=== PATIENT | male | born 1940 | race Caucasian/White ===

== ENCOUNTER → 2016-08-15 | Outpatient (CLI) | payer OTHER, MEDICARE ==
[~2016-08-15] MED LIST: CHOL1000 PO; DOXY100C76 PO; LISI20TA3 PO; LORA-749 PO; MILK140C PO; PRED1SUS3 OPL; SNG10 PO; SYMIN160 INH
[2016-08-15 12:55] VITALS: BP 151/80; PULSE 68; TEMP 37; O2SAT 98
--- NOTE | 2016-08-15 17:35 | Radiation Oncology Follow-Up ---
Radiation Oncology Follow-Up Date of Visit August 15, 2016. Reason For Visit Annual follow-up Radiation Completion Date 12/17/11 Diagnosis (1) Prostate cancer Status: Resolved Onset Date: 09/27/2011 Location: prostate with extraprostatic extension Histology Subtype: adenocarcinoma Stage: lll Permanent Comment: Rising PSA, pretreatment PSA 7.44 clinical stage TIc Biopsy stage T2b Charles grade 3+2 and 3+3 Active surveillance Recheck PSA 10.2, repeat biopsy [place] 3+3, biopsy stage T2b Continued rise in PSA Status post robotic prostatectomy 07/10/2011, stage [id number] Status post completion of radiation therapy the prostate bed 12/17/2011 received 7000 cGy Last Edited By: Jennifer Brown on August 11, 2014 14:29 Interim History He has been doing well over this past year for a urinary standpoint. He gave an AUA score of 3. He completed and expanded prostate cancer index composite for clinical practice and gave a score of 3 of 12 and urinary incontinence symptoms. He gave a score of 0 of 12 urinary irritation symptoms. He gave a score of 0 of 12 and bowel symptoms. He gave a score of 10 of 12 in sexual symptoms. He gave a score 0 of 12 and hormonal vitality symptoms. His total was 13 of 60. Medications have been prescribed by Dr. Galan for the erectile dysfunction. He stated that these did not help. He has previously declined referral for [place] physical therapy to help with the urinary incontinence. Allergies Coded Allergies: No Known Allergies (Unverified , NONE, 07/25/15) Home Medications Scheduled Cholecalciferol (Vitamin D3), 1 TAB PO DAILY Lisinopril (Prinivil), 20 MG PO QAM Milk Thistle (Silybum Marianum (Milk Thistle), 1 CAP PO QAM Montelukast (Singulair *), 10 MG PO NOON Scheduled PRN Budesonide/Formoterol Fumarate (Symbicort 160/4.5 Inhaler ), 2 PUFFS INH BID PRN for Shortness of Breath Doxycycline Monohydrate (Monodox), 100 MG PO DAILY PRN for UNDECIDED Loratadine & Pseudoephedrine (Claritin-D 24 Hour), 1 TAB PO DAILY PRN for CONGESTION Review of Systems Gastrointestinal: Symptoms: WNL GI Comments: No fiber supplements; Oral: Symptoms: No Problems Respiratory: Symptoms: WNL Urinary: Symptoms: Incontinence Comments: Some improvement of his incontinence;only occurs if he drinks wine ; Skin: Symptoms: No Problems Physical Exam Vital Signs Date Time Temp Pulse Resp B/P Pulse Ox O2 Delivery O2 Flow Rate FiO2 08/15/16 12:55 37.0 68 24 151/80 98 Fatigue: None General Appearance: no apparent distress Eyes: normal inspection, EOMI ENT: normal ENT inspection, hearing grossly normal Neck: no adenopathy, thyroid normal Respiratory/Chest: lungs clear, no respiratory distress, no accessory muscle use Cardiovascular: regular rate, rhythm Abdomen: non tender Anal / Rectum: Normal sphincter tone. Prostate bed is flat. No rectal masses no rectal bleeding. Extremities: no pedal edema Neurologic/Psychiatric: no motor/sensory deficits, alert, normal mood/affect Laboratory Studies Test 08/15/16 13:30 Prostate Specific Antigen < 0.010 ng/ml (0.000-4.000) Assessment & Plan Plan: PSA was drawn today. He'll be notified as to results. We reviewed his PSAs over the past few years. These have all been excellent. A follow-up appointment with our office was not given. He'll continue on an annual basis with urology. He may call our office if he has any questions or concerns may be happy to see him. Total Time In Follow-Up I spent 20 minutes speaking to the patient and performing examination. I spent 15 minutes reviewing information and completing this note. Copy To Wil Sorto M.D.; Lenin Galan MD, Urology
== END | disposition home or self-care (01) ==
LOC: C.ONC 12:41
PROVIDERS: ATTEND Physician Assistant Medical
DX: Z08 Encounter for follow-up examination after completed treatment for malignant neoplasm (principal); Z92.3 Personal history of irradiation; Z85.46 Personal history of malignant neoplasm of prostate

== ENCOUNTER → 2016-10-08 | Outpatient (CLI) | payer OTHER, MEDICARE ==
[~2016-10-08] MED LIST changes: -LORA-749 PO; +LORA10TA57 PO; -PRED1SUS3 OPL
[2016-10-08 11:04] LABS: BASO % 0.2 %; BASO ABS # 0.01 K/uL (0-0.2); COMPLETE YES; EOS % 1.7 %; HEMATOCRIT 44.6 % (42-52); IG% 0.2 %; LYMPH % 28.8 %; LYMPH ABS # 1.36 K/uL (1.2-3.4); MEAN CELL VOLUME 89.2 fL (80-100); MEAN CORPUSCULAR HEMOGLOBIN 29.4 pg (25-34); MEAN PLATELET VOLUME 9.7 fL (7.4-10.4); MONO % 18.4 %; NEUT % 50.7 %; PLATELET COUNT 278 K/uL (130-400); WHITE BLOOD COUNT 4.73 K/uL (4.8-10.8)
[2016-10-08 11:22] LABS: ALB/GLOB RATIO 1.2 (0.9-2); ALKALINE PHOSPHATASE 61 U/L (45-117); ALT/SGPT 36 U/L (12-78); AST/SGOT 29 U/L (15-37); BLOOD UREA NITROGEN 23 mg/dl (7-18); BUN/CREATININE RATIO 25.7 (10-20); CALCIUM 9.5 mg/dl (8.5-10.1); CARBON DIOXIDE 28 mmol/L (21-32); CHLORIDE 107 mmol/L (98-107); CHOLESTEROL 237 mg/dl (0-200); CHOLESTEROL/HDL RATIO 2.8; CREATININE 0.88 mg/dl (0.60-1.40); GLUCOSE 100 mg/dl (70-99); HDL CHOLESTEROL 86 mg/dl; SODIUM 142 mmol/L (136-145)
[2016-10-08 11:36] LABS: LDL CHOLESTEROL CALCULATED 135 mg/dl; TRIGLYCERIDES 79 mg/dl (0-150); VERY LOW DENSITY LIPOPROT CALC 16 mg/dl
== END | disposition home or self-care (01) ==
LOC: C.LABBC 07:16
PROVIDERS: ATTEND Internal Medicine
DX: E55.9 Vitamin D deficiency, unspecified (principal)

== ENCOUNTER → 2017-04-29 | Outpatient (CLI) | payer OTHER, MEDICARE ==
[~2017-04-29] MED LIST changes: +LORA-749 PO; -LORA10TA57 PO
== END | disposition home or self-care (01) ==
LOC: C.LAB 13:08
PROVIDERS: ATTEND Urology
DX: C61 Malignant neoplasm of prostate (principal); N52.9 Male erectile dysfunction, unspecified; N39.3 Stress incontinence (female) (male)

== ENCOUNTER 2020-05-01 20:49 | Inpatient (IN) ==
--- NOTE | 2020-05-01 21:23 | Emergency Department Note ---
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 He also reports recently having diarrhea last week that has been improving and a dry cough over the past couple of weeks. He denies any known COVID-19 exposures and has not had any visitors that he reports. He denies any chest pain, shortness of breath, nausea, vomiting, urinary symptoms. On arrival the patient fatigued appearing but no acute distress, febrile to 38.0, heart in the 100s and blood pressure 200/100s with O2 saturation 95% on room air. The patient appears clinically dry. He does exhibit 4/5 strength in all extremities with impaired coordination of the upper extremities which she reports is not abnormal for him. EKG without overt acute ischemia. Chest x-ray negative for acute cardiopulmonary process per my preliminary review. WBC 11.3K. H/H and platelets within normal limits. Chemistry without metabolic acidosis. VBG unremarkable. Potassium 3.1 repletion provided. Lactate 1.4, within normal limits. Total bili 1.5 with direct bilirubin 0.6, nonspecific given no upper abdominal pain. LFTs unremarkable. CPK within normal limits. Troponin negative/undetectable. Procalcitonin 0.08, nonspecific. COVID-19 PCR negative. Influenza and RSV PCR also negative. Patient was ordered for 2 g of ceftriaxone empirically with suspicion for urinary infection. CT of the head and CT of the pelvis performed. CT head negative for acute process per preliminary stat rad report. CT and pelvis with evidence of cystitis with thickened bladder as well as thickening and enhancement of left urothelium. Right inguinal hernia without obstruction and is similar to prior CT. Urine sample pending as patient missed the urinal. Patient agrees with admission given his weakness in the setting of infection. Dr. ANA CRISTINA Mcginnis hospitalist will evaluate the patient for admission. Triage Nursing notes reviewed and agree them. Prior medical records reviewed Vital Signs: reviewed and remarkable for fever, tachycardia. Differential diagnosis: Infection, dehydration, metabolic abnormality, hypo/hyperglycemia, electrolyte disturbance, anemia, hypoxia, cardiac sources, intracerebral event, toxicologic, neurologic, as well as other pathologies. ER treatment provided: See below. Diagnostics interpreted by me: ECG: Sinus rhythm with PACs with aberrant conduction, 97 bpm, right bundle branch block, no overt ST elevation or depression, QTC 492, QRS 142. Cardiac Monitoring: An order for continuous cardiac monitoring was placed and demonstrated sinus rhythm with PACs with aberrant conduction, 97 bpm. Laboratory studies: See below Imaging studies: CXR: No acute cardiopulmonary process per my preliminary review. STATRAD: Preliminary Findings Only See Final Report For Complete Findings CT HEAD: Motion. No ICH, mass effect or edema. No evidence of acute cortical stroke. Involutional changes with small vessel ischemic change. Cataract surgery Visualized sinuses and mastoid air cells are clear. Radiologist: Justus Boucher M.D. Study ready at 00:54 and initial results transmitted at 01:01 -- Preliminary Findings Only See Final Report For Complete Findings CT ABDOMEN & PELVIS With Contrast: Thickening and enhancement especially of the left urothelium suggesting inflammatory process or infection. Under distended and thickened bladder, may be from cystitis or infiltrative process. No radiodense gallstones or pancreatitis. Left renal cyst. Unremarkable appendix. No evidence of colitis or diverticulitis. Right inguinal hernia containing bowel and fat. No bowel obstruction. Degenerative changes in the spine with associated spinal stenosis. Radiologist: Justus Boucher M.D. Study ready at 01:00 and initial results transmitted at 01:05 Consultation(s): ANA CRISTINA Carson hospitalist. 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 He also reports recently having diarrhea last week that has been improving and a dry cough over the past couple of weeks. He denies any known COVID-19 exposures and has not had any visitors that he reports. He denies any chest pain, shortness of breath, nausea, vomiting, urinary symptoms. ROS: See above HPI for pertinent positives & negatives. A total of 10 systems reviewed and were otherwise negative. PAST MEDICAL HISTORY:See Below PAST SURGICAL HISTORY:See Below FAMILY HISTORY:See Below SOCIAL HISTORY:See Below HOME MEDICATIONS:See Below ALLERGIES:See Below VITALS:See Below PHYSICAL EXAMINATION: GENERAL: Awake, alert, fatigued-appearing, in no distress HENT: Normocephalic, atraumatic. Oropharynx with dry mucous membranes and otherwise unremarkable. EYES: Normal conjunctiva. Sclera non-icteric. NECK: Supple. No nuchal rigidity. FROM. No JVD. RESPIRATORY: Clear to auscultation. CARDIAC: Regular rate, normal rhythm. Extremities warm and well perfused. Pulses equal. ABDOMEN: Soft, non-distended. No tenderness to palpation. No rebound or guarding. No masses. RECTAL: Deferred. MUSCULOSKELETAL: Chest examination reveals no tenderness. The back is symmetrical on inspection without obvious abnormality. There is no CVA tenderness to palpation. No joint edema. LOWER EXTREMITIES: Calves are equal size bilaterally and non-tender. No edema. No discoloration. NEURO: Normal sensorium. No sensory or motor deficits noted. SKIN: No rash or jaundice noted. Edy Pelaez MD Past Med/Surg History Medical History (Updated 05/02/20 @ 01:14 by Edy Pelaez MD) Benign neoplasm of large intestine Hyperlipidemia Hypertension Leukopenia Male stress incontinence Organic impotence Prostate cancer (09/27/11) "Rising PSA, pretreatment PSA 7.44 clinical stage TIc Biopsy stage T2b Charles grade 3+2 and 3+3 Active surveillance Recheck PSA 10.2, repeat biopsy [place] 3+3, biopsy stage T2b Continued rise in PSA Status post robotic prostatectomy 07/10/2011, stage [id number] Status post completion of radiation therapy the prostate bed 12/17/2011 received 7000 cGy" Quadriparesis Rosacea Vitamin D deficiency Surgical History H/O prostatectomy H/O Spinal surgery Hx of tonsillectomy Family History Mother Lung cancer Breast cancer Other Alcoholism in family Social History Smoking Status: Never smoker Second Hand Exposure: No; Hx Alcohol Use: No Hx Substance Use: No Preferred Language: Turkmen Communication Ability: Effective Visual Impairment: Partially Limited Hearing Ability: Hard of Hearing Solvent Mixer Required: No Beliefs That Will Affect Care: None marital status: Single Current Living Situation: Alone current occupational status: retired Feels Safe at Home: Yes Childhood Exposure to Second-Hand Smoke: Yes caffeine: Yes Dental Care, Regularly: Yes Physical Activity Frequency: 3-4 Times per Week Seatbelt Use: always Sunscreen Use: No Assistive Devices: Glasses Allergies Allergies Allergy/AdvReac Type Severity Reaction Status Date / Time No Known Allergies Allergy Mild NONE Verified 05/01/20 21:51 Home Meds Home Medications Medication Instructions Recorded Confirmed cholecalciferol (vitamin D3) 25 2,000 units PO DAILY cap 11/11/18 05/01/20 mcg (1,000 unit) capsule loratadine 5 mg-pseudoephedrine ER 1 tab PO Q12H PRN tab 11/11/18 05/01/20 120 mg tablet,extended release,12hr Previous Rx's Medication Instructions Recorded montelukast 10 mg tablet 10 mg PO DAILY #90 tab 07/08/19 lisinopril 20 mg tablet 20 mg PO QAM #90 tab 07/23/19 Results & Data (ED) Vital Signs Vital Signs - 24 hr 05/01/20 20:50 05/01/20 21:02 05/01/20 22:25 Temperature 38.0 C H Temperature Source Oral Pulse Rate 106 H Pulse Rate [Right Finger] 100 H Pulse Rate from SpO2 Sensor Respiratory Rate 18 22 Respiratory Effort / Characteristics Non-Labored Spontaneous Non-Labored Spontaneous Respiratory Depth Normal Normal Respiratory Pattern Regular Regular Blood Pressure 204/113 H Blood Pressure [Right Arm] 193/123 H Blood Pressure Mean 143 Blood Pressure Mean [Right Arm] 146 Blood Pressure Position Lying Blood Pressure Position [Right Arm] Lying Pulse Oximetry 95 95 96 Oxygen Delivery Method Room Air Room Air Room Air Sepsis Recent Fever Within 48 Hours Yes Sepsis New/Unexplained Change in Mental Status No Sepsis Action Taken by Nursing No Action Required 05/01/20 23:36 05/02/20 00:42 05/02/20 01:00 Temperature 37.3 C Temperature Source Oral Pulse Rate 94 H 78 Pulse Rate [Right Finger] 88 Pulse Rate from SpO2 Sensor 92 H 78 Respiratory Rate 18 20 20 Respiratory Effort / Characteristics Non-Labored Spontaneous Respiratory Depth Normal Respiratory Pattern Regular Blood Pressure 178/118 H 138/88 Blood Pressure [Right Arm] 166/113 H Blood Pressure Mean 138 104 Blood Pressure Mean [Right Arm] 130 Blood Pressure Position Blood Pressure Position [Right Arm] Lying Pulse Oximetry 95 96 95 Oxygen Delivery Method Room Air Room Air Room Air Sepsis Recent Fever Within 48 Hours Sepsis New/Unexplained Change in Mental Status Sepsis Action Taken by Nursing 05/02/20 01:30 05/02/20 02:00 Temperature Temperature Source Pulse Rate 78 77 Pulse Rate [Right Finger] Pulse Rate from SpO2 Sensor 78 73 Respiratory Rate 22 20 Respiratory Effort / Characteristics Respiratory Depth Respiratory Pattern Blood Pressure 159/94 H 158/119 H Blood Pressure [Right Arm] Blood Pressure Mean 115 132 Blood Pressure Mean [Right Arm] Blood Pressure Position Blood Pressure Position [Right Arm] Pulse Oximetry 97 96 Oxygen Delivery Method Room Air Room Air Sepsis Recent Fever Within 48 Hours Sepsis New/Unexplained Change in Mental Status Sepsis Action Taken by Nursing Laboratory Data Attestation: I reviewed the patient's lab results. Result diagrams: 05/01/20 22:32 05/01/20 22:32 Lab Results 05/01/20 05/01/20 05/01/20 Range/Units 21:51 21:51 22:32 WBC 11.36 H (4.8-10.8) K/uL RBC 5.17 (4.7-6.1) M/uL Hgb 15.2 (14.0-18.0) g/dL Hct 43.7 (42-52) % MCV 84.5 (80-100) fL MCH 29.4 (25-34) pg MCHC 34.8 (32-36) g/dL RDW Std Deviation 43.8 (36.4-46.3) fL RDW Coeff of Rocky 14.0 (11.5-14.5) % Plt Count 353 (130-400) K/uL MPV 8.5 (7.4-10.4) fL Immature Gran % (Auto) 0.4 % Neut % (Auto) 82.8 % Lymph % (Auto) 7.9 % Collier % (Auto) 8.5 % Eos % (Auto) 0.3 % Baso % (Auto) 0.1 % Neut # (Auto) 9.42 H (1.4-6.5) K/uL Lymph # (Auto) 0.90 L (1.2-3.4) K/uL [place] # (Auto) 0.96 H (0.11-0.59) K/uL Eos # (Auto) 0.03 (0-0.5) K/uL Baso # (Auto) 0.01 (0-0.2) K/uL Immature Gran # (Auto) 0.04 H (0.00-0.02) K/uL PT (9.0-12.0) Seconds INR (0.9-1.1) APTT (21.0-31.0) Seconds PTT Ratio VBG pH (7.36-7.41) VBG pCO2 (38-50) mmHg VBG pO2 mmHg VBG HCO3 mmol/L VBG O2 Saturation % VBG Base Excess mEq/L Barometric Pressure mm/Hg Sodium (136-145) mmol/L Potassium (3.5-5.1) mmol/L Chloride (98-107) mmol/L Carbon Dioxide (21-32) mmol/L Anion Gap (3-11) BUN (7-18) mg/dl Creatinine (0.6-1.4) mg/dl Est Cr Clr Drug Dosing ml/min Est GFR ( Amer) Est GFR (Non-Af Amer) BUN/Creatinine Ratio (10-20) Glucose (70-99) mg/dl Lactate (0.4-2.0) mmol/L Calcium (8.5-10.1) mg/dl Phosphorus (2.5-4.9) mg/dl Magnesium (1.8-2.4) mg/dl Total Bilirubin (0.2-1) mg/dl Direct Bilirubin (0-0.2) mg/dl AST (15-37) U/L ALT (12-78) U/L Alkaline Phosphatase (45-117) U/L Total Creatine Kinase (39-308) U/L Troponin I (0-0.045) ng/ml Total Protein (6.4-8.2) gm/dl Albumin (3.4-5.0) gm/dl Globulin (2.5-4.0) gm/dl Albumin/Globulin Ratio (0.9-2) Lipase (73-393) U/L Procalcitonin (0-0.5) ng/ml TSH (0.300-4.500) uIu/ml Urine Color Urine Appearance (Clear) Urine pH (4.5-7.5) Ur Specific Taylor (1.000-1.030) Urine Protein (Negative) Urine Glucose (UA) (Negative) Urine Ketones (Negative) Urine Blood (Negative) Urine Nitrite (Negative) Urine Bilirubin (Negative) Urine Urobilinogen (Negative) Ur Leukocyte Esterase (Negative) Urine WBC (Auto) (0-5) /hpf Urine RBC (Auto) (0-4) /hpf U Hyaline Cast (Auto) (0-5) /lpf U Epithel Cells (Auto) (0-5) /lpf Urine Bacteria (Auto) (Negative) Urine Yeast COVID-19 Eval Order CovFluRsv at [facility] SARS-CoV-2 (PCR) NEGATIVE (Negative) Influenza Type A (PCR) Negative (Neg) Influenza Type B (PCR) Negative (Neg) RSV (RT-PCR) Negative (Neg) 05/01/20 05/01/20 05/01/20 Range/Units 22:32 22:32 22:32 WBC (4.8-10.8) K/uL RBC (4.7-6.1) M/uL Hgb (14.0-18.0) g/dL Hct (42-52) % MCV (80-100) fL MCH (25-34) pg MCHC (32-36) g/dL RDW Std Deviation (36.4-46.3) fL RDW Coeff of Rocky (11.5-14.5) % Plt Count (130-400) K/uL MPV (7.4-10.4) fL Immature Gran % (Auto) % Neut % (Auto) % Lymph % (Auto) % [place] % (Auto) % Eos % (Auto) % Baso % (Auto) % Neut # (Auto) (1.4-6.5) K/uL Lymph # (Auto) (1.2-3.4) K/uL [place] # (Auto) (0.11-0.59) K/uL Eos # (Auto) (0-0.5) K/uL Baso # (Auto) (0-0.2) K/uL Immature Gran # (Auto) (0.00-0.02) K/uL PT 11.5 (9.0-12.0) Seconds INR 1.1 (0.9-1.1) APTT 27.6 (21.0-31.0) Seconds PTT Ratio 1.0 VBG pH (7.36-7.41) VBG pCO2 (38-50) mmHg VBG pO2 mmHg VBG HCO3 mmol/L VBG O2 Saturation % VBG Base Excess mEq/L Barometric Pressure mm/Hg Sodium 133 L (136-145) mmol/L Potassium 3.1 L (3.5-5.1) mmol/L Chloride 97 L (98-107) mmol/L Carbon Dioxide 27 (21-32) mmol/L Anion Gap 9.0 (3-11) BUN 10 (7-18) mg/dl Creatinine 0.93 (0.6-1.4) mg/dl Est Cr Clr Drug Dosing 68.6 ml/min Est GFR ( Amer) 90.2 Est GFR (Non-Af Amer) 77.8 BUN/Creatinine Ratio 10.3 (10-20) Glucose 93 (70-99) mg/dl Lactate 1.4 (0.4-2.0) mmol/L Calcium 9.2 (8.5-10.1) mg/dl Phosphorus 2.7 (2.5-4.9) mg/dl Magnesium 2.1 (1.8-2.4) mg/dl Total Bilirubin 1.5 H (0.2-1) mg/dl Direct Bilirubin 0.6 H (0-0.2) mg/dl AST 16 (15-37) U/L ALT 22 (12-78) U/L Alkaline Phosphatase 137 H (45-117) U/L Total Creatine Kinase 81 (39-308) U/L Troponin I < 0.015 (0-0.045) ng/ml Total Protein 7.3 (6.4-8.2) gm/dl Albumin 3.2 L (3.4-5.0) gm/dl Globulin 4.1 H (2.5-4.0) gm/dl Albumin/Globulin Ratio 0.8 L (0.9-2) Lipase 88 (73-393) U/L Procalcitonin (0-0.5) ng/ml TSH 1.080 (0.300-4.500) uIu/ml Urine Color Urine Appearance (Clear) Urine pH (4.5-7.5) Ur Specific Taylor (1.000-1.030) Urine Protein (Negative) Urine Glucose (UA) (Negative) Urine Ketones (Negative) Urine Blood (Negative) Urine Nitrite (Negative) Urine Bilirubin (Negative) Urine Urobilinogen (Negative) Ur Leukocyte Esterase (Negative) Urine WBC (Auto) (0-5) /hpf Urine RBC (Auto) (0-4) /hpf U Hyaline Cast (Auto) (0-5) /lpf U Epithel Cells (Auto) (0-5) /lpf Urine Bacteria (Auto) (Negative) Urine Yeast COVID-19 Eval Order SARS-CoV-2 (PCR) (Negative) Influenza Type A (PCR) (Neg) Influenza Type B (PCR) (Neg) RSV (RT-PCR) (Neg) 05/01/20 05/01/20 05/02/20 Range/Units 22:32 22:32 01:27 WBC (4.8-10.8) K/uL RBC (4.7-6.1) M/uL Hgb (14.0-18.0) g/dL Hct (42-52) % MCV (80-100) fL MCH (25-34) pg MCHC (32-36) g/dL RDW Std Deviation (36.4-46.3) fL RDW Coeff of Rocky (11.5-14.5) % Plt Count (130-400) K/uL MPV (7.4-10.4) fL Immature Gran % (Auto) % Neut % (Auto) % Lymph % (Auto) % Collier % (Auto) % Eos % (Auto) % Baso % (Auto) % Neut # (Auto) (1.4-6.5) K/uL Lymph # (Auto) (1.2-3.4) K/uL [place] # (Auto) (0.11-0.59) K/uL Eos # (Auto) (0-0.5) K/uL Baso # (Auto) (0-0.2) K/uL Immature Gran # (Auto) (0.00-0.02) K/uL PT (9.0-12.0) Seconds INR (0.9-1.1) APTT (21.0-31.0) Seconds PTT Ratio VBG pH 7.43 H (7.36-7.41) VBG pCO2 42 (38-50) mmHg VBG pO2 24 mmHg VBG HCO3 27 mmol/L VBG O2 Saturation < 60.0 % VBG Base Excess 2.5 mEq/L Barometric Pressure 738.6 mm/Hg Sodium (136-145) mmol/L Potassium (3.5-5.1) mmol/L Chloride (98-107) mmol/L Carbon Dioxide (21-32) mmol/L Anion Gap (3-11) BUN (7-18) mg/dl Creatinine (0.6-1.4) mg/dl Est Cr Clr Drug Dosing ml/min Est GFR ( Amer) Est GFR (Non-Af Amer) BUN/Creatinine Ratio (10-20) Glucose (70-99) mg/dl Lactate (0.4-2.0) mmol/L Calcium (8.5-10.1) mg/dl Phosphorus (2.5-4.9) mg/dl Magnesium (1.8-2.4) mg/dl Total Bilirubin (0.2-1) mg/dl Direct Bilirubin (0-0.2) mg/dl AST (15-37) U/L ALT (12-78) U/L Alkaline Phosphatase (45-117) U/L Total Creatine Kinase (39-308) U/L Troponin I (0-0.045) ng/ml Total Protein (6.4-8.2) gm/dl Albumin (3.4-5.0) gm/dl Globulin (2.5-4.0) gm/dl Albumin/Globulin Ratio (0.9-2) Lipase (73-393) U/L Procalcitonin 0.08 (0-0.5) ng/ml TSH (0.300-4.500) uIu/ml Urine Color Dark Yellow Urine Appearance Turbid A (Clear) Urine pH 6.0 (4.5-7.5) Ur Specific Taylor 1.040 H (1.000-1.030) Urine Protein 2+ H (Negative) Urine Glucose (UA) Negative (Negative) Urine Ketones 3+ H (Negative) Urine Blood 3+ H (Negative) Urine Nitrite Negative (Negative) Urine Bilirubin 1+ H (Negative) Urine Urobilinogen Negative (Negative) Ur Leukocyte Esterase 2+ H (Negative) Urine WBC (Auto) >30 H (0-5) /hpf Urine RBC (Auto) 5-10 H (0-4) /hpf U Hyaline Cast (Auto) 0 (0-5) /lpf U Epithel Cells (Auto) >30 H (0-5) /lpf Urine Bacteria (Auto) 4+ H (Negative) Urine Yeast Not Reportable COVID-19 Eval Order SARS-CoV-2 (PCR) (Negative) Influenza Type A (PCR) (Neg) Influenza Type B (PCR) (Neg) RSV (RT-PCR) (Neg) Administered Medications Potassium Chloride/Sodium Chloride (Normal Saline W/20 Meq Kcl) 20 meq in 1,000 mls @ 80 mls/hr IV .[id number] IRVING Stop: 05/03/20 04:44 Last Admin: 05/02/20 03:54 Dose: 80 mls/hr Documented by: [id number] Discontinued Medications Acetaminophen (Ofirmev) 1,000 mg in 100 mls @ 400 mls/hr IV NOW STA Stop: 05/01/20 21:50 Last Infusion: 05/01/20 22:58 Dose: 0 mls/hr Documented by: [id number] Admin: 05/01/20 22:24 Dose: 400 mls/hr Documented by: [id number] Sodium Chloride (Nss) 500 mls @ 999 mls/hr IV .Q31M ONE Stop: 05/01/20 22:06 Last Infusion: 05/01/20 22:59 Dose: 0 mls/hr Documented by: [id number] Admin: 05/01/20 22:24 Dose: 999 mls/hr Documented by: [id number] Sodium Chloride (Nss) 500 mls @ 999 mls/hr IV .Q31M ONE Stop: 05/02/20 00:16 Last Infusion: 05/02/20 01:59 Dose: 0 mls/hr Documented by: [id number] Admin: 05/02/20 01:22 Dose: 999 mls/hr Documented by: [id number] Potassium Chloride (K Toribio / Wtr) 10 meq in 100 mls @ 100 mls/hr IV Q1H IRVING Stop: 05/02/20 01:44 Last Admin: 05/02/20 03:55 Dose: 100 mls/hr Documented by: [id number] Infusion: 05/02/20 02:15 Dose: 0 mls/hr Documented by: [id number] Admin: 05/02/20 01:22 Dose: 100 mls/hr Documented by: [id number] Ceftriaxone Sodium (Rocephin) 2,000 mg in 70 mls @ 140 mls/hr IV NOW STA Stop: 05/02/20 00:16 Last Infusion: 05/02/20 03:56 Dose: 0 mls/hr Documented by: [id number] Admin: 05/02/20 02:45 Dose: 140 mls/hr Documented by: [id number] Ioversol (Ioversol 100ml) 100 ml IV ONCE ONE Stop: 05/02/20 01:00 Last Admin: 05/02/20 01:00 Dose: 93 ml Documented by: [id number] Discharge Plan Visit Data Chief Complaint: Illness Stated Complaint: WEAKNESS ED Provider: Edy Pelaez Discharge Problem: Acute UTI, Hypokalemia, Weakness, Near syncope Patient Disposition: Admitted As Inpatient Discharge Instructions Interventions: ED Discharge Assessment Last Done: 05/02/20 02:49
[2020-05-01] MEDS ORDERED: ACETAMINOPHEN 1,000 MG/100 ML VIAL IV STA (21:36)
[2020-05-01] MEDS ORDERED: SODIUM CHLORIDE 0.9% 500 ML IV ONE ×2 (21:36→23:46)
[2020-05-01 22:44] LABS: Basophils # (auto) 0.01 K/uL (0-0.2); Basophils % (auto) 0.1 %; Eosinophils # (auto) 0.03 K/uL (0-0.5); Eosinophils % (auto) 0.3 %; Hematocrit (blood only) 43.7 % (42-52); Hemoglobin 15.2 g/dL (14.0-18.0); Immature Granulocytes # (auto) 0.04 K/uL (0.00-0.02); Immature Granulocytes % (auto) 0.4 %; Lymphocytes % (auto) 7.9 %; Mean Corpuscular Hemoglobin 29.4 pg (25-34); Mean Corpuscular Hgb Conc 34.8 g/dL (32-36); Mean Corpuscular Volume 84.5 fL (80-100); Mean Platelet Volume 8.5 fL (7.4-10.4); Monocytes # (auto) 0.96 K/uL (0.11-0.59); Monocytes % (auto) 8.5 %; Neutrophils # (auto) 9.42 K/uL (1.4-6.5); Neutrophils % (auto) 82.8 %; Platelet Count 353 K/uL (130-400); RDW Standard Deviation 43.8 fL (36.4-46.3); Red Blood Count 5.17 M/uL (4.7-6.1); White Blood Count 11.36 K/uL (4.8-10.8)
[2020-05-01 22:47] LABS: Base Excess VBG 2.5 mEq/L; HCO3 VBG 27 mmol/L; PCO2 VBG 42 mmHg (38-50); PO2 VBG 24 mmHg; pH VBG 7.43 (7.36-7.41)
[2020-05-01 22:48] LABS: Oxygen Saturation VBG < 60.0 %
[2020-05-01 22:54] LABS: INR 1.1 (0.9-1.1); Partial Thromboplastin Time 27.6 Seconds (21.0-31.0); Prothrombin Time 11.5 Seconds (9.0-12.0)
[2020-05-01 23:01] LABS: Alanine Aminotransferase 22 U/L (12-78); Albumin Level 3.2 gm/dl (3.4-5.0); Aspartate Aminotransferase 16 U/L (15-37); BUN Creatinine Ratio 10.3 (10-20); Blood Urea Nitrogen 10 mg/dl (7-18); Calcium 9.2 mg/dl (8.5-10.1); Carbon Dioxide 27 mmol/L (21-32); Chloride 97 mmol/L (98-107); Creatinine Clr Calc Pharmacy 68.6 ml/min; Est GFR (African American) 90.2; Est GFR (Non-African American) 77.8; Glucose 93 mg/dl (70-99); Lipase 88 U/L (73-393); Magnesium 2.1 mg/dl (1.8-2.4); Potassium 3.1 mmol/L (3.5-5.1); Sodium 133 mmol/L (136-145)
[2020-05-01 23:09] LABS: Albumin Globulin Ratio 0.8 (0.9-2); Alkaline Phosphatase 137 U/L (45-117); Bilirubin Direct 0.6 mg/dl (0-0.2); Bilirubin,Total 1.5 mg/dl (0.2-1); Creatine Kinase 81 U/L (39-308); Globulin 4.1 gm/dl (2.5-4.0); Phosphorus 2.7 mg/dl (2.5-4.9); Total Protein 7.3 gm/dl (6.4-8.2); Troponin I < 0.015 ng/ml (0-0.045)
[2020-05-01 23:38] LABS: Influenza A virus by PCR Negative (Neg); Influenza B virus by PCR Negative (Neg); RSV by PCR Negative (Neg); SARS CoV2 RNA(COVID-19) InHosp NEGATIVE (Negative)
[2020-05-01] MEDS ORDERED: cefTRIAXone SODIUM 2,000 MG/70 ML BAG IV STA (23:47)
[2020-05-02] MEDS ORDERED: IOVERSOL 100ml IV ONE (00:59)
[2020-05-02] MEDS: POTASSIUM CHLORIDE / WTR 10 MEQ/100 ML PLCT IV SCH ×2 (01:22→03:55)
[2020-05-02 01:36] LABS: Appearance Urine Turbid (Clear); Bacteria Urine Automated 4+ (Negative); Blood Urine 3+ (Negative); Color Urine Dark Yellow; Epithelial Cell Urine Auto >30 /lpf (0-5); Glucose Urine UA Negative (Negative); Ketones Urine 3+ (Negative); Leukocyte Esterase Urine 2+ (Negative); Nitrite Urine Negative (Negative); Protein Urine 2+ (Negative); Urobilinogen Urine Negative (Negative); WBC Urine Automated >30 /hpf (0-5)
[2020-05-02 01:37] LABS: Bilirubin Urine 1+ (Negative)
[2020-05-02 01:47] LABS: Cast Urine Automated 0 /lpf (0-5)
--- NOTE | 2020-05-02 02:32 | History & Physical Report ---
Date of Service May 02, 2020 Assessment & Plan (1) Acute UTI: Patient febrile on arrival. HD stable. Urine culture with pansensitive Klebsiella in the past. Thickened ureter not mentioned on previous CT imaging from July 2019, ?infection -Follow urine culture -Ceftriaxone 1gm IV daily Present on Admission?: Yes (2) Hypokalemia: K=3.1. Given 10mEq in ER -KCL x 40 mEq in IVF -Repeat labs in AM Present on Admission?: Yes (3) Weakness: Possibly secondary to UTI, hypokalemia, dehydration. Patient already has home services 3x weekly to assist with strength and balance. -Treatement as above, IVF and K repletion, antibiotics -PT/OT assessment appreciated Present on Admission?: Yes (4) Hypertension: Blood pressure elevated on arrival, now improved -Continue Lisinopril 20mg po daily -Continue to monitor Present on Admission?: Yes (5) Vitamin D deficiency: Chronic. Stable -Continue Vitamin D supplementation Abnormal LFTS - patietn with Tbili=1.5, Dbili=1.1 and SW=954. No history of liver disease. Normal liver and gallbladder on CT. -Repeat LFTs in AM -Consider US pending results F/E/N - NSS at 80mL/hr + 20mEQ KCL x 2 liters, montior K as above, Heart healthy diet as tolerated Ppx - Lovenox Code - Full Dispo - Admit to medical History of Present Illness Chief Complaint: weakness, ambulatory dysfunction Primary Care Provider: Wil Sorto MD Donovan Thornton is a 80yo male presenting with weakness and inability to ambulate. 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 He lives alone and currently has in-home PT three times per week x 1 hour sessions. He ambulates at home independently, occasionally uses assist devices - walker. He reports gait instability that developed yesterday afternoon. He states he was unable to walk downstairs to feed his animals (He has a pet bird and a dog). Denies focal weakness, CHRISTINE, visual changes, numbness/tingling Denies urinary complaints, dysuria, flank pain. He does have urinary incontinence. On arrival to the ER he was febrile, tachycardic and hypertensive. VS improved in the ER - presently with Tc=37.5, HR=78, QW=452/88 Ambulatory trial in ER - patient required two people to assist. Unsteady gait. ER Course: NSS x 1L, KCl x 10 mEq, Ceftriaxone x 2gm, Tylenol x 1 gm Allergies Allergy/AdvReac Type Severity Reaction Status Date / Time No Known Allergies Allergy Mild NONE Verified 05/01/20 21:51 Home Medications Medication Instructions Recorded Confirmed Type cholecalciferol (vitamin D3) 25 2,000 units PO DAILY cap 11/11/18 05/01/20 History mcg (1,000 unit) capsule loratadine 5 mg-pseudoephedrine ER 1 tab PO Q12H PRN tab 11/11/18 05/01/20 History 120 mg tablet,extended release,12hr montelukast 10 mg tablet 10 mg PO DAILY #90 tab 07/08/19 05/01/20 Rx lisinopril 20 mg tablet 20 mg PO QAM #90 tab 07/23/19 05/01/20 Rx Past Med/Surg History Medical History (Updated 05/02/20 @ 01:14 by Edy Pelaez MD) Benign neoplasm of large intestine Hyperlipidemia Hypertension Leukopenia Male stress incontinence Organic impotence Prostate cancer (09/27/11) "Rising PSA, pretreatment PSA 7.44 clinical stage TIc Biopsy stage T2b Manderson grade 3+2 and 3+3 Active surveillance Recheck PSA 10.2, repeat biopsy Charles 3+3, biopsy stage T2b Continued rise in PSA Status post robotic prostatectomy 07/10/2011, stage [id number] Status post completion of radiation therapy the prostate bed 12/17/2011 received 7000 cGy" Quadriparesis Rosacea Vitamin D deficiency Surgical History H/O prostatectomy H/O Spinal surgery Hx of tonsillectomy Family History Mother Lung cancer Breast cancer Other Alcoholism in family Social History Smoking Status: Never smoker Hx Alcohol Use: Yes Alcohol type: wine and hard liquor Hx Substance Use: No Preferred Language: Swiss Communication Ability: Effective Visual Impairment: Partially Limited Hearing Ability: Hard of Hearing marital status: Single Current Living Situation: Alone current occupational status: retired Feels Safe at Home: Yes Childhood Exposure to Second-Hand Smoke: Yes caffeine: Yes Dental Care, Regularly: Yes Physical Activity Frequency: 3-4 Times per Week Seatbelt Use: always Sunscreen Use: No Review of Systems Review of Systems: All systems reviewed & are unremarkable except as noted in HPI & below No additional complaints. Patient denies fevers, chills, CP, palpitations, SOB, abdominal pain, nausea, vomiting, diarrhea or constipation Physical Exam Physical Exam: General: patient resting comfortably, NAD, non-toxic in appearance, AA&O x 4 Skin: warm, dry, intact, no rashes or lesions HEENT: NC/AT, PERRL, EOMI, anicteric sclera, conjunctiva without injection, external ear normal to inspection and nontender, nares patent, moist mucus membranes, dentition intact, no oropharyngeal lesions, neck supple, trachea midline, no LAD, no thyromegaly, no JVD Heart: +S1/S2, regular, no m/r/g Lungs: equal air entry bilaterally, no rales/rhonchi/wheezes Abd: +BS, soft, NT/ND, no masses/organomegaly/ascites Ext: warm, 2+ pulses in UE/LE bilaterally, no clubbing/cyanosis or edema Neuro: patient with unsteady gait requiring two people to assist him from bed Results & Data Results & Data ([facility]) Vital Signs (Past 12 Hours) Vital Signs Temp Pulse Pulse Resp BP BP Pulse Ox 05/02/20 01:00 78 20 138/88 95 05/02/20 00:42 94 H 20 178/118 H 96 05/01/20 23:36 37.3 C 88 18 166/113 H 95 05/01/20 22:25 100 H 22 193/123 H 96 05/01/20 21:02 38.0 C H 106 H 18 204/113 H 95 05/01/20 20:50 95 Laboratory Results Lab Results 05/01/20 05/01/20 05/01/20 Range/Units 21:51 21:51 22:32 WBC 11.36 H (4.8-10.8) K/uL RBC 5.17 (4.7-6.1) M/uL Hgb 15.2 (14.0-18.0) g/dL Hct 43.7 (42-52) % MCV 84.5 (80-100) fL MCH 29.4 (25-34) pg MCHC 34.8 (32-36) g/dL RDW Std Deviation 43.8 (36.4-46.3) fL RDW Coeff of Rocky 14.0 (11.5-14.5) % Plt Count 353 (130-400) K/uL MPV 8.5 (7.4-10.4) fL Immature Gran % (Auto) 0.4 % Neut % (Auto) 82.8 % Lymph % (Auto) 7.9 % Bledsoe % (Auto) 8.5 % Eos % (Auto) 0.3 % Baso % (Auto) 0.1 % Neut # (Auto) 9.42 H (1.4-6.5) K/uL Lymph # (Auto) 0.90 L (1.2-3.4) K/uL Bledsoe # (Auto) 0.96 H (0.11-0.59) K/uL Eos # (Auto) 0.03 (0-0.5) K/uL Baso # (Auto) 0.01 (0-0.2) K/uL Immature Gran # (Auto) 0.04 H (0.00-0.02) K/uL PT (9.0-12.0) Seconds INR (0.9-1.1) APTT (21.0-31.0) Seconds PTT Ratio VBG pH (7.36-7.41) VBG pCO2 (38-50) mmHg VBG pO2 mmHg VBG HCO3 mmol/L VBG O2 Saturation % VBG Base Excess mEq/L Barometric Pressure mm/Hg Sodium (136-145) mmol/L Potassium (3.5-5.1) mmol/L Chloride (98-107) mmol/L Carbon Dioxide (21-32) mmol/L Anion Gap (3-11) BUN (7-18) mg/dl Creatinine (0.6-1.4) mg/dl Est Cr Clr Drug Dosing ml/min Est GFR ( Amer) Est GFR (Non-Af Amer) BUN/Creatinine Ratio (10-20) Glucose (70-99) mg/dl Lactate (0.4-2.0) mmol/L Calcium (8.5-10.1) mg/dl Phosphorus (2.5-4.9) mg/dl Magnesium (1.8-2.4) mg/dl Total Bilirubin (0.2-1) mg/dl Direct Bilirubin (0-0.2) mg/dl AST (15-37) U/L ALT (12-78) U/L Alkaline Phosphatase (45-117) U/L Total Creatine Kinase (39-308) U/L Troponin I (0-0.045) ng/ml Total Protein (6.4-8.2) gm/dl Albumin (3.4-5.0) gm/dl Globulin (2.5-4.0) gm/dl Albumin/Globulin Ratio (0.9-2) Lipase (73-393) U/L Procalcitonin (0-0.5) ng/ml TSH (0.300-4.500) uIu/ml Urine Color Urine Appearance (Clear) Urine pH (4.5-7.5) Ur Specific [place] (1.000-1.030) Urine Protein (Negative) Urine Glucose (UA) (Negative) Urine Ketones (Negative) Urine Blood (Negative) Urine Nitrite (Negative) Urine Bilirubin (Negative) Urine Urobilinogen (Negative) Ur Leukocyte Esterase (Negative) Urine WBC (Auto) (0-5) /hpf Urine RBC (Auto) (0-4) /hpf U Hyaline Cast (Auto) (0-5) /lpf U Epithel Cells (Auto) (0-5) /lpf Urine Bacteria (Auto) (Negative) Urine Yeast COVID-19 Eval Order CovFluRsv at [facility] SARS-CoV-2 (PCR) NEGATIVE (Negative) Influenza Type A (PCR) Negative (Neg) Influenza Type B (PCR) Negative (Neg) RSV (RT-PCR) Negative (Neg) 05/01/20 05/01/20 05/01/20 Range/Units 22:32 22:32 22:32 WBC (4.8-10.8) K/uL RBC (4.7-6.1) M/uL Hgb (14.0-18.0) g/dL Hct (42-52) % MCV (80-100) fL MCH (25-34) pg MCHC (32-36) g/dL RDW Std Deviation (36.4-46.3) fL RDW Coeff of Rocky (11.5-14.5) % Plt Count (130-400) K/uL MPV (7.4-10.4) fL Immature Gran % (Auto) % Neut % (Auto) % Lymph % (Auto) % Bledsoe % (Auto) % Eos % (Auto) % Baso % (Auto) % Neut # (Auto) (1.4-6.5) K/uL Lymph # (Auto) (1.2-3.4) K/uL Bledsoe # (Auto) (0.11-0.59) K/uL Eos # (Auto) (0-0.5) K/uL Baso # (Auto) (0-0.2) K/uL Immature Gran # (Auto) (0.00-0.02) K/uL PT 11.5 (9.0-12.0) Seconds INR 1.1 (0.9-1.1) APTT 27.6 (21.0-31.0) Seconds PTT Ratio 1.0 VBG pH (7.36-7.41) VBG pCO2 (38-50) mmHg VBG pO2 mmHg VBG HCO3 mmol/L VBG O2 Saturation % VBG Base Excess mEq/L Barometric Pressure mm/Hg Sodium 133 L (136-145) mmol/L Potassium 3.1 L (3.5-5.1) mmol/L Chloride 97 L (98-107) mmol/L Carbon Dioxide 27 (21-32) mmol/L Anion Gap 9.0 (3-11) BUN 10 (7-18) mg/dl Creatinine 0.93 (0.6-1.4) mg/dl Est Cr Clr Drug Dosing 68.6 ml/min Est GFR ( Amer) 90.2 Est GFR (Non-Af Amer) 77.8 BUN/Creatinine Ratio 10.3 (10-20) Glucose 93 (70-99) mg/dl Lactate 1.4 (0.4-2.0) mmol/L Calcium 9.2 (8.5-10.1) mg/dl Phosphorus 2.7 (2.5-4.9) mg/dl Magnesium 2.1 (1.8-2.4) mg/dl Total Bilirubin 1.5 H (0.2-1) mg/dl Direct Bilirubin 0.6 H (0-0.2) mg/dl AST 16 (15-37) U/L ALT 22 (12-78) U/L Alkaline Phosphatase 137 H (45-117) U/L Total Creatine Kinase 81 (39-308) U/L Troponin I < 0.015 (0-0.045) ng/ml Total Protein 7.3 (6.4-8.2) gm/dl Albumin 3.2 L (3.4-5.0) gm/dl Globulin 4.1 H (2.5-4.0) gm/dl Albumin/Globulin Ratio 0.8 L (0.9-2) Lipase 88 (73-393) U/L Procalcitonin (0-0.5) ng/ml TSH 1.080 (0.300-4.500) uIu/ml Urine Color Urine Appearance (Clear) Urine pH (4.5-7.5) Ur Specific [place] (1.000-1.030) Urine Protein (Negative) Urine Glucose (UA) (Negative) Urine Ketones (Negative) Urine Blood (Negative) Urine Nitrite (Negative) Urine Bilirubin (Negative) Urine Urobilinogen (Negative) Ur Leukocyte Esterase (Negative) Urine WBC (Auto) (0-5) /hpf Urine RBC (Auto) (0-4) /hpf U Hyaline Cast (Auto) (0-5) /lpf U Epithel Cells (Auto) (0-5) /lpf Urine Bacteria (Auto) (Negative) Urine Yeast COVID-19 Eval Order SARS-CoV-2 (PCR) (Negative) Influenza Type A (PCR) (Neg) Influenza Type B (PCR) (Neg) RSV (RT-PCR) (Neg) 05/01/20 05/01/20 05/02/20 Range/Units 22:32 22:32 01:27 WBC (4.8-10.8) K/uL RBC (4.7-6.1) M/uL Hgb (14.0-18.0) g/dL Hct (42-52) % MCV (80-100) fL MCH (25-34) pg MCHC (32-36) g/dL RDW Std Deviation (36.4-46.3) fL RDW Coeff of Rocky (11.5-14.5) % Plt Count (130-400) K/uL MPV (7.4-10.4) fL Immature Gran % (Auto) % Neut % (Auto) % Lymph % (Auto) % Bledsoe % (Auto) % Eos % (Auto) % Baso % (Auto) % Neut # (Auto) (1.4-6.5) K/uL Lymph # (Auto) (1.2-3.4) K/uL Bledsoe # (Auto) (0.11-0.59) K/uL Eos # (Auto) (0-0.5) K/uL Baso # (Auto) (0-0.2) K/uL Immature Gran # (Auto) (0.00-0.02) K/uL PT (9.0-12.0) Seconds INR (0.9-1.1) APTT (21.0-31.0) Seconds PTT Ratio VBG pH 7.43 H (7.36-7.41) VBG pCO2 42 (38-50) mmHg VBG pO2 24 mmHg VBG HCO3 27 mmol/L VBG O2 Saturation < 60.0 % VBG Base Excess 2.5 mEq/L Barometric Pressure 738.6 mm/Hg Sodium (136-145) mmol/L Potassium (3.5-5.1) mmol/L Chloride (98-107) mmol/L Carbon Dioxide (21-32) mmol/L Anion Gap (3-11) BUN (7-18) mg/dl Creatinine (0.6-1.4) mg/dl Est Cr Clr Drug Dosing ml/min Est GFR ( Amer) Est GFR (Non-Af Amer) BUN/Creatinine Ratio (10-20) Glucose (70-99) mg/dl Lactate (0.4-2.0) mmol/L Calcium (8.5-10.1) mg/dl Phosphorus (2.5-4.9) mg/dl Magnesium (1.8-2.4) mg/dl Total Bilirubin (0.2-1) mg/dl Direct Bilirubin (0-0.2) mg/dl AST (15-37) U/L ALT (12-78) U/L Alkaline Phosphatase (45-117) U/L Total Creatine Kinase (39-308) U/L Troponin I (0-0.045) ng/ml Total Protein (6.4-8.2) gm/dl Albumin (3.4-5.0) gm/dl Globulin (2.5-4.0) gm/dl Albumin/Globulin Ratio (0.9-2) Lipase (73-393) U/L Procalcitonin 0.08 (0-0.5) ng/ml TSH (0.300-4.500) uIu/ml Urine Color Dark Yellow Urine Appearance Turbid A (Clear) Urine pH 6.0 (4.5-7.5) Ur Specific [place] 1.040 H (1.000-1.030) Urine Protein 2+ H (Negative) Urine Glucose (UA) Negative (Negative) Urine Ketones 3+ H (Negative) Urine Blood 3+ H (Negative) Urine Nitrite Negative (Negative) Urine Bilirubin 1+ H (Negative) Urine Urobilinogen Negative (Negative) Ur Leukocyte Esterase 2+ H (Negative) Urine WBC (Auto) >30 H (0-5) /hpf Urine RBC (Auto) 5-10 H (0-4) /hpf U Hyaline Cast (Auto) 0 (0-5) /lpf U Epithel Cells (Auto) >30 H (0-5) /lpf Urine Bacteria (Auto) 4+ H (Negative) Urine Yeast Not Reportable COVID-19 Eval Order SARS-CoV-2 (PCR) (Negative) Influenza Type A (PCR) (Neg) Influenza Type B (PCR) (Neg) RSV (RT-PCR) (Neg) Diagnostic Findings CT Head - no ICH, mass effect or edema. No evidence of acute cortical stroke. CT Abdomen and Pelvis - thickening and enhancement especially of the left urothelium suggesting inflammatory process or infection. Under distended and thickened bladder may be from cystitis or infiltrative process. No radiodense gallstones or pancreatitis. Left renal cyst. PG Care Time/CCT Total # of Minutes Spent Total Time Spent with Patient: Total time spent is greater than 50% in coordi nation of care (as documented) at patient's floor/unit and/or counseling patient: Coding Level of Care Code 27787 Initial Inpt Care Lvl 2 Diagnoses Acute UTI N39.0 Hypokalemia E87.6 Weakness R53.1 Hypertension I10 Hypertension type: essential hypertension Vitamin D deficiency E55.9 (1) Hypertension Hypertension type: essential hypertension Qualified Code(s): I10 - Essential (primary) hypertension
[2020-05-02] MEDS ORDERED: ACETAMINOPHEN 325 MG TAB PO PRN (03:15)
[2020-05-02] MEDS ORDERED: ONDANSETRON INJ 2 MG/ML 2 ML VIAL IV PRN (03:15)
[2020-05-02] MEDS: NSS + 20MEQ KCL 20 MEQ/1,000 ML BAG IV SCH ×2 (03:54→16:27)
--- NOTE | 2020-05-02 07:08 | CT Scan Report ---
CT SCAN OF THE BRAIN WITHOUT IV CONTRAST CLINICAL HISTORY: Dizziness. Generalized weakness. COMPARISON STUDY: CT of the brain dated 08/30/2008. TECHNIQUE: Unenhanced axial CT scan of the brain is performed from the vertex to the skull base. A do se lowering technique was utilized adhering to the principles of ALARA. The skull base was scanned tw ice due to motion artifact. CT DOSE: 921.40 mGy.cm FINDINGS: Brain parenchyma: There are age-related involutional changes noting moderate subcortical and periven tricular microangiopathic change. There is no hemorrhage, mass effect, or evidence of acute territori al ischemia by CT criteria. English-white matter differentiation is preserved. No extra-axial fluid quynh ection is seen. Ventricles, sulci, cisterns: Prominent secondary to involutional change. Intracranial vasculature: There is atherosclerotic calcification of the cavernous carotid and vertebr al arteries. Calvarium: Unremarkable. Sinuses and mastoids: The visualized paranasal sinuses are clear. The mastoid air cells are well pneu matized. Orbits: The bony orbits are grossly intact. There are bilateral ocular lens implants. IMPRESSION: There is no hemorrhage, mass effect, or evidence of acute territorial ischemia by CT yaritza brooks. ACT 112: Negative or not required by law. Electronically signed by: Matthew Servin M.D. 05/02/2020 7:07 AM
--- NOTE | 2020-05-02 07:41 | CT Scan Report ---
ABDOMEN AND PELVIS CT WITH IV CONTRAST CT DOSE: 284.93 mGy.cm HISTORY: ?sepsis, uti TECHNIQUE: Multiaxial CT images of the abdomen and pelvis were performed following the use of intrave nous contrast. A dose lowering technique was utilized adhering to the principles of ALARA. COMPARISON STUDY: Abdomen and pelvis CT 08/21/2019. FINDINGS: The lung bases are clear. No pneumoperitoneum. No pneumatosis. Small hiatus hernia with mil d thickening of the hernia. This remains unchanged. The liver, gallbladder, pancreas, spleen, and adr enal glands unremarkable. There is moderate bladder wall thickening with mild adjacent fat stranding. There is urothelial thickening within the bilateral renal collecting systems and ureters, left great er than right. Slightly heterogeneous opacification of the bilateral kidneys, left greater than right . There is also faint left perinephric fat stranding. Findings likely represent a bilateral pyeloneph ritis/pyelitis, left greater than right. Stable 3.8 cm left renal cyst. No retroperitoneal lymphadeno tasha. Normal caliber abdominal aorta. Tiny fat-containing left inguinal hernia. There is a small rig ht inguinal hernia containing a loop of small bowel. This is slightly decreased in size. A few coloni c diverticula. No evidence for acute diverticulitis. No bowel wall thickening or obstruction. Normal appendix. IMPRESSION: 1. Above findings consistent with a bilateral pyelonephritis/pyelitis, left greater than right. 2. There is also moderate thickening of the bladder likely representing a cystitis. Recommend correla tion with urinalysis. 3. Small right inguinal hernia containing a loop of small bowel. 4. No bowel wall thickening or obstruction. 5. Normal appendix. 6. Small hiatus hernia with mild thickening of the hernia. This remains unchanged. Endoscopy can be u sed for further evaluation. ACT 112: Negative or not required by law. Electronically signed by: Eugenio Mathis M.D. 05/02/2020 7:39 AM
--- NOTE | 2020-05-02 07:44 | Hospitalist Progress Note ---
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 #Pyelonephritis and associated acute UTI Patient with a clinical history consistent with a urinary tract infection, febrile on arrival. In the past patient has urine cultures demonstrated pansensitive Klebsiella. Abdomen pelvis CT demonstrating bilateral pyelonephritis left greater than right, thickening of the bladder consistent with cystitis. Urinalysis was consistent with urinary tract infection, blood in urine cultures are pending. Patient was started on empiric ceftriaxone therapy pending sensitivities. -Afebrile vital signs stable overnight, patient continues to improve -Follow-up urine and blood cultures -Continue empiric ceftriaxone 1gm IV daily, transition to p.o. when able -Follow-up CBC -WBC: 11.36->9.78 -Tylenol for fever as needed #Hypokalemia Previous lab values indicate patient has been hypokalemic in the past. This admission his hypokalemia is likely related to his current illness & dehydration. Patient was given 10 mEq of potassium chloride in the ER, and has been given a total of 40 mEq via IVF overnight follow-up labs pending. -Follow-up a.m. BMP -K+: 3.1->3.2 -Replete electrolytes as indicated #Weakness Likely secondary to UTI, hypokalemia, dehydration, per report patient ambulates independently at home and has PT 3 times a week. -Treat underlying illness -PT OT consulted #Hypertension History of, elevated throughout admission, likely secondary to fluid administration and stress of illness. -Continue home lisinopril 20 mg p.o. every morning #Vitamin D deficiency Chronic stable -Continue vitamin D supplementation #Abnormal LFTs On presentation T bili was 1.5, direct bili 1.1, alk phos 1.37 this could certainly be related to stress from his current illness given the patient has no history of liver disease, normal liver and gallbladder on CT. repeat LFTs demonstrate improvement as documented below, suspect initial abnormalities likely secondary to profound dehydration in the setting of infection. -Follow-up LFTs -T bili: 1.5 -> 1.0 -ALK phos: 137->120 FENa: Heart healthy Code Status: Full DVT PPX: Lovenox PT/OT: Ordered Dispo: Padmini Mcginnis MD PGY 2, FCM This chart was completed utilizing [employer] voice recognition software. Grammatical errors, random word insertions, pronoun errors, and in complete sentences are an occasional consequence of the system. Any questions or concerns about the content, text, or information contained within the body of this dictation should be addressed directly to the physician for clarification. (2) Hypokalemia: (3) Weakness: (4) Hypertension: (5) Vitamin D deficiency: Admission and Anticipated Discharge Date Admission Date: May 02, 2020 Supervising Physician Co-Signing Physician Notes Resident Physician Supervision Note: I independently interviewed and examined the patient and verified the salas history and physical, reviewed labs and image studies, discussed the case with the resident Dr. Mcginnis and agree with the findings and care plan. Subjective Patient lying in bed this morning eating breakfast in no acute distress. Patient reported no acute events overnight saying he did not sleep that well. Patient is concerned that his current weakness and symptoms are representing an permanent decrease in functional status versus symptoms secondary to an acute infection. I provided reassurance and explained to him that his presentation is fairly typical for people his age experiencing a urinary tract infection. Patient is tolerating his diet, voiding, stooling, acute concerns are related to ability to regain functional status and discharge from the hospital, all questions have been answered. Review of Systems Review of Systems: All systems reviewed & are unremarkable except as noted in HPI & below Physical Exam Physical Exam: General: Lying in bed in no acute distress HEENT: Normocephalic atraumatic, wearing glasses Neck: Normal to visual inspection, trachea midline Cardiac: Regular rate and rhythm I did not appreciate any significant murmurs rubs or gallops, normal S1, normal S2, negative pedal edema, negative calf tenderness Respiratory: Clear to auscultation bilaterally I did not appreciate any significant wheezes, rales, rhonchi, symmetrical chest expansion, no increased work of breathing GI: Soft, nontender, nondistended, bowel sounds present in all 4 quadrants Neuro: Alert and oriented x4, weakness present, difficult to assess given I have not met the patient prior to his current admission Psych: Calm and cooperative with the interview, seems a bit depressed Results & Data Results & Data ([facility]) Vital Signs (Past 12 Hours) Vital Signs Temp Pulse Pulse Resp BP BP Pulse Ox 05/02/20 04:06 36.5 C 80 20 170/109 H 97 05/02/20 02:30 80 19 175/107 H 98 05/02/20 02:00 77 20 158/119 H 96 05/02/20 01:30 78 22 159/94 H 97 05/02/20 01:00 78 20 138/88 95 05/02/20 00:42 94 H 20 178/118 H 96 05/01/20 23:36 37.3 C 88 18 166/113 H 95 05/01/20 22:25 100 H 22 193/123 H 96 05/01/20 21:02 38.0 C H 106 H 18 204/113 H 95 05/01/20 20:50 95 Laboratory Results 05/02/20 05/02/20 05/02/20 Range/Units 07:48 07:48 01:27 WBC 9.78 (4.8-10.8) K/uL RBC 5.16 (4.7-6.1) M/uL Hgb 15.0 (14.0-18.0) g/dL Hct 44.1 (42-52) % MCV 85.5 (80-100) fL MCH 29.1 (25-34) pg MCHC 34.0 (32-36) g/dL RDW Std Deviation 44.0 (36.4-46.3) fL RDW Coeff of Rocky 14.0 (11.5-14.5) % Plt Count 311 (130-400) K/uL MPV 8.5 (7.4-10.4) fL Immature Gran % (Auto) 0.3 % Neut % (Auto) 78.5 % Lymph % (Auto) 9.7 % Baxter % (Auto) 10.3 % Eos % (Auto) 1.1 % Baso % (Auto) 0.1 % Neut # (Auto) 7.67 H (1.4-6.5) K/uL Lymph # (Auto) 0.95 L (1.2-3.4) K/uL Baxter # (Auto) 1.01 H (0.11-0.59) K/uL Eos # (Auto) 0.11 (0-0.5) K/uL Baso # (Auto) 0.01 (0-0.2) K/uL Immature Gran # (Auto) 0.03 H (0.00-0.02) K/uL PT (9.0-12.0) Seconds INR (0.9-1.1) APTT (21.0-31.0) Seconds PTT Ratio VBG pH (7.36-7.41) VBG pCO2 (38-50) mmHg VBG pO2 mmHg VBG HCO3 mmol/L VBG O2 Saturation % VBG Base Excess mEq/L Barometric Pressure mm/Hg Sodium 131 L (136-145) mmol/L Potassium (3.5-5.1) mmol/L Chloride 104 (98-107) mmol/L Carbon Dioxide 17 L (21-32) mmol/L Anion Gap 11.0 (3-11) BUN 8 (7-18) mg/dl Creatinine 0.70 (0.6-1.4) mg/dl Est Cr Clr Drug Dosing 90.0 ml/min Est GFR ( Amer) 104.0 Est GFR (Non-Af Amer) 89.8 BUN/Creatinine Ratio 12.0 (10-20) Glucose 76 (70-99) mg/dl Lactate (0.4-2.0) mmol/L Calcium 8.9 (8.5-10.1) mg/dl Phosphorus (2.5-4.9) mg/dl Magnesium (1.8-2.4) mg/dl Total Bilirubin 1.0 D (0.2-1) mg/dl Direct Bilirubin (0-0.2) mg/dl AST (15-37) U/L ALT 20 (12-78) U/L Alkaline Phosphatase 120 H (45-117) U/L Total Creatine Kinase (39-308) U/L Troponin I (0-0.045) ng/ml Total Protein 6.6 (6.4-8.2) gm/dl Albumin 2.5 L (3.4-5.0) gm/dl Globulin (2.5-4.0) gm/dl Albumin/Globulin Ratio (0.9-2) Lipase (73-393) U/L Procalcitonin (0-0.5) ng/ml TSH (0.300-4.500) uIu/ml Urine Color Dark Yellow Urine Appearance Turbid A (Clear) Urine pH 6.0 (4.5-7.5) Ur Specific [place] 1.040 H (1.000-1.030) Urine Protein 2+ H (Negative) Urine Glucose (UA) Negative (Negative) Urine Ketones 3+ H (Negative) Urine Blood 3+ H (Negative) Urine Nitrite Negative (Negative) Urine Bilirubin 1+ H (Negative) Urine Urobilinogen Negative (Negative) Ur Leukocyte Esterase 2+ H (Negative) Urine WBC (Auto) >30 H (0-5) /hpf Urine RBC (Auto) 5-10 H (0-4) /hpf U Hyaline Cast (Auto) 0 (0-5) /lpf U Epithel Cells (Auto) >30 H (0-5) /lpf Urine Bacteria (Auto) 4+ H (Negative) Urine Yeast Not Reportable COVID-19 Eval Order SARS-CoV-2 (PCR) (Negative) Influenza Type A (PCR) (Neg) Influenza Type B (PCR) (Neg) RSV (RT-PCR) (Neg) 05/01/20 05/01/20 05/01/20 Range/Units 22:32 22:32 22:32 WBC (4.8-10.8) K/uL RBC (4.7-6.1) M/uL Hgb (14.0-18.0) g/dL Hct (42-52) % MCV (80-100) fL MCH (25-34) pg MCHC (32-36) g/dL RDW Std Deviation (36.4-46.3) fL RDW Coeff of Rocky (11.5-14.5) % Plt Count (130-400) K/uL MPV (7.4-10.4) fL Immature Gran % (Auto) % Neut % (Auto) % Lymph % (Auto) % Baxter % (Auto) % Eos % (Auto) % Baso % (Auto) % Neut # (Auto) (1.4-6.5) K/uL Lymph # (Auto) (1.2-3.4) K/uL Baxter # (Auto) (0.11-0.59) K/uL Eos # (Auto) (0-0.5) K/uL Baso # (Auto) (0-0.2) K/uL Immature Gran # (Auto) (0.00-0.02) K/uL PT (9.0-12.0) Seconds INR (0.9-1.1) APTT (21.0-31.0) Seconds PTT Ratio VBG pH 7.43 H (7.36-7.41) VBG pCO2 42 (38-50) mmHg VBG pO2 24 mmHg VBG HCO3 27 mmol/L VBG O2 Saturation < 60.0 % VBG Base Excess 2.5 mEq/L Barometric Pressure 738.6 mm/Hg Sodium (136-145) mmol/L Potassium (3.5-5.1) mmol/L Chloride (98-107) mmol/L Carbon Dioxide (21-32) mmol/L Anion Gap (3-11) BUN (7-18) mg/dl Creatinine (0.6-1.4) mg/dl Est Cr Clr Drug Dosing ml/min Est GFR ( Amer) Est GFR (Non-Af Amer) BUN/Creatinine Ratio (10-20) Glucose (70-99) mg/dl Lactate 1.4 (0.4-2.0) mmol/L Calcium (8.5-10.1) mg/dl Phosphorus (2.5-4.9) mg/dl Magnesium (1.8-2.4) mg/dl Total Bilirubin (0.2-1) mg/dl Direct Bilirubin (0-0.2) mg/dl AST (15-37) U/L ALT (12-78) U/L Alkaline Phosphatase (45-117) U/L Total Creatine Kinase (39-308) U/L Troponin I (0-0.045) ng/ml Total Protein (6.4-8.2) gm/dl Albumin (3.4-5.0) gm/dl Globulin (2.5-4.0) gm/dl Albumin/Globulin Ratio (0.9-2) Lipase (73-393) U/L Procalcitonin 0.08 (0-0.5) ng/ml TSH (0.300-4.500) uIu/ml Urine Color Urine Appearance (Clear) Urine pH (4.5-7.5) Ur Specific [place] (1.000-1.030) Urine Protein (Negative) Urine Glucose (UA) (Negative) Urine Ketones (Negative) Urine Blood (Negative) Urine Nitrite (Negative) Urine Bilirubin (Negative) Urine Urobilinogen (Negative) Ur Leukocyte Esterase (Negative) Urine WBC (Auto) (0-5) /hpf Urine RBC (Auto) (0-4) /hpf U Hyaline Cast (Auto) (0-5) /lpf U Epithel Cells (Auto) (0-5) /lpf Urine Bacteria (Auto) (Negative) Urine Yeast COVID-19 Eval Order SARS-CoV-2 (PCR) (Negative) Influenza Type A (PCR) (Neg) Influenza Type B (PCR) (Neg) RSV (RT-PCR) (Neg) 05/01/20 05/01/20 05/01/20 Range/Units 22:32 22:32 22:32 WBC 11.36 H (4.8-10.8) K/uL RBC 5.17 (4.7-6.1) M/uL Hgb 15.2 (14.0-18.0) g/dL Hct 43.7 (42-52) % MCV 84.5 (80-100) fL MCH 29.4 (25-34) pg MCHC 34.8 (32-36) g/dL RDW Std Deviation 43.8 (36.4-46.3) fL RDW Coeff of Rocky 14.0 (11.5-14.5) % Plt Count 353 (130-400) K/uL MPV 8.5 (7.4-10.4) fL Immature Gran % (Auto) 0.4 % Neut % (Auto) 82.8 % Lymph % (Auto) 7.9 % Baxter % (Auto) 8.5 % Eos % (Auto) 0.3 % Baso % (Auto) 0.1 % Neut # (Auto) 9.42 H (1.4-6.5) K/uL Lymph # (Auto) 0.90 L (1.2-3.4) K/uL Baxter # (Auto) 0.96 H (0.11-0.59) K/uL Eos # (Auto) 0.03 (0-0.5) K/uL Baso # (Auto) 0.01 (0-0.2) K/uL Immature Gran # (Auto) 0.04 H (0.00-0.02) K/uL PT 11.5 (9.0-12.0) Seconds INR 1.1 (0.9-1.1) APTT 27.6 (21.0-31.0) Seconds PTT Ratio 1.0 VBG pH (7.36-7.41) VBG pCO2 (38-50) mmHg VBG pO2 mmHg VBG HCO3 mmol/L VBG O2 Saturation % VBG Base Excess mEq/L Barometric Pressure mm/Hg Sodium 133 L (136-145) mmol/L Potassium 3.1 L (3.5-5.1) mmol/L Chloride 97 L (98-107) mmol/L Carbon Dioxide 27 (21-32) mmol/L Anion Gap 9.0 (3-11) BUN 10 (7-18) mg/dl Creatinine 0.93 (0.6-1.4) mg/dl Est Cr Clr Drug Dosing 68.6 ml/min Est GFR ( Amer) 90.2 Est GFR (Non-Af Amer) 77.8 BUN/Creatinine Ratio 10.3 (10-20) Glucose 93 (70-99) mg/dl Lactate (0.4-2.0) mmol/L Calcium 9.2 (8.5-10.1) mg/dl Phosphorus 2.7 (2.5-4.9) mg/dl Magnesium 2.1 (1.8-2.4) mg/dl Total Bilirubin 1.5 H (0.2-1) mg/dl Direct Bilirubin 0.6 H (0-0.2) mg/dl AST 16 (15-37) U/L ALT 22 (12-78) U/L Alkaline Phosphatase 137 H (45-117) U/L Total Creatine Kinase 81 (39-308) U/L Troponin I < 0.015 (0-0.045) ng/ml Total Protein 7.3 (6.4-8.2) gm/dl Albumin 3.2 L (3.4-5.0) gm/dl Globulin 4.1 H (2.5-4.0) gm/dl Albumin/Globulin Ratio 0.8 L (0.9-2) Lipase 88 (73-393) U/L Procalcitonin (0-0.5) ng/ml TSH 1.080 (0.300-4.500) uIu/ml Urine Color Urine Appearance (Clear) Urine pH (4.5-7.5) Ur Specific [place] (1.000-1.030) Urine Protein (Negative) Urine Glucose (UA) (Negative) Urine Ketones (Negative) Urine Blood (Negative) Urine Nitrite (Negative) Urine Bilirubin (Negative) Urine Urobilinogen (Negative) Ur Leukocyte Esterase (Negative) Urine WBC (Auto) (0-5) /hpf Urine RBC (Auto) (0-4) /hpf U Hyaline Cast (Auto) (0-5) /lpf U Epithel Cells (Auto) (0-5) /lpf Urine Bacteria (Auto) (Negative) Urine Yeast COVID-19 Eval Order SARS-CoV-2 (PCR) (Negative) Influenza Type A (PCR) (Neg) Influenza Type B (PCR) (Neg) RSV (RT-PCR) (Neg) 05/01/20 05/01/20 Range/Units 21:51 21:51 WBC (4.8-10.8) K/uL RBC (4.7-6.1) M/uL Hgb (14.0-18.0) g/dL Hct (42-52) % MCV (80-100) fL MCH (25-34) pg MCHC (32-36) g/dL RDW Std Deviation (36.4-46.3) fL RDW Coeff of Rocky (11.5-14.5) % Plt Count (130-400) K/uL MPV (7.4-10.4) fL Immature Gran % (Auto) % Neut % (Auto) % Lymph % (Auto) % Baxter % (Auto) % Eos % (Auto) % Baso % (Auto) % Neut # (Auto) (1.4-6.5) K/uL Lymph # (Auto) (1.2-3.4) K/uL Baxter # (Auto) (0.11-0.59) K/uL Eos # (Auto) (0-0.5) K/uL Baso # (Auto) (0-0.2) K/uL Immature Gran # (Auto) (0.00-0.02) K/uL PT (9.0-12.0) Seconds INR (0.9-1.1) APTT (21.0-31.0) Seconds PTT Ratio VBG pH (7.36-7.41) VBG pCO2 (38-50) mmHg VBG pO2 mmHg VBG HCO3 mmol/L VBG O2 Saturation % VBG Base Excess mEq/L Barometric Pressure mm/Hg Sodium (136-145) mmol/L Potassium (3.5-5.1) mmol/L Chloride (98-107) mmol/L Carbon Dioxide (21-32) mmol/L Anion Gap (3-11) BUN (7-18) mg/dl Creatinine (0.6-1.4) mg/dl Est Cr Clr Drug Dosing ml/min Est GFR ( Amer) Est GFR (Non-Af Amer) BUN/Creatinine Ratio (10-20) Glucose (70-99) mg/dl Lactate (0.4-2.0) mmol/L Calcium (8.5-10.1) mg/dl Phosphorus (2.5-4.9) mg/dl Magnesium (1.8-2.4) mg/dl Total Bilirubin (0.2-1) mg/dl Direct Bilirubin (0-0.2) mg/dl AST (15-37) U/L ALT (12-78) U/L Alkaline Phosphatase (45-117) U/L Total Creatine Kinase (39-308) U/L Troponin I (0-0.045) ng/ml Total Protein (6.4-8.2) gm/dl Albumin (3.4-5.0) gm/dl Globulin (2.5-4.0) gm/dl Albumin/Globulin Ratio (0.9-2) Lipase (73-393) U/L Procalcitonin (0-0.5) ng/ml TSH (0.300-4.500) uIu/ml Urine Color Urine Appearance (Clear) Urine pH (4.5-7.5) Ur Specific [place] (1.000-1.030) Urine Protein (Negative) Urine Glucose (UA) (Negative) Urine Ketones (Negative) Urine Blood (Negative) Urine Nitrite (Negative) Urine Bilirubin (Negative) Urine Urobilinogen (Negative) Ur Leukocyte Esterase (Negative) Urine WBC (Auto) (0-5) /hpf Urine RBC (Auto) (0-4) /hpf U Hyaline Cast (Auto) (0-5) /lpf U Epithel Cells (Auto) (0-5) /lpf Urine Bacteria (Auto) (Negative) Urine Yeast COVID-[address] CovFluRsv at [facility] SARS-CoV-2 (PCR) NEGATIVE (Negative) Influenza Type A (PCR) Negative (Neg) Influenza Type B (PCR) Negative (Neg) RSV (RT-PCR) Negative (Neg) Medications Administered Current Inpatient Medications Acetaminophen (Acetaminophen 325 Mg Tab) 650 mg PO Q4H PRN PRN Reason: pain/fever Stop: 06/01/20 03:14 Last Admin: 05/02/20 08:50 Dose: 650 mg Documented by: Enoxaparin Sodium (Enoxaparin Inj 30 Mg/0.3 Ml Syr) 30 mg SQ QAM [facility] Stop: 06/01/20 08:59 Last Admin: 05/02/20 08:32 Dose: 30 mg Documented by: Ceftriaxone Sodium 1,000 mg/ (Dextrose) 50 mls @ 100 mls/hr IV Q24H [facility]; Protocol Stop: 05/12/20 22:59 Potassium Chloride/Sodium Chloride (Normal Saline W/20 Meq Kcl) 20 meq in 1,000 mls @ 80 mls/hr IV .[id number] [facility] Stop: 05/03/20 04:44 Last Admin: 05/02/20 03:54 Dose: 80 mls/hr Documented by: Lisinopril (Lisinopril 20 Mg Tab) 20 mg PO QAM [facility] Stop: 06/01/20 08:59 Last Admin: 05/02/20 08:31 Dose: 20 mg Documented by: Ondansetron HCl (Ondansetron Inj 2 Mg/Ml 2 Ml Vial) 4 mg IV Q6H PRN PRN Reason: Nausea Stop: 06/01/20 03:14 Vitamin D (Cholecalciferol 1,000 Units 25 Mcg Tab) 2,000 units PO DAILY [facility] Stop: 06/01/20 08:59 Last Admin: 05/02/20 08:31 Dose: 2,000 units Documented by: Resident Activity Tracking Resident Involvement: Resident Care Provided Care Provided: Adult Hospital Medicine (1) Hypertension Hypertension type: essential hypertension Qualified Code(s): I10 - Essential (primary) hypertension
[2020-05-02] MEDS ORDERED: POTASSIUM CHLORIDE CRTAB 20 MEQ TABCR PO SCH ×2 (07:45)
--- NOTE | 2020-05-02 07:54 | XRay Report ---
SINGLE VIEW CHEST CLINICAL HISTORY: Sepsis. FINDINGS: 2 AP, portable, upright chest radiographs are compared to study dated 10/04/2014. The examin ation is degraded by portable technique and patient rotation. The heart is mildly enlarged. The pulmo nary vasculature is noncongested. Chronic interstitial thickening is similar to previous. There is mi ld bibasilar scarring/atelectasis. No airspace consolidation or large pleural effusion is identified. No pneumothorax is seen. The skeletal structures are osteopenic. There are healed left-sided rib fra ctures. IMPRESSION: Mild cardiomegaly with no acute cardiopulmonary abnormality. ACT 112: Negative or not required by law. Electronically signed by: Matthew Servin M.D. 05/02/2020 7:53 AM
[2020-05-02 08:18] LABS: Basophils # (auto) 0.01 K/uL (0-0.2); Basophils % (auto) 0.1 %; Eosinophils # (auto) 0.11 K/uL (0-0.5); Eosinophils % (auto) 1.1 %; Hematocrit (blood only) 44.1 % (42-52); Immature Granulocytes # (auto) 0.03 K/uL (0.00-0.02); Immature Granulocytes % (auto) 0.3 %; Lymphocytes # (auto) 0.95 K/uL (1.2-3.4); Lymphocytes % (auto) 9.7 %; Mean Corpuscular Hemoglobin 29.1 pg (25-34); Mean Corpuscular Volume 85.5 fL (80-100); Mean Platelet Volume 8.5 fL (7.4-10.4); Monocytes # (auto) 1.01 K/uL (0.11-0.59); Monocytes % (auto) 10.3 %; Neutrophils # (auto) 7.67 K/uL (1.4-6.5); Neutrophils % (auto) 78.5 %; Platelet Count 311 K/uL (130-400); Red Blood Count 5.16 M/uL (4.7-6.1); White Blood Count 9.78 K/uL (4.8-10.8)
[2020-05-02] MEDS: CHOLECALCIFEROL 1,000 UNITS 25 MCG TAB PO SCH (08:31)
[2020-05-02] MEDS: lisinopril 20 MG TAB PO SCH (08:31)
[2020-05-02] MEDS: ENOXAPARIN INJ 30 MG/0.3 ML SYR SQ SCH (08:32)
[2020-05-02 09:13] LABS: Albumin Level 2.5 gm/dl (3.4-5.0); Calcium 8.9 mg/dl (8.5-10.1); Est GFR (Non-African American) 89.8; Total Protein 6.6 gm/dl (6.4-8.2)
[2020-05-02 09:55] LABS: Potassium 3.2 mmol/L (3.5-5.1)
[2020-05-02 10:00] LABS: Bilirubin Direct 0.5 mg/dl (0-0.2)
--- NOTE | 2020-05-02 10:39 | Electrocardiogram Report ---
Test Reason : Blood Pressure : / mmHG Vent. Rate : 097 BPM Atrial Rate : 097 BPM P-R Int : 144 ms QRS Dur : 142 ms QT Int : 388 ms P-R-T Axes : 061 -82 038 degrees QTc Int : 492 ms Sinus rhythm with Premature atrial complexes with Aberrant conduction Left axis deviation Right bundle branch block Abnormal ECG When compared with ECG of 18-JUN-2011 09:44, Premature atrial complexes now present Right bundle branch block is now Present Confirmed by Brian Oden ([id number]) on 05/02/2020 10:39:16 AM Referred By: REFERRED SELF Confirmed By:Brian Oden
[2020-05-02] MEDS: cefTRIAXone SODIUM 1,000 MG in DEXTROSE 5% 50 ML IV SCH (22:14)
[2020-05-03 06:21] LABS: Basophils # (auto) 0.01 K/uL (0-0.2); Basophils % (auto) 0.1 %; Eosinophils % (auto) 1.4 %; Hematocrit (blood only) 38.8 % (42-52); Hemoglobin 13.3 g/dL (14.0-18.0); Immature Granulocytes # (auto) 0.03 K/uL (0.00-0.02); Immature Granulocytes % (auto) 0.4 %; Lymphocytes # (auto) 1.12 K/uL (1.2-3.4); Lymphocytes % (auto) 15.9 %; Mean Corpuscular Hemoglobin 29.3 pg (25-34); Mean Corpuscular Hgb Conc 34.3 g/dL (32-36); Mean Corpuscular Volume 85.5 fL (80-100); Mean Platelet Volume 9.3 fL (7.4-10.4); Monocytes # (auto) 0.62 K/uL (0.11-0.59); Monocytes % (auto) 8.8 %; Neutrophils # (auto) 5.18 K/uL (1.4-6.5); Neutrophils % (auto) 73.4 %; Platelet Count 399 K/uL (130-400); RDW Coefficient of Variation 14.3 % (11.5-14.5); RDW Standard Deviation 44.7 fL (36.4-46.3); Red Blood Count 4.54 M/uL (4.7-6.1); White Blood Count 7.06 K/uL (4.8-10.8)
[2020-05-03 06:59] LABS: BUN Creatinine Ratio 12.2 (10-20); Calcium 8.6 mg/dl (8.5-10.1); Creatinine Clr Calc Pharmacy 103.3 ml/min; Est GFR (African American) 110.1; Potassium 3.3 mmol/L (3.5-5.1)
[2020-05-03] MEDS: POTASSIUM CHLORIDE CRTAB 20 MEQ TABCR PO SCH ×3 (08:56→13:12)
[2020-05-03] MEDS: lisinopril 20 MG TAB PO SCH (09:01)
[2020-05-03] MEDS: ENOXAPARIN INJ 30 MG/0.3 ML SYR SQ SCH (09:01)
[2020-05-03] MEDS: CHOLECALCIFEROL 1,000 UNITS 25 MCG TAB PO SCH (09:01)
--- NOTE | 2020-05-03 10:33 | Hospitalist Progress Note ---
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 #Pyelonephritis and associated acute UTI Patient with a clinical history consistent with a urinary tract infection, febrile on arrival. In the past patient has urine cultures demonstrated pansensitive Klebsiella. Abdomen pelvis CT demonstrating bilateral pyelonephritis left greater than right, thickening of the bladder consistent with cystitis. Urinalysis was consistent with urinary tract infection, blood in urine cultures are pending. Patient was started on empiric ceftriaxone therapy pending sensitivities. -continues to be Afebrile vital signs stable , patient continues to improve -Follow-up urine and blood cultures -Continue empiric ceftriaxone 1gm IV daily -Urine cultures showing gram-negative bacilli, speciation and sensitivities pending. -Plan to transition to p.o. when able -Follow-up CBC -WBC: 11.36->9.78 -Tylenol for fever as needed #Hypokalemia Previous lab values indicate patient has been hypokalemic in the past. This admission his hypokalemia is likely related to his current illness & dehydration. Patient was given 10 mEq of potassium chloride in the ER, and has been given a total of 40 mEq via IVF overnight follow-up labs pending. -Follow-up a.m. BMP -K+: 3.1->3.2->3.3 -gave 20 meq x3 doses -Replete electrolytes as indicated #Weakness Likely secondary to UTI, hypokalemia, dehydration, per report patient ambulates independently at home and has PT 3 times a week. -Treat underlying illness -PT OT consulted -recommend rehab pt agreeable, insurance has approved #Hypertension History of, elevated throughout admission, likely secondary to fluid administration and stress of illness. -Continue home lisinopril 20 mg p.o. every morning #Vitamin D deficiency Chronic stable -Continue vitamin D supplementation #Abnormal LFTs (resolved) On presentation T bili was 1.5, direct bili 1.1, alk phos 1.37 this could certainly be related to stress from his current illness given the patient has no history of liver disease, normal liver and gallbladder on CT. repeat LFTs demonstrate improvement as documented below, suspect initial abnormalities likely secondary to profound dehydration in the setting of infection. -Follow-up LFTs -T bili: 1.5 -> 1.0 -ALK phos: 137->120 FENa: Heart healthy Code Status: Full DVT PPX: Lovenox [facility]OT: [facility] PGY 2, FCM This chart was completed utilizing [employer] voice recognition software. Grammatical errors, random word insertions, pronoun errors, and in complete se ntences are an occasional consequence of the system. Any questions or concerns about the content, text, or information contained within the body of this dictation should be addressed directly to the physician for clarification. (2) Hypokalemia: (3) Weakness: (4) Hypertension: (5) Vitamin D deficiency: Admission and Anticipated Discharge Date Admission Date: May 02, 2020 Supervising Physician Co-Signing Physician Notes Resident Physician Supervision Note: I independently interviewed and examined the patient and verified the salas history and physical, reviewed labs and image studies, discussed the case with the resident Dr. Mcginnis and agree with the findings and care plan. Subjective Patient lying in bed this morning in no acute distress. Patient is eager for discharge. I provided patient education on his UTI and recommended that he seek follow-up with outpatient neurologist after learning his third episode of severe. Otherwise patient continues to do well, tolerating his diet, voiding, stooling, sleeping well. Patient did notice that this weakness was a little bit greater than the weakness he is experienced in the past and after being assessed by both physical therapy and Occupational Therapy he is agreeable to rehab on discharge. He has been arranged by case management and he has been improved for [facility]. Plan is to obtain speciation and sensitivities and discharge tomorrow. All questions were answered no acute concerns Review of Systems Review of Systems: All systems reviewed & are unremarkable except as noted in HPI & below Physical Exam Physical Exam: General: Lying in bed in no acute distress HEENT: Normocephalic atraumatic, wearing glasses Neck: Normal to visual inspection, trachea midline Cardiac: Regular rate and rhythm I did not appreciate any significant murmurs rubs or gallops, normal S1, normal S2, negative pedal edema, negative calf tenderness Respiratory: Clear to auscultation bilaterally I did not appreciate any significant wheezes, rales, rhonchi, symmetrical chest expansion, no increased work of breathing GI: Soft, nontender, nondistended, bowel sounds present in all 4 quadrants Neuro: Alert and oriented x4, weakness present, difficult to assess given I have not met the patient prior to his current admission Psych: Calm and cooperative with the interview, seems a bit depressed Results & Data Results & Data ([facility]) Vital Signs (Past 12 Hours) Vital Signs Temp Pulse Resp BP BP Pulse Ox 05/03/20 07:40 37.1 C 77 18 175/93 H 164/96 H 97 Laboratory Results 05/03/20 05/03/20 Range/Units 05:42 05:42 WBC 7.06 (4.8-10.8) K/uL RBC 4.54 L (4.7-6.1) M/uL Hgb 13.3 L (14.0-18.0) g/dL Hct 38.8 L (42-52) % MCV 85.5 (80-100) fL MCH 29.3 (25-34) pg MCHC 34.3 (32-36) g/dL RDW Std Deviation 44.7 (36.4-46.3) fL RDW Coeff of [place] 14.3 (11.5-14.5) % Plt Count 399 (130-400) K/uL MPV 9.3 (7.4-10.4) fL Immature Gran % (Auto) 0.4 % Neut % (Auto) 73.4 % Lymph % (Auto) 15.9 % [place] % (Auto) 8.8 % Eos % (Auto) 1.4 % Baso % (Auto) 0.1 % Neut # (Auto) 5.18 (1.4-6.5) K/uL Lymph # (Auto) 1.12 L (1.2-3.4) K/uL [place] # (Auto) 0.62 H (0.11-0.59) K/uL Eos # (Auto) 0.10 (0-0.5) K/uL Baso # (Auto) 0.01 (0-0.2) K/uL Immature Gran # (Auto) 0.03 H (0.00-0.02) K/uL Sodium 139 D (136-145) mmol/L Potassium 3.3 L (3.5-5.1) mmol/L Chloride 107 (98-107) mmol/L Carbon Dioxide 24 (21-32) mmol/L Anion Gap 8.0 (3-11) BUN 7 (7-18) mg/dl Creatinine 0.61 (0.6-1.4) mg/dl Est Cr Clr Drug Dosing 103.3 ml/min Est GFR ( Amer) 110.1 Est GFR (Non-Af Amer) 95.0 BUN/Creatinine Ratio 12.2 (10-20) Glucose 80 (70-99) mg/dl Calcium 8.6 (8.5-10.1) mg/dl Medications Administered Current Inpatient Medications Acetaminophen (Acetaminophen 325 Mg Tab) 650 mg PO Q4H PRN PRN Reason: pain/fever Stop: 06/01/20 03:14 Last Admin: 05/02/20 08:50 Dose: 650 mg Documented by: Enoxaparin Sodium (Enoxaparin Inj 30 Mg/0.3 Ml Syr) 30 mg SQ QAM [facility] Stop: 06/01/20 08:59 Last Admin: 05/03/20 09:01 Dose: 30 mg Documented by: Ceftriaxone Sodium 1,000 mg/ (Dextrose) 50 mls @ 100 mls/hr IV Q24H [facility]; Protocol Stop: 05/12/20 22:59 Last Infusion: 05/02/20 22:44 Dose: Infused Documented by: Lisinopril (Lisinopril 20 Mg Tab) 20 mg PO QAM [facility] Stop: 06/01/20 08:59 Last Admin: 05/03/20 09:01 Dose: 20 mg Documented by: Ondansetron HCl (Ondansetron Inj 2 Mg/Ml 2 Ml Vial) 4 mg IV Q6H PRN PRN Reason: Nausea Stop: 06/01/20 03:14 Vitamin D (Cholecalciferol 1,000 Units 25 Mcg Tab) 2,000 units PO DAILY [facility] Stop: 06/01/20 08:59 Last Admin: 05/03/20 09:01 Dose: 2,000 units Documented by: Resident Activity Tracking Resident Involvement: Resident Care Provided Care Provided: Adult Hospital Medicine (1) Hypertension Hypertension type: essential hypertension Qualified Code(s): I10 - Essential (primary) hypertension
[2020-05-03] MEDS: cefTRIAXone SODIUM 1,000 MG in DEXTROSE 5% 50 ML IV SCH (23:43)
[2020-05-04] MEDS ORDERED: METOPROLOL TARTRATE 1 MG/ML VIAL IV STA (00:24)
[2020-05-04 08:08] LABS: Basophils # (auto) 0.01 K/uL (0-0.2); Basophils % (auto) 0.2 %; Eosinophils # (auto) 0.07 K/uL (0-0.5); Eosinophils % (auto) 1.4 %; Hematocrit (blood only) 40.3 % (42-52); Hemoglobin 13.8 g/dL (14.0-18.0); Immature Granulocytes # (auto) 0.03 K/uL (0.00-0.02); Immature Granulocytes % (auto) 0.6 %; Lymphocytes # (auto) 0.93 K/uL (1.2-3.4); Lymphocytes % (auto) 18.5 %; Mean Corpuscular Hemoglobin 29.4 pg (25-34); Mean Corpuscular Hgb Conc 34.2 g/dL (32-36); Mean Corpuscular Volume 85.7 fL (80-100); Mean Platelet Volume 8.6 fL (7.4-10.4); Monocytes # (auto) 0.58 K/uL (0.11-0.59); Monocytes % (auto) 11.5 %; Neutrophils # (auto) 3.42 K/uL (1.4-6.5); Neutrophils % (auto) 67.8 %; Platelet Count 381 K/uL (130-400); RDW Coefficient of Variation 14.3 % (11.5-14.5); RDW Standard Deviation 45.1 fL (36.4-46.3); White Blood Count 5.04 K/uL (4.8-10.8)
[2020-05-04 08:40] LABS: BUN Creatinine Ratio 10.7 (10-20); Est GFR (African American) 101.1; Est GFR (Non-African American) 87.2; Potassium 3.7 mmol/L (3.5-5.1)
[2020-05-04] MEDS: ENOXAPARIN INJ 30 MG/0.3 ML SYR SQ SCH (09:33)
[2020-05-04] MEDS: lisinopril 20 MG TAB PO SCH (09:34)
[2020-05-04] MEDS: CHOLECALCIFEROL 1,000 UNITS 25 MCG TAB PO SCH (09:34)
[2020-05-04 09:43] LABS: Albumin Level 2.7 gm/dl (3.4-5.0); Bilirubin Direct 0.1 mg/dl (0-0.2); Bilirubin,Total 0.4 mg/dl (0.2-1); Total Protein 6.4 gm/dl (6.4-8.2)
--- NOTE | 2020-05-04 10:16 | Discharge Summary ---
Date of Service May 04, 2020 Admission HPI Per Admitting Provider Donovan Thornton is a 80yo male presenting with weakness and inability to ambulate. 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 He lives alone and currently has in-home PT three times per week x 1 hour sessions. He ambulates at home independently, occasionally uses assist devices - walker. He reports gait instability that developed yesterday afternoon. He states he was unable to walk downstairs to feed his animals (He has a pet bird and a dog). Denies focal weakness, CHRISTINE, visual changes, numbness/tingling Denies urinary complaints, dysuria, flank pain. He does have urinary incontinence. On arrival to the ER he was febrile, tachycardic and hypertensive. VS improved in the ER - presently with Tc=37.5, HR=78, AF=972/88 Ambulatory trial in ER - patient required two people to assist. Unsteady gait. ER Course: NSS x 1L, KCl x 10 mEq, Ceftriaxone x 2gm, Tylenol x 1 gm Admission Exam Per Admitting Provider General: patient resting comfortably, NAD, non-toxic in appearance, AA&O x 4 Skin: warm, dry, intact, no rashes or lesions HEENT: NC/AT, PERRL, EOMI, anicteric sclera, conjunctiva without injection, external ear normal to inspection and nontender, nares patent, moist mucus membranes, dentition intact, no oropharyngeal lesions, neck supple, trachea midline, no LAD, no thyromegaly, no JVD Heart: +S1/S2, regular, no m/r/g Lungs: equal air entry bilaterally, no rales/rhonchi/wheezes Abd: +BS, soft, NT/ND, no masses/organomegaly/ascites Ext: warm, 2+ pulses in UE/LE bilaterally, no clubbing/cyanosis or edema Neuro: patient with unsteady gait requiring two people to assist him from bed Principal Diagnosis Weakness secondary to acute UTI Discharge Exam General: Lying in bed in no acute distress HEENT: Normocephalic atraumatic, wearing glasses Neck: Normal to visual inspection, trachea midline Cardiac: Regular rate and rhythm I did not appreciate any significant murmurs rubs or gallops, normal S1, normal S2, negative pedal edema, negative calf tenderness Respiratory: Clear to auscultation bilaterally I did not appreciate any significant wheezes, rales, rhonchi, symmetrical chest expansion, no increased work of breathing GI: Some right upper quadrant discomfort, negative rebound, negative guarding, otherwise soft, nontender, nondistended, thousand present Neuro: Alert and oriented x4, weakness present, difficult to assess given I have not met the patient prior to his current admission Psych: Calm and cooperative with the interview, seems a bit depressed Discharge Data Allergies Allergy/AdvReac Type Severity Reaction Status Date / Time No Known Allergies Allergy Mild NONE Verified 05/01/20 21:51 Consultations 05/02/20 01:11 ED Decision to Admit Stat Ordered Studies 05/01/20 23:57 CT abd pelvis IV con only Urgent CT head/brain wo con Urgent 05/04/20 14:00 US gallbladder Urgent Hospital Course (1) Acute UTI: 80-year-old male with a past medical history of 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 #Pyelonephritis and associated acute UTI Patient with a clinical history consistent with a urinary tract infection, febrile on arrival. In the past patient has urine cultures demonstrated pansensitive Klebsiella. Abdomen pelvis CT demonstrating bilateral pyelonephritis left greater than right, thickening of the bladder consistent with cystitis. Urinalysis was consistent with urinary tract infection, blood in urine cultures are pending. Patient was started on empiric ceftriaxone therapy pending sensitivities. Patient's white blood cell count and other signs of infe ction continued to improve. Microbiology resulted on 03/03/2021 demonstrating Klebsiella pneumo pansensitive. Previously was treated with ciprofloxacin for similar infection and did well. Given the recurrence of this infection will transition antibiotics to Augmentin. Recommend the patient complete a total of 10 days biotic therapy. While hospitalized he is received 3 days so on discharge to complete 7 more days #Hypokalemia repleted #Weakness Likely secondary to UTI, hypokalemia, dehydration, per report patient ambulates independently at home and has PT 3 times a week. -PT OT consulted -recommend rehab pt agreeable, insurance has approved #Hypertension History of, elevated throughout admission, likely secondary to fluid administration and stress of illness. Despite continue home lisinopril 20 mg p.o. every morning throughout his hospitalization the patient has been intermittently hypertensive. His hypertension has been asymptomatic, denying headache, ringing in his ears, elevation in creatinine, or other common associated signs or symptoms. The day of discharge he did endorse some left upper quadrant pain, to further evaluate this we obtained an ultrasound which demonstrated. Given that his blood pressure was previously well controlled, we will not aggressively treat it while hospitalized, and defer further intervention to outpatient primary care provider. -Continued home lisinopril 20 mg p.o. every morning #Left upper quadrant pain Patient endorse left upper quadrant pain on the day of discharge, unclear if it is related to his Lovenox injection site versus gallbladder. Given the elevation in blood pressure obtained hepatic function studies a ultrasound of the gallbladder demonstrating resolution of his previous elevation in T bili and T bili, AST and ALT within normal limits, alk phos is a bit more elevated from 120 ->146. Gallbladder ultrasound demonstrated calcified shadowing gallstones, wall thickening, sonographic Mccann sign is reportedly absent, CBD measures 0.6 in diameter -Consider follow-up as an outpatient #Vitamin D deficiency Chronic stable -Continue vitamin D supplementation #Abnormal LFTs (resolved) On presentation T bili was 1.5, direct bili 1.1, alk phos 1.37 this could certainly be related to stress from his current illness given the patient has no history of liver disease, normal liver and gallbladder on CT. repeat LFTs demonstrate improvement as documented below, suspect initial abnormalities likely secondary to profound dehydration in the setting of infection. -Follow-up LFTs -T bili: 1.5 -> 1.0 -ALK phos: 137->120 FENa: Heart healthy Code Status: Full DVT PPX: Lovenox while hospitlized PT/OT: Ordered Dispo: [facility] Eddie Mcginnis MD PGY 2, FCM This chart was completed utilizing [employer] voice recognition software. Grammatical errors, random word insertions, pronoun errors, and in complete sentences are an occasional consequence of the system. Any questions or concerns about the content, text, or information contained within the body of this dictation should be addressed directly to the physician for clarification. Total Time Total Time Spent Total Time Spent (In Minutes): 46 Discharge Plan Discharge Items Patient Disposition: Transfer Detention Fac Reason For Visit: WEAKNESS, AMBULATORY DYSFUNCTION Discharge Diagnosis: Weakness secondary to acute UTI Activity: As commented below Non-emergency contact: Primary Care Provider Call non-emergency contact if: you have any medication questions, your symptoms worsen, your pain is worsening and your temperature is above 101.5 Follow-up/Referrals: Wil Sorto MD [Primary Care Provider] - Diet: Regular Ambulatory Orders: Basic Metabolic Panel (Routine) Timeframe: 1 Week Location: Determined by Patient Ordered By: Shaan Olivarez Attending Provider Instructions: 80-year-old male with a past medical history of 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 #Pyelonephritis and associated acute UTI Patient with a clinical history consistent with a urinary tract infection, febrile on arrival. In the past patient has urine cultures demonstrated pansensitive Klebsiella. Abdomen pelvis CT demonstrating bilateral pyelonephritis left greater than right, thickening of the bladder consistent with cystitis. Urinalysis was consistent with urinary tract infection, blood in urine cultures are pending. Patient was started on empiric ceftriaxone therapy pending sensitivities. Patient's white blood cell count and other signs of infection continued to improve. Microbiology resulted on 03/03/2021 demonstrati ng Klebsiella pneumo pansensitive. Previously was treated with ciprofloxacin for similar infection and did well. Given the recurrence of this infection will transition antibiotics to Augmentin. Recommend the patient complete a total of 10 days biotic therapy. While hospitalized he is received 3 days so on discharge to complete 7 more days -continues to be Afebrile vital signs stable , patient continues to improve -Received 3 days of ceftriaxone 1 g IV daily transition to Augmentin 875 twice daily for 7 days on discharge -Urine cultures showing pansensitive Klebsiella pneumonia -Follow-up CBC -WBC: 11.36->9.78->5.04 -Tylenol for fever as needed #Hypokalemia Previous lab values indicate patient has been hypokalemic in the past. This admission his hypokalemia is likely related to his current illness & dehydration. Patient was given 10 mEq of potassium chloride in the ER, and has been given a total of 40 mEq via IVF overnight follow-up labs pending. -Follow-up a.m. BMP -K+: 3.1->3.2->3.3->3.7 -gave 20 meq x3 doses on dc -follow up bmp in 1 week -Replete electrolytes as indicated #Weakness Likely secondary to UTI, hypokalemia, dehydration, per report patient ambulates independently at home and has PT 3 times a week. -Treat underlying illness -PT OT consulted -recommend rehab pt agreeable, insurance has approved #Hypertension History of, elevated throughout admission, likely secondary to fluid administration and stress of illness. Despite continue home lisinopril 20 mg p.o. every morning throughout his hospitalization the patient has been intermittently hypertensive. His hypertension has been asymptomatic, denying headache, ringing in his ears, elevation in creatinine, or other common associated signs or symptoms. The day of discharge he did endorse some left upper quadrant pain, to further evaluate this we obtained an ultrasound which demonstrated. Given that his blood pressure was previously well controlled, we will not aggressively treat it while hospitalized, and defer further intervention to outpatient primary care provider. -Continued home lisinopril 20 mg p.o. every morning #Left upper quadrant pain Patient endorse left upper quadrant pain on the day of discharge, unclear if it is related to his Lovenox injection site versus gallbladder. Given the elevation in blood pressure obtained hepatic function studies a ultrasound of the gallbladder demonstrating resolution of his previous elevation in T bili and T bili, AST and ALT within normal limits, alk phos is a bit more elevated from 120 ->146. Gallbladder ultrasound demonstrated Choledlithiasis without sonographic evidence of acute cholecystitis. #Vitamin D deficiency Chronic stable -Continue vitamin D supplementation #Abnormal LFTs (resolved) On presentation T bili was 1.5, direct bili 1.1, alk phos 1.37 this could certainly be related to stress from his current illness given the patient has no history of liver disease, normal liver and gallbladder on CT. repeat LFTs demon strate improvement as documented below, suspect initial abnormalities likely secondary to profound dehydration in the setting of infection. -Follow-up LFTs -T bili: 1.5 -> 1.0 -ALK phos: 137->120 Pending Studies at Discharge: No Stand-Alone Forms: My [employer] Skilled Items Patient informed of condition?: Yes DNR: No Discharge Level of Care: Skilled Communicable Disease: No Discharge Prognosis: Improving Lines: None Urinary Catheter: No Medications and DC Order Prescriptions: New amoxicillin-pot clavulanate [Augmentin] 875-125 mg tablet 1 tab PO BID 7 Days Qty: 14 RF: 0 Continued montelukast 10 mg tablet 10 mg PO DAILY Qty: 90 RF: 3 lisinopril 20 mg tablet 20 mg PO QAM Qty: 90 RF: 3 cholecalciferol (vitamin D3) 1,000 unit capsule 2,000 units PO DAILY RF: 0 loratadine-pseudoephedrine 5-120 mg tablet extended release 12 hr 1 tab PO Q12H PRN (Reason: Allergy Symptoms) RF: 0 Discharge Orders: Discharge Order (Routine); Ordered 05/04/20 Ordered By: Shaan Phillips Admission Data Admit Date/Time: 05/02/20 02:14 Attending Provider: Melissa Whittington Admit Provider: Adriana Mcginnis Primary Care Provider: Wil Sorto Other Providers: Adriana Mcginnis ; Jorge Ko ; [facility] Other Interventions: Discharge Summary Assessment (RN) Last Done: 05/04/20 15:10 Supervising Physician Co-Signing Physician Notes Resident Physician Supervision Note: I independently interviewed and examined the patient and verified the salas history and physical, reviewed labs and image studies, discussed the case with the resident Dr. Mcginnis and agree with the findings and care plan. Resident Activity Tracking Resident Involvement: Resident Care Provided Care Provided: Adult Hospital Medicine
[2020-05-04] MEDS ORDERED: POTASSIUM CHLORIDE CRTAB 20 MEQ TABCR PO SCH (10:30)
--- NOTE | 2020-05-04 14:27 | Ultrasound Report ---
ULTRASOUND RIGHT UPPER QUADRANT ABDOMEN CLINICAL HISTORY: Right upper quadrant abdominal pain. COMPARISON STUDY: Abdominal CT dated 05/02/2020. TECHNIQUE: Real-time, grayscale, and color flow sonography of the right upper quadrant of the abdomen was performed. Images are reviewed in the transverse and longitudinal planes. FINDINGS: Liver: The liver is normal in size and echotexture. There is no intrahepatic biliary ductal dilatatio n. The main portal vein is patent. Gallbladder: There are calcified shadowing gallstones. There is no gallbladder wall thickening or per icholecystic fluid. A sonographic Mccann's sign is reportedly absent. The common bile duct measures u p to 0.6 cm in diameter. Pancreas: Visualized portions of the pancreatic head and body are normal in appearance. The splenic v ein is patent. Right kidney: Survey images of the right kidney demonstrate normal size and echotexture. There is no hydronephrosis. Ascites: None. IMPRESSION: Cholelithiasis without sonographic evidence of acute cholecystitis. ACT 112: Negative or not required by law. Electronically signed by: Matthew Servin M.D. 05/04/2020 2:25 PM
== END 2020-05-04 17:29 | DRG 690 ==
LOC: ED 20:49 → SUATTDRO 05-02 02:14 → 3N 05-02 02:14

== ENCOUNTER 2021-11-25 07:43 | Inpatient (IN) ==
[2021-11-25] MEDS ORDERED: SODIUM CHLORIDE 0.9% 1000ML 1,000 ML IV ONE ×3 (07:54→10:21)
[2021-11-25] MEDS ORDERED: CEFEPIME 2,000 MG/20 ML VIAL IV STA (07:54)
--- NOTE | 2021-11-25 07:58 | Emergency Department Note ---
Impression & Plan Sepsis, Hypotension, Acute UTI ED Provider Note NAME: CORNELIUS VILLAFUERTE AGE: 81 SEX: M : 1940 ARRIVES VIA: Ambulance INFORMANT: Patient ED PROVIDER(S): Kelvin Donovan DO CHIEF COMPLAINT: AMS HPI: Patient is an 81-year-old male with a past medical history of cerebral atrophy, malnutrition, cognitive decline, hyperlipidemia, leukopenia that presents the ER 0403, confusion and weakness. He denies any headache or change in vision. No chest pain or shortness of breath. No nausea, vomiting or diarrhea. No dysuria, urgency or frequency. He denies all complaints at this time. He was brought in from [facility] by EMS. No other exacerbating or remitting factors. They do report he has an extensive history of previous UTIs but has not had one recently. ROS: See above HPI for pertinent positives & negatives. A total of 10 systems reviewed and were otherwise negative. PAST MEDICAL HISTORY:See Below PAST SURGICAL HISTORY:See Below FAMILY HISTORY:See Below SOCIAL HISTORY:See Below HOME MEDICATIONS:See Below ALLERGIES:See Below VITALS:See Below PHYSICAL EXAMINATION: GENERAL: Sitting up in bed, alert, well appearing, well nourished, no distress, non-toxic EYE EXAM: normal conjunctiva. PERRL and EOM's grossly intact. OROPHARYNX: no exudate, no erythema, lips, buccal mucosa, and tongue normal and mucous membranes are moist NECK: supple, no nuchal rigidity, no adenopathy, non-tender LUNGS: Clear to auscultation. Normal chest wall mechanics HEART: no murmurs, S1 normal and S2 normal ABDOMEN: abdomen soft, non-tender, normo-active bowel sounds, no masses, no rebound or guarding. UPPER EXTREMITIES: upper extremities are grossly normal. LOWER EXTREMITIES: No pitting edema. NEURO EXAM: Oriented to person but not place and believes it is 2022, cranial nerves II-XII grossly intact, normal speech, no gross weakness of arms, no gross weakness of legs. MEDICAL DECISION MAKING: Patient is an 81-year-old male who presents ER for the above-stated complaint. IV was established blood work was obtained. He was found to be febrile and tachycardic. Labs show leukocytosis of 42,000 which is new from previous. Mild anemia 10. INR 1.2. BMP with a creatinine of 3 up from baseline of 1. Lactate was elevated at 2.5. Patient was given IV fluids. COVID was negative. CT head was negative. Chest x-ray was unremarkable. CT abdomen pelvis showed inflammation of the bladder ureter and likely a pyelonephritis. This likely cau se of the sepsis. Patient was given IV fluids x3 L as well as IV antibiotics. Patient was given 2 g of cefepime. He was updated at bedside. Discussed with the hospitalist admitted for further work-up of his sepsis. Systolic pressures trended down to the 70s but rebounded following fluids. Triage Nursing notes reviewed. Limited review of prior medical records performed Vital Signs: reviewed and remarkable for no significant abnormalities Differential diagnosis: Differential diagnoses includes but is not limited to toxic, metabolic, infec tious, traumatic, cardiac, neurologic, hematologic, psychiatric and inflammatory etiologies. ER treatment provided: See below Diagnostics interpreted by me: ECG: Sinus rhythm rate of 106 Left axis Right bundle branch block QTC 464 Cardiac Monitoring: An order was placed for continuous cardiac monitoring. The monitor shows a rate of 95 with sinus rhythm. Laboratory studies: As stated above and show below. Imaging studies: As described above in MDM Consultation(s): Patient was admitted to [facility] Hospitalist service Procedures: None Critical Care: I have personally spent 38 minutes of critical care time in the direct management of this patient. This includes bedside care, interpretation of diagnostic studies, and testing, discussion with consultants, patient, and family members, and other required patient management activities. This 38 minutes is in excess of all separately billable procedures. Past Med/Surg History Medical History Acute UTI Benign neoplasm of large intestine Hematochezia Hyperlipidemia Hypertension Hypokalemia Leukopenia Male stress incontinence Near syncope Organic impotence Prostate cancer (09/27/11) "Rising PSA, pretreatment PSA 7.44 clinical stage TIc Biopsy stage T2b [facility] grade 3+2 and 3+3 Active surveillance Recheck PSA 10.2, repeat biopsy [facility] 3+3, biopsy stage T2b Continued rise in PSA Status post robotic prostatectomy 07/10/2011, stage [id number] Status post completion of radiation therapy the prostate bed 12/17/2011 received 7000 cGy" Quadriparesis Rosacea Vitamin D deficiency Weakness Surgical History H/O prostatectomy H/O Spinal surgery Hx of tonsillectomy Family History Mother Lung cancer Breast cancer Other Alcoholism in family Denies family history of Ovarian cancer Prostate cancer Myocardial infarction Colorectal cancer Social History Smoking Status: Never smoker Second Hand Exposure: No; Hx Alcohol Use: No Hx Substance Use: No Preferred Language: Yi Communication Ability: Impaired Visual Impairment: Partially Limited Hearing Ability: Hard of Hearing Radar [employer] Required: No Beliefs That Will Affect Care: None marital status: Single Current Living Situation: Prison Current Living Situation Comment: When asked, patient states he lives at [address] [facility] current occupational status: retired How many Children do You have: 2 Other Information That Helps Us Care for You: No Feels Safe at Home: Yes Safety Concerns: Feels Safe At This Time Childhood Exposure to Second-Hand Smoke: Yes caffeine: Yes Dental Care, Regularly: Yes Physical Activity Frequency: 5-6 Times per Week Seatbelt Use: always Sunscreen Use: No Assistive Devices: Glasses Allergies Allergies Allergy/AdvReac Type Severity Reaction Status Date / Time No Known Allergies Allergy Mild NONE Verified 10/11/21 14:50 Home Meds Home Medications Medication Instructions Recorded Confirmed cholecalciferol (vitamin D3) 25 2,000 units PO DAILY 11/11/18 11/25/21 mcg (1,000 unit) capsule loratadine 5 mg-pseudoephedrine ER 1 tab PO Q12H PRN Allergy Symptoms 11/11/18 11/25/21 120 mg tablet,extended release,12hr acetaminophen 325 mg capsule See Rx Instructions PO QID PRN Pain 05/18/20 11/25/21 multivitamin (Multiple Vitamins 1 tab PO DAILY 05/18/20 11/25/21 tablet) Previous Rx's Medication Instructions Recorded lisinopril 20 mg tablet 20 mg PO DAILY #90 tabs 07/23/21 psyllium husk 0.4 gram capsule 0.4 g PO DAILY #30 caps 08/10/21 (Metamucil) loperamide 1 mg/7.5 mL oral liquid 2 mg (15 mL) PO Q4H PRN loose 09/05/21 (Imodium A-D) stool #120 mL donepezil 5 mg tablet 5 mg PO DAILY #30 tabs 10/05/21 mirtazapine 15 mg tablet (Remeron) 15 mg PO DAILY #30 tabs 10/05/21 cholestyramine-aspartame 4 gram 4 g PO DAILY #60 ea 10/11/21 oral powder for susp in a packet (Cholestyramine Light) montelukast 10 mg tablet See Rx Instructions .Route 10/24/21 .COMPLEX #90 tabs Results & Data (ED) Vital Signs Vital Signs - 24 hr 11/25/21 07:45 11/25/21 08:00 11/25/21 08:30 Temperature 36.6 C Temperature Source Oral Pulse Rate 106 H Pulse Rate [Apical] Pulse Rate from SpO2 Sensor Respiratory Rate 21 20 20 Respiratory Effort / Characteristics Non-Labored Spontaneous Non-Labored Spontaneous Non-Labored Spontaneous Respiratory Depth Normal Respiratory Pattern Regular Blood Pressure 103/65 Blood Pressure [Left Arm] Blood Pressure Mean 77 Blood Pressure Mean [Left Arm] Blood Pressure Position Semi-fowlers Blood Pressure Position [Left Arm] Pulse Oximetry 94 92 88 L Oxygen Delivery Method Room Air Room Air Room Air Oxygen Flow Rate Sepsis Recent Fever Within 48 Hours Yes Sepsis New/Unexplained Change in Mental Status Yes Sepsis Action Taken by Nursing Physician Notified 11/25/21 08:30 11/25/21 08:13 11/25/21 08:30 Temperature 37.8 C H Temperature Source Oral Pulse Rate 105 H 107 H Pulse Rate [Apical] 101 H Pulse Rate from SpO2 Sensor 114 H Respiratory Rate 20 23 35 H Respiratory Effort / Characteristics Non-Labored Spontaneous Respiratory Depth Normal Respiratory Pattern Regular Blood Pressure 99/53 L 115/57 L Blood Pressure [Left Arm] 115/57 L Blood Pressure Mean 68 76 Blood Pressure Mean [Left Arm] 76 Blood Pressure Position Blood Pressure Position [Left Arm] Lying Pulse Oximetry 96 91 Oxygen Delivery Method Nasal Cannula Room Air Oxygen Flow Rate 2 Sepsis Recent Fever Within 48 Hours Sepsis New/Unexplained Change in Mental Status Sepsis Action Taken by Nursing 11/25/21 09:00 11/25/21 09:00 11/25/21 09:20 Temperature Temperature Source Pulse Rate 99 H 96 H 98 H Pulse Rate [Apical] Pulse Rate from SpO2 Sensor 96 H Respiratory Rate 29 H 29 H 24 Respiratory Effort / Characteristics Respiratory Depth Respiratory Pattern Blood Pressure 69/44 L 87/45 L 107/59 L Blood Pressure [Left Arm] Blood Pressure Mean 52 59 75 Blood Pressure Mean [Left Arm] Blood Pressure Position Blood Pressure Position [Left Arm] Pulse Oximetry 99 97 96 Oxygen Delivery Method Nasal Cannula Nasal Cannula Nasal Cannula Oxygen Flow Rate 2 2 2 Sepsis Recent Fever Within 48 Hours Sepsis New/Unexplained Change in Mental Status Sepsis Action Taken by Nursing 11/25/21 09:50 11/25/21 09:00 11/25/21 10:00 Temperature Temperature Source Pulse Rate 91 H Pulse Rate [Apical] Pulse Rate from SpO2 Sensor 91 H Respiratory Rate 22 Respiratory Effort / Characteristics Non-Labored Spontaneous Non-Labored Spontaneous Respiratory Depth Respiratory Pattern Blood Pressure 114/63 Blood Pressure [Left Arm] Blood Pressure Mean 80 Blood Pressure Mean [Left Arm] Blood Pressure Position Blood Pressure Position [Left Arm] Pulse Oximetry 100 99 98 Oxygen Delivery Method Nasal Cannula Nasal Cannula Nasal Cannula Oxygen Flow Rate 2 2 2 Sepsis Recent Fever Within 48 Hours Sepsis New/Unexplained Change in Mental Status Sepsis Action Taken by Nursing 11/25/21 10:00 11/25/21 10:30 11/25/21 11:00 Temperature Temperature Source Pulse Rate 90 93 H Pulse Rate [Apical] Pulse Rate from SpO2 Sensor 90 93 H Respiratory Rate 26 H 28 H Respiratory Effort / Characteristics Respiratory Depth Respiratory Pattern Blood Pressure 87/50 L 105/60 109/58 L Blood Pressure [Left Arm] Blood Pressure Mean 62 75 75 Blood Pressure Mean [Left Arm] Blood Pressure Position Blood Pressure Position [Left Arm] Pulse Oximetry 100 98 Oxygen Delivery Method Oxygen Flow Rate Sepsis Recent Fever Within 48 Hours Sepsis New/Unexplained Change in Mental Status Sepsis Action Taken by Nursing 11/25/21 11:00 Temperature Temperature Source Pulse Rate 89 Pulse Rate [Apical] Pulse Rate from SpO2 Sensor 90 Respiratory Rate Respiratory Effort / Characteristics Respiratory Depth Respiratory Pattern Blood Pressure Blood Pressure [Left Arm] Blood Pressure Mean Blood Pressure Mean [Left Arm] Blood Pressure Position Blood Pressure Position [Left Arm] Pulse Oximetry 98 Oxygen Delivery Method Oxygen Flow Rate Sepsis Recent Fever Within 48 Hours Sepsis New/Unexplained Change in Mental Status Sepsis Action Taken by Nursing Laboratory Data Result diagrams: 11/25/21 07:55 11/25/21 07:55 Lab Results 11/25/21 11/25/21 11/25/21 Range/Units 07:55 07:55 07:55 WBC 42.37 H* (4.8-10.8) K/ul RBC 3.81 L (4.63-6.08) M/uL Hgb 10.8 L (14.0-18.0) g/dl Hct 32.5 L (40.1-51.0) % MCV 85.3 (80.0-100.0) fL MCH 28.3 (25.0-34.0) pg MCHC 33.2 (32.0-36.0) g/dL RDW Std Deviation 52.5 H (36.4-46.3) fL RDW Coeff of Rocky 17.0 H (11.5-14.5) % Plt Count 456 H (130-400) K/uL MPV 8.6 L (9.4-12.4) fL Neutrophils % (Manual) 92 % Lymphocytes % (Manual) 4 % Monocytes % (Manual) 4 % Neutrophils # (Manual) 38.98 H (1.4-6.5) K/uL Total Absolute Neuts 38.98 H (1.4-6.5) K/uL Lymphocytes # (Manual) 1.69 (1.2-3.4) K/uL Total Abs Lymphocytes 1.69 (1.2-3.4) K/uL Monocytes # (Manual) 1.69 H (0.24-0.82) K/uL Hypersegmented Neuts 1+ PT 12.7 H (9.0-12.0) Seconds INR 1.2 H (0.9-1.1) APTT 32.0 H (21.0-31.0) Seconds PTT Ratio 1.2 Sodium 137 (136-145) mmol/L Potassium 5.4 H (3.5-5.1) mmol/L Chloride 106 (98-107) mmol/L Carbon Dioxide 20 L (21-32) mmol/L Anion Gap 11 (3-11) BUN 49 H (6-23) mg/dl Creatinine 3.08 H (0.6-1.4) mg/dl Est Cr Clr Drug Dosing 17.7 ml/min Est GFR ( Amer) 21.1 ml/min Est GFR (Non-Af Amer) 18.2 ml/min BUN/Creatinine Ratio 15.9 (10-20) Glucose 128 H (70-99(Fasting)) mg/dl Lactate (0.4-2.0) mmol/L Calcium 9.5 (8.5-10.1) mg/dl Magnesium 1.9 (1.7-2.4) mg/dl Total Bilirubin 0.7 (0.2-1.0) mg/dl AST 20 (13-39) U/L ALT 17 (7-52) U/L Alkaline Phosphatase 127 H (34-104) U/L Total Protein 7.7 (6.0-8.3) gm/dl Albumin 3.7 (3.4-5.0) gm/dl Globulin 4.0 (2.5-4.0) gm/dl Albumin/Globulin Ratio 0.9 (0.9-2) SARS-CoV-2, RNA, NAAT (NEGATIVE) 11/25/21 11/25/21 11/25/21 Range/Units 07:55 07:58 10:10 WBC (4.8-10.8) K/ul RBC (4.63-6.08) M/uL Hgb (14.0-18.0) g/dl Hct (40.1-51.0) % MCV (80.0-100.0) fL MCH (25.0-34.0) pg MCHC (32.0-36.0) g/dL RDW Std Deviation (36.4-46.3) fL RDW Coeff of Rocky (11.5-14.5) % Plt Count (130-400) K/uL MPV (9.4-12.4) fL Neutrophils % (Manual) % Lymphocytes % (Manual) % Monocytes % (Manual) % Neutrophils # (Manual) (1.4-6.5) K/uL Total Absolute Neuts (1.4-6.5) K/uL Lymphocytes # (Manual) (1.2-3.4) K/uL Total Abs Lymphocytes (1.2-3.4) K/uL Monocytes # (Manual) (0.24-0.82) K/uL Hypersegmented Neuts PT (9.0-12.0) Seconds INR (0.9-1.1) APTT (21.0-31.0) Seconds PTT Ratio Sodium (136-145) mmol/L Potassium (3.5-5.1) mmol/L Chloride (98-107) mmol/L Carbon Dioxide (21-32) mmol/L Anion Gap (3-11) BUN (6-23) mg/dl Creatinine (0.6-1.4) mg/dl Est Cr Clr Drug Dosing ml/min Est GFR ( Amer) ml/min Est GFR (Non-Af Amer) ml/min BUN/Creatinine Ratio (10-20) Glucose (70-99(Fasting)) mg/dl Lactate 2.5 H* 2.8 H* (0.4-2.0) mmol/L Calcium (8.5-10.1) mg/dl Magnesium (1.7-2.4) mg/dl Total Bilirubin (0.2-1.0) mg/dl AST (13-39) U/L ALT (7-52) U/L Alkaline Phosphatase (34-104) U/L Total Protein (6.0-8.3) gm/dl Albumin (3.4-5.0) gm/dl Globulin (2.5-4.0) gm/dl Albumin/Globulin Ratio (0.9-2) SARS-CoV-2, RNA, NAAT NEGATIVE (NEGATIVE) Administered Medications Sodium Chloride (Nss 1000ml) 1,000 mls @ 125 mls/hr IV .Q8H IRVING Stop: 12/25/21 11:59 Last Admin: 11/25/21 12:22 Dose: 125 mls/hr Documented By: MAYANK Discontinued Medications Cefepime HCl (Maxipime) 2,000 mg in 20 mls @ 5 mls/min IV NOW STA; Protocol Stop: 11/25/21 07:57 Last Admin: 11/25/21 08:03 Dose: 5 mls/min Documented By: LEILA Sodium Chloride (Nss 1000ml) 1,000 mls @ 999 mls/hr IV .Q1H1M ONE Stop: 11/25/21 08:54 Last Infusion: 11/25/21 09:05 Dose: 0 mls/hr Documented By: Admin: 11/25/21 08:04 Dose: 999 mls/hr Documented By: LEILA Sodium Chloride (Nss 1000ml) 1,000 mls @ 999 mls/hr IV .Q1H1M ONE Stop: 11/25/21 10:08 Last Infusion: 11/25/21 11:11 Dose: 0 mls/hr Documented By: Admin: 11/25/21 09:10 Dose: 999 mls/hr Documented By: LEILA Sodium Chloride (Nss 1000ml) 1,000 mls @ 999 mls/hr IV .Q1H1M ONE Stop: 11/25/21 11:21 Last Infusion: 11/25/21 11:41 Dose: 0 mls/hr Documented By: Admin: 11/25/21 10:31 Dose: 999 mls/hr Documented By: LEIAL Daptomycin 250 mg/ Syringe 5 mls @ 2.5 mls/min IV ONE ONE; Protocol Stop: 11/25/21 13:01 Last Admin: 11/25/21 13:11 Dose: 2.5 mls/min Documented By: MAYANK Ibuprofen (Ibuprofen 200 Mg Tab) 400 mg PO NOW STA Stop: 11/25/21 09:14 Last Admin: 11/25/21 10:03 Dose: Not Given Documented By: LEILA Imaging Data Radiologist's Impression: Chest X-Ray 11/25/21 07:54 XR chest 1V portable CLINICAL HISTORY: SEPSIS TECHNIQUE: Single frontal radiograph of the chest was obtained. Comparison: Comparison is made to chest radiograph 05/01/2020 FINDINGS: No lines and tubes are seen. The cardiomediastinal silhouette is normal. The l ungs are clear. No evidence of pleural effusion or pneumothorax. IMPRESSION: No acute abnormalities and in particular no evidence of pneumonia. ACT 112: Negative or not required by law. Electronically signed by: Connor Chinchilla M.D. 11/25/2021 9:[address] 11/25/21 07:54 CT head/brain wo con CLINICAL HISTORY: ams Technique: Contiguous axial CT images of the head were acquired from the base of the skull to the vertex without intravenous contrast administration. Images were viewed in brain, subdural and bone windows. Automated dose lowering techniques and/or adjustment according to patient size were utilized for this exam. Comparison: Comparison is made to CT head 06/21/2021 Findings: Areas of decreased attenuation are present in the periventricular and subcortical white matter bilaterally consistent with small vessel ischemic disease. Generalized cerebral atrophy with commensurate enlargement of the ventricles, sulci, and cisterns is also present. There is no acute intracranial hemorrhage or evidence of acute territorial infarction. No shift of the midline structures, mass effect, or extra-axial abnormalities are shown. Atherosclerotic calcifications are present in the intracranial segments of the internal carotid arteries. Imaged portions of the paranasal sinuses and mastoid air cells are clear. The orbits appear normal. There are no acute fractures of the calvaria or scalp swelling. Impression: No acute intracranial hemorrhage, no evidence of acute territorial infarction or other acute intracranial disease process. ACT 112: Negative or not required by law. Electronically signed by: Connor Chinchilla M.D. 11/25/2021 10:01 AM Abdomen/Pelvis CT 11/25/21 09:08 CT abd pelvis wo con CLINICAL HISTORY: sepsis hypotension wbc 42k TECHNIQUE: Helical axial images of the abdomen and pelvis were obtained. Automated dose lowering techniques and/or adjustment according to patient size were utilized for this exam. This exam was performed without intravenous contrast. CT DOSE: 1970.38 mGy.cm COMPARISON: None available at the time of this dictation. FINDINGS: Lower chest: No acute abnormality Liver: Unremarkable. No focal lesions are seen. Gallbladder and biliary tree: Cholelithiasis is seen without evidence of cholecystitis. No intra- or extrahepatic biliary ductal dilation. Pancreas: Unremarkable, no focal lesions. Spleen: Splenule is incidentally noted. Adrenals: Unremarkable. Kidneys and ureters: Perinephric stranding is noted bilaterally. There is prominence of the bilateral ureters with thickening of the ureteric arias without evidence of obstructive stone. Renal cyst on the left is better appreciated on the prior exam. Bladder: Diffuse homogeneous wall thickening is seen. Reproductive organs: Unremarkable. Bowel: Some liquid contents are noted in the rectum although well formed stool is seen elsewhere. A small hiatal hernia is seen. Lymph nodes Retroperitoneal: Unremarkable. Pelvic: Unremarkable. Mesenteric: Unremarkable. Peritoneum: Normal. Vessels: Atherosclerotic calcifications are seen. Abdominal wall: A right inguinal hernia contains a loop of nondistended bowel. Bones: Degenerative changes in the visualized spine. IMPRESSION: 1. Prominence of bilateral ureteric arias noted along with bladder wall thickening. This may represent cystitis and pyelitis, correlation with urinalysis is recommended. Pyelonephritis cannot be excluded on a noncontrast exam. 2. Cholelithiasis without cholecystitis. 3. Redemonstration of a small right inguinal hernia containing a loop of small bowel. ACT 112: Negative or not required by law. Electronically signed by: Connor Chinchilla M.D. 11/25/2021 10:12 AM Discharge Plan Visit Data Chief Complaint: Fever Stated Complaint: WEAKNESS, FEVER ED Provider: Kelvin Donovan Discharge Problem: Sepsis, Hypotension, Acute UTI Patient Disposition: Admitted As Inpatient Discharge Instructions Interventions: ED Discharge Assessment Last Done: 11/25/21 11:44
[2021-11-25 08:26] LABS: INR 1.2 (0.9-1.1); Partial Thromboplastin Ratio 1.2; Prothrombin Time 12.7 Seconds (9.0-12.0)
[2021-11-25 08:34] LABS: ALC (manual) 1.69 K/uL (1.2-3.4); ANC (manual) 38.98 K/uL (1.4-6.5); Hematocrit (blood only) 32.5 % (40.1-51.0); Hemoglobin 10.8 g/dl (14.0-18.0); Lymphocytes # (manual) 1.69 K/uL (1.2-3.4); Lymphocytes % (manual) 4 %; Mean Corpuscular Hemoglobin 28.3 pg (25.0-34.0); Mean Corpuscular Hgb Conc 33.2 g/dL (32.0-36.0); Mean Corpuscular Volume 85.3 fL (80.0-100.0); Mean Platelet Volume 8.6 fL (9.4-12.4); Monocytes # (manual) 1.69 K/uL (0.24-0.82); Monocytes % (manual) 4 %; Neutrophils # (manual) 38.98 K/uL (1.4-6.5); Neutrophils % (manual) 92 %; Platelet Count 456 K/uL (130-400); RDW Standard Deviation 52.5 fL (36.4-46.3); Red Blood Count 3.81 M/uL (4.63-6.08); White Blood Count 42.37 K/ul (4.8-10.8)
[2021-11-25 08:36] LABS: Albumin Globulin Ratio 0.9 (0.9-2); Albumin Level 3.7 gm/dl (3.4-5.0); BUN Creatinine Ratio 15.9 (10-20); Bilirubin,Total 0.7 mg/dl (0.2-1.0); Calcium 9.5 mg/dl (8.5-10.1); Creatinine Clr Calc Pharmacy 17.7 ml/min; Est GFR (African American) 21.1 ml/min; Est GFR (Non-African American) 18.2 ml/min; Magnesium 1.9 mg/dl (1.7-2.4); Potassium 5.4 mmol/L (3.5-5.1); Total Protein 7.7 gm/dl (6.0-8.3)
--- NOTE | 2021-11-25 09:03 | XRay Report ---
XR chest 1V portable CLINICAL HISTORY: SEPSIS TECHNIQUE: Single frontal radiograph of the chest was obtained. Comparison: Comparison is made to chest radiograph 05/01/2020 FINDINGS: No lines and tubes are seen. The cardiomediastinal silhouette is normal. The lungs are clear. No evid ence of pleural effusion or pneumothorax. IMPRESSION: No acute abnormalities and in particular no evidence of pneumonia. ACT 112: Negative or not required by law. Electronically signed by: Connor Chinchilla M.D. 11/25/2021 9:01 AM
[2021-11-25] MEDS ORDERED: IBUPROFEN 200 MG TAB PO STA (09:13)
--- NOTE | 2021-11-25 10:02 | CT Scan Report ---
CT head/brain wo con CLINICAL HISTORY: ams Technique: Contiguous axial CT images of the head were acquired from the base of the skull to the veronica odalys without intravenous contrast administration. Images were viewed in brain, subdural and [facility]. Automated dose lowering techniques and/or adjustment according to patient size were utilized for this exam. Comparison: Comparison is made to CT head 06/21/2021 Findings: Areas of decreased attenuation are present in the periventricular and subcortical white matter bilate rally consistent with small vessel ischemic disease. Generalized cerebral atrophy with commensurate e nlargement of the ventricles, sulci, and cisterns is also present. There is no acute intracranial hem orrhage or evidence of acute territorial infarction. No shift of the midline structures, mass effect, or extra-axial abnormalities are shown. Atherosclerotic calcifications are present in the intracran ial segments of the internal carotid arteries. Imaged portions of the paranasal sinuses and mastoid air cells are clear. The orbits appear normal. There are no acute fractures of the calvaria or scalp swelling. Impression: No acute intracranial hemorrhage, no evidence of acute territorial infarction or other acute intracra nial disease process. ACT 112: Negative or not required by law. Electronically signed by: Connor Chinchilla M.D. 11/25/2021 10:01 AM
--- NOTE | 2021-11-25 10:14 | CT Scan Report ---
CT abd pelvis wo con CLINICAL HISTORY: sepsis hypotension wbc 42k TECHNIQUE: Helical axial images of the abdomen and pelvis were obtained. Automated dose lowering tech niques and/or adjustment according to patient size were utilized for this exam. This exam was perfor med without intravenous contrast. CT DOSE: 1970.38 mGy.cm COMPARISON: None available at the time of this dictation. FINDINGS: Lower chest: No acute abnormality Liver: Unremarkable. No focal lesions are seen. Gallbladder and biliary tree: Cholelithiasis is seen without evidence of cholecystitis. No intra- or extrahepatic biliary ductal dilation. Pancreas: Unremarkable, no focal lesions. Spleen: Splenule is incidentally noted. Adrenals: Unremarkable. Kidneys and ureters: Perinephric stranding is noted bilaterally. There is prominence of the bilateral ureters with thickening of the ureteric arias without evidence of obstructive stone. Renal cyst on t he left is better appreciated on the prior exam. Bladder: Diffuse homogeneous wall thickening is seen. Reproductive organs: Unremarkable. Bowel: Some liquid contents are noted in the rectum although well formed stool is seen elsewhere. A s mall hiatal hernia is seen. Lymph nodes Retroperitoneal: Unremarkable. Pelvic: Unremarkable. Mesenteric: Unremarkable. Peritoneum: Normal. Vessels: Atherosclerotic calcifications are seen. Abdominal wall: A right inguinal hernia contains a loop of nondistended bowel. Bones: Degenerative changes in the visualized spine. IMPRESSION: 1. Prominence of bilateral ureteric arias noted along with bladder wall thickening. This may represe nt cystitis and pyelitis, correlation with urinalysis is recommended. Pyelonephritis cannot be exclud ed on a noncontrast exam. 2. Cholelithiasis without cholecystitis. 3. Redemonstration of a small right inguinal hernia containing a loop of small bowel. ACT 112: Negative or not required by law. Electronically signed by: Connor Chinchilla M.D. 11/25/2021 10:12 AM
--- NOTE | 2021-11-25 10:27 | History & Physical Report ---
Date of Service November 25, 2021 Assessment & Plan (1) Sepsis: Plan: - WBC 42, lactate 2.5, repeat trending upward to 2.8, CRP and PCT 28. - Was febrile, mildly hypoxic, mildly tachycardic and mildly hypotensive upon presentation, has received 3 L NSS boluses in ED, HR and BP running appropriately. SpO2 > 95% on RA. - Will continue with IVF and repeat this every 2 hours until downtrending and <2.0. - Source suspected to be UTI/pyelo, as he has history of UTIs Klebsiella pansensitive. CT A/P done without contrast given STEVE, with prominence of bilateral ureteric arias noted along with bladder wall thickening. - No complaints of diarrhea, CT A/P w/ some liquid contents are noted in the rectum although well formed stool is seen elsewhere. - Will order stool biofire. - UA has not yet been obtained, as patient has not been able to void, bladder scan with 23 mL. We will attempt later after patient is hydrated. - For now cover with cefepime for broad coverage, with additional Dapto to cover for Enterococcus, likely transition to Rocephin as patient improves pending cultures. (2) Severe sepsis: (3) Pyelonephritis: Plan: - Management as above. (4) STEVE (acute kidney injury): Plan: - Cr 3.08, unsure baseline, was 1.8 in August, 1.32 in July. - Suspected to be d/t dehydration, patient did receive ibuprofen in ED for fever prior to labs drawn. - With K 5.4. - 3L NSS in ED. - Continue NS 125 cc/hr. - Received Ibuprofen in ED -- avoid further NSAIDs, treat all fevers and pain with Tylenol. - BMP rechecked this evening, creatinine downtrending now 2.3, potassium 4.8. (5) Hypertension: Plan: - Holding lisinopril for now given STEVE, hyperkalemia. - Patient initially slightly hypotensive in ED, BP has been responsive to IVF. (6) Depression: Plan: - Continue mirtazapine. (7) Cognitive decline: Plan: - Continue donepezil. - Patient sees more confused than baseline likely in setting of sepsis/UTI. - Head CT without acute findings. (8) Prostate cancer: Plan: - s/p radical prostatectomy in 2011. 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 - Generally weak at baseline. Exacerbated by malnutrition, works with physical therapy. - PT and OT to eval patient while he is admitted. (10) Acute metabolic encephalopathy: (11) Hyperkalemia: Plan - Admit to med/tele. - SCDs and Lovenox. - Full Code. History of Present Illness Chief Complaint: weakness, confusion Primary Care Provider: [facility] [place] Donovan Thornton is an 81 y/o male with a past medical history of prostate cancer s/p radical prostatectomy in 2011, HTN, memory impairment, hypertension, quadriparesis, depression, and malnutrition who is presenting from [facility] today due to confusion and weakness. Patient is mildly confused with underlying cognitive decline, therefore not the best historian but does tell me he has been feeling just generally overall weak and tired for a couple days. No other complaints, without any fever or chills that he is aware of, chest pain, shortness of breath, abdominal pain, nausea, vomiting, diarrhea, constipation, painful BMs, dysuria, hematuria, or urinary retention. Has a history of prostate cancer w/ radical prostatectomy in 2011, as well as frequent urinary tract infections, sees urology regularly, last visit 10/23-- no issues at this visit, plan to rechek PSA in 1 year and no UTI symptoms. Patient denies ever developing symptoms with previous UTIs. Previous cultures have grown Klebsiella, pansensitive. On presentation to ED, he was tachycardic with HR 100s, presenting BP 99/53, tachypneic and 88% on RA, febrile with a temp of 100F. Hypotension/tachycardia/hypoxia/tachypnea improving with IVF. Lab significant for WBC 42.37, stable hemoglobin 10.8, potassium 5.4, BUN 49, creatinine 3.08, lactate 2.5, alk phos 127, otherwise without transaminitis. COVID-negative. CXR and head CT unrevealing for acute process, CT A/P bilateral perinephric stranding, prominent bilateral ureters with thickening of the ureteral arias without evidence of an obstructing stone. There is cholelithiasis without evidence of cholecystitis or ductal dilation. There is redemonstration of a small right inguinal hernia containing a loop of small bowel. Allergies Allergy/AdvReac Type Severity Reaction Status Date / Time No Known Allergies Allergy Mild NONE Verified 10/11/21 14:50 Home Medications Medication Instructions Recorded Confirmed Type cholecalciferol (vitamin D3) 25 2,000 units PO DAILY 11/11/18 11/25/21 History mcg (1,000 unit) capsule loratadine 5 mg-pseudoephedrine ER 1 tab PO Q12H PRN Allergy Symptoms 11/11/18 11/25/21 History 120 mg tablet,extended release,12hr acetaminophen 325 mg capsule See Rx Instructions PO QID PRN Pain 05/18/20 11/25/21 History multivitamin (Multiple Vitamins 1 tab PO DAILY 05/18/20 11/25/21 History tablet) lisinopril 20 mg tablet 20 mg PO DAILY #90 tabs 07/23/21 11/25/21 Rx psyllium husk 0.4 gram capsule 0.4 g PO DAILY #30 caps 08/10/21 11/25/21 Rx (Metamucil) loperamide 1 mg/7.5 mL oral liquid 2 mg (15 mL) PO Q4H PRN loose 09/05/21 11/25/21 Rx (Imodium A-D) stool #120 mL donepezil 5 mg tablet 5 mg PO DAILY #30 tabs 10/05/21 11/25/21 Rx mirtazapine 15 mg tablet (Remeron) 15 mg PO DAILY #30 tabs 10/05/21 11/25/21 Rx cholestyramine-aspartame 4 gram 4 g PO DAILY #60 ea 10/11/21 11/25/21 Rx oral powder for susp in a packet (Cholestyramine Light) montelukast 10 mg tablet See Rx Instructions .Route 10/24/21 11/25/21 Rx .COMPLEX #90 tabs Past Med/Surg History Medical History Acute UTI Benign neoplasm of large intestine Hematochezia Hyperlipidemia Hypertension Hypokalemia Leukopenia Male stress incontinence Near syncope Organic impotence Prostate cancer (09/27/11) "Rising PSA, pretreatment PSA 7.44 clinical stage TIc Biopsy stage T2b Charles grade 3+2 and 3+3 Active surveillance Recheck PSA 10.2, repeat biopsy Charles 3+3, biopsy stage T2b Continued rise in PSA Status post robotic prostatectomy 07/10/2011, stage [id number] Status post completion of radiation therapy the prostate bed 12/17/2011 received 7000 cGy" Quadriparesis Rosacea Vitamin D deficiency Weakness Surgical History H/O prostatectomy H/O Spinal surgery Hx of tonsillectomy Family History Mother Lung cancer Breast cancer Other Alcoholism in family Denies family history of Ovarian cancer Prostate cancer Myocardial infarction Colorectal cancer Social History Smoking Status: Never smoker Second Hand Exposure: No; Hx Alcohol Use: No Hx Substance Use: No Preferred Language: Samoan Communication Ability: Impaired Visual Impairment: Partially Limited Hearing Ability: Hard of Hearing 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 Beliefs That Will Affect Care: None marital status: Single Current Living Situation: Long Term Current Living Situation Comment: When asked, patient states he lives at [address] [place] [address] current occupational status: retired How many Children do You have: 2 Other Information That Helps Us Care for You: No Feels Safe at Home: Yes Safety Concerns: Feels Safe At This Time Childhood Exposure to Second-Hand Smoke: Yes caffeine: Yes Dental Care, Regularly: Yes Physical Activity Frequency: 5-6 Times per Week Seatbelt Use: always Sunscreen Use: No Assistive Devices: Glasses Review of Systems Review of Systems: Constitutional: general weakness for several days; No fever/chills, fatigue, myalgias, anorexia, night sweats Eyes: No diplopia, no worsening or blurred vision ENT: normal hearing, no trouble swallowing Respiratory: No cough, sputum, dyspnea at rest or on exertion Cardiovascular: No chest pain, tightness or palpitations Abdomen: No pain, nausea, vomiting, diarrhea or constipation : Denies dysuria, hematuria, increased urgency/frequency, urinary retention Musculoskeletal: No joint pain, calf pain, swelling Neurologic: No weakness, numbness/tingling, or balance problems Psychiatric: No anxiety or depression Skin: No rash or itch Physical Exam Physical Exam: General: awake, alert, no apparent distress Head: Normocephalic, atraumatic ENT: PERRL, EOMI, no pharyngeal exudate, mucous membranes moist Chest: Clear to auscultation, on room air, no adventitious breath sounds Cardiac: tachycardic rate, regular rhythm, no murmur, no JVD, normal peripheral pulses, good capillary refill Abdominal: NABS x 4 quadrants, soft, nontender to palpation, no rebound, guarding or tenderness Extremities: Normal inspection, no peripheral edema or erythema, calfs nontender to palpation Psych: Normal mood and affect Neuro: AAO x 2, to self and place, thought the year was 2022; strength intact bilaterally and rated 5/5, no motor deficits, speech is clear, no peripheral sensory deficits Skin: no rash or erythema Results & Data Results & Data ([facility]) Vital Signs (Past 12 Hours) Vital Signs Temp Pulse Pulse Resp BP BP Pulse Ox 11/25/21 09:50 91 H 22 114/63 100 11/25/21 09:20 98 H 24 107/59 L 96 11/25/21 09:00 96 H 29 H 87/45 L 97 11/25/21 09:00 99 H 29 H 69/44 L 99 11/25/21 08:30 107 H 35 H 115/57 L 91 11/25/21 08:13 105 H 23 99/53 L 11/25/21 08:30 37.8 C H 101 H 20 115/57 L 96 11/25/21 08:30 20 88 L 11/25/21 08:00 20 92 11/25/21 07:45 36.6 C 106 H 21 103/65 94 O2 Del Method O2 Flow Rate 11/25/21 09:50 Nasal Cannula 2 11/25/21 09:20 Nasal Cannula 2 11/25/21 09:00 Nasal Cannula 2 11/25/21 09:00 Nasal Cannula 2 11/25/21 08:30 11/25/21 08:13 Room Air 11/25/21 08:30 Nasal Cannula 2 11/25/21 08:30 Room Air 11/25/21 08:00 Room Air 11/25/21 07:45 Room Air Laboratory Results Abnormal lab results 11/25/21 11/25/21 11/25/21 Range/Units 07:55 07:55 07:55 WBC 42.37 H* (4.8-10.8) K/ul RBC 3.81 L (4.63-6.08) M/uL Hgb 10.8 L (14.0-18.0) g/dl Hct 32.5 L (40.1-51.0) % RDW Std Deviation 52.5 H (36.4-46.3) fL RDW Coeff of Rocky 17.0 H (11.5-14.5) % Plt Count 456 H (130-400) K/uL MPV 8.6 L (9.4-12.4) fL Neutrophils # (Manual) 38.98 H (1.4-6.5) K/uL Total Absolute Neuts 38.98 H (1.4-6.5) K/uL Monocytes # (Manual) 1.69 H (0.24-0.82) K/uL PT 12.7 H (9.0-12.0) Seconds INR 1.2 H (0.9-1.1) APTT 32.0 H (21.0-31.0) Seconds Potassium 5.4 H (3.5-5.1) mmol/L Carbon Dioxide 20 L (21-32) mmol/L BUN 49 H (6-23) mg/dl Creatinine 3.08 H (0.6-1.4) mg/dl Glucose 128 H (70-99(Fasting)) mg/dl Lactate (0.4-2.0) mmol/L Alkaline Phosphatase 127 H (34-104) U/L 11/25/21 Range/Units 07:55 WBC (4.8-10.8) K/ul RBC (4.63-6.08) M/uL Hgb (14.0-18.0) g/dl Hct (40.1-51.0) % RDW Std Deviation (36.4-46.3) fL RDW Coeff of Rocky (11.5-14.5) % Plt Count (130-400) K/uL MPV (9.4-12.4) fL Neutrophils # (Manual) (1.4-6.5) K/uL Total Absolute Neuts (1.4-6.5) K/uL Monocytes # (Manual) (0.24-0.82) K/uL PT (9.0-12.0) Seconds INR (0.9-1.1) APTT (21.0-31.0) Seconds Potassium (3.5-5.1) mmol/L Carbon Dioxide (21-32) mmol/L BUN (6-23) mg/dl Creatinine (0.6-1.4) mg/dl Glucose (70-99(Fasting)) mg/dl Lactate 2.5 H* (0.4-2.0) mmol/L Alkaline Phosphatase (34-104) U/L Diagnostic Findings Chest X-Ray 11/25/21 07:54 XR chest 1V portable CLINICAL HISTORY: SEPSIS TECHNIQUE: Single frontal radiograph of the chest was obtained. Comparison: Comparison is made to chest radiograph 05/01/2020 FINDINGS: No lines and tubes are seen. The cardiomediastinal silhouette is normal. The lungs are clear. No evidence of pleural effusion or pneumothorax. IMPRESSION: No acute abnormalities and in particular no evidence of pneumonia. ACT 112: Negative or not required by law. Electronically signed by: Connor Chinchilla M.D. 11/25/2021 9:[address] 11/25/21 07:54 CT head/brain wo con CLINICAL HISTORY: ams Technique: Contiguous axial CT images of the head were acquired from the base of the skull to the vertex without intravenous contrast administration. Images were viewed in brain, subdural and bone windows. Automated dose lowering techniques and/or adjustment according to patient size were utilized for this exam. Comparison: Comparison is made to CT head 06/21/2021 Findings: Areas of decreased attenuation are present in the periventricular and subcortical white matter bilaterally consistent with small vessel ischemic disease. Generalized cerebral atrophy with commensurate enlargement of the ventricles, sulci, and cisterns is also present. There is no acute intracranial hemorrhage or evidence of acute territorial infarction. No shift of the midline structures, mass effect, or extra-axial abnormalities are shown. Atherosclerotic calcifications are present in the intracranial segments of the internal carotid arteries. Imaged portions of the paranasal sinuses and mastoid air cells are clear. The orbits appear normal. There are no acute fractures of the calvaria or scalp swelling. Impression: No acute intracranial hemorrhage, no evidence of acute territorial infarction or other acute intracranial disease process. ACT 112: Negative or not required by law. Electronically signed by: Connor Chinchilla M.D. 11/25/2021 10:01 AM Abdomen/Pelvis CT 11/25/21 09:08 CT abd pelvis wo con CLINICAL HISTORY: sepsis hypotension wbc 42k TECHNIQUE: Helical axial images of the abdomen and pelvis were obtained. Automated dose lowering techniques and/or adjustment according to patient size were utilized for this exam. This exam was performed without intravenous contrast. CT DOSE: 1970.38 mGy.cm COMPARISON: None available at the time of this dictation. FINDINGS: Lower chest: No acute abnormality Liver: Unremarkable. No focal lesions are seen. Gallbladder and biliary tree: Cholelithiasis is seen without evidence of cholecystitis. No intra- or extrahepatic biliary ductal dilation. Pancreas: Unremarkable, no focal lesions. Spleen: Splenule is incidentally noted. Adrenals: Unremarkable. Kidneys and ureters: Perinephric stranding is noted bilaterally. There is prominence of the bilateral ureters with thickening of the ureteric arias without evidence of obstructive stone. Renal cyst on the left is better appreciated on the prior exam. Bladder: Diffuse homogeneous wall thickening is seen. Reproductive organs: Unremarkable. Bowel: Some liquid contents are noted in the rectum although well formed stool is seen elsewhere. A small hiatal hernia is seen. Lymph nodes Retroperitoneal: Unremarkable. Pelvic: Unremarkable. Mesenteric: Unremarkable. Peritoneum: Normal. Vessels: Atherosclerotic calcifications are seen. Abdominal wall: A right inguinal hernia contains a loop of nondistended bowel. Bones: Degenerative changes in the visualized spine. IMPRESSION: 1. Prominence of bilateral ureteric arias noted along with bladder wall thickening. This may represent cystitis and pyelitis, correlation with urinalysis is recommended. Pyelonephritis cannot be excluded on a noncontrast exam. 2. Cholelithiasis without cholecystitis. 3. Redemonstration of a small right inguinal hernia containing a loop of small bowel. ACT 112: Negative or not required by law. Electronically signed by: Connor Chinchilla M.D. 11/25/2021 10:12 AM ECG Additional Comments: Sinus tachycardia Left axis deviation Right bundle branch block Abnormal ECG When compared with ECG of 01-MAY-2020 20:58, Aberrant conduction is no longer Present. Code Status & VTE Plan Code Status Full Code. Supervising Physician Co-Signing Physician Notes Attending Attestation and Admission Note: Pt seen/examined, chart reviewed, care plan d/w MONIE Fitzgerald. I agree w/ the salas components of her documentation. 81yo male with baseline dementia/cognitive impairment, h/o prostate ca, and quadriparasis (per records) presented from [facility] with poor appetite, f atigue, lethargy. Pt with evidence of severe sepsis - likely urinary source - given his CT a/p pelvis (showing probable pyelitis/pyelonephritis). In the ER he received broad-spectrum IV abx as well as >30cc/kg of fluid resuscitation. Initial lactates elevated. Initial creatinine 3 (baseline 1.8 in August 2021). During my assessment he was very lethargic. Johnson is in place but he has been severely oliguric. PMH/PSH/allergies/meds/sochx/famhx - reviewed of note - this exam was performed about 1500 this afternoon vitals - BPs low or low-normal, not tachycardic, febrile gen - looks sickly, lethargic, altered mouth - MM dry neck - no JVD heart - RRR, s1 s2, no murmur lungs - CTA b/l, no increased work of breathing abd - mild tenderness centrally, BS+, ND, no HSM ext - pulses 2+ b/l, cap refill about 2 seconds b/l feet, no edema skin - no mottling labs reviewed imaging reviewed EKG reviewed A/P: 1. severe sepsis - source - UTI/pyelonephritis b/l 2. acute renal failure - sepsis-associated ATN 3. hyperkalemia 2nd to #2 4. lactic acidosis 2nd to #1 5. acute metabolic encephalopathy add daptomycin IV x 1 in addition to cefepime for broad-spectrum IV abx follow blood/urine cx's serial BMPs due to #2, #3 avoid sedatives due to #5 patiromer x 1 for high K change NSS to LR for IV fluids check random cortisol - consider stress dose steroids if low I called and spoke with his daughter - aSgrario Thornton (has POA). Extensive update given. Questions answered. Severity of illness discussed. She lives in [place], but is [place]. Rosendo Lee MD PG Care Time/CCT Total # of Minutes Spent Total Time Spent with Patient: Total time spent is greater than 50% in coordination of care (as documented) at patient's floor/unit and/or counseling patient: Coding Level of Care Code 42904 Initial Inpt Care Lvl 3 Diagnoses Sepsis A41.9 Severe sepsis A41.9; R65.20 Pyelonephritis N12 STEVE (acute kidney injury) N17.9 Hypertension I10 Hypertension type: essential hypertension Depression F32.A Cognitive decline R41.89 Prostate cancer C61 Quadriparesis G82.50 Acute metabolic encephalopathy G93.41 Hyperkalemia E87.5 (1) Hypertension Hypertension type: essential hypertension Qualified Code(s): I10 - Essential (primary) hypertension
--- NOTE | 2021-11-25 11:23 | Electrocardiogram Report ---
Test Reason : Blood Pressure : / mmHG Vent. Rate : 106 BPM Atrial Rate : 106 BPM P-R Int : 118 ms QRS Dur : 132 ms QT Int : 336 ms P-R-T Axes : 007 -89 044 degrees QTc Int : 446 ms Sinus tachycardia Left axis deviation Right bundle branch block Abnormal ECG When compared with ECG of 01-MAY-2020 20:58, Aberrant conduction is no longer Present Confirmed by Luis Watson ([id number]) on 11/25/2021 11:23:21 AM Referred By: REFERRED SELF Confirmed By:James Watson
[2021-11-25] MEDS ORDERED: SODIUM CHLORIDE 0.9% 1000ML 1,000 ML IV SCH (12:00)
[2021-11-25] MEDS ORDERED: LORATADINE PO PRN (12:12)
[2021-11-25] MEDS ORDERED: NON-FORMULARY MEDICATION (Acetaminophen 325 mg capsule) PO PRN (12:12)
[2021-11-25] MEDS ORDERED: [UNRECOGNIZED DRUG - OTHER] PO PRN (12:12)
[2021-11-25] MEDS ORDERED: LOPERAMIDE LIQUID 120 ML BOTTLE PO PRN (12:12)
[2021-11-25] MEDS ORDERED: ONDANSETRON INJ 2 MG/ML 2 ML VIAL IV PRN (12:12)
[2021-11-25] MEDS ORDERED: PSEUDOEPHEDRINE PO PRN (12:12)
[2021-11-25] MEDS ORDERED: PATIROMER CALCIUM SORBITEX 8.4 GM PACK PO ONE (12:41)
[2021-11-25] MEDS ORDERED: DAPTOmycin 250 MG in SYRINGE 0 ML IV ONE (13:00)
[2021-11-25] MEDS ORDERED: LORATADINE 10 MG TAB PO PRN (13:22)
[2021-11-25] MEDS: ACETAMINOPHEN 325 MG TAB PO PRN (14:58)
[2021-11-25 15:03] LABS: Calcium 7.8 mg/dl (8.5-10.1); Creatinine Clr Calc Pharmacy 24.9 ml/min; Est GFR (African American) 29.8 ml/min; Est GFR (Non-African American) 25.7 ml/min; Potassium 4.8 mmol/L (3.5-5.1)
[2021-11-25 16:07] LABS: Adenovirus F 40/41 PCR Not Detected (NotDetected); Astrovirus PCR Not Detected (NotDetected); Campylobacter PCR Not Detected (NotDetected); Clostridium diff Toxin A/B PCR Not Detected (NotDetected); Cryptosporidium PCR Not Detected (NotDetected); Cyclospora cayetanensis PCR Not Detected (NotDetected); Entamoeba histolytica PCR Not Detected (NotDetected); Enteroaggregative E.coli(EAEC) Not Detected (NotDetected); Enteropathogenic E.coli (EPEC) Not Detected (NotDetected); Enterotoxigenic E.coli (ETEC) Not Detected (NotDetected); Giardia lamblia PCR Not Detected (NotDetected); Norovirus GI/GII PCR Not Detected (NotDetected); Plesiomonas shigelloides PCR Not Detected (NotDetected); Rotavirus A PCR Not Detected (NotDetected); Salmonella PCR Not Detected (NotDetected); Sapovirus PCR Not Detected (NotDetected); Shiga-like Toxin E.coli (STEC) Not Detected (NotDetected); Shigella/Enteroinvasive E.coli Not Detected (NotDetected); Vibrio cholerae PCR Not Detected (NotDetected); Vibrio species PCR Not Detected (NotDetected); Yersinia enterocolitica PCR Not Detected (NotDetected)
[2021-11-25] MEDS: LACTATED RINGER'S 1,000 ML IV SCH (17:59)
[2021-11-25] MEDS: HEPARIN SOD 5,000 UNIT/0.5 ML VIAL SQ SCH (20:31)
[2021-11-25] MEDS: CHOLESTYRAMINE LIGHT 4 GM PKT PO SCH (20:54)
[2021-11-26 00:12] LABS: A calco-baum cmplx NotReported Not Detected (NotDetected); Bact fragilis Not Reported Not Detected (NotDetected); C auris Not Reported Not Detected (NotDetected); CTX-M Resistant Gene Not Detected (NotDetected); Calbicans Not Reported Not Detected (NotDetected); Candida glabrata Not Reported Not Detected (NotDetected); Candida krusei Not Reported Not Detected (NotDetected); Cneoformans/gatti Not Reported Not Detected (NotDetected); Cparapsilosis Not Reported Not Detected (NotDetected); Ctropicalis Not Reported Not Detected (NotDetected); E cloacae compx Not Reported Not Detected (NotDetected); Efaecalis Not Reported Not Detected (NotDetected); Efaecium Not Reported Not Detected (NotDetected); Enterobacterales DETECTED (NotDetected); Enterobacterales Not Reported DETECTED (NotDetected); Escherichia coli Not Reported DETECTED (NotDetected); H influenzae Not Reported Not Detected (NotDetected); IMP Resistant Gene Not Detected (NotDetected); K aerogenes Not Reported Not Detected (NotDetected); KPC Resistant Gene Not Detected (NotDetected); Koxytoca Not Reported Not Detected (NotDetected); Kpneumoniae grp Not Reported Not Detected (NotDetected); Lmonocyt Not Reported Not Detected (NotDetected); N meningitidis Not Reported Not Detected (NotDetected); NDM Resistant Gene Not Detected (NotDetected); OXA 48 Like Resistant Gene Not Detected (NotDetected); P aeruginosa Not Reported Not Detected (NotDetected); Proteus spp Not Reported Not Detected (NotDetected); Salmonella spp Not Reported Not Detected (NotDetected); Smarcescens Not Reported Not Detected (NotDetected); Staph lugdunensis Not Reported Not Detected (NotDetected); Staph spp. Not Reported Not Detected (NotDetected); Staphaureus Not Reported Not Detected (NotDetected); Staphepi Not Reported Not Detected (NotDetected); Stenmaltophilia Not Reported Not Detected (NotDetected); Strep agal(GrpB) Not Reported Not Detected (NotDetected); Strep pneum Not Reported Not Detected (NotDetected); Strep pyog (GrpA) Not Reported Not Detected (NotDetected); Strep spp Not Reported Not Detected (NotDetected); VIM Resistant Gene Not Detected (NotDetected); mcr-1 Colistin Resistant Gene Not Detected (NotDetected)
[2021-11-26] MEDS ORDERED: ALBUT/IPRATROP 3MG/0.5MG NEB 3 ML VIAL NEB STA (02:02)
[2021-11-26] MEDS: ACETAMINOPHEN 325 MG TAB PO PRN (03:14)
--- NOTE | 2021-11-26 03:21 | Communication Note ---
Date of Service: November 26, 2021 Received message from RN that patient was wheezing and had episode of desaturation down to 70%. Evaluated patient at bedside. At the time of my arrival he had been started on 10 L oxime mask with improvement of oxygen saturation to high 90s. Ongoing wheezing and patient was agitated/trembling. Portable CXR obtained without any new significant findings. Due to wheezing, ordered DuoNeb treatment. Wheezing improved and with RT at bedside oxygen supplementation able to be decreased to 4 L oxymask with saturation remaining in the high 90s. Shortly after received message from nursing that patient's temperature found to be at 39.2. Acetaminophen administered. Pulse at 120s. O2 sat remained high 90s. Resident Activity Tracking Resident Involvement: Resident Care Provided Care Provided: Adult Hospital Medicine
[2021-11-26] MEDS: LACTATED RINGER'S 1,000 ML IV SCH (03:35)
--- NOTE | 2021-11-26 05:15 | Communication Note ---
Date of Service: November 26, 2021 Received information from RN that patient seemed to be choking on thin liquids and applesauce. At this time will make patient n.p.o. and order speech eval. Patient still febrile, had only received acetaminophen 325 mg p.o. x1 ordered acetaminophen 1000 mg IV every 8 hours as needed for pain/fever. Instructed to give 1 dose now.
[2021-11-26] MEDS: ACETAMINOPHEN 1000 MG/100 ML IV IV PRN (05:27)
[2021-11-26 06:16] LABS: C Reactive Protein 24.11 mg/dl (0-0.5); Calcium 8.2 mg/dl (8.5-10.1); Est GFR (African American) 37.3 ml/min; Est GFR (Non-African American) 32.2 ml/min; Magnesium 1.8 mg/dl (1.7-2.4); Potassium 4.3 mmol/L (3.5-5.1)
[2021-11-26 06:46] LABS: Basophils # (auto) 0.04 K/uL (0-0.2); Basophils % (auto) 0.2 %; Echinocytes 2+; Hematocrit (blood only) 24.6 % (40.1-51.0); Immature Granulocytes # (auto) 0.36 K/uL (0.00-0.02); Immature Granulocytes % (auto) 1.4 %; Lymphocytes # (auto) 0.67 K/uL (1.2-3.4); Lymphocytes % (auto) 2.7 %; Mean Corpuscular Hemoglobin 27.2 pg (25.0-34.0); Mean Corpuscular Hgb Conc 32.5 g/dL (32.0-36.0); Mean Corpuscular Volume 83.7 fL (80.0-100.0); Mean Platelet Volume 8.7 fL (9.4-12.4); Monocytes # (auto) 1.18 K/uL (0.24-0.82); Monocytes % (auto) 4.7 %; Neutrophils # (auto) 22.77 K/uL (1.4-6.5); Platelet Count 344 K/uL (130-400); Red Blood Count 2.94 M/uL (4.63-6.08); White Blood Count 25.02 K/ul (4.8-10.8)
[2021-11-26] MEDS: CHOLECALCIFEROL 1,000 UNITS 25 MCG TAB PO SCH ×2 (07:35→09:36)
[2021-11-26] MEDS: PSYLLIUM or GUAR GUM FIBER POWDER PACKET PO SCH ×2 (07:35→09:35)
[2021-11-26] MEDS: DONEPEZIL HCL 5 MG TAB PO SCH ×2 (07:35→09:36)
[2021-11-26] MEDS: CEROVITE ADV FORMULA TAB PO SCH ×2 (07:35→09:36)
[2021-11-26] MEDS: MIRTAZAPINE TAB 15 MG TAB PO SCH ×2 (07:35→09:36)
[2021-11-26] MEDS: HEPARIN SOD 5,000 UNIT/0.5 ML VIAL SQ SCH (07:36)
--- NOTE | 2021-11-26 07:37 | XRay Report ---
XR chest 1V portable CLINICAL HISTORY: hypoxia COMPARISON STUDY: Chest radiograph November 25, 2021. FINDINGS: Lung volumes are normal. Lungs are clear. Apparent subtle asymmetric right lung opacity is likely artifactual There is no pneumothorax or pleural effusion. Cardiac size is normal. Mediastinal contours are normal. There is no evidence for pulmonary edema. IMPRESSION: No acute findings. Apparent subtle asymmetric right lung opacity. Artifact is favored ove r an infectious process. ACT 112: Negative or not required by law. Electronically signed by: Steve Padron M.D. 11/26/2021 7:36 AM
[2021-11-26] MEDS ORDERED: CEFEPIME 1,000 MG in SYRINGE 0 ML IV SCH (08:00)
[2021-11-26] MEDS ORDERED: CHOLESTYRAMINE LIGHT 4 GM PKT PO SCH (09:00)
[2021-11-26] MEDS ORDERED: STAT IV STA (09:13)
[2021-11-26] MEDS: CHOLESTYRAMINE LIGHT 4 GM PKT PO SCH ×2 (09:34→21:33)
[2021-11-26 09:45] LABS: Hematocrit (blood only) 25.6 % (40.1-51.0)
[2021-11-26] MEDS: SODIUM BICARBONATE 8.4% 100 MEQ in DEXTROSE 5% 1,000 ML IV SCH ×2 (10:19→21:33)
[2021-11-26] MEDS: PANTOprazole 40 MG in SYRINGE 0 ML IV SCH ×2 (10:19→20:20)
[2021-11-26 18:53] LABS: Hematocrit (blood only) 30.5 % (40.1-51.0); Hemoglobin 9.5 g/dl (14.0-18.0)
[2021-11-26 19:15] LABS: BUN Creatinine Ratio 23.6 (10-20); Calcium 8.7 mg/dl (8.5-10.1); Creatinine Clr Calc Pharmacy 28.7 ml/min; Est GFR (African American) 37.5 ml/min; Est GFR (Non-African American) 32.4 ml/min; Potassium 4.5 mmol/L (3.5-5.1)
--- NOTE | 2021-11-26 20:15 | Hospitalist Progress Note ---
Date of Service November 26, 2021 Assessment & Plan (1) Severe sepsis: Plan: present on admission. source - despite negative urine culture (this was obtained AFTER antibiotics were given in ER) the urinary tract is most likely. CT a/p showed findings concerning for pyelonephritis/pyelitis. GI source (colon) also possible but much less likely. he has + blood cx's (see below) - will repeat blood cx's in am tomorrow. cont cefepime - hopefully can narrow the abx soon. will need 14 days of Rx. sepsis itself is better - creatinine improving; lactic acidosis resolved; mentation improved today. Cont IVF, IV abx, supportive care. (2) Bacteremia: Plan: biofire panel with e.coli. source - urinary. repeat blood cx's in am. cont cefepime. narrow once final blood cx's have returned. no further daptomycin. (3) STEVE (acute kidney injury): Plan: sepsis-associated ATN. no obstruction seen on CT yesterday. presenting Cr 3.08. unsure baseline but Cr was 1.8 in August (and 1.32 in July). Cr has improved since admission - now 1.9. Received lactated ringers overnight. remains acidotic - likely from diarrhea & ARF - change LR to bicarbonate infusion. repeat BMP tonight and in am tomorrow. cont to hold STEF (4) Acute metabolic encephalopathy: Plan: 2nd to #1 improving supportive care (5) Acidosis: Plan: 2nd to lactic acidosis from severe sepsis - this is improved; previous lactate wnl 2nd to diarrhea 2nd to acute renal failure change IV fluids to bicarbonate infusion repeat BMP tonight and again in am (6) Hyperkalemia: Plan: 2nd to acure renal failure s/p patiromer resolved hold STEF (7) Pyelonephritis: Plan: as seen on CT a/p see above (8) Hypertension: Plan: hold STEF BPs stable today (9) Depression: Plan: Continue mirtazapine. 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 Generally weak at baseline. works with physical therapy at SNF. will need PT/OT while here. (13) Chronic diarrhea: Plan: seen by his PCP earlier this summer for the diarrhea. placed on cholestyramine daily at that time. stool biofire panel fully negative here. 2nd to radiation colitis? 2nd to microscopic colitis? 2nd to UC? pancreatic insufficiency? other? increase cholestyramine to BID dosing. I spoke with daughter - last colonoscopy was 10+ years ago. Colonoscopy was discussed with patient in the last few months and he declined having another one. (14) Dysphagia: Plan: seen by speech today - passed swallow eval - ok for diet (15) DVT prophylaxis: Plan: patient had acute drop in hemoglobin today although stool not grossly melena or bloody I placed his heparin SC on hold if H/H remain stable next 24 hours can likely resume the heparin Plan sunny Zabala updated by phone this evening and last evening as well Admission and Anticipated Discharge Date Admission Date: November 25, 2021 Subjective tele stable overnight night resident was called due to episode of desaturation and concern for aspiration cxr was obtained - negative for infiltrates patient made NPO at that time until speech could evaluate him today speech indeed did bedside swallow and he passed the evaluation during my rounds today patient was much more awake and alert he was still confused, however, didn't realize why he was here - but knew he was at the hospital could not tell me the year he denied any complaints of pain also during the visit he soiled himself with a bowel movement the bowel movement was brown/yellow in color -seedy, mucous filled no melena or bright red blood in the bowel movement Review of Systems Review of Systems: gen - ongoing fevers cv - no chest pain pulm - no dyspnea GI - no pain, no emesis Physical Exam Physical Exam: gen - thin, sickly, no acute distress; does look better than yesterday mouth - MM still dry neck - no JVD heart - RRR, s1 s2 lungs - CTA b/l, no rales, no wheeze abd - soft, NT, ND, BS+, no HSM ext - no edema, pulses 2+ b/l, warm feet, cap refill <2 sec skin - turgor improved today; no rash psych - oriented to person and place but not time Results & Data Results & Data ([facility]) Vital Signs (Past 12 Hours) Vital Signs Temp Pulse Pulse Resp BP BP Pulse Ox 11/26/21 19:37 38.3 C H 66 18 119/63 97 11/26/21 16:15 36.5 C 11/26/21 14:31 76 11/26/21 14:31 76 11/26/21 14:59 36.6 C 72 18 110/65 98 11/26/21 14:54 11/26/21 13:00 112/68 11/26/21 11:15 36.3 C L 60 18 86/51 L 100 11/26/21 08:30 O2 Del Method O2 Flow Rate 11/26/21 19:37 Room Air 11/26/21 16:15 11/26/21 14:31 11/26/21 14:31 11/26/21 14:59 Nasal Cannula 2 11/26/21 14:54 Nasal Cannula 2 11/26/21 13:00 11/26/21 11:15 Oxymask 4 11/26/21 08:30 Oxymask 4 Laboratory Results Laboratory Results - last 24 hr 11/25/21 11/25/21 11/26/21 07:55 12:24 05:25 WBC RBC Hgb Hct MCV MCH MCHC RDW Std Deviation RDW Coeff of Rocky Plt Count MPV Immature Gran % (Auto) Neut % (Auto) Lymph % (Auto) [place] % (Auto) Eos % (Auto) Baso % (Auto) Neut # (Auto) Lymph # (Auto) [place] # (Auto) Eos # (Auto) Baso # (Auto) Immature Gran # (Auto) Echinocytes Sodium 142 Potassium 4.3 Chloride 117 H Carbon Dioxide 17 L Anion Gap 8 BUN 46 H Creatinine 1.92 H D Est Cr Clr Drug Dosing 30.0 Est GFR ( Amer) 37.3 Est GFR (Non-Af Amer) 32.2 BUN/Creatinine Ratio 24.0 H Glucose 111 H Lactate Calcium 8.2 L Magnesium 1.8 C-Reactive Protein 24.11 H Procalcitonin Random Cortisol 34.55 Enterobacterales (PCR) DETECTED A E. coli (PCR) DETECTED A mcr-1 Colistin Res Gene PCR Not Detected blaIMP Car res Gene PCR Not Detected KPC-Carbap Res Gene PCR Not Detected blaNDM Car Res Gene PCR Not Detected OXA-48 Carbapenem Resis Gene (PCR) Not Detected blaVIM Car Res Gene PCR Not Detected CTX-M Gene Resistance (PCR) Not Detected Bld Cult ID Panel PCR See PCR Comment Blood Type Antibody Screen 11/26/21 11/26/21 11/26/21 05:25 05:25 05:25 WBC 25.02 H RBC 2.94 L Hgb 8.0 L Hct 24.6 L MCV 83.7 MCH 27.2 MCHC 32.5 RDW Std Deviation 52.0 H RDW Coeff of Rocky 17.0 H Plt Count 344 MPV 8.7 L Immature Gran % (Auto) 1.4 Neut % (Auto) 91.0 Lymph % (Auto) 2.7 Rusk % (Auto) 4.7 Eos % (Auto) 0.0 Baso % (Auto) 0.2 Neut # (Auto) 22.77 H Lymph # (Auto) 0.67 L Rusk # (Auto) 1.18 H Eos # (Auto) 0.00 Baso # (Auto) 0.04 Immature Gran # (Auto) 0.36 H Echinocytes 2+ Sodium Potassium Chloride Carbon Dioxide Anion Gap BUN Creatinine Est Cr Clr Drug Dosing Est GFR ( Amer) Est GFR (Non-Af Amer) BUN/Creatinine Ratio Glucose Lactate Calcium Magnesium C-Reactive Protein Procalcitonin 26.42 H Random Cortisol Enterobacterales (PCR) E. coli (PCR) mcr-1 Colistin Res Gene PCR blaIMP Car res Gene PCR KPC-Carbap Res Gene PCR blaNDM Car Res Gene PCR OXA-48 Carbapenem Resis Gene (PCR) blaVIM Car Res Gene PCR CTX-M Gene Resistance (PCR) Bld Cult ID Panel PCR Blood Type A Positive Antibody Screen NEGATIVE 11/26/21 11/26/21 11/26/21 09:36 09:36 18:39 WBC RBC Hgb 8.0 L 9.5 L Hct 25.6 L 30.5 L MCV MCH MCHC RDW Std Deviation RDW Coeff of Rocky Plt Count MPV Immature Gran % (Auto) Neut % (Auto) Lymph % (Auto) [place] % (Auto) Eos % (Auto) Baso % (Auto) Neut # (Auto) Lymph # (Auto) R[place] # (Auto) Eos # (Auto) Baso # (Auto) Immature Gran # (Auto) Echinocytes Sodium Potassium Chloride Carbon Dioxide Anion Gap BUN Creatinine Est Cr Clr Drug Dosing Est GFR ( Amer) Est GFR (Non-Af Amer) BUN/Creatinine Ratio Glucose Lactate 1.1 Calcium Magnesium C-Reactive Protein Procalcitonin Random Cortisol Enterobacterales (PCR) E. coli (PCR) mcr-1 Colistin Res Gene PCR blaIMP Car res Gene PCR KPC-Carbap Res Gene PCR blaNDM Car Res Gene PCR OXA-48 Carbapenem Resis Gene (PCR) blaVIM Car Res Gene PCR CTX-M Gene Resistance (PCR) Bld Cult ID Panel PCR Blood Type Antibody Screen 11/26/21 18:39 WBC RBC Hgb Hct MCV MCH MCHC RDW Std Deviation RDW Coeff of Rocky Plt Count MPV Immature Gran % (Auto) Neut % (Auto) Lymph % (Auto) [place] % (Auto) Eos % (Auto) Baso % (Auto) Neut # (Auto) Lymph # (Auto) [place] # (Auto) Eos # (Auto) Baso # (Auto) Immature Gran # (Auto) Echinocytes Sodium 140 Potassium 4.5 Chloride 112 H Carbon Dioxide 15 L Anion Gap 13 H BUN 45 H Creatinine 1.91 H Est Cr Clr Drug Dosing 28.7 Est GFR ( Amer) 37.5 Est GFR (Non-Af Amer) 32.4 BUN/Creatinine Ratio 23.6 H Glucose 86 Lactate Calcium 8.7 Magnesium C-Reactive Protein Procalcitonin Random Cortisol Enterobacterales (PCR) E. coli (PCR) mcr-1 Colistin Res Gene PCR blaIMP Car res Gene PCR KPC-Carbap Res Gene PCR blaNDM Car Res Gene PCR OXA-48 Carbapenem Resis Gene (PCR) blaVIM Car Res Gene PCR CTX-M Gene Resistance (PCR) Bld Cult ID Panel PCR Blood Type Antibody Screen Diagnostic Findings blood cultures + GNR - per biofire is e.coli without any obvious resistance genes PG Care Time/CCT Total # of Minutes Spent Total Time Spent with Patient: Total time spent is greater than 50% in coordination of care (as documented) at patient's floor/unit and/or counseling patient: Coding Level of Care Code 34180 Subseq Hosp Care Lvl 3 Diagnoses Severe sepsis A41.9; R65.20 Bacteremia R78.81 STEVE (acute kidney injury) N17.9 Acute metabolic encephalopathy G93.41 Acidosis E87.2 Hyperkalemia E87.5 Pyelonephritis N12 Hypertension I10 Hypertension type: essential hypertension Depression F32.A Cognitive decline R41.89 Prostate cancer C61 Quadriparesis G82.50 Chronic diarrhea K52.9 Dysphagia R13.10 DVT prophylaxis Z29.9 (1) Hypertension Hypertension type: essential hypertension Qualified Code(s): I10 - Essential (primary) hypertension
[2021-11-26] MEDS: MONTELUKAST SODIUM 10 MG TABLET PO SCH (20:20)
[2021-11-27 06:39] LABS: Hematocrit (blood only) 28.3 % (40.1-51.0); Hemoglobin 9.1 g/dl (14.0-18.0); Mean Corpuscular Hemoglobin 27.2 pg (25.0-34.0); Mean Corpuscular Hgb Conc 32.2 g/dL (32.0-36.0); Mean Corpuscular Volume 84.5 fL (80.0-100.0); Mean Platelet Volume 9.2 fL (9.4-12.4); Platelet Count 348 K/uL (130-400); RDW Coefficient of Variation 17.1 % (11.5-14.5); RDW Standard Deviation 52.7 fL (36.4-46.3); Red Blood Count 3.35 M/uL (4.63-6.08); White Blood Count 15.85 K/ul (4.8-10.8)
[2021-11-27 07:06] LABS: BUN Creatinine Ratio 23.6 (10-20); Calcium 8.4 mg/dl (8.5-10.1); Creatinine Clr Calc Pharmacy 33.4 ml/min; Est GFR (African American) 46.1 ml/min; Est GFR (Non-African American) 39.8 ml/min; Potassium 4.1 mmol/L (3.5-5.1)
[2021-11-27] MEDS: PANTOprazole 40 MG in SYRINGE 0 ML IV SCH (07:41)
[2021-11-27] MEDS: CEROVITE ADV FORMULA TAB PO SCH (07:42)
[2021-11-27] MEDS: PSYLLIUM or GUAR GUM FIBER POWDER PACKET PO SCH (07:42)
[2021-11-27] MEDS: MIRTAZAPINE TAB 15 MG TAB PO SCH (07:42)
[2021-11-27] MEDS: CHOLECALCIFEROL 1,000 UNITS 25 MCG TAB PO SCH (07:42)
[2021-11-27] MEDS: DONEPEZIL HCL 5 MG TAB PO SCH (07:43)
[2021-11-27] MEDS: CHOLESTYRAMINE LIGHT 4 GM PKT PO SCH ×2 (07:52→21:19)
[2021-11-27] MEDS ORDERED: CEFEPIME 2,000 MG in SYRINGE 0 ML IV SCH (08:00)
[2021-11-27] MEDS: ACETAMINOPHEN 1000 MG/100 ML IV IV PRN (09:21)
[2021-11-27] MEDS: SODIUM BICARBONATE 8.4% 100 MEQ in DEXTROSE 5% 1,000 ML IV SCH (11:26)
--- NOTE | 2021-11-27 15:28 | Hospitalist Progress Note ---
Date of Service November 27, 2021 Assessment & Plan (1) Severe sepsis: Plan: present on admission, Septicemia source - despite negative urine culture (this was obtained AFTER antibiotics were given in ER) the urinary tract is most likely. CT a/p showed findings concerning for pyelonephritis/pyelitis. GI source (colon) also possible but much less likely. with E. coli in blood cultures WBC count 42k on admission, now continues to trend downward to 15k Fevers improving, Tm 37.9 this AM With STEVE, hypoxia,and acute metabolic encephalopathy all now improving E. coli resistant to multiple drugs but sensitive to Cefepime cont cefepime for now but plan to convert to Cipro once defervesced and as long as STEVE continues to improve to complete 14 days of Rx -dc IVFs -continue to follow repeat BCxs (2) Bacteremia: Plan: biofire panel with e.coli. source - urinary. repeat blood cx's-NGTD cont cefepime and then convert o Cipro as above (3) STEVE (acute kidney injury): Plan: sepsis-associated ATN, hypotension no obstruction seen on CT presenting Cr 3.08. unsure baseline but Cr was 1.8 in August (and 1.32 in July). Cr has improved since admission - now 1.6 Received lactated ringers and then remained acidotic - likely from diarrhea & ARF - changed LR to bicarbonate infusion and now improved acidosis -cont to hold ACEi -follow BMP in AM (4) Anemia: Plan: patient had acute drop in hemoglobin on hospital day #2 to 8.0, now back up to 9 stool not grossly melena or bloody check Fe studies, B12, folate in AM follow CBC (5) Acute metabolic encephalopathy: Plan: 2nd to sepsis, now improving supportive care (6) Acidosis: Plan: 2nd to lactic acidosis from severe sepsis - this is improved; previous lactate wnl 2nd to diarrhea 2nd to acute renal failure now resolved with bicarbonate infusion dc bicarb gtt (7) Hyperkalemia: Plan: 2nd to acure renal failure s/p patiromer resolved hold ACEi (8) Pyelonephritis: Plan: as seen on CT a/p see above (9) Hypertension: Plan: had hypotension on admission from sepsis continue to hold ACEi BPs stable today (10) Depression: Plan: Continue mirtazapine but change to hs dosing (11) Cognitive decline: Plan: CT head negative for acute findings with superimposed met encephalopathy - see above cont aricept (chronic med for him) (12) Prostate cancer: Plan: s/p radical prostatectomy in 2011 s/p external beam radiation at that time as well (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 Generally weak at baseline. works with physical therapy at SNF. will need PT/OT while here. (14) Chronic diarrhea: Plan: seen by his PCP earlier this summer for the diarrhea. placed on cholestyramine daily at that time. stool biofire panel fully negative here. 2nd to radiation colitis? 2nd to microscopic colitis? 2nd to UC? pancreatic insufficiency? other? increased cholestyramine to BID dosing. - last colonoscopy was 10+ years ago. Colonoscopy was discussed with patient in the last few months and he declined having another one. (15) Dysphagia: Plan: seen by speech here - passed swallow eval - ok for diet (16) Acute respiratory failure with hypoxia: Plan: as above, 2/2 sepsis, no PNA improving dc IVFs due to some crackles follow and wean off supplemental O2 Plan DVT proph-ok to restart heparin SQ as hgb back up Dispo-continued stay on tele Admission and Anticipated Discharge Date Admission Date: November 25, 2021 Subjective Pt napping when I saw him but woke up startled. Denies pain, nausea but has no appetite. Is incontinent to urine. Has no complaints. States "I didn't know i was at sick as I was." Tele with NSR, SB 40s-130s Review of Systems Review of Systems: All systems reviewed & are unremarkable except as noted in HPI & below Physical Exam Constitutional: WD/WN, vitals as above Eyes: + anicteric sclerae Neck: trachea midline, no thyromegaly Respiratory: normal respiratory effort Auscultation: + crackles (bibasilar); no rhonchi and no wheezes Cardiovascular: RRR, no murmur, no edema Chest (Breasts): Chest: normal inspection of chest Gastrointestinal (Abdomen): normal bowel sounds, soft, nontender, no hepatosplenomegaly Musculoskeletal: Extremities: extremities normal to inspection; no cyanosis and no clubbing Skin: no rashes, warm and dry Neurologic: moves all extremities, + focal motor deficit (4/5 strength throughout) and awake Psychiatric: Orientation: alert, oriented to person, oriented to place and cooperative Lymphatic: no lymphedema Results & Data Results & Data ([facility]) Vital Signs (Past 12 Hours) Vital Signs Temp Pulse Pulse Resp BP Pulse Ox O2 Del Method 11/27/21 14:58 53 L 11/27/21 09:35 Nasal Cannula 11/27/21 07:17 95 H 11/27/21 06:38 37.9 C H 63 18 150/77 H 95 O2 Flow Rate 11/27/21 14:58 11/27/21 09:35 2 11/27/21 07:17 11/27/21 06:38 2 Diagnostic Findings 11/27/21 11/27/21 11/26/21 Range/Units 05:31 05:31 18:39 WBC 15.85 H (4.8-10.8) K/ul RBC 3.35 L (4.63-6.08) M/uL Hgb 9.1 L (14.0-18.0) g/dl Hct 28.3 L (40.1-51.0) % MCV 84.5 (80.0-100.0) fL MCH 27.2 (25.0-34.0) pg MCHC 32.2 (32.0-36.0) g/dL RDW Std Deviation 52.7 H (36.4-46.3) fL RDW Coeff of Rocky 17.1 H (11.5-14.5) % Plt Count 348 (130-400) K/uL MPV 9.2 L (9.4-12.4) fL Sodium 139 140 (136-145) mmol/L Potassium 4.1 4.5 (3.5-5.1) mmol/L Chloride 109 H 112 H (98-107) mmol/L Carbon Dioxide 24 15 L (21-32) mmol/L Anion Gap 6 13 H (3-11) BUN 38 H 45 H (6-23) mg/dl Creatinine 1.61 H D 1.91 H (0.6-1.4) mg/dl Est Cr Clr Drug Dosing 33.4 28.7 ml/min Est GFR ( Amer) 46.1 37.5 ml/min Est GFR (Non-Af Amer) 39.8 32.4 ml/min BUN/Creatinine Ratio 23.6 H 23.6 H (10-20) Glucose 94 86 (70-99(Fasting)) mg/dl Calcium 8.4 L 8.7 (8.5-10.1) mg/dl 11/26/21 Range/Units 18:39 WBC (4.8-10.8) K/ul RBC (4.63-6.08) M/uL Hgb 9.5 L (14.0-18.0) g/dl Hct 30.5 L (40.1-51.0) % MCV (80.0-100.0) fL MCH (25.0-34.0) pg MCHC (32.0-36.0) g/dL RDW Std Deviation (36.4-46.3) fL RDW Coeff of Rocky (11.5-14.5) % Plt Count (130-400) K/uL MPV (9.4-12.4) fL Sodium (136-145) mmol/L Potassium (3.5-5.1) mmol/L Chloride (98-107) mmol/L Carbon Dioxide (21-32) mmol/L Anion Gap (3-11) BUN (6-23) mg/dl Creatinine (0.6-1.4) mg/dl Est Cr Clr Drug Dosing ml/min Est GFR ( Amer) ml/min Est GFR (Non-Af Amer) ml/min BUN/Creatinine Ratio (10-20) Glucose (70-99(Fasting)) mg/dl Calcium (8.5-10.1) mg/dl PG Care Time/CCT Total # of Minutes Spent Total Time Spent with Patient: Total time spent is greater than 50% in coordination of care (as documented) at patient's floor/unit and/or counseling patient: Coding Level of Care Code 26477 Subseq Hosp Care Lvl 3 Diagnoses Severe sepsis A41.9; R65.20 Bacteremia R78.81 STEVE (acute kidney injury) N17.9 Anemia D64.9 Acute metabolic encephalopathy G93.41 Acidosis E87.2 Hyperkalemia E87.5 Pyelonephritis N12 Hypertension I10 Hypertension type: essential hypertension Depression F32.A Cognitive decline R41.89 Prostate cancer C61 Quadriparesis G82.50 Chronic diarrhea K52.9 Dysphagia R13.10 Acute respiratory failure with hypoxia J96.01 (1) Hypertension Hypertension type: essential hypertension Qualified Code(s): I10 - Essential (primary) hypertension
[2021-11-27] MEDS ORDERED: ACETAMINOPHEN 325 MG TAB PO PRN (15:48)
[2021-11-27] MEDS ORDERED: cefTRIAXone SODIUM 2,000 MG in DEXTROSE 5% 50 ML IV SCH (21:00)
[2021-11-27] MEDS: HEPARIN SOD 5,000 UNIT/0.5 ML VIAL SQ SCH (21:02)
[2021-11-27] MEDS: MONTELUKAST SODIUM 10 MG TABLET PO SCH (21:03)
[2021-11-27] MEDS: CEFEPIME 2,000 MG in SYRINGE 0 ML IV SCH (21:06)
[2021-11-28 06:58] LABS: Basophils # (auto) 0.03 K/uL (0-0.2); Basophils % (auto) 0.2 %; Hematocrit (blood only) 26.9 % (40.1-51.0); Hemoglobin 8.4 g/dl (14.0-18.0); Immature Granulocytes # (auto) 0.31 K/uL (0.00-0.02); Immature Granulocytes % (auto) 1.9 %; Lymphocytes # (auto) 1.04 K/uL (1.2-3.4); Lymphocytes % (auto) 6.5 %; Mean Corpuscular Hemoglobin 26.8 pg (25.0-34.0); Mean Corpuscular Hgb Conc 31.2 g/dL (32.0-36.0); Mean Corpuscular Volume 85.7 fL (80.0-100.0); Mean Platelet Volume 9.1 fL (9.4-12.4); Monocytes # (auto) 1.11 K/uL (0.24-0.82); Monocytes % (auto) 6.9 %; Neutrophils # (auto) 13.53 K/uL (1.4-6.5); Neutrophils % (auto) 84.5 %; Platelet Count 323 K/uL (130-400); RDW Coefficient of Variation 17.1 % (11.5-14.5); RDW Standard Deviation 53.4 fL (36.4-46.3); Red Blood Count 3.14 M/uL (4.63-6.08); White Blood Count 16.02 K/ul (4.8-10.8)
[2021-11-28] MEDS: CHOLECALCIFEROL 1,000 UNITS 25 MCG TAB PO SCH (07:19)
[2021-11-28] MEDS: DONEPEZIL HCL 5 MG TAB PO SCH (07:20)
[2021-11-28] MEDS: HEPARIN SOD 5,000 UNIT/0.5 ML VIAL SQ SCH ×2 (07:20→20:22)
[2021-11-28] MEDS: CHOLESTYRAMINE LIGHT 4 GM PKT PO SCH ×2 (07:20→22:20)
[2021-11-28] MEDS: PSYLLIUM or GUAR GUM FIBER POWDER PACKET PO SCH (07:20)
[2021-11-28] MEDS: CEROVITE ADV FORMULA TAB PO SCH (07:20)
[2021-11-28] MEDS: CEFEPIME 2,000 MG in SYRINGE 0 ML IV SCH ×2 (07:24→20:21)
[2021-11-28 07:27] LABS: Albumin Level 2.7 gm/dl (3.4-5.0); BUN Creatinine Ratio 23.6 (10-20); Bilirubin,Total 0.5 mg/dl (0.2-1.0); Calcium 8.1 mg/dl (8.5-10.1); Creatinine Clr Calc Pharmacy 35.2 ml/min; Est GFR (African American) 47.5 ml/min; Potassium 3.9 mmol/L (3.5-5.1); Total Protein 5.7 gm/dl (6.0-8.3)
[2021-11-28 07:47] LABS: Folate (Folic Acid) > 22.30 ng/ml (>5.38)
[2021-11-28 07:48] LABS: Vitamin B12 461 pg/ml (180-914)
[2021-11-28 08:23] LABS: Albumin Globulin Ratio 0.9 (0.9-2)
--- NOTE | 2021-11-28 18:09 | Hospitalist Progress Note ---
Date of Service November 28, 2021 Assessment & Plan (1) Severe sepsis: Plan: present on admission, Septicemia source - despite negative urine culture (this was obtained AFTER antibiotics were given in ER) the urinary tract is most likely. CT a/p showed findings concerning for pyelonephritis/pyelitis. GI source (colon) also possible but much less likely. with E. coli in blood cultures WBC count 42k on admission, now continues to trend downward to 15-16k Procal trending downward from 26 to 12 Fevers still ongoing but last fever evening of 11/27 so hopefully resolving With STEVE, hypoxia,and acute metabolic encephalopathy all now much improved E. coli resistant to multiple drugs but sensitive to Cefepime -cont cefepime for now but plan to convert to Cipro once defervesced and as long as STEVE continues to improve to complete 14 days of Rx -continue to follow repeat BCxs (2) Bacteremia: Plan: biofire panel with e.coli. source - urinary. repeat blood cx's-NGTD cont cefepime and then convert to Cipro as above (3) STEVE (acute kidney injury): Plan: sepsis-associated ATN, hypotension no obstruction seen on CT presenting Cr 3.08. unsure baseline but Cr was 1.8 in August (and 1.32 in July). Cr has improved since admission - now down to 1.5,making urine Received lactated ringers and then remained acidotic - likely from diarrhea & ARF - changed LR to bicarbonate infusion and now improved acidosis -cont to hold ACEi -follow BMP in AM (4) Anemia: Plan: patient had acute drop in hemoglobin on hospital day #2 to 8.0, now back up to 8.4 stool not grossly melena or bloody checked Fe studies, B12, folate-all normal fecal occult negative likely anemia of chronic disease follow CBC here and as outpt (5) Acute metabolic encephalopathy: Plan: 2nd to sepsis, now much improved supportive care, treating infection (6) Acidosis: Plan: 2nd to lactic acidosis from severe sepsis - this is resolved 2nd to diarrhea and acute renal failure now resolved with bicarbonate infusion (7) Hyperkalemia: Plan: 2nd to acure renal failure s/p patiromer resolved hold ACEi (8) Pyelonephritis: Plan: as seen on CT a/p see above (9) Hypertension: Plan: had hypotension on admission from sepsis continue to hold ACEi BPs stable today (10) Depression: Plan: Continue mirtazapine (11) Cognitive decline: Plan: CT head negative for acute findings with superimposed met encephalopathy - see above cont aricept (chronic med for him) (12) Prostate cancer: Plan: s/p radical prostatectomy in 2011 s/p external beam radiation at that time as well (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 Generally weak at baseline. works with physical therapy at SNF. will need PT/OT while here-recommend SNF (14) Chronic diarrhea: Plan: seen by his PCP earlier this summer for the diarrhea. placed on cholestyramine daily at that time. stool biofire panel fully negative here. 2nd to radiation colitis? 2nd to microscopic colitis? 2nd to UC? pancreatic insufficiency? other? increased cholestyramine to BID dosing. - last colonoscopy was 10+ years ago. Colonoscopy was discussed with patient in the last few months and he declined having another one. (15) Dysphagia: Plan: seen by speech here - passed swallow eval - ok for diet (16) Acute respiratory failure with hypoxia: Plan: as above, 2/2 sepsis, no PNA now resolved, weaned off O2 Plan DVT proph- heparin SQ Dispo-continued stay on tele but can likely dc to SNF tomorrow Admission and Anticipated Discharge Date Admission Date: November 25, 2021 Anticipated date of discharge: 11/29/21 Subjective Pt much improved today. Says "I pretty much sailed through...but it's like I was on a suarez or something." Denies pain anywhere, is eating more today. His friend and personal service representative are at the bedside. Tele with NSR,IVCD, PACS Review of Systems Review of Systems: All systems reviewed & are unremarkable except as noted in HPI & below Physical Exam Constitutional: WD/WN, vitals as above Eyes: + anicteric sclerae Neck: trachea midline, no thyromegaly Respiratory: normal respiratory effort Auscultation: + crackles (bibasilar but improved from previous); no rhonchi and no wheezes Cardiovascular: RRR, no murmur, no edema Chest (Breasts): Chest: normal inspection of chest Gastrointestinal (Abdomen): normal bowel sounds, soft, nontender, no hepatosplenomegaly Musculoskeletal: Extremities: extremities normal to inspection; no cyanosis and no clubbing Skin: no rashes, warm and dry Neurologic: moves all extremities, + focal motor deficit (4/5 strength throughout) and awake Psychiatric: Orientation: alert, oriented to person, oriented to place and cooperative Lymphatic: no lymphedema Results & Data Results & Data ([facility]) Vital Signs (Past 12 Hours) Vital Signs Temp Pulse Pulse Resp BP Pulse Ox O2 Del Method 11/28/21 15:38 37.3 C 80 18 119/66 97 Nasal Cannula 11/28/21 15:11 86 11/28/21 09:20 Nasal Cannula 11/28/21 07:10 79 11/28/21 06:25 36.5 C 82 20 123/75 100 Nasal Cannula O2 Flow Rate 11/28/21 15:38 2 11/28/21 15:11 11/28/21 09:20 2 11/28/21 07:10 11/28/21 06:25 2 Laboratory Results 11/28/21 11/28/21 11/28/21 Range/Units 06:15 05:47 05:47 WBC (4.8-10.8) K/ul RBC (4.63-6.08) M/uL Hgb (14.0-18.0) g/dl Hct (40.1-51.0) % MCV (80.0-100.0) fL MCH (25.0-34.0) pg MCHC (32.0-36.0) g/dL RDW Std Deviation (36.4-46.3) fL RDW Coeff of Rocky (11.5-14.5) % Plt Count (130-400) K/uL MPV (9.4-12.4) fL Immature Gran % (Auto) % Neut % (Auto) % Lymph % (Auto) % Letcher % (Auto) % Eos % (Auto) % Baso % (Auto) % Neut # (Auto) (1.4-6.5) K/uL Lymph # (Auto) (1.2-3.4) K/uL Letcher # (Auto) (0.24-0.82) K/uL Eos # (Auto) (0-0.50) K/uL Baso # (Auto) (0-0.2) K/uL Immature Gran # (Auto) (0.00-0.02) K/uL Sodium (136-145) mmol/L Potassium (3.5-5.1) mmol/L Chloride (98-107) mmol/L Carbon Dioxide (21-32) mmol/L Anion Gap (3-11) BUN (6-23) mg/dl Creatinine (0.6-1.4) mg/dl Est Cr Clr Drug Dosing ml/min Est GFR ( Amer) ml/min Est GFR (Non-Af Amer) ml/min BUN/Creatinine Ratio (10-20) Glucose (70-99(Fasting)) mg/dl Calcium (8.5-10.1) mg/dl Magnesium (1.7-2.4) mg/dl Iron (35-175) mcg/dl TIBC (250-450) mcg/dl Unsaturated IBC (155-355) mcg/dl Transferrin % Sat (20-50) % Ferritin (8-388) ng/ml Total Bilirubin (0.2-1.0) mg/dl AST (13-39) U/L ALT (7-52) U/L Alkaline Phosphatase (34-104) U/L Total Protein (6.0-8.3) gm/dl Albumin (3.4-5.0) gm/dl Globulin (2.5-4.0) gm/dl Albumin/Globulin Ratio (0.9-2) Vitamin B12 461 (180-914) pg/ml Folate > 22.30 (>5.38) ng/ml Procalcitonin 12.07 H (0-0.5) ng/ml Stool Occult Bld Scrn Negative (Negative) 11/28/21 11/28/21 Range/Units 05:47 05:47 WBC 16.02 H (4.8-10.8) K/ul RBC 3.14 L (4.63-6.08) M/uL Hgb 8.4 L (14.0-18.0) g/dl Hct 26.9 L (40.1-51.0) % MCV 85.7 (80.0-100.0) fL MCH 26.8 (25.0-34.0) pg MCHC 31.2 L (32.0-36.0) g/dL RDW Std Deviation 53.4 H (36.4-46.3) fL RDW Coeff of Rocky 17.1 H (11.5-14.5) % Plt Count 323 (130-400) K/uL MPV 9.1 L (9.4-12.4) fL Immature Gran % (Auto) 1.9 % Neut % (Auto) 84.5 % Lymph % (Auto) 6.5 % Letcher % (Auto) 6.9 % Eos % (Auto) 0.0 % Baso % (Auto) 0.2 % Neut # (Auto) 13.53 H (1.4-6.5) K/uL Lymph # (Auto) 1.04 L (1.2-3.4) K/uL Letcher # (Auto) 1.11 H (0.24-0.82) K/uL Eos # (Auto) 0.00 (0-0.50) K/uL Baso # (Auto) 0.03 (0-0.2) K/uL Immature Gran # (Auto) 0.31 H (0.00-0.02) K/uL Sodium 139 (136-145) mmol/L Potassium 3.9 (3.5-5.1) mmol/L Chloride 109 H (98-107) mmol/L Carbon Dioxide 24 (21-32) mmol/L Anion Gap 6 (3-11) BUN 37 H (6-23) mg/dl Creatinine 1.57 H (0.6-1.4) mg/dl Est Cr Clr Drug Dosing 35.2 ml/min Est GFR ( Amer) 47.5 ml/min Est GFR (Non-Af Amer) 41.0 ml/min BUN/Creatinine Ratio 23.6 H (10-20) Glucose 95 (70-99(Fasting)) mg/dl Calcium 8.1 L (8.5-10.1) mg/dl Magnesium 2.0 (1.7-2.4) mg/dl Iron 20 L (35-175) mcg/dl TIBC 99 L (250-450) mcg/dl Unsaturated IBC 79 L (155-355) mcg/dl Transferrin % Sat 20 (20-50) % Ferritin 2449.0 H (8-388) ng/ml Total Bilirubin 0.5 (0.2-1.0) mg/dl AST 19 (13-39) U/L ALT 13 (7-52) U/L Alkaline Phosphatase 98 (34-104) U/L Total Protein 5.7 L (6.0-8.3) gm/dl Albumin 2.7 L (3.4-5.0) gm/dl Globulin 3.0 (2.5-4.0) gm/dl Albumin/Globulin Ratio 0.9 (0.9-2) Vitamin B12 (180-914) pg/ml Folate (>5.38) ng/ml Procalcitonin (0-0.5) ng/ml Stool Occult Bld Scrn (Negative) PG Care Time/CCT Total # of Minutes Spent Total Time Spent with Patient: Total time spent is greater than 50% in coordination of care (as documented) at patient's floor/unit and/or counseling patient: Coding Level of Care Code 24101 Subseq Hosp Care Lvl 2 Diagnoses Severe sepsis A41.9; R65.20 Bacteremia R78.81 STEVE (acute kidney injury) N17.9 Anemia D64.9 Acute metabolic encephalopathy G93.41 Acidosis E87.2 Hyperkalemia E87.5 Pyelonephritis N12 Hypertension I10 Hypertension type: essential hypertension Depression F32.A Cognitive decline R41.89 Prostate cancer C61 Quadriparesis G82.50 Chronic diarrhea K52.9 Dysphagia R13.10 Acute respiratory failure with hypoxia J96.01 (1) Hypertension Hypertension type: essential hypertension Qualified Code(s): I10 - Essential (primary) hypertension
[2021-11-28] MEDS: MONTELUKAST SODIUM 10 MG TABLET PO SCH (20:21)
[2021-11-28] MEDS: MIRTAZAPINE TAB 15 MG TAB PO SCH (20:21)
[2021-11-29 08:23] LABS: Basophils # (auto) 0.04 K/uL (0-0.2); Basophils % (auto) 0.2 %; Eosinophils # (auto) 0.01 K/uL (0-0.50); Hemoglobin 9.2 g/dl (14.0-18.0); Immature Granulocytes # (auto) 0.53 K/uL (0.00-0.02); Immature Granulocytes % (auto) 2.5 %; Lymphocytes # (auto) 1.36 K/uL (1.2-3.4); Lymphocytes % (auto) 6.4 %; Mean Corpuscular Hgb Conc 31.7 g/dL (32.0-36.0); Mean Platelet Volume 8.5 fL (9.4-12.4); Monocytes # (auto) 1.31 K/uL (0.24-0.82); Monocytes % (auto) 6.1 %; Neutrophils % (auto) 84.8 %; Platelet Count 331 K/uL (130-400); RDW Coefficient of Variation 16.6 % (11.5-14.5); RDW Standard Deviation 51.8 fL (36.4-46.3); Red Blood Count 3.41 M/uL (4.63-6.08); White Blood Count 21.35 K/ul (4.8-10.8)
[2021-11-29 08:47] LABS: BUN Creatinine Ratio 24.4 (10-20); Calcium 8.4 mg/dl (8.5-10.1); Est GFR (African American) 59.2 ml/min; Est GFR (Non-African American) 51.1 ml/min; Potassium 3.4 mmol/L (3.5-5.1)
[2021-11-29] MEDS: CEFEPIME 2,000 MG in SYRINGE 0 ML IV SCH ×2 (08:57→21:20)
[2021-11-29] MEDS: HEPARIN SOD 5,000 UNIT/0.5 ML VIAL SQ SCH ×2 (08:57→21:22)
[2021-11-29] MEDS: DONEPEZIL HCL 5 MG TAB PO SCH (08:58)
[2021-11-29] MEDS: CEROVITE ADV FORMULA TAB PO SCH (08:58)
[2021-11-29] MEDS: PSYLLIUM or GUAR GUM FIBER POWDER PACKET PO SCH (08:58)
[2021-11-29] MEDS: CHOLECALCIFEROL 1,000 UNITS 25 MCG TAB PO SCH (08:58)
[2021-11-29] MEDS ORDERED: POTASSIUM CHLORIDE CRTAB 20 MEQ TABCR PO STA (09:13)
[2021-11-29] MEDS ORDERED: OPTIRAY 300 100mL IV ONE (10:25)
[2021-11-29] MEDS: CHOLESTYRAMINE LIGHT 4 GM PKT PO SCH ×2 (10:59→22:51)
--- NOTE | 2021-11-29 11:04 | CT Scan Report ---
CT SCAN OF THE ABDOMEN AND PELVIS WITH IV CONTRAST CLINICAL HISTORY: Pyelonephritis. COMPARISON STUDY: Abdominal CT dated 11/25/2021. TECHNIQUE: Following the IV administration of 93 cc of Optiray 300, CT scan of the abdomen and pelvi s is performed from the lung bases to the proximal femora. Images are reviewed in the axial, sagittal , and coronal planes. IV contrast was administered without complication. A dose lowering technique wa s utilized adhering to the principles of ALARA. The examination is significantly degraded by motion a rtifact. CT DOSE: 484.97 mGy.cm FINDINGS: Lung bases: The heart is normal in size and without pericardial effusion. There are small pleural eff usions with dependent atelectasis. Liver: The contrast-enhanced liver is normal in size, contour, and attenuation. There is no intrahepa tic biliary ductal dilatation. The hepatic veins and portal veins are patent. Gallbladder: There are gallstones and biliary sludge. The gallbladder is contracted and appears thick -walled. Spleen: Normal in size and attenuation. Pancreas: Unremarkable. Adrenal glands: Unremarkable. Kidneys: The contrast enhanced kidneys are normal in size and show mild bilateral hydroureteronephros is. Urothelial thickening and enhancement is seen involving the renal pelvis bilaterally and both ure ters. There is mild surrounding infiltration. The kidneys enhance heterogeneously. A 3.8 cm cyst is s een in the left upper pole, unchanged from prior studies. There is no CT evidence of renal abscess. Abdominal vasculature: The abdominal aorta is normal in course and caliber noting mild to moderate at herosclerotic calcification. Bowel: There is moderate colonic fecal retention. No bowel obstruction is seen. There is mild colonic diverticulosis without CT evidence of acute diverticulitis. There is nonobstructed small bowel withi n a large right inguinal hernia. The appendix is well-visualized and normal. Peritoneum: No definite peritoneal free air is seen. There is trace pelvic ascites. Lymphadenopathy: None. Pelvic viscera: The prostate gland is diminutive versus surgically absent. The bladder wall is circum ferentially thickened and there is surrounding inflammation. Bladder calculi are noted. There are enl arged left inguinal hernias. A right inguinal hernia contains nonobstructed bowel. Skeletal structures: The skeletal structures are osteopenic. There is moderate lumbosacral spondylosi s. There is a large posterior disc osteophyte complex at T9-T10. No lytic or blastic lesions are seen . There are healed left-sided rib fractures. IMPRESSION: 1. Significantly motion compromised examination. 2. There is evidence of cystitis with bilateral ascending urinary tract infection/pyelonephritis. 3. There is no CT evidence of renal abscess. 4. Mild bilateral hydroureteronephrosis is likely related to infection. Clinical correlation will be required. 5. Small pleural effusions. These are new from 11/25/2021. 6. Trace pelvic ascites. 7. Cholelithiasis within a thick-walled and contracted gallbladder. Clinical correlation required. 8. There is a large right inguinal hernia which contains nonobstructed bowel. 9. Additional findings as above. ACT 112: Negative or not required by law. Electronically signed by: Matthew Servin M.D. 11/29/2021 11:02 AM
[2021-11-29 12:14] LABS: Influenza A virus by PCR Negative (Neg); Influenza B virus by PCR Negative (Neg); RSV by PCR Negative (Neg); SARS CoV2 RNA(COVID-19) InHosp NEGATIVE (Negative)
[2021-11-29 15:29] LABS: Albumin Level 2.8 gm/dl (3.4-5.0); Bilirubin Direct 0.2 mg/dl (0-0.2); Bilirubin,Total 0.6 mg/dl (0.2-1.0); Total Protein 6.2 gm/dl (6.0-8.3)
--- NOTE | 2021-11-29 18:48 | Hospitalist Progress Note ---
Date of Service November 29, 2021 Assessment & Plan (1) Severe sepsis: Plan: present on admission, Septicemia source - despite negative urine culture (this was obtained AFTER antibiotics were given in ER) the urinary tract is most likely. CT a/p showed findings concerning for pyelonephritis/pyelitis. GI source (colon) also possible but much less likely. with E. coli in blood cultures WBC count 42k on admission, then trended downward to 15-16k, however continuing to spike fevers today an dWBC count back up to 21k Procal trending downward from 26 to 12 With STEVE, hypoxia,and acute metabolic encephalopathy all now much improved/resolved E. coli resistant to multiple drugs but sensitive to Cefepime With persistent fevers--> repeated BCxs, CT A/P-negative for renal abscess or worsening infection. No colitis. With cholelithiasis and thickened but contra cted GB wall-no abd pain and no tenderness. LFTs normal except chronically elevated alk phos so do not suspect cholecystitis Repeated COVID/FLU/RSV--> negative No pulm symptoms, no diarrhea Suspect fevers and leukocytosis persisting due to nature of pyelonephritis -cont cefepime -plan to convert to Cipro once defervesced and as long as STEVE continues to improve to complete 14 days of Rx -continue to follow repeat BCxs from both 11/27 and 11/29 (2) Bacteremia: Plan: biofire panel with e.coli. source - urinary. repeat blood cx's-NGTD cont cefepime and then convert to Cipro as above (3) STEVE (acute kidney injury): Plan: sepsis-associated ATN, hypotension no obstruction seen on CT presenting Cr 3.08. unsure baseline but Cr was 1.8 in August (and 1.32 in July). Cr has improved since admission - now down to 1.3, making urine Received lactated ringers and then remained acidotic - likely from diarrhea & ARF - changed LR to bicarbonate infusion and now improved acidosis -cont to hold ACEi -follow BMP in AM (4) Anemia: Plan: patient had acute drop in hemoglobin on hospital day #2 to 8.0, now back up to 9.2 stool not grossly melena or bloody checked Fe studies, B12, folate-all normal fecal occult negative likely anemia of chronic disease follow CBC here and as outpt (5) Acute metabolic encephalopathy: Plan: 2nd to sepsis, now much improved supportive care, treating infection (6) Acidosis: Plan: 2nd to lactic acidosis from severe sepsis - this is resolved 2nd to diarrhea and acute renal failure now resolved with bicarbonate infusion (7) Hyperkalemia: Plan: 2nd to acure renal failure s/p patiromer resolved hold ACEi (8) Pyelonephritis: Plan: as seen on CT a/p see above (9) Hypertension: Plan: had hypotension on admission from sepsis continue to hold ACEi BPs stable today (10) Depression: Plan: Continue mirtazapine (11) Cognitive decline: Plan: CT head negative for acute findings with superimposed met encephalopathy - see above cont aricept (chronic med for him) (12) Prostate cancer: Plan: s/p radical prostatectomy in 2011 s/p external beam radiation at that time as well (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 Generally weak at baseline. works with physical therapy at SNF. will need PT/OT while here-recommend SNF (14) Chronic diarrhea: Plan: seen by his PCP earlier this summer for the diarrhea. placed on cholestyramine daily at that time. stool biofire panel fully negative here. 2nd to radiation colitis? 2nd to microscopic colitis? 2nd to UC? pancreatic insufficiency? other? increased cholestyramine to BID dosing. - last colonoscopy was 10+ years ago. Colonoscopy was discussed with patient in the last few months and he declined having another one. (15) Dysphagia: Plan: seen by speech here - passed swallow eval - ok for diet (16) Acute respiratory failure with hypoxia: Plan: as above, 2/2 sepsis, no PNA now resolved, weaned off O2 Plan DVT proph- heparin SQ Dispo-continued stay on tele. Will not discharge until fevers resolved for over 24 hours and WBC count continues to trend downward and blood cultures remain negative Discussed care with daughter Cordell on phone Admission and Anticipated Discharge Date Admission Date: November 25, 2021 Subjective Pt had a fever las tonight. Is eating some, no diarrhea today. Denies abd pain. Is weaned off O2. Has no pain anywhere, no complaints. Says he doesn't remember having the fever because "I was out of it." Tele with sinus rhythm, IVCD, PACs, rates 70-80s Review of Systems Review of Systems: All systems reviewed & are unremarkable except as noted in HPI & below Physical Exam Constitutional: WD/WN, vitals as above Eyes: + anicteric sclerae Neck: trachea midline, no thyromegaly Respiratory: normal respiratory effort Auscultation: lungs clear to auscultation bilaterally Cardiovascular: RRR, no murmur, no edema Chest (Breasts): Chest: normal inspection of chest Gastrointestinal (Abdomen): normal bowel sounds, soft, nontender, no hepatosplenomegaly Musculoskeletal: Extremities: extremities normal to inspection; no cyanosis and no clubbing Skin: no rashes, warm and dry Neurologic: moves all extremities, + focal motor deficit (4/5 strength throughout) and awake Psychiatric: Orientation: alert, oriented to person, oriented to place and cooperative Lymphatic: no lymphedema Results & Data Results & Data ([facility]) Vital Signs (Past 12 Hours) Vital Signs Temp Pulse Pulse Resp BP BP Pulse Ox 11/29/21 18:38 36.3 C L 78 18 120/75 98 11/29/21 16:17 75 11/29/21 14:26 36.3 C L 81 18 103/58 L 98 11/29/21 12:19 36.8 C 69 18 118/68 98 11/29/21 08:00 11/29/21 07:12 36.9 C 86 18 111/60 96 O2 Del Method O2 Flow Rate 11/29/21 18:38 Room Air 11/29/21 16:17 11/29/21 14:26 Room Air 11/29/21 12:19 Room Air 11/29/21 08:00 Nasal Cannula 2 11/29/21 07:12 Nasal Cannula 1 Laboratory Results 11/29/21 11/29/21 11/29/21 Range/Units 11:27 08:05 08:05 WBC (4.8-10.8) K/ul RBC (4.63-6.08) M/uL Hgb (14.0-18.0) g/dl Hct (40.1-51.0) % MCV (80.0-100.0) fL MCH (25.0-34.0) pg MCHC (32.0-36.0) g/dL RDW Std Deviation (36.4-46.3) fL RDW Coeff of Rocky (11.5-14.5) % Plt Count (130-400) K/uL MPV (9.4-12.4) fL Immature Gran % (Auto) % Neut % (Auto) % Lymph % (Auto) % Beckham % (Auto) % Eos % (Auto) % Baso % (Auto) % Neut # (Auto) (1.4-6.5) K/uL Lymph # (Auto) (1.2-3.4) K/uL Beckham # (Auto) (0.24-0.82) K/uL Eos # (Auto) (0-0.50) K/uL Baso # (Auto) (0-0.2) K/uL Immature Gran # (Auto) (0.00-0.02) K/uL Sodium 134 L (136-145) mmol/L Potassium 3.4 L (3.5-5.1) mmol/L Chloride 105 (98-107) mmol/L Carbon Dioxide 21 (21-32) mmol/L Anion Gap 8 (3-11) BUN 32 H (6-23) mg/dl Creatinine 1.31 (0.6-1.4) mg/dl Est Cr Clr Drug Dosing 42.0 ml/min Est GFR ( Amer) 59.2 ml/min Est GFR (Non-Af Amer) 51.1 ml/min BUN/Creatinine Ratio 24.4 H (10-20) Glucose 82 (70-99(Fasting)) mg/dl Calcium 8.4 L (8.5-10.1) mg/dl Total Bilirubin 0.6 (0.2-1.0) mg/dl Direct Bilirubin 0.2 (0-0.2) mg/dl AST 20 (13-39) U/L ALT 15 (7-52) U/L Alkaline Phosphatase 140 H (34-104) U/L Total Protein 6.2 (6.0-8.3) gm/dl Albumin 2.8 L (3.4-5.0) gm/dl SARS-CoV-2 (PCR) NEGATIVE (Negative) Influenza Type A (PCR) Negative (Neg) Influenza Type B (PCR) Negative (Neg) RSV (RT-PCR) Negative (Neg) 11/29/21 Range/Units 08:05 WBC 21.35 H (4.8-10.8) K/ul RBC 3.41 L (4.63-6.08) M/uL Hgb 9.2 L (14.0-18.0) g/dl Hct 29.0 L (40.1-51.0) % MCV 85.0 (80.0-100.0) fL MCH 27.0 (25.0-34.0) pg MCHC 31.7 L (32.0-36.0) g/dL RDW Std Deviation 51.8 H (36.4-46.3) fL RDW Coeff of Rocky 16.6 H (11.5-14.5) % Plt Count 331 (130-400) K/uL MPV 8.5 L (9.4-12.4) fL Immature Gran % (Auto) 2.5 % Neut % (Auto) 84.8 % Lymph % (Auto) 6.4 % Beckham % (Auto) 6.1 % Eos % (Auto) 0.0 % Baso % (Auto) 0.2 % Neut # (Auto) 18.10 H (1.4-6.5) K/uL Lymph # (Auto) 1.36 (1.2-3.4) K/uL Beckham # (Auto) 1.31 H (0.24-0.82) K/uL Eos # (Auto) 0.01 (0-0.50) K/uL Baso # (Auto) 0.04 (0-0.2) K/uL Immature Gran # (Auto) 0.53 H (0.00-0.02) K/uL Sodium (136-145) mmol/L Potassium (3.5-5.1) mmol/L Chloride (98-107) mmol/L Carbon Dioxide (21-32) mmol/L Anion Gap (3-11) BUN (6-23) mg/dl Creatinine (0.6-1.4) mg/dl Est Cr Clr Drug Dosing ml/min Est GFR ( Amer) ml/min Est GFR (Non-Af Amer) ml/min BUN/Creatinine Ratio (10-20) Glucose (70-99(Fasting)) mg/dl Calcium (8.5-10.1) mg/dl Total Bilirubin (0.2-1.0) mg/dl Direct Bilirubin (0-0.2) mg/dl AST (13-39) U/L ALT (7-52) U/L Alkaline Phosphatase (34-104) U/L Total Protein (6.0-8.3) gm/dl Albumin (3.4-5.0) gm/dl SARS-CoV-2 (PCR) (Negative) Influenza Type A (PCR) (Neg) Influenza Type B (PCR) (Neg) RSV (RT-PCR) (Neg) PG Care Time/CCT Total # of Minutes Spent Total Time Spent with Patient: Total time spent is greater than 50% in coordination of care (as documented) at patient's floor/unit and/or counseling patient: Coding Level of Care Code 87840 Subseq Hosp Care Lvl 3 Diagnoses Severe sepsis A41.9; R65.20 Bacteremia R78.81 STEVE (acute kidney injury) N17.9 Anemia D64.9 Acute metabolic encephalopathy G93.41 Acidosis E87.2 Hyperkalemia E87.5 Pyelonephritis N12 Hypertension I10 Hypertension type: essential hypertension Depression F32.A Cognitive decline R41.89 Prostate cancer C61 Quadriparesis G82.50 Chronic diarrhea K52.9 Dysphagia R13.10 Acute respiratory failure with hypoxia J96.01 (1) Hypertension Hypertension type: essential hypertension Qualified Code(s): I10 - Essential (primary) hypertension
[2021-11-29] MEDS: MONTELUKAST SODIUM 10 MG TABLET PO SCH (21:21)
[2021-11-29] MEDS: MIRTAZAPINE TAB 15 MG TAB PO SCH (21:21)
[2021-11-30 07:58] LABS: Basophils # (auto) 0.03 K/uL (0-0.2); Basophils % (auto) 0.2 %; Eosinophils # (auto) 0.03 K/uL (0-0.50); Eosinophils % (auto) 0.2 %; Hematocrit (blood only) 28.4 % (40.1-51.0); Immature Granulocytes # (auto) 0.65 K/uL (0.00-0.02); Lymphocytes # (auto) 1.21 K/uL (1.2-3.4); Lymphocytes % (auto) 7.5 %; Mean Corpuscular Hemoglobin 26.9 pg (25.0-34.0); Mean Corpuscular Hgb Conc 31.7 g/dL (32.0-36.0); Mean Corpuscular Volume 84.8 fL (80.0-100.0); Mean Platelet Volume 8.7 fL (9.4-12.4); Monocytes # (auto) 1.07 K/uL (0.24-0.82); Monocytes % (auto) 6.6 %; Neutrophils # (auto) 13.16 K/uL (1.4-6.5); Neutrophils % (auto) 81.5 %; Platelet Count 344 K/uL (130-400); RDW Coefficient of Variation 16.6 % (11.5-14.5); RDW Standard Deviation 51.6 fL (36.4-46.3); Red Blood Count 3.35 M/uL (4.63-6.08); White Blood Count 16.15 K/ul (4.8-10.8)
[2021-11-30] MEDS: DONEPEZIL HCL 5 MG TAB PO SCH (08:06)
[2021-11-30] MEDS: CEROVITE ADV FORMULA TAB PO SCH (08:06)
[2021-11-30] MEDS: HEPARIN SOD 5,000 UNIT/0.5 ML VIAL SQ SCH (08:06)
[2021-11-30] MEDS: CHOLECALCIFEROL 1,000 UNITS 25 MCG TAB PO SCH (08:06)
[2021-11-30] MEDS: PSYLLIUM or GUAR GUM FIBER POWDER PACKET PO SCH (08:07)
[2021-11-30 08:28] LABS: Albumin Globulin Ratio 0.8 (0.9-2); Albumin Level 2.8 gm/dl (3.4-5.0); BUN Creatinine Ratio 21.8 (10-20); Bilirubin,Total 0.5 mg/dl (0.2-1.0); Calcium 8.6 mg/dl (8.5-10.1); Creatinine Clr Calc Pharmacy 43.1 ml/min; Est GFR (African American) 63.2 ml/min; Est GFR (Non-African American) 54.6 ml/min; Globulin 3.4 gm/dl (2.5-4.0); Magnesium 1.9 mg/dl (1.7-2.4); Potassium 3.8 mmol/L (3.5-5.1); Total Protein 6.2 gm/dl (6.0-8.3)
[2021-11-30] MEDS: CEFEPIME 2,000 MG in SYRINGE 0 ML IV SCH (08:38)
[2021-11-30] MEDS: CHOLESTYRAMINE LIGHT 4 GM PKT PO SCH (08:59)
--- NOTE | 2021-11-30 13:20 | Discharge Summary ---
Date of Service November 30, 2021 Admission HPI Per Admitting Provider Donovan Thornton is an 81 y/o male with a past medical history of prostate cancer s/p radical prostatectomy in 2011, HTN, memory impairment, hypertension, quadriparesis, depression, and malnutrition who is presenting from [facility] today due to confusion and weakness. Patient is mildly confused with underlying cognitive decline, therefore not the best historian but does tell me he has been feeling just generally overall weak and tired for a couple days. No other complaints, without any fever or chills that he is aware of, chest pain, shortness of breath, abdominal pain, nausea, vomiting, diarrhea, constipation, painful BMs, dysuria, hematuria, or urinary retention. Has a history of prostate cancer w/ radical prostatectomy in 2011, as well as frequent urinary tract infections, sees urology regularly, last visit 10/23-- no issues at this visit, plan to rechek PSA in 1 year and no UTI symptoms. Patient denies ever developing symptoms with previous UTIs. Previous cultures have grown Klebsiella, pansensitive. On presentation to ED, he was tachycardic with HR 100s, presenting BP 99/53, tachypneic and 88% on RA, febrile with a temp of 100F. Hypotension/tachycardia/hypoxia/tachypnea improving with IVF. Lab significant for WBC 42.37, stable hemoglobin 10.8, potassium 5.4, BUN 49, creatinine 3.08, lactate 2.5, alk phos 127, otherwise without transaminitis. COVID-negative. CXR and head CT unrevealing for acute process, CT A/P bilateral perinephric stranding, prominent bilateral ureters with thickening of the ureteral arias without evidence of an obstructing stone. There is cholelithiasis without evidence of cholecystitis or ductal dilation. There is redemonstration of a small right inguinal hernia containing a loop of small bowel. Discharge Exam Constitutional WD/WN, vitals as above Eyes + anicteric sclerae Neck trachea midline, no thyromegaly Respiratory normal respiratory effort Auscultation: lungs clear to auscultation bilaterally and + crackles (bibasilar but improved from previous); no rhonchi and no wheezes Cardiovascular RRR, no murmur, no edema Chest (Breasts) Chest: normal inspection of chest Gastrointestinal (Abdomen) normal bowel sounds, soft, nontender, no hepatosplenomegaly Musculoskeletal Extremities: extremities normal to inspection; no cyanosis and no clubbing Skin no rashes, warm and dry Neurologic moves all extremities, + focal motor deficit (4/5 strength throughout) and awake Psychiatric Orientation: alert, oriented to person, oriented to place and cooperative Lymphatic no lymphedema Discharge Data Allergies Allergy/AdvReac Type Severity Reaction Status Date / Time No Known Allergies Allergy Mild NONE Verified 10/11/21 14:50 Consultations 11/25/21 10:21 ED Decision to Admit Stat Ordered Studies 11/25/21 07:54 CT head/brain wo con Stat 11/25/21 09:08 CT Abd and Pelvis [CT abd pelvis wo con] Stat 11/29/21 09:13 CT Abd and Pelvis [CT abd pelvis IV con only] Urgent Hospital Course (1) Severe sepsis: present on admission, Septicemia source - despite negative urine culture (this was obtained AFTER antibiotics were given in ER) the urinary tract is most likely. CT a/p showed findings concerning for pyelonephritis/pyelitis. GI source (colon) also possible but much less likely. with E. coli in blood cultures WBC count 42k on admission, then trended downward to 15-16k, however continuing to spike fevers today an dWBC count back up to 21k Procal trending downward from 26 to 12 With STEVE, hypoxia,and acute metabolic encephalopathy all now much improved/resolved E. coli resistant to multiple drugs but sensitive to Cefepime With persistent fevers--> repeated BCxs, CT A/P-negative for renal abscess or worsening infection. No colitis. With cholelithiasis and thickened but contracted GB wall-no abd pain and no tenderness. LFTs normal except chronically elevated alk phos so do not suspect cholecystitis Repeated COVID/FLU/RSV--> negative No pulm symptoms, no diarrhea Suspect fevers and leukocytosis persisting due to nature of pyelonephritis -cont cefepime -plan to convert to Cipro once defervesced and as long as STEVE continues to improve to complete 14 days of Rx -continue to follow repeat BCxs from both 11/27 and 11/29 (2) Bacteremia: biofire panel with e.coli. source - urinary. repeat blood cx's-NGTD cont cefepime and then convert to Cipro as above (3) STEVE (acute kidney injury): sepsis-associated ATN, hypotension no obstruction seen on CT presenting Cr 3.08. unsure baseline but Cr was 1.8 in August (and 1.32 in July). Cr has improved since admission - now down to 1.3, making urine Received lactated ringers and then remained acidotic - likely from diarrhea & ARF - changed LR to bicarbonate infusion and now improved acidosis -cont to hold ACEi -follow BMP in AM (4) Anemia: patient had acute drop in hemoglobin on hospital day #2 to 8.0, now back up to 9.2 stool not grossly melena or bloody checked Fe studies, B12, folate-all normal fecal occult negative likely anemia of chronic disease follow CBC here and as outpt (5) Acute metabolic encephalopathy: 2nd to sepsis, now much improved supportive care, treating infection (6) Acidosis: 2nd to lactic acidosis from severe sepsis - this is resolved 2nd to diarrhea and acute renal failure now resolved with bicarbonate infusion (7) Hyperkalemia: 2nd to acure renal failure s/p patiromer resolved hold ACEi (8) Pyelonephritis: as seen on CT a/p see above (9) Hypertension: had hypotension on admission from sepsis continue to hold ACEi BPs stable today (10) Depression: Continue mirtazapine (11) Cognitive decline: CT head negative for acute findings with superimposed met encephalopathy - see above cont aricept (chronic med for him) (12) Prostate cancer: s/p radical prostatectomy in 2012 s/p external beam radiation at that time as well (13) 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 Generally weak at baseline. works with physical therapy at SNF. will need PT/OT while here-recommend SNF (14) Chronic diarrhea: seen by his PCP earlier this summer for the diarrhea. placed on cholestyramine daily at that time. stool biofire panel fully negative here. 2nd to radiation colitis? 2nd to microscopic colitis? 2nd to UC? pancreatic insufficiency? other? increased cholestyramine to BID dosing. - last colonoscopy was 10+ years ago. Colonoscopy was discussed with patient in the last few months and he declined having another one. (15) Dysphagia: seen by speech here - passed swallow eval - ok for diet (16) Acute respiratory failure with hypoxia: as above, 2/2 sepsis, no PNA now resolved, weaned off O2 Plan DVT proph- heparin SQ Dispo-continued stay on tele. Will not discharge until fevers resolved for over 24 hours and WBC count continues to trend downward and blood cultures remain negative Discussed care with daughter Cordell on phone Discharge Plan Discharge Items Patient Disposition: Transfer [facility] Fac Reason For Visit: SEPSIS,UTI Discharge Diagnosis: Sepsis, E. coli Bacteremia, Pyelonephritis, Anemia, Acute kidney injury, Acute encephalopathy Activity: As commented below Lifting: Gradually increase as tolerated Bathing: No limitations Exercise/Sports: Gradually increase as tolerated Non-emergency contact: Primary Care Provider Call non-emergency contact if: you have any medication questions, your symptoms worsen, you have a fever and your temperature is above 101 Follow-up/Referrals: Mahnaz Stephen at [facility] [Primary Care Provider] - Diet: Heart Healthy Addtl Attending Provider Instructions: Please finish out 11 more days of Cipro for your blood stream and kidney infection. Check a CBC and BMP in 3-5 days to monitor kidney function and hemoglobin due to your anemia. You will need PT/OT for strengthening. Pending Studies at Discharge: Yes Studies:: Repeat blood cultures 11/27 and 11/29-no growth to date Stand-Alone Forms: My [facility] Skilled Items Patient informed of condition?: Yes DNR: No Discharge Level of Care: Skilled Communicable Disease: No Discharge Prognosis: Improving Lines: None Urinary Catheter: No Medications and DC Order Prescriptions: New ciprofloxacin HCl [Cipro] 500 mg tablet 500 mg PO BID Qty: 22 0RF Continued multivitamin [Multiple Vitamins] Tablet 1 tab PO DAILY acetaminophen 325 mg capsule See Rx Instructions PO QID PRN (Reason: Pain) Rx Instructions: 325 mg 1-2 tabs PO four times daily PRN; lisinopril 20 mg tablet 20 mg PO DAILY Qty: 90 3RF psyllium husk [Metamucil] 0.4 gram capsule 0.4 g PO DAILY Qty: 30 3RF loperamide [Imodium A-D] 1 mg/7.5 mL liquid 2 mg PO Q4H PRN (Reason: loose stool) Qty: 120 3RF Rx Instructions: administer after each loose stool until symptoms controlled; do not exceed 8 mg per 24 hrs donepezil 5 mg tablet 5 mg PO DAILY Qty: 30 2RF montelukast 10 mg tablet See Rx Instructions .ROUTE .COMPLEX Qty: 90 3RF Dose Instruction: TAKE ONE TABLET BY MOUTH DAILY Rx Instructions: TAKE ONE TABLET BY MOUTH DAILY cholecalciferol (vitamin D3) 1,000 unit capsule 2,000 units PO DAILY loratadine-pseudoephedrine 5-120 mg tablet extended release 12 hr 1 tab PO Q12H PRN (Reason: Allergy Symptoms) Changed mirtazapine [Remeron] 15 mg tablet 15 mg PO HS Qty: 30 2RF cholestyramine-aspartame [Cholestyramine Light] 4 gram powder in packet 4 g PO BID Qty: 60 2RF Rx Instructions: administer w/meal; avoid other meds within 1hr before or 4-6hr after dose Discharge Orders: Discharge Order (Routine); Ordered 11/30/21 Ordered By: Jessy Murcia Admission Data Admit Date/Time: 11/25/21 11:10 Attending Provider: Jessy Murcia Admit Provider: Rosendo Lee Primary Care Provider: Mahnaz Stephen [facility] Other Providers: Wil Miller Coding Diagnoses Severe sepsis A41.9; R65.20 Bacteremia R78.81 STEVE (acute kidney injury) N17.9 Anemia D64.9 Acute metabolic encephalopathy G93.41 Acidosis E87.2 Hyperkalemia E87.5 Pyelonephritis N12 Hypertension I10 Hypertension type: essential hypertension Depression F32.A Cognitive decline R41.89 Prostate cancer C61 Quadriparesis G82.50 Chronic diarrhea K52.9 Dysphagia R13.10 Acute respiratory failure with hypoxia J96.01
== END 2021-11-30 13:40 | DRG 871 ==
LOC: ED 07:43 → SUATTDRO 11:10 → 2W 11:10

== ENCOUNTER 2023-07-02 23:11 | Inpatient (IN) ==
--- NOTE | 2023-07-02 23:32 | Emergency Department Note ---
Impression & Plan Complicated urinary tract infection, Fever, Weakness, CKD (chronic kidney disease), Sepsis ED Provider Note NAME: CORNELIUS VILLAFUERTE AGE: 83 SEX: M : 1940 ARRIVES VIA: Ambulance INFORMANT: Patient, ED PROVIDER(S): Riley Carroll MD CHIEF COMPLAINT: Weakness, fever MEDICAL DECISION MAKING: Patient presented due to concern for weakness fever with a history of prior UTI. IV was established and blood work was obtained. Sepsis protocols initiated and patient did have blood cultures obtained procalcitonin lactate. Patient was ordered cefepime MRSA swab and bio fire. Chest x-ray obtained by my read does not show obvious pneumonia. Blood work does show a white count of 14 with a hemoglobin of 11 patient does have a history of anemia per review of patient's prior blood work. Platelet count is unremarkable. Patient does have a lower bicarb but does have an elevated chloride with no anion gap. Creatinine of 2 which is unchanged from February of last year. Lactate is normal. Procalcitonin without elevation bio fire negative. MRSA swab negative. Discussion w/ other healthcare providers: Dr. Mcginnis inpatient medicine service Prior /Outside records reviewed: I reviewed prior urine cultures which did show drug-resistant E. coli sensitive to cefepime. Patient is also had Klebsiella pneumonia. Differential diagnosis: Viral syndrome, otitis, pharyngitis, pneumonia, influenza, meningitis, urinary tract infection, sepsis, bacteremia, as well as other pathologies. Diagnostics, as interpreted by me: ECG: Normal sinus rhythm, rate of 82 wide QRS right bundle branch block pattern. No ST elevations. Cardiac monitoring: An order was placed for continuous cardiac monitoring. The monitor shows a rate of 83 with sinus rhythm. Patient was placed on pulse oximetry Medical decision rules: None Imaging studies: I informally interpreted the patient's chest x-ray does not show obvious pneumonia or pneumothorax with formal report to follow. HPI: Patient presents due to concern for increasing weakness and associated fever. Reported fever at [facility]. Patient does have a known history of UTIs. Patient reportedly was not getting around as well. Patient currently denies any chest pain or shortness of breath no nausea vomiting or diarrhea. Patient denies any urinary symptoms. He does not complain of any cough or congestion and no sore throat. Patient does admit to having some difficulty with getting up and out of bed. There was not any report to nursing about how high the temperature was but the patient reportedly did receive Tylenol prior to arrival. PAST MEDICAL HISTORY: See Below PAST SURGICAL HISTORY: See Below SOCIAL HISTORY: See Below HOME MEDICATIONS: See Below ALLERGIES: See Below VITALS: See Below PHYSICAL EXAMINATION: GENERAL: NAD, non-toxic. Wearing glasses EYE EXAM: Normal conjunctiva. PERRL, no anisocoria and EOM's grossly intact w/o pain. OROPHARYNX: Moist mucus membranes, grossly normal dentition. NECK: Trachea midline, no stridor. LUNGS: Clear to auscultation. Normal chest wall mechanics. HEART: NSR, no MRG. ABDOMEN: Abdomen soft, non-tender, no masses, no rebound or guarding. BACK: No CVA TTP. SKIN: No rashes and no bruising. UPPER EXTREMITIES: Upper extremities are grossly normal. LOWER EXTREMITIES: Grossly normal, no edema. NEURO EXAM: A&O x3, cranial nerves II-XII grossly intact, normal speech, moves all 4 extremities. Past Med/Surg History Medical History Hydronephrosis Near syncope Weakness Hypokalemia Acute UTI Hematochezia Benign neoplasm of large intestine Hyperlipidemia Hypertension Leukopenia Male stress incontinence Organic impotence Quadriparesis Rosacea Vitamin D deficiency Prostate cancer (09/27/11) "Rising PSA, pretreatment PSA 7.44 clinical stage TIc Biopsy stage T2b Cleveland grade 3+2 and 3+3 Active surveillance Recheck PSA 10.2, repeat biopsy Charles 3+3, biopsy stage T2b Continued rise in PSA Status post robotic prostatectomy 07/10/2011, stage [id number] Status post completion of radiation therapy the prostate bed 12/17/2011 received 7000 cGy" Surgical History H/O Spinal surgery H/O prostatectomy Hx of tonsillectomy Family History Mother Lung cancer Breast cancer Other Alcoholism in family Denies family history of Ovarian cancer Prostate cancer Myocardial infarction Colorectal cancer Social History Smoking Status: Unknown if ever smoked Second Hand Exposure: No; Do You Dip or Chew Tobacco: No; Hx Alcohol Use: No Hx Substance Use: No Preferred Language: Telugu Communication Ability: Impaired Visual Impairment: Partially Limited Hearing Ability: Hard of Hearing Medical Billing Coder Required: No Beliefs That Will Affect Care: None marital status: / Current Living Situation: [facility] Current Living Situation Comment: When asked, patient states he lives at [address] [place] [address] current occupational status: retired How many Children do You have: 2 Feels Safe at Home: Yes Childhood Exposure to Second-Hand Smoke: Yes caffeine: Yes Dental Care, Regularly: Yes Physical Activity Frequency: 5-6 Times per Week Seatbelt Use: always Sunscreen Use: No Assistive Devices: Walker and Wheelchair Allergies Allergies Allergy/AdvReac Type Severity Reaction Status Date / Time donepezil AdvReac Intermediate Diarrhea Verified 05/14/23 10:29 Home Meds Home Medications Medication Instructions Recorded Confirmed mirtazapine 15 mg tablet 15 mg PO HS 07/03/23 07/03/23 montelukast 10 mg tablet 10 mg PO HS 07/03/23 07/03/23 Previous Rx's Medication Instructions Recorded ferrous sulfate 325 mg (65 mg 325 mg PO DAILY #30 tabs 06/24/22 iron) tablet multivitamin (Multiple Vitamins 1 tab PO DAILY #30 tabs 12/26/22 tablet) cholecalciferol (vitamin D3) 25 2,000 unit PO DAILY #90 caps 02/11/23 mcg (1,000 unit) capsule Results & Data (ED) Vital Signs Vital Signs - 24 hr 07/02/23 23:07 07/02/23 23:07 07/02/23 23:07 Temperature 37.3 C Temperature Source Oral Pulse Rate 88 Pulse Rate [Apical] 88 Pulse Rhythm Regular Respiratory Rate 18 16 Respiratory Effort / Characteristics Non-Labored Non-Labored Respiratory Depth Normal Normal Blood Pressure 104/66 Blood Pressure [Right Arm] 104/66 Blood Pressure Mean 78 Blood Pressure Mean [Right Arm] 78 Pulse Oximetry 95 96 97 Oxygen Delivery Method Room Air Room Air Room Air Sepsis Recent Fever Within 48 Hours Yes Sepsis New/Unexplained Change in Mental Status No Sepsis Action Taken by Nursing No Action Required 07/02/23 23:16 Temperature Temperature Source Pulse Rate 86 Pulse Rate [Apical] Pulse Rhythm Respiratory Rate Respiratory Effort / Characteristics Respiratory Depth Blood Pressure Blood Pressure [Right Arm] Blood Pressure Mean Blood Pressure Mean [Right Arm] Pulse Oximetry Oxygen Delivery Method Sepsis Recent Fever Within 48 Hours Sepsis New/Unexplained Change in Mental Status Sepsis Action Taken by [facility] Medications Current Medication List: was personally reviewed by me Laboratory Data Attestation: I reviewed the patient's lab results. 07/02/23 23:59 07/02/23 23:59 Lab Results 07/02/23 Range/Units 23:59 WBC 14.84 H (4.8-10.8) K/ul RBC 4.05 L (4.70-6.10) M/uL Hgb 11.3 L (14.0-18.0) g/dl Hct 35.0 L (42.0-52.0) % MCV 86.4 (80.0-100.0) fL MCH 27.9 (25.0-34.0) pg MCHC 32.3 (32.0-36.0) g/dL RDW Std Deviation 46.6 H (36.4-46.3) fL RDW Coeff of Rocky 14.6 H (11.5-14.5) % Plt Count 346 (130-400) K/uL MPV 8.6 L (9.4-12.4) fL Immature Gran % (Auto) 2.0 % Neut % (Auto) 70.9 % Lymph % (Auto) 11.9 % Crenshaw % (Auto) 15.0 % Eos % (Auto) 0.1 % Baso % (Auto) 0.1 % Neut # (Auto) 10.51 H (1.40-6.50) K/uL Lymph # (Auto) 1.77 (1.20-3.40) K/uL Crenshaw # (Auto) 2.23 H (0.11-0.59) K/uL Eos # (Auto) 0.01 (0.00-0.50) K/uL Baso # (Auto) 0.02 (0.00-0.20) K/uL Immature Gran # (Auto) 0.30 H (0.01-0.20) K/uL Sodium 134 L (136-145) mmol/L Potassium 3.5 (3.5-5.1) mmol/L Chloride 108 H (98-107) mmol/L Carbon Dioxide 16 L (21-32) mmol/L Anion Gap 10 (3-11) BUN 23 (6-23) mg/dl Creatinine 2.06 H (0.6-1.4) mg/dl Est Cr Clr Drug Dosing Not Reportable Est GFR ( Amer) 33.8 ml/min Est GFR (Non-Af Amer) 29.1 ml/min BUN/Creatinine Ratio 11.2 (10-20) Glucose 107 H (70-99(Fasting)) mg/dl Lactate 0.8 (0.4-2.0) mmol/L Calcium 8.8 (8.6-10.3) mg/dl Total Bilirubin 0.5 (0.2-1.0) mg/dl AST 25 (13-39) U/L ALT 20 (7-52) U/L Alkaline Phosphatase 110 H (34-104) U/L Total Protein 7.2 (6.0-8.3) gm/dl Albumin 3.5 (3.4-5.0) gm/dl Globulin 3.7 (2.5-4.0) gm/dl Albumin/Globulin Ratio 0.9 (0.9-2) Procalcitonin 0.45 (0-0.5) ng/ml Nasal Screen MRSA (PCR) Negative (Negative) Adenovirus (PCR) Not Detected (NotDetected) B. pertussis DNA (PCR) Not Detected (NotDetected) B.parapertussis DNA PCR Not Detected (NotDetected) C. pneumoniae DNA (PCR) Not Detected (NotDetected) Coronavirus OC43 (PCR) Not Detected (NotDetected) Coronavirus HKU1 (PCR) Not Detected (NotDetected) Coronavirus 229E (PCR) Not Detected (NotDetected) SARS-CoV-2 (PCR) Not Detected (NotDetected) Coronavirus NL63 (PCR) Not Detected (NotDetected) Human Metapneumovir PCR Not Detected (NotDetected) Influenza Type A (PCR) Not Detected (NotDetected) Influenza Type B (PCR) Not Detected (NotDetected) M. pneumoniae (PCR) Not Detected (NotDetected) Parainfluenza 1 (PCR) Not Detected (NotDetected) Parainfluenza 2 (PCR) Not Detected (NotDetected) Parainfluenza 3 (PCR) Not Detected (NotDetected) Parainfluenza 4 (PCR) Not Detected (NotDetected) RSV (PCR) Not Detected (NotDetected) Entero/Rhino (PCR) Not Detected (NotDetected) Administered Medications Discontinued Medications Sodium Chloride (Nss) 1,000 mls @ 999 mls/hr IV .Q1H1M STA Stop: 07/03/23 00:42 Last Admin: 07/03/23 00:26 Dose: 999 mls/hr Documented By: HB Discharge Plan Visit Data Chief Complaint: Weakness Stated Complaint: weakness/fever ED Provider: Riley Carroll Discharge Problem: Complicated urinary tract infection, Fever, Weakness, CKD (chronic kidney disease), Sepsis Forms Stand Alone Forms: [employer] Prescriptions Prescriptions: No Action ferrous sulfate 325 mg (65 mg iron) tablet 325 mg PO DAILY Qty: 30 11RF multivitamin [Multiple Vitamins] Tablet 1 tab PO DAILY Qty: 30 2RF cholecalciferol (vitamin D3) 25 mcg (1,000 unit) capsule 2,000 unit PO DAILY Qty: 90 3RF montelukast 10 mg tablet 10 mg PO HS mirtazapine 15 mg tablet 15 mg PO HS Referrals Referrals: PCP,NO [Physician] - Discharge Problem: Fever Qualifiers: Fever type: due to other condition Qualified Code(s): R50.81 - Fever presenting with conditions classified elsewhere CKD (chronic kidney disease) Qualifiers: Chronic kidney disease stage: unspecified stage Qualified Code(s): N18.9 - Chronic kidney disease, unspecified Sepsis Qualifiers: Sepsis type: sepsis due to unspecified organism Sepsis acute organ dysfunction status: without acute organ dysfunction Qualified Code(s): A41.9 - Sepsis, unspecified organism
[2023-07-03] MEDS: SODIUM CHLORIDE 0.9% 1,000 ML IV STA (00:26)
[2023-07-03 00:28] LABS: Basophils # (auto) 0.02 K/uL (0.00-0.20); Basophils % (auto) 0.1 %; Eosinophils # (auto) 0.01 K/uL (0.00-0.50); Eosinophils % (auto) 0.1 %; Hemoglobin 11.3 g/dl (14.0-18.0); Lymphocytes # (auto) 1.77 K/uL (1.20-3.40); Lymphocytes % (auto) 11.9 %; Mean Corpuscular Hemoglobin 27.9 pg (25.0-34.0); Mean Corpuscular Hgb Conc 32.3 g/dL (32.0-36.0); Mean Corpuscular Volume 86.4 fL (80.0-100.0); Mean Platelet Volume 8.6 fL (9.4-12.4); Monocytes # (auto) 2.23 K/uL (0.11-0.59); Neutrophils # (auto) 10.51 K/uL (1.40-6.50); Neutrophils % (auto) 70.9 %; Platelet Count 346 K/uL (130-400); RDW Coefficient of Variation 14.6 % (11.5-14.5); RDW Standard Deviation 46.6 fL (36.4-46.3); Red Blood Count 4.05 M/uL (4.70-6.10); White Blood Count 14.84 K/ul (4.8-10.8)
[2023-07-03 00:41] LABS: Alanine Aminotransferase 20 U/L (7-52); Albumin Globulin Ratio 0.9 (0.9-2); Albumin Level 3.5 gm/dl (3.4-5.0); Alkaline Phosphatase 110 U/L (34-104); Anion Gap 10 (3-11); Aspartate Aminotransferase 25 U/L (13-39); BUN Creatinine Ratio 11.2 (10-20); Bilirubin,Total 0.5 mg/dl (0.2-1.0); Blood Urea Nitrogen 23 mg/dl (6-23); Calcium 8.8 mg/dl (8.6-10.3); Carbon Dioxide 16 mmol/L (21-32); Chloride 108 mmol/L (98-107); Est GFR (African American) 33.8 ml/min; Est GFR (Non-African American) 29.1 ml/min; Globulin 3.7 gm/dl (2.5-4.0); Glucose 107 mg/dl (70-99(Fasting)); Potassium 3.5 mmol/L (3.5-5.1); Sodium 134 mmol/L (136-145); Total Protein 7.2 gm/dl (6.0-8.3)
[2023-07-03 01:20] LABS: Adenovirus PCR Not Detected (NotDetected); Bordetella parapertussis PCR Not Detected (NotDetected); Bordetella pertussis PCR Not Detected (NotDetected); Chlamydia pneumoniae PCR Not Detected (NotDetected); Coronavirus 229E PCR Not Detected (NotDetected); Coronavirus CoV-2 (COVID19)PCR Not Detected (NotDetected); Coronavirus HKU1 PCR Not Detected (NotDetected); Coronavirus NL63 PCR Not Detected (NotDetected); Coronavirus OC43PCR Not Detected (NotDetected); Human Metapneumovirus PCR Not Detected (NotDetected); Influenza A PCR Not Detected (NotDetected); Influenza B PCR Not Detected (NotDetected); Mycoplasma pneumoniae PCR Not Detected (NotDetected); Parainfluenza Virus 1 PCR Not Detected (NotDetected); Parainfluenza Virus 2 PCR Not Detected (NotDetected); Parainfluenza Virus 3 PCR Not Detected (NotDetected); Parainfluenza Virus 4 PCR Not Detected (NotDetected); Respiratory Syncytial VirusPCR Not Detected (NotDetected); Rhinovirus/Enterovirus PCR Not Detected (NotDetected)
--- NOTE | 2023-07-03 01:59 | History & Physical Report ---
Date of Service July 03, 2023 Assessment & Plan (1) Sepsis: Plan: Patient developed fever, tachycardia in the ER after a possible aspiration event. No respiratory distress. No clear infiltrate on CXR. Ddx includes UTI, pulmonary. Respiratory biofire panel is negative Blood cultures unfortunately were not obtained - patient has received antibiotics already which drastically decreases the yield of positive cultures No UOP yet. Bladder scanned with minimal urine present in bladder. 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 Did become febrile and tachycardic while in the ER. -Observation to medical -Obtain UA -LR x 500mL bolus now to complete 30mL/kg fluid resuscitation for sepsis then continue at 100mL/hr x 2L -Follow cultures -Check MRSA nares -Tylenol PRN -Antibiotic coverage with Cefepime History of Present Illness Chief Complaint: fever, weakness Primary Care Provider: Hailee Joya at [place] [facility] Thornton is an 83yo male with history of HTN, HLP, Dementia, quadriparesis presenting from [place] with report of fever and increased weakness. Patient with dementia and doesn't really know why he is here- he does report some productive cough and difficulty urinating, otherwise no complaints. In the ER he is afebrile, HD stable Possible aspiration event in the ER - patient with vomiting and then cough, fever and tachycardia ER Course: NSS x1L Cefepime 2gm NSS x 500mL Allergies Allergy/AdvReac Type Severity Reaction Status Date / Time donepezil AdvReac Intermediate Diarrhea Verified 05/14/23 10:29 Home Medications Medication Instructions Recorded Confirmed Type ferrous sulfate 325 mg (65 mg 325 mg PO DAILY #30 tabs 06/24/22 07/03/23 Rx iron) tablet multivitamin (Multiple Vitamins 1 tab PO DAILY #30 tabs 12/26/22 07/03/23 Rx tablet) cholecalciferol (vitamin D3) 25 2,000 unit PO DAILY #90 caps 02/11/23 07/03/23 Rx mcg (1,000 unit) capsule mirtazapine 15 mg tablet 15 mg PO HS 07/03/23 07/03/23 History montelukast 10 mg tablet 10 mg PO HS 07/03/23 07/03/23 History Past Med/Surg History Medical History Hydronephrosis Near syncope Weakness Hypokalemia Acute UTI Hematochezia Benign neoplasm of large intestine Hyperlipidemia Hypertension Leukopenia Male stress incontinence Organic impotence Quadriparesis Rosacea Vitamin D deficiency Prostate cancer (09/27/11) "Rising PSA, pretreatment PSA 7.44 clinical stage TIc Biopsy stage T2b Charles grade 3+2 and 3+3 Active surveillance Recheck PSA 10.2, repeat biopsy Charles 3+3, biopsy stage T2b Continued rise in PSA Status post robotic prostatectomy 07/10/2011, stage [id number] Status post completion of radiation therapy the prostate bed 12/17/2011 received 7000 cGy" Surgical History H/O Spinal surgery H/O prostatectomy Hx of tonsillectomy Family History Mother Lung cancer Breast cancer Other Alcoholism in family Denies family history of Ovarian cancer Prostate cancer Myocardial infarction Colorectal cancer Social History Smoking Status: Unknown if ever smoked Second Hand Exposure: No; Do You Dip or Chew Tobacco: No; Hx Alcohol Use: No Hx Substance Use: No Preferred Language: Armenian Communication Ability: Effective Visual Impairment: Partially Limited Hearing Ability: Hard of Hearing 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 Beliefs That Will Affect Care: None marital status: / Current Living Situation: Personal Care Facility Current Living Situation Comment: [facility] current occupational status: retired How many Children do You have: 2 Other Information That Helps Us Care for You: No Feels Safe at Home: Yes Safety Concerns: Feels Safe At This Time Childhood Exposure to Second-Hand Smoke: Yes caffeine: Yes Dental Care, Regularly: Yes Physical Activity Frequency: 5-6 Times per Week Seatbelt Use: always Sunscreen Use: No Assistive Devices: Walker and Wheelchair Review of Systems Review of Systems: All systems reviewed & are unremarkable except as noted in HPI & below Physical Exam Physical Exam: General: chronically ill appearing, patient resting comfortably, NAD, non-toxic in appearance, AA&O x 4 Skin: warm, dry, intact, no rashes or lesions HEENT: NC/AT, PERRL, EOMI, anicteric sclera, conjunctiva without injection, external ear normal to inspection and nontender, nares patent, moist mucus membranes, dentition intact, no oropharyngeal lesions, neck supple, trachea midline, no LAD, no thyromegaly, no JVD Heart: +S1/S2, regular, no m/r/g Lungs: equal air entry bilaterally, no rales/rhonchi/wheezes Abd: +BS, soft, NT/ND, no masses/organomegaly/ascites Ext: warm, 2+ pulses in UE/LE bilaterally, no clubbing/cyanosis or edema Neuro: nonfocal, patient AA&O x 4, speech intact, no facial droop, moving all extremities on command Results & Data Results & Data Vital Signs (Past 12 Hours) Vital Signs Temp Pulse Pulse Resp BP BP Pulse Ox 07/02/23 23:16 86 07/02/23 23:07 88 16 104/66 97 07/02/23 23:07 96 07/02/23 23:07 37.3 C 88 18 104/66 95 O2 Del Method 07/02/23 23:16 07/02/23 23:07 Room Air 07/02/23 23:07 Room Air 07/02/23 23:07 Room Air Laboratory Results Laboratory Results WBC 14.84 K/ul (4.8-10.8) H 07/02/23 23:59 RBC 4.05 M/uL (4.70-6.10) L 07/02/23 23:59 Hgb 11.3 g/dl (14.0-18.0) L 07/02/23 23:59 Hct 35.0 % (42.0-52.0) L 07/02/23 23:59 MCV 86.4 fL (80.0-100.0) 07/02/23 23:59 MCH 27.9 pg (25.0-34.0) 07/02/23 23:59 MCHC 32.3 g/dL (32.0-36.0) 07/02/23 23:59 RDW Std Deviation 46.6 fL (36.4-46.3) H 07/02/23 23:59 RDW Coeff of [place] 14.6 % (11.5-14.5) H 07/02/23 23:59 Plt Count 346 K/uL (130-400) 07/02/23 23:59 MPV 8.6 fL (9.4-12.4) L 07/02/23 23:59 Immature Gran % (Auto) 2.0 % 07/02/23 23:59 Neut % (Auto) 70.9 % 07/02/23 23:59 Lymph % (Auto) 11.9 % 07/02/23 23:59 [place] % (Auto) 15.0 % 07/02/23 23:59 Eos % (Auto) 0.1 % 07/02/23 23:59 Baso % (Auto) 0.1 % 07/02/23 23:59 Neut # (Auto) 10.51 K/uL (1.40-6.50) H 07/02/23 23:59 Lymph # (Auto) 1.77 K/uL (1.20-3.40) 07/02/23 23:59 [place] # (Auto) 2.23 K/uL (0.11-0.59) H 07/02/23 23:59 Eos # (Auto) 0.01 K/uL (0.00-0.50) 07/02/23 23:59 Baso # (Auto) 0.02 K/uL (0.00-0.20) 07/02/23 23:59 Immature Gran # (Auto) 0.30 K/uL (0.01-0.20) H 07/02/23 23:59 Sodium 134 mmol/L (136-145) L 07/02/23 23:59 Potassium 3.5 mmol/L (3.5-5.1) 07/02/23 23:59 Chloride 108 mmol/L (98-107) H 07/02/23 23:59 Carbon Dioxide 16 mmol/L (21-32) L 07/02/23 23:59 Anion Gap 10 (3-11) 07/02/23 23:59 BUN 23 mg/dl (6-23) 07/02/23 23:59 Creatinine 2.06 mg/dl (0.6-1.4) H 07/02/23 23:59 Est Cr Clr Drug Dosing Not Reportable 07/02/23 23:59 Est GFR ( Amer) 33.8 ml/min 07/02/23 23:59 Est GFR (Non-Af Amer) 29.1 ml/min 07/02/23 23:59 BUN/Creatinine Ratio 11.2 (10-20) 07/02/23 23:59 Glucose 107 mg/dl (70-99(Fasting)) H 07/02/23 23:59 Lactate 0.8 mmol/L (0.4-2.0) 07/02/23 23:59 Calcium 8.8 mg/dl (8.6-10.3) 07/02/23 23:59 Phosphorus 2.6 mg/dl (2.5-4.9) 07/02/23 23:59 Magnesium 1.8 mg/dl (1.7-2.4) 07/02/23 23:59 Total Bilirubin 0.5 mg/dl (0.2-1.0) 07/02/23 23:59 AST 25 U/L (13-39) 07/02/23 23:59 ALT 20 U/L (7-52) 07/02/23 23:59 Alkaline Phosphatase 110 U/L (34-104) H 07/02/23 23:59 Total Protein 7.2 gm/dl (6.0-8.3) 07/02/23 23:59 Albumin 3.5 gm/dl (3.4-5.0) 07/02/23 23:59 Globulin 3.7 gm/dl (2.5-4.0) 07/02/23 23:59 Albumin/Globulin Ratio 0.9 (0.9-2) 07/02/23 23:59 Procalcitonin 0.45 ng/ml (0-0.5) 07/02/23 23:59 Nasal Screen MRSA (PCR) Negative (Negative) 07/02/23 23:59 Adenovirus (PCR) Not Detected (NotDetected) 07/02/23 23:59 B. pertussis DNA (PCR) Not Detected (NotDetected) 07/02/23 23:59 B.parapertussis DNA PCR Not Detected (NotDetected) 07/02/23 23:59 C. pneumoniae DNA (PCR) Not Detected (NotDetected) 07/02/23 23:59 Coronavirus OC43 (PCR) Not Detected (NotDetected) 07/02/23 23:59 Coronavirus HKU1 (PCR) Not Detected (NotDetected) 07/02/23 23:59 Coronavirus 229E (PCR) Not Detected (NotDetected) 07/02/23 23:59 SARS-CoV-2 (PCR) Not Detected (NotDetected) 07/02/23 23:59 Coronavirus NL63 (PCR) Not Detected (NotDetected) 07/02/23 23:59 Human Metapneumovir PCR Not Detected (NotDetected) 07/02/23 23:59 Influenza Type A (PCR) Not Detected (NotDetected) 07/02/23 23:59 Influenza Type B (PCR) Not Detected (NotDetected) 07/02/23 23:59 M. pneumoniae (PCR) Not Detected (NotDetected) 07/02/23 23:59 Parainfluenza 1 (PCR) Not Detected (NotDetected) 07/02/23 23:59 Parainfluenza 2 (PCR) Not Detected (NotDetected) 07/02/23 23:59 Parainfluenza 3 (PCR) Not Detected (NotDetected) 07/02/23 23:59 Parainfluenza 4 (PCR) Not Detected (NotDetected) 07/02/23 23:59 RSV (PCR) Not Detected (NotDetected) 07/02/23 23:59 Entero/Rhino (PCR) Not Detected (NotDetected) 07/02/23 23:59 Code Status & VTE Plan VTE Prophylaxis Plan VTE Prophylaxis will be ordered: Yes PG Care Time/CCT Total # of Minutes Spent Total Time Spent with Patient: Total time spent is greater than 50% in coordination of care (as documented) at patient's floor/unit and/or counseling patient: Coding Level of Care Code 07551 INT INP/OBS CARE 2/55MIN Diagnoses Sepsis A41.9 Sepsis acute organ dysfunction status: without acute organ dysfunction Sepsis type: sepsis due to unspecified organism (1) Sepsis Sepsis acute organ dysfunction status: without acute organ dysfunction Sepsis type: sepsis due to unspecified organism Qualified Code(s): A41.9 - Sepsis, uns pecified organism
[2023-07-03] MEDS: SODIUM CHLORIDE 0.9% 500 ML IV ONE (02:46)
[2023-07-03] MEDS: CEFEPIME 2,000 MG/20 ML VIAL IV STA (02:46)
[2023-07-03 02:56] LABS: Magnesium 1.8 mg/dl (1.7-2.4); Phosphorus 2.6 mg/dl (2.5-4.9)
[2023-07-03] MEDS: Patient's HEIGHT &/or WEIGHT Needed STA (04:00)
[2023-07-03] MEDS: LACTATED RINGER'S 1,000 ML IV SCH (04:31)
[2023-07-03] MEDS: CEFEPIME 2,000 MG in SYRINGE 0 ML IV ONE (04:32)
--- NOTE | 2023-07-03 07:26 | XRay Report ---
XR chest 1V portable CLINICAL HISTORY: Fever TECHNIQUE: Single frontal radiograph of the chest was obtained at 0026 hours and 0527 hours. Comparison: Comparison is made to chest radiograph 01/20/2023 FINDINGS: 0026 hours No lines and tubes are seen. Cardiomegaly is noted. The lungs are clear. No evidence of pleural effus ion or pneumothorax. 0527 hours: No interval change. IMPRESSION: No airspace opacities to suggest aspiration and/or pneumonia. ACT 112: Negative or not required by law. Electronically signed by: Connor Chinchilla M.D. 07/03/2023 7:25 AM
--- NOTE | 2023-07-03 07:33 | XRay Report ---
XR chest 1V portable CLINICAL HISTORY: ?aspiration TECHNIQUE: Single frontal radiograph of the chest was obtained. Comparison: Comparison is made to chest radiograph 07/03/2023 FINDINGS: No lines and tubes are seen. Cardiomegaly is noted. The lungs are clear. No evidence of pleural effus ion or pneumothorax. IMPRESSION: No acute abnormality and in particular no airspace opacity to suggest aspiration. ACT 112: Negative or not required by law. Electronically signed by: Connor Chinchilla M.D. 07/03/2023 7:32 AM
[2023-07-03] MEDS: LACTATED RINGER'S 500 ML IV ONE (07:44)
[2023-07-03 09:53] LABS: Basophils # (auto) 0.02 K/uL (0.00-0.20); Basophils % (auto) 0.1 %; Hematocrit (blood only) 32.4 % (42.0-52.0); Hemoglobin 10.1 g/dl (14.0-18.0); Immature Granulocytes % (auto) 2.6 %; Lymphocytes # (auto) 1.69 K/uL (1.20-3.40); Lymphocytes % (auto) 11.2 %; Mean Corpuscular Hemoglobin 27.6 pg (25.0-34.0); Mean Corpuscular Hgb Conc 31.2 g/dL (32.0-36.0); Mean Corpuscular Volume 88.5 fL (80.0-100.0); Mean Platelet Volume 8.4 fL (9.4-12.4); Monocytes % (auto) 13.9 %; Neutrophils # (auto) 10.91 K/uL (1.40-6.50); Neutrophils % (auto) 72.2 %; Platelet Count 290 K/uL (130-400); RDW Coefficient of Variation 14.6 % (11.5-14.5); RDW Standard Deviation 47.4 fL (36.4-46.3); Red Blood Count 3.66 M/uL (4.70-6.10); White Blood Count 15.12 K/ul (4.8-10.8)
[2023-07-03 10:10] LABS: Albumin Globulin Ratio 0.9 (0.9-2); Albumin Level 3.1 gm/dl (3.4-5.0); BUN Creatinine Ratio 11.9 (10-20); Bilirubin,Total 0.5 mg/dl (0.2-1.0); Calcium 8.4 mg/dl (8.6-10.3); Creatinine Clr Calc Pharmacy 27.9 ml/min; Est GFR (African American) 34.6 ml/min; Est GFR (Non-African American) 29.8 ml/min; Globulin 3.3 gm/dl (2.5-4.0); Potassium 3.7 mmol/L (3.5-5.1); Total Protein 6.4 gm/dl (6.0-8.3)
[2023-07-03] MEDS: HEPARIN SOD 5,000 UNIT/0.5 ML VIAL SQ SCH (10:17)
[2023-07-03 11:39] LABS: Cdiff Toxin B Gene (2yr or >) Positive Cdiff Gene (Neg)
[2023-07-03 11:45] LABS: Adenovirus F 40/41 PCR Not Detected (NotDetected); Astrovirus PCR Not Detected (NotDetected); Campylobacter PCR Not Detected (NotDetected); Cryptosporidium PCR Not Detected (NotDetected); Cyclospora cayetanensis PCR Not Detected (NotDetected); Entamoeba histolytica PCR Not Detected (NotDetected); Enteroaggregative E.coli(EAEC) Not Detected (NotDetected); Enteropathogenic E.coli (EPEC) Not Detected (NotDetected); Enterotoxigenic E.coli (ETEC) Not Detected (NotDetected); Giardia lamblia PCR Not Detected (NotDetected); Norovirus GI/GII PCR Not Detected (NotDetected); Plesiomonas shigelloides PCR Not Detected (NotDetected); Rotavirus A PCR Not Detected (NotDetected); Salmonella PCR Not Detected (NotDetected); Sapovirus PCR Not Detected (NotDetected); Shiga-like Toxin E.coli (STEC) Not Detected (NotDetected); Shigella/Enteroinvasive E.coli Not Detected (NotDetected); Vibrio cholerae PCR Not Detected (NotDetected); Vibrio species PCR Not Detected (NotDetected); Yersinia enterocolitica PCR Not Detected (NotDetected)
[2023-07-03 12:16] LABS: Cdiff Antigen Positive; Cdiff Toxin A+B Negative Cdiff Toxin (Negative)
--- NOTE | 2023-07-03 12:43 | Hospitalist Progress Note ---
Date of Service July 03, 2023 Assessment & Plan (1) Sepsis: Plan: - [place] of fever and increased weakness. Concern from urinary source versus C. difficile colitis on presentation. - Developed fever and tachycardia in ED after possible aspiration event. -- No respiratory distress. No clear infiltrate on CXR. -- DDx includes UTI, pulmonary source. Respiratory bio fire panel is negative. -- If aspiration events continue, consult speech therapy. - Blood cultures unfortunately not obtained prior to patient receiving antibiotics. Low yield of positive cultures at this point. - History of resistant E. coli in blood in the past. History of pansensitive Klebsiella pneumonia a urine culture in the past. - MRSA nasal swab negative on admission. - No urine output yet. Bladder scanned with minimal urine present in bladder. -- Obtain UA when able. - Tylenol as needed - Continue cefepime. Given possible urinary or pulmonary source, will continue for now. Reevaluate tomorrow for continuation of cefepime vs discontinuing. (2) C. difficile diarrhea: Plan: - Multiple bowel movements overnight and morning of 07/03/23. - C. diff positive. Stool biofire negative. - Continue PO Vancomycin 125 mg Q6H, last dose 07/13/23. (3) CKD (chronic kidney disease): Plan: CKD 3 on presentation creatinine has risen in the last year to avoid nephrotoxic agents concern for possible renal tubular acidosis with anion gap preserved despite low carbon dioxide level on serology Plan Chronic depression continue mirtazapine Admission and Anticipated Discharge Date Admission Date: July 03, 2023 Subjective Patient seen and evaluated at bedside. Due to his baseline dementia, he is a p oor historian. However, he does report weakness. He has no other complaints at this time. Per nursing this morning, the patient multiple bowel movements overnight and this morning. Positive for C. difficile. Stool bio fire is negative. Additionally, a urine sample has not been collected yet. Nursing has bladder scanned him and he is not retaining urine, and is also not incontinent to urine that nursing is aware of. Once there is enough urine to straight cath him, we can get a urine sample and evaluate for UTI as the cause of his fever and weakness. Once patient was transferred from the ED to the floor, nursing reported a low- grade fever at 38 C. Tylenol administered, fever resolved. Continue to monitor progression of vital signs. Physical Exam Physical Exam: General: No acute distress, nondiaphoretic, chronically ill-appearing but nontoxic. Skin: The skin was without rashes, erythema, edema, or bruising. Cardiac: Regular rate and rhythm without murmurs gallops or rubs. Pulm: Clear to auscultation bilaterally without wheezes, rales or rhonchi. No retractions or accessory muscle use. Abdominal: Positive bowel sounds x 4. Soft, nontender, without masses or organomegaly. No guarding or rebound tenderness. Neuro: A&O x3. No focal neurological deficits. Baseline dementia. Results & Data Results & Data Laboratory Results Reviewed CBC Reviewed chemistries Reviewed stool BioFire Reviewed C. difficile toxin PG Care Time/CCT Total # of Minutes Spent Total Time Spent with Patient: Total time spent is greater than 50% in coordination of care (as documented) at patient's floor/unit and/or counseling patient: Coding Level of Care Code 96354 SUB INP/OBS CARE 2/35MIN Diagnoses Sepsis A41.9 Sepsis acute organ dysfunction status: without acute organ dysfunction Sepsis type: sepsis due to unspecified organism C. difficile diarrhea A04.72 CKD (chronic kidney disease) N18.9 Chronic kidney disease stage: unspecified stage (1) Sepsis Sepsis acute organ dysfunction status: without acute organ dysfunction Sepsis type: sepsis due to unspecified organism Qualified Code(s): A41.9 - Sepsis, unspecified organism (3) CKD (chronic kidney disease) Chronic kidney disease stage: unspecified stage Qualified Code(s): N18.9 - Chronic kidney disease, unspecified
[2023-07-03] MEDS: ACETAMINOPHEN 325 MG TAB PO PRN (14:57)
[2023-07-03] MEDS: VANCOMYCIN HCL 125 MG/2.5ML SOLN PO SCH (16:12)
[2023-07-03] MEDS: CHERRY SYRUP 5 ML UDP PO SCH (16:12)
[2023-07-03] MEDS ORDERED: Nursing to Pharmacy Communication SCH ×2 (17:30→18:15)
[2023-07-03] MEDS: CEFEPIME 1,000 MG in SYRINGE 0 ML IV SCH (17:50)
[2023-07-03] MEDS: MONTELUKAST SODIUM 10 MG TABLET PO SCH (20:38)
[2023-07-03] MEDS: MIRTAZAPINE TAB 15 MG TAB PO SCH (20:38)
--- NOTE | 2023-07-04 06:02 | Electrocardiogram Report ---
Test Reason : Blood Pressure : / mmHG Vent. Rate : 082 BPM Atrial Rate : 082 BPM P-R Int : 116 ms QRS Dur : 150 ms QT Int : 392 ms P-R-T Axes : -24 -88 032 degrees QTc Int : 457 ms Poor data quality, interpretation may be adversely affected Normal sinus rhythm Left axis deviation Right bundle branch block Abnormal ECG When compared with ECG of 25-NOV-2021 07:51, No significant change was found Confirmed by Vito Amin ([id number] on 07/04/2023 6:02:34 AM Referred By: Mahnaz Stephen Confirmed By:Vito Amin
[2023-07-04 07:59] LABS: Hematocrit (blood only) 33.6 % (42.0-52.0); Mean Corpuscular Hemoglobin 28.3 pg (25.0-34.0); Mean Corpuscular Hgb Conc 32.7 g/dL (32.0-36.0); Mean Corpuscular Volume 86.4 fL (80.0-100.0); Mean Platelet Volume 8.7 fL (9.4-12.4); Platelet Count 318 K/uL (130-400); RDW Coefficient of Variation 14.9 % (11.5-14.5); RDW Standard Deviation 47.2 fL (36.4-46.3); Red Blood Count 3.89 M/uL (4.70-6.10)
[2023-07-04 08:24] LABS: Albumin Level 3.1 gm/dl (3.4-5.0); BUN Creatinine Ratio 14.1 (10-20); Bilirubin Direct 0.1 mg/dl (0-0.2); Bilirubin,Total 0.4 mg/dl (0.2-1.0); Calcium 8.8 mg/dl (8.6-10.3); Creatinine Clr Calc Pharmacy 27.5 ml/min; Est GFR (Non-African American) 29.3 ml/min; Potassium 3.6 mmol/L (3.5-5.1); Total Protein 6.6 gm/dl (6.0-8.3)
--- NOTE | 2023-07-04 12:35 | Hospitalist Progress Note ---
Date of Service July 04, 2023 Assessment & Plan (1) Sepsis: Plan: - [place] of fever and increased weakness. Concern from urinary source versus C. difficile colitis on presentation. - Developed fever and tachycardia in ED after possible aspiration event. -- No respiratory distress. No clear infiltrate on CXR. -- Respiratory bio fire panel is negative. -- If aspiration events continue, consult speech therapy. - Blood cultures unfortunately not obtained prior to patient receiving antibiotics. Low yield of positive cultures at this point. - History of resistant E. coli in blood in the past. History of pansensitive Klebsiella pneumonia a urine culture in the past. - MRSA nasal swab negative on admission. - No urine output yet. Bladder scanned with minimal urine present in bladder. -- Obtain UA when able. - Tylenol as needed - Cefepime discontinued 07/04/23. Sepsis most likely in the setting of C. diff infection. (2) C. difficile diarrhea: Plan: - Multiple bowel movements overnight and morning of 07/03/23. - C. diff positive 07/03/23. Stool biofire negative. - Continue PO Vancomycin 125 mg Q6H, last dose 07/13/23. - Cholestyramine for symptom relief and to help prevent maceration of irritated skin around buttock and genitals. (3) CKD (chronic kidney disease): Plan: CKD 3 on presentation creatinine has risen in the last year to avoid nephrotoxic agents concern for possible renal tubular acidosis with anion gap preserved despite low carbon dioxide level on serology Plan Chronic depression continue mirtazapine Admission and Anticipated Discharge Date Admission Date: July 04, 2023 Subjective Patient seen and evaluated at bedside. He had just finished eating his full lunch. He continues to report liquid bowel movements. He is tolerating the oral vancomycin well. Per nursing, he has some irritation around his buttocks and genitalia. He has no other complaints at this time. He remains incontinent of urine. Urine sample has still not been collected. Plan to straight cath for urine sample today to evaluate for UTI. Physical Exam Physical Exam: General: No acute distress, nondiaphoretic, chronically ill-appearing but nontoxic. Skin: The skin was without rashes, erythema, edema, or bruising. Cardiac: Regular rate and rhythm without murmurs gallops or rubs. Pulm: Clear to auscultation bilaterally without wheezes, rales or rhonchi. No retractions or accessory muscle use. Abdominal: Positive bowel sounds x 4. Soft, nontender, without masses or organomegaly. No guarding or rebound tenderness. Neuro: A&O x3. No focal neurological deficits. Baseline dementia. Results & Data Results & Data Vital Signs (Past 12 Hours) Vital Signs Temp Pulse Resp BP Pulse Ox O2 Del Method 07/04/23 09:42 Room Air 07/04/23 08:05 37.1 C 80 18 117/72 99 Room Air Laboratory Results Reviewed CBC Reviewed CMP PG Care Time/CCT Total # of Minutes Spent Total Time Spent with Patient: Total time spent is greater than 50% in coordination of care (as documented) at patient's floor/unit and/or counseling patient: Coding Level of Care Code 94654 SUB INP/OBS CARE 2/35MIN Diagnoses Sepsis A41.9 Sepsis acute organ dysfunction status: without acute organ dysfunction Sepsis type: sepsis due to unspecified organism C. difficile diarrhea A04.72 CKD (chronic kidney disease) N18.9 Chronic kidney disease stage: unspecified stage (1) Sepsis Sepsis acute organ dysfunction status: without acute organ dysfunction Sepsis type: sepsis due to unspecified organism Qualified Code(s): A41.9 - Sepsis, unspecified organism (3) CKD (chronic kidney disease) Chronic kidney disease stage: unspecified stage Qualified Code(s): N18.9 - Chronic kidney disease, unspecified
[2023-07-04 17:14] LABS: Appearance Urine Turbid (Clear); Bacteria Urine Automated None Seen (None Seen); Bilirubin Urine Negative (Negative); Blood Urine 2+ (Negative); Color Urine Yellow; Epithelial Cell Urine Auto 0-2 /hpf (0-2); Glucose Urine UA Negative (Negative); Ketones Urine Negative (Negative); Leukocyte Esterase Urine 3+ (Negative); Nitrite Urine Negative (Negative); Protein Urine 2+ (Negative); Specific Gravity Urine 1.011 (1.000-1.030); Urobilinogen Urine Negative (Negative); WBC Urine Automated >50 /hpf (0-5)
[2023-07-04] MEDS: CHOLESTYRAMINE LIGHT 4 GM PKT PO SCH (23:20)
[2023-07-05 07:52] LABS: Hemoglobin 10.2 g/dl (14.0-18.0); Mean Corpuscular Hemoglobin 27.9 pg (25.0-34.0); Mean Corpuscular Hgb Conc 32.9 g/dL (32.0-36.0); Mean Corpuscular Volume 84.9 fL (80.0-100.0); Mean Platelet Volume 8.7 fL (9.4-12.4); Platelet Count 338 K/uL (130-400); RDW Coefficient of Variation 14.7 % (11.5-14.5); RDW Standard Deviation 46.3 fL (36.4-46.3); Red Blood Count 3.65 M/uL (4.70-6.10); White Blood Count 9.51 K/ul (4.8-10.8)
[2023-07-05 07:56] LABS: BUN Creatinine Ratio 14.9 (10-20); Calcium 8.7 mg/dl (8.6-10.3); Creatinine Clr Calc Pharmacy 28.9 ml/min; Est GFR (African American) 36.1 ml/min; Est GFR (Non-African American) 31.1 ml/min; Potassium 3.4 mmol/L (3.5-5.1)
--- NOTE | 2023-07-05 11:00 | Hospitalist Progress Note ---
Date of Service July 05, 2023 Assessment & Plan (1) Sepsis: Plan: - [place] of fever and increased weakness. Concern from urinary source versus C. difficile colitis on presentation. - Developed fever and tachycardia in ED after possible aspiration event. -- No respiratory distress. No clear infiltrate on CXR. -- Respiratory bio fire panel is negative. -- If aspiration events continue, consult speech therapy. - Blood cultures unfortunately not obtained prior to patient receiving antibiotics. Low yield of positive cultures at this point. - History of resistant E. coli in blood in the past. History of pansensitive Klebsiella pneumonia a urine culture in the past. - MRSA nasal swab negative on admission. - Afebrile since 07/03/23. - Tylenol as needed - Cefepime discontinued 07/04/23. Sepsis most likely in the setting of C. diff infection. (2) C. difficile diarrhea: Plan: - Multiple bowel movements overnight and morning of 07/03/23. - C. diff positive 07/03/23. Stool biofire negative. - Continue PO Vancomycin 125 mg Q6H, last dose 07/13/23. - Cholestyramine for symptom relief and to help prevent maceration of irritated skin around buttock and genitals. Barrier cream applied consistently to affected areas. - Patient continues to be incontinent of stool and urine. - UA 07/03 not convincing for infection. Hematuria most likely secondary to straight cath from sample collection. -- Given the patient received 3 days of cefepime, prior history of celis- sensitive UTI, and identified source of infection (C. diff), will defer additional antibiotic use right now. -- Urine culture preliminary results show no growth. Monitor results. If needed, antibiotics will be restarted. (3) CKD (chronic kidney disease): Plan: CKD 3 on presentation creatinine has risen in the last year to avoid nephrotoxic agents concern for possible renal tubular acidosis with anion gap preserved despite low carbon dioxide level on serology Plan Chronic depression continue mirtazapine Admission and Anticipated Discharge Date Admission Date: July 04, 2023 Subjective Patient seen and evaluated at bedside eating lunch. He reports that he is feeling well and has no complaints. He does not appear to be very aware of his situation, as he denies being incontinent of urine or stool. However, nursing reports he is incontinent to both. He continues to have liquid bowel movements. There is some irritation around his buttocks and genitals, but no maceration of the skin currently. Nursing is applying barrier cream to the affected areas consistently. Physical Exam Physical Exam: General: No acute distress, nondiaphoretic, chronically ill-appearing but nontoxic. Skin: The skin was without rashes, erythema, edema, or bruising. Irritation and erythema around buttocks and genitals. Cardiac: Regular rate and rhythm without murmurs gallops or rubs. Pulm: Clear to auscultation bilaterally without wheezes, rales or rhonchi. No retractions or accessory muscle use. Abdominal: Positive bowel sounds x 4. Soft, nontender, without masses or organomegaly. No guarding or rebound tenderness. Neuro: A&O x3. No focal neurological deficits. Baseline dementia. Results & Data Results & Data Vital Signs (Past 12 Hours) Vital Signs Temp Pulse Resp BP Pulse Ox O2 Del Method 07/05/23 08:09 36.9 C 74 20 127/78 98 Room Air Laboratory Results Reviewed CBC Reviewed chemistries Reviewed UA PG Care Time/CCT Total # of Minutes Spent Total Time Spent with Patient: Total time spent is greater than 50% in coordination of care (as documented) at patient's floor/unit and/or counseling patient: Coding Level of Care Code 48846 SUB INP/OBS CARE 2/35MIN Diagnoses Sepsis A41.9 Sepsis acute organ dysfunction status: without acute organ dysfunction Sepsis type: sepsis due to unspecified organism C. difficile diarrhea A04.72 CKD (chronic kidney disease) N18.9 Chronic kidney disease stage: unspecified stage (1) Sepsis Sepsis acute organ dysfunction status: without acute organ dysfunction Sepsis type: sepsis due to unspecified organism Qualified Code(s): A41.9 - Sepsis, unspecified organism (3) CKD (chronic kidney disease) Chronic kidney disease stage: unspecified stage Qualified Code(s): N18.9 - Chronic kidney disease, unspecified
[2023-07-06 06:35] LABS: Hematocrit (blood only) 31.6 % (42.0-52.0); Hemoglobin 10.4 g/dl (14.0-18.0); Mean Corpuscular Hemoglobin 28.3 pg (25.0-34.0); Mean Corpuscular Hgb Conc 32.9 g/dL (32.0-36.0); Mean Corpuscular Volume 86.1 fL (80.0-100.0); Mean Platelet Volume 8.8 fL (9.4-12.4); Platelet Count 367 K/uL (130-400); RDW Coefficient of Variation 15.1 % (11.5-14.5); RDW Standard Deviation 47.8 fL (36.4-46.3); Red Blood Count 3.67 M/uL (4.70-6.10); White Blood Count 7.28 K/ul (4.8-10.8)
[2023-07-06 06:51] LABS: BUN Creatinine Ratio 18.4 (10-20); Calcium 9.1 mg/dl (8.6-10.3); Creatinine Clr Calc Pharmacy 34.6 ml/min; Est GFR (African American) 44.8 ml/min; Est GFR (Non-African American) 38.7 ml/min; Potassium 3.8 mmol/L (3.5-5.1)
--- NOTE | 2023-07-06 10:34 | Hospitalist Progress Note ---
Date of Service July 06, 2023 Assessment & Plan (1) Sepsis: Plan: - [place] of [place] and increased weakness. Concern from urinary source versus C. difficile colitis on presentation. - Developed fever and tachycardia in ED after possible aspiration event. -- No respiratory distress. No clear infiltrate on CXR. -- Respiratory bio fire panel is negative. -- If aspiration events continue, consult speech therapy. - Blood cultures unfortunately not obtained prior to patient receiving antibiotics. Low yield of positive cultures at this point. - History of resistant E. coli in blood in the past. History of pansensitive Klebsiella pneumonia a urine culture in the past. - MRSA nasal swab negative on admission. - Afebrile since 07/03/23. - Tylenol as needed - Cefepime discontinued 07/04/23. Sepsis most likely in the setting of C. diff infection. (2) C. difficile diarrhea: Plan: - Multiple bowel movements overnight and morning of 07/03/23. - C. diff positive 07/03/23. Stool biofire negative. - Continue PO Vancomycin 125 mg Q6H, last dose 07/13/23. - Cholestyramine for symptom relief and to help prevent maceration of irritated skin around buttock and genitals. Barrier cream applied consistently to affected areas. - Patient continues to be incontinent of stool and urine. - UA 07/03 not convincing for infection. Hematuria most likely secondary to straight cath from sample collection. -- Given the patient received 3 days of cefepime, prior history of celis- sensitive UTI, and identified source of infection (C. diff), will defer additional antibiotic use right now. -- Urine culture preliminary results show no growth. Monitor results. No leukocytosis to indicate untreated infection. No need for additional antibiotics at this time. (3) CKD (chronic kidney disease): Plan: CKD 3 on presentation creatinine has risen in the last year to avoid nephrotoxic agents concern for possible renal tubular acidosis with anion gap preserved despite low carbon dioxide level on serology Plan Chronic depression continue mirtazapine Admission and Anticipated Discharge Date Admission Date: July 04, 2023 Supervising Physician Co-Signing Physician Notes The patient was not seen by me. The chart was reviewed. Case discussed with MONIE Hill. Agree with assessment and plan Subjective Patient seen and evaluated resting comfortably in bed. Patient is incontinent of stool and urine. Nursing reports his bowel movements have reduced in frequency. Stool is becoming more formed, but still loose. There is some irritation around his buttocks and genitals, but no maceration of the skin. Nursing is applying barrier cream to the affected areas consistently. Patient has no complaints at this time. Physical Exam Physical Exam: General: No acute distress, nondiaphoretic, chronically ill-appearing but nontoxic. Skin: The skin was without rashes, erythema, edema, or bruising. Irritation and erythema around buttocks and genitals. Cardiac: Regular rate and rhythm without murmurs gallops or rubs. Pulm: Clear to auscultation bilaterally without wheezes, rales or rhonchi. No retractions or accessory muscle use. Abdominal: Positive bowel sounds x 4. Soft, nontender, without masses or organomegaly. No guarding or rebound tenderness. Neuro: A&O x3. No focal neurological deficits. Baseline dementia. Results & Data Results & Data Vital Signs (Past 12 Hours) Vital Signs Temp Pulse Resp BP Pulse Ox O2 Del Method 07/06/23 07:26 36.6 C 69 18 111/67 97 Room Air Laboratory Results Reviewed CBC Reviewed BMP PG Care Time/CCT Total # of Minutes Spent Total Time Spent with Patient: Total time spent is greater than 50% in coordination of care (as documented) at patient's floor/unit and/or counseling patient: Coding Level of Care Code 07411 SUB INP/OBS CARE 2/35MIN Diagnoses Sepsis A41.9 Sepsis acute organ dysfunction status: without acute organ dysfunction Sepsis type: sepsis due to unspecified organism C. difficile diarrhea A04.72 CKD (chronic kidney disease) N18.9 Chronic kidney disease stage: unspecified stage (1) Sepsis Sepsis acute organ dysfunction status: without acute organ dysfunction Sepsis type: sepsis due to unspecified organism Qualified Code(s): A41.9 - Sepsis, unspecified organism (3) CKD (chronic kidney disease) Chronic kidney disease stage: unspecified stage Qualified Code(s): N18.9 - Chronic kidney disease, unspecified
[2023-07-07 06:18] LABS: Hematocrit (blood only) 34.3 % (42.0-52.0); Hemoglobin 10.7 g/dl (14.0-18.0); Mean Corpuscular Hemoglobin 27.6 pg (25.0-34.0); Mean Corpuscular Hgb Conc 31.2 g/dL (32.0-36.0); Mean Corpuscular Volume 88.4 fL (80.0-100.0); Mean Platelet Volume 8.5 fL (9.4-12.4); Platelet Count 390 K/uL (130-400); RDW Coefficient of Variation 14.9 % (11.5-14.5); RDW Standard Deviation 48.3 fL (36.4-46.3); Red Blood Count 3.88 M/uL (4.70-6.10); White Blood Count 9.45 K/ul (4.8-10.8)
[2023-07-07 06:31] LABS: BUN Creatinine Ratio 18.4 (10-20); Calcium 9.2 mg/dl (8.6-10.3); Creatinine Clr Calc Pharmacy 30.5 ml/min; Est GFR (African American) 38.4 ml/min; Est GFR (Non-African American) 33.2 ml/min
--- NOTE | 2023-07-07 08:21 | Hospitalist Progress Note ---
Date of Service July 07, 2023 Assessment & Plan (1) C. difficile diarrhea: Plan: - Multiple bowel movements overnight and morning of 07/03/23. - C. diff positive 07/03/23. Stool biofire negative. - Continue PO Vancomycin 125 mg Q6H, last dose 07/13/23. - Cholestyramine for symptom relief and to help prevent maceration of irritated skin around buttock and genitals. Barrier cream applied consistently to affected areas. - Patient continues to be incontinent of stool and urine. - UA 07/03 not convincing for infection. Hematuria most likely secondary to straight cath from sample collection. -- Given the patient received 3 days of cefepime, prior history of celis- sensitive UTI, and identified source of infection (C. diff), will defer additional antibiotic use right now. -- Urine culture preliminary results show no growth. Monitor results. No leukocytosis to indicate untreated infection. No need for additional antibiotics at this time. - Start LR x1 bag due to hyperchloremic metabolic acidosis. -- Given the delta AG/delta HCO3 ratio is <1, this is suggestive of acidosis secondary to diarrhea. -- 1 time dose of Imodium given due to continued multiple bowel movements. (2) Sepsis: Plan: - [place] of fever and increased weakness. Concern from urinary source versus C. difficile colitis on presentation. - Developed fever and tachycardia in ED after possible aspiration event. -- No respiratory distress. No clear infiltrate on CXR. -- Respiratory bio fire panel is negative. -- If aspiration events continue, consult speech therapy. - Blood cultures unfortunately not obtained prior to patient receiving antibiotics. Low yield of positive cultures at this point. - History of resistant E. coli in blood in the past. History of pansensitive Klebsiella pneumonia a urine culture in the past. - MRSA nasal swab negative on admission. - Afebrile since 07/03/23. - Tylenol as needed - Cefepime discontinued 07/04/23. Sepsis most likely in the setting of C. diff infection. (3) CKD (chronic kidney disease): Plan: CKD 3 on presentation creatinine has risen in the last year to avoid nephrotoxic agents concern for possible renal tubular acidosis with anion gap preserved despite low carbon dioxide level on serology Plan Chronic depression continue mirtazapine Admission and Anticipated Discharge Date Admission Date: July 04, 2023 Subjective Patient seen and evaluated at bedside. Slight improvement in frequency of his bowel movements compared to yesterday. They still remain loose in caliber, no blood noted. Denies any abdominal pain or tenderness. Decreased bicarb and increased chloride indicate hyperchloremic metabolic acidosis, most likely secondary to diarrhea. 1 L of LR and one-time dose of Imodium given today. Patient has no complaints at this time. Per nursing, irritated area around buttocks and genitals has improved. Patient still remains incontinent to urine and stool. Physical Exam Physical Exam: General: No acute distress, nondiaphoretic, chronically ill-appearing but nontoxic. Skin: The skin was without rashes, erythema, edema, or bruising. Irritation and erythema around buttocks and genitals, improving. Cardiac: Regular rate and rhythm without murmurs gallops or rubs. Pulm: Clear to auscultation bilaterally without wheezes, rales or rhonchi. No retractions or accessory muscle use. Abdominal: Positive bowel sounds x 4. Soft, nontender, without masses or organomegaly. No guarding or rebound tenderness. Neuro: A&O x3. No focal neurological deficits. Baseline dementia. Results & Data Results & Data Vital Signs (Past 12 Hours) Vital Signs Temp Pulse Resp BP Pulse Ox O2 Del Method 07/07/23 07:22 36.4 C L 67 16 104/64 97 Room Air 07/06/23 21:00 36.6 C 66 16 114/68 96 Room Air Laboratory Results Reviewed CBC Reviewed BMP Reviewed urine culture PG Care Time/CCT Total # of Minutes Spent Total Time Spent with Patient: Total time spent is greater than 50% in coordination of care (as documented) at patient's floor/unit and/or counseling patient: Coding Level of Care Code 53262 SUB INP/OBS CARE 2/35MIN Diagnoses C. difficile diarrhea A04.72 Sepsis A41.9 Sepsis acute organ dysfunction status: without acute organ dysfunction Sepsis type: sepsis due to unspecified organism CKD (chronic kidney disease) N18.9 Chronic kidney disease stage: unspecified stage (2) Sepsis Sepsis acute organ dysfunction status: without acute organ dysfunction Sepsis type: sepsis due to unspecified organism Qualified Code(s): A41.9 - Sepsis, unspecified organism (3) CKD (chronic kidney disease) Chronic kidney disease stage: unspecified stage Qualified Code(s): N18.9 - Chronic kidney disease, unspecified
[2023-07-07] MEDS: LOPERAMIDE HCL 2 MG CAP PO ONE (10:23)
[2023-07-07] MEDS: LACTATED RINGER'S 1,000 ML IV SCH (10:23)
[2023-07-07] MEDS: LOPERAMIDE HCL 2 MG CAP PO STA (10:24)
--- NOTE | 2023-07-07 13:44 | Hospitalist Progress Note ---
Date of Service July 07, 2023 Assessment & Plan (1) C. difficile diarrhea: Plan: - Multiple bowel movements overnight and morning of 07/03/23. - C. diff positive 07/03/23. Stool biofire negative. - Continue PO Vancomycin 125 mg Q6H, last dose 07/13/23. - Cholestyramine for symptom relief and to help prevent maceration of irritated skin around buttock and genitals. Barrier cream applied consistently to affected areas. - Patient continues to be incontinent of stool and urine. - No leukocytosis since 07/04/2023. - UA 07/03 not convincing for infection. Hematuria most likely secondary to straight cath from sample collection. -- Given the patient received 3 days of cefepime, prior history of celis- sensitive UTI, and identified source of infection (C. diff), will defer additional antibiotic use. -- Urine culture negative. - Start LR x1 bag due to hyperchloremic metabolic acidosis. -- Given the delta AG/delta HCO3 ratio is <1, this is suggestive of acidosis being due to diarrhea. -- 1 time dose of Imodium given due to continued multiple bowel movements. (2) Sepsis: Plan: - Patient presented from the [facility] with report of fever and increased weakness. Concern from urinary source versus C. difficile colitis on presentation. - Developed fever and tachycardia in ED after possible aspiration event. -- No respiratory distress. No clear infiltrate on CXR. -- Respiratory bio fire panel is negative. -- If aspiration events continue, consult speech therapy. - Blood cultures unfortunately not obtained prior to patient receiving antibiotics. Low yield of positive cultures at this point. - History of resistant E. coli in blood in the past. History of pansensitive Klebsiella pneumonia a urine culture in the past. - MRSA nasal swab negative on admission. - Afebrile since 07/03/23. - Tylenol as needed - Cefepime discontinued 07/04/23. Sepsis most likely in the setting of C. diff infection. (3) CKD (chronic kidney disease): Plan: CKD 3 on presentation creatinine has risen in the last year to avoid nephrotoxic agents concern for possible renal tubular acidosis with anion gap preserved despite low carbon dioxide level on serology Plan Chronic depression continue mirtazapine Admission and Anticipated Discharge Date Admission Date: July 04, 2023 Subjective Patient seen and evaluated at bedside. Slight improvement in frequency of his bowel movements compared to yesterday. They still remain loose in caliber, no blood noted. Denies any abdominal pain or tenderness. Decreased bicarb and increased chloride indicate hyperchloremic metabolic acidosis, most likely secondary to diarrhea. 1 L of LR and one-time dose of Imodium given today. Patient has no complaints at this time. Per nursing, irritated area around buttocks and genitals has improved. Patient still remains incontinent to urine and stool. Physical Exam Physical Exam: General: No acute distress, nondiaphoretic, chronically ill-appearing but nontoxic. Skin: The skin was without rashes, erythema, edema, or bruising. Irritation and erythema around buttocks and genitals. Cardiac: Regular rate and rhythm without murmurs gallops or rubs. Pulm: Clear to auscultation bilaterally without wheezes, rales or rhonchi. No retractions or accessory muscle use. Abdominal: Positive bowel sounds x 4. Soft, nontender, without masses or organomegaly. No guarding or rebound tenderness. Neuro: A&O x3. No focal neurological deficits. Baseline dementia. Results & Data Results & Data Vital Signs (Past 12 Hours) Vital Signs Temp Pulse Resp BP Pulse Ox O2 Del Method 07/07/23 07:48 Room Air 07/07/23 07:22 36.4 C L 67 16 104/64 97 Room Air Laboratory Results Reviewed CBC Reviewed BMP Reviewed urine culture PG Care Time/CCT Total # of Minutes Spent Total Time Spent with Patient: Total time spent is greater than 50% in coordination of care (as documented) at patient's floor/unit and/or counseling patient: Coding Diagnoses C. difficile diarrhea A04.72 Sepsis A41.9 Sepsis acute organ dysfunction status: without acute organ dysfunction Sepsis type: sepsis due to unspecified organism CKD (chronic kidney disease) N18.9 Chronic kidney disease stage: unspecified stage (2) Sepsis Sepsis acute organ dysfunction status: without acute organ dysfunction Sepsis type: sepsis due to unspecified organism Qualified Code(s): A41.9 - Sepsis, unspecified organism (3) CKD (chronic kidney disease) Chronic kidney disease stage: unspecified stage Qualified Code(s): N18.9 - Chronic kidney disease, unspecified
[2023-07-08 06:08] LABS: Hematocrit (blood only) 32.9 % (42.0-52.0); Hemoglobin 10.5 g/dl (14.0-18.0); Mean Corpuscular Hemoglobin 28.1 pg (25.0-34.0); Mean Corpuscular Hgb Conc 31.9 g/dL (32.0-36.0); Mean Platelet Volume 8.3 fL (9.4-12.4); Platelet Count 415 K/uL (130-400); RDW Coefficient of Variation 14.9 % (11.5-14.5); Red Blood Count 3.74 M/uL (4.70-6.10); White Blood Count 10.42 K/ul (4.8-10.8)
[2023-07-08 06:24] LABS: Calcium 9.1 mg/dl (8.6-10.3); Creatinine Clr Calc Pharmacy 31.9 ml/min; Est GFR (African American) 40.6 ml/min
[2023-07-08] MEDS: LOPERAMIDE HCL 2 MG CAP PO STA (08:47)
[2023-07-08] MEDS: PSYLLIUM or GUAR GUM FIBER 4GM PACKET PO SCH (08:47)
--- NOTE | 2023-07-08 14:25 | Hospitalist Progress Note ---
Date of Service July 08, 2023 Assessment & Plan (1) C. difficile diarrhea: Plan: - Sepsis from C. difficile colitis - C. diff positive 07/03/23. Stool biofire negative. - Continue PO Vancomycin 125 mg Q6H, last dose 07/13/23. - Cholestyramine for symptom relief and to help prevent maceration of irritated skin around buttock and genitals. Barrier cream applied consistently to affected areas. - Patient continues to be incontinent of stool and urine. Cautiously using daily dosed Imodium and Metamucil. (2) Sepsis: Plan: - Patient presented from the [facility] with report of fever and increased weakness. Concern from C. difficile colitis on presentation. - MRSA nasal swab negative on admission. - Afebrile since 07/03/23. Once the treatment for C. difficile began - Tylenol as needed - Cefepime discontinued 07/04/23. Sepsis most likely in the setting of C. diff infection. (3) CKD (chronic kidney disease): Plan: CKD 3 on presentation creatinine has risen in the last year to avoid nephrotoxic agents concern for possible renal tubular acidosis with anion gap preserved despite low carbon dioxide level on serology Plan Chronic depression continue mirtazapine PT OT evaluation suggest patient to benefit from subacute rehab at alf facility consulting to case management to coordinate this Admission and Anticipated Discharge Date Admission Date: July 04, 2023 Subjective Patient is slightly hard of hearing a bit grumpy He offers no physical complaints other than some persistent loose bowel movements were attempting to improve by occasional Imodium and fiber agents Informed that he may not be able to go to personal-usp due to his physical therapy performance and he said what ever will be will be Physical Exam Physical Exam: Awake and oriented x 3 Abdomen with hypoactive bowel sounds soft nontender no guarding Card exam is regular lungs are clear Results & Data Results & Data Vital Signs (Past 12 Hours) Vital Signs Temp Pulse Resp BP Pulse Ox O2 Del Method 07/08/23 14:15 97.9 F 72 16 114/72 96 Room Air 07/08/23 07:17 98.1 F 71 16 113/69 96 Room Air Laboratory Results Reviewed CBC reviewed chemistry PG Care Time/CCT Total # of Minutes Spent Total Time Spent with Patient: Total time spent is greater than 50% in coordination of care (as documented) at patient's floor/unit and/or counseling patient: Coding Level of Care Code 66064 SUB INP/OBS CARE MIN Diagnoses C. difficile diarrhea A04.72 Sepsis A41.9 Sepsis acute organ dysfunction status: without acute organ dysfunction Sepsis type: sepsis due to unspecified organism CKD (chronic kidney disease) N18.9 Chronic kidney disease stage: unspecified stage (2) Sepsis Sepsis acute organ dysfunction status: without acute organ dysfunction Sepsis type: sepsis due to unspecified organism Qualified Code(s): A41.9 - Sepsis, unspecified organism (3) CKD (chronic kidney disease) Chronic kidney disease stage: unspecified stage Qualified Code(s): N18.9 - Chronic kidney disease, unspecified
--- NOTE | 2023-07-09 16:36 | Discharge Summary ---
Date of Service July 09, 2023 Admission HPI Per Admitting Provider Donovan Thornton is an 83yo male with history of HTN, HLP, Dementia, quadriparesis presenting from [place] with report of fever and increased weakness. Patient with dementia and doesn't really know why he is here- he does report some productive cough and difficulty urinating, otherwise no complaints. In the ER he is afebrile, HD stable Possible aspiration event in the ER - patient with vomiting and then cough, feve r and tachycardia ER Course: NSS x1L Cefepime 2gm NSS x 500mL Principal Diagnosis sepsis from C diff resolved disposition to snf portion of [place] Discharge Exam PT is awake and alert, no new issues still with some loose stools but this seems to be his typical Discharge Data Allergies Allergy/AdvReac Type Severity Reaction Status Date / Time donepezil AdvReac Intermediate Diarrhea Verified 05/14/23 10:29 Consultations 07/03/23 01:06 ED Decision to Admit Stat Hospital Course (1) C. difficile diarrhea: - Sepsis from C. difficile colitis - C. diff positive 07/03/23. Stool biofire negative. - Continue PO Vancomycin 125 mg Q6H, last dose 07/13/23. - Cholestyramine for symptom relief and to help prevent maceration of irritated skin around buttock and genitals. Barrier cream recommended . - Patient continues to be incontinent of stool and urine. Cautiously using daily dosed Imodium and Metamucil. (2) Sepsis: - Patient presented from the [facility] with report of fever and increased weakness. Concern from C. difficile colitis on presentation. - MRSA nasal swab negative on admission. - Afebrile since 07/03/23. Once the treatment for C. difficile began - Tylenol as needed - Cefepime discontinued 07/04/23. Sepsis most likely in the setting of C. diff infection. (3) CKD (chronic kidney disease): CKD 3 on presentation creatinine has risen in the last year to avoid nephrotoxic agents concern for possible renal tubular acidosis with anion gap preserved despite low carbon dioxide level on serology Plan Chronic depression continue mirtazapine PT OT evaluation suggest patient to benefit from subacute rehab at [facility] [place] sn[facility] section Total Time Total Time Spent Total Time Spent (In Minutes): It required greater than 30 minutes to prepare this patient for discharge. Discharge Plan Discharge Items Patient Disposition: Transfer [facility] Reason For Visit: FEVER Discharge Diagnosis: sepsis from c diff colitis pre existing bladder outlet issue for repair in july 2023 CKD3 Activity: Per Instructions section Activity Comment: pt/ot eval Non-emergency contact: Primary Care Provider Call non-emergency contact if: your symptoms worsen Follow-up/Referrals: Mahnaz Stephen [facility] [Primary Care Provider] - Diet: Regular Addtl Attending Provider Instructions: complete at least 10 days of oral vanco, but may extend course if still with diarrhea using some daily fiber to try to absorb water in stool cholestyramine to help absorb toxin both can be stopped if diarrhea improves very sporatic use of imodium Pending Studies at Discharge: No Studies:: urine culture negative Stand-Alone Forms: [facility] Skilled Items Patient informed of condition?: Yes DNR: Yes Discharge Level of Care: Acute rehab Communicable Disease: Yes Discharge Prognosis: Stable Lines: None Urinary Catheter: No Medications and DC Order Prescriptions: New vancomycin [Vancocin] 125 mg capsule 125 mg PO QID Qty: 16 0RF cholestyramine-aspartame [Prevalite] 4 gram Powder In Packet 1 ea PO BID@1000,2200 Qty: 10 0RF Psyllium Or Guar Gum Fiber Sup [Metamucil Or Nutrisource Fiber Supplement] 4 g PO QAM Qty: 7 0RF Continued ferrous sulfate 325 mg (65 mg iron) tablet 325 mg PO DAILY Qty: 30 11RF multivitamin [Multiple Vitamins] Tablet 1 tab PO DAILY Qty: 30 2RF cholecalciferol (vitamin D3) 25 mcg (1,000 unit) capsule 2,000 unit PO DAILY Qty: 90 3RF montelukast 10 mg tablet 10 mg PO HS mirtazapine 15 mg tablet 15 mg PO HS Discharge Orders: Discharge Order (Routine); Ordered 07/09/23 Ordered By: Shaan Hogue Admission Data Admit Date/Time: 07/04/23 10:11 Attending Provider: Shaan Hogue Admit Provider: Adriana Mcginnis Primary Care Provider: Mahnaz Stephen [facility] Other Providers: Adriana Mcginnis; Mahnaz Stephen [facility] Other Interventions: Discharge Summary Assessment (RN) Last Done: 07/09/23 12:11 Coding Level of Care Code 33619 INP/OBS DISCH >30 MIN Diagnoses C. difficile diarrhea A04.72 Sepsis A41.9 Sepsis acute organ dysfunction status: without acute organ dysfunction Sepsis type: sepsis due to unspecified organism CKD (chronic kidney disease) N18.9 Chronic kidney disease stage: unspecified stage
== END 2023-07-09 15:40 | DRG 872 ==
LOC: EDINP 23:11 → ED 23:11 → SUATTDRO 07-03 01:58 → 3E 07-03 02:28 → SUATTDRO 07-04 10:11

== ENCOUNTER 2023-10-16 18:07 | Inpatient (IN) ==
[2023-10-16 19:26] LABS: Basophils # (auto) 0.01 K/uL (0.00-0.20); Basophils % (auto) 0.1 %; Eosinophils # (auto) 0.01 K/uL (0.00-0.50); Eosinophils % (auto) 0.1 %; Hematocrit (blood only) 28.6 % (42.0-52.0); Hemoglobin 8.8 g/dl (14.0-18.0); Immature Granulocytes # (auto) 0.77 K/uL (0.01-0.20); Immature Granulocytes % (auto) 4.5 %; Lymphocytes # (auto) 1.18 K/uL (1.20-3.40); Lymphocytes % (auto) 6.9 %; Mean Corpuscular Hemoglobin 26.6 pg (25.0-34.0); Mean Corpuscular Hgb Conc 30.8 g/dL (32.0-36.0); Mean Corpuscular Volume 86.4 fL (80.0-100.0); Mean Platelet Volume 8.1 fL (9.4-12.4); Monocytes # (auto) 1.52 K/uL (0.11-0.59); Monocytes % (auto) 8.8 %; Neutrophils # (auto) 13.72 K/uL (1.40-6.50); Neutrophils % (auto) 79.6 %; Platelet Count 387 K/uL (130-400); RDW Coefficient of Variation 14.6 % (11.5-14.5); RDW Standard Deviation 46.7 fL (36.4-46.3); Red Blood Count 3.31 M/uL (4.70-6.10); White Blood Count 17.21 K/ul (4.8-10.8)
[2023-10-16 19:45] LABS: BUN Creatinine Ratio 17.6 (10-20); Bilirubin Direct 0.1 mg/dl (0-0.2); Bilirubin,Total 0.5 mg/dl (0.2-1.0); Calcium 8.7 mg/dl (8.6-10.3); Creatinine Clr Calc Pharmacy 22.6 ml/min; Est GFR (Non-African American) 26.8 ml/min; Potassium 3.3 mmol/L (3.5-5.1); Total Protein 6.8 gm/dl (6.0-8.3)
[2023-10-16 20:10] LABS: Adenovirus PCR Not Detected (NotDetected); Bordetella parapertussis PCR Not Detected (NotDetected); Bordetella pertussis PCR Not Detected (NotDetected); Chlamydia pneumoniae PCR Not Detected (NotDetected); Coronavirus 229E PCR Not Detected (NotDetected); Coronavirus CoV-2 (COVID19)PCR Not Detected (NotDetected); Coronavirus HKU1 PCR Not Detected (NotDetected); Coronavirus NL63 PCR Not Detected (NotDetected); Coronavirus OC43PCR Not Detected (NotDetected); Human Metapneumovirus PCR Not Detected (NotDetected); Influenza A PCR Not Detected (NotDetected); Influenza B PCR Not Detected (NotDetected); Mycoplasma pneumoniae PCR Not Detected (NotDetected); Parainfluenza Virus 1 PCR Not Detected (NotDetected); Parainfluenza Virus 2 PCR Not Detected (NotDetected); Parainfluenza Virus 3 PCR Not Detected (NotDetected); Parainfluenza Virus 4 PCR Not Detected (NotDetected); Respiratory Syncytial VirusPCR Not Detected (NotDetected); Rhinovirus/Enterovirus PCR Not Detected (NotDetected)
[2023-10-16] MEDS: SODIUM CHLORIDE 0.9% 1,000 ML IV SCH (20:20)
[2023-10-16] MEDS: cefTRIAXone SODIUM 2,000 MG/50 ML BAG IV STA (20:58)
--- NOTE | 2023-10-16 21:37 | Emergency Department Note ---
Impression & Plan Sepsis due to urinary tract infection, Acute kidney injury superimposed on CKD ED Provider Note NAME: CORNELIUS VILLAFUERTE AGE: 83 SEX: M : 1940 ARRIVES VIA: Ambulance INFORMANT: Patient, ED PROVIDER(S): Gene Loza MD CHIEF COMPLAINT: Increased confusion, UTI HPI: This is a 83-year-old male presenting for increased confusion, weakness fever. Patient is from nursing facility where he was thought to be less responsive, febrile and weak. He has increased confusion. There is concern that he had a UTI as he has similar presentations to this. Patient has history of bladder neck stenosis. Patient declined previous surgery for this. Patient currently denies feeling unwell. ROS: See above HPI for pertinent positives & negatives. A total of 10 systems reviewed and were otherwise negative. PHYSICAL EXAMINATION: General: Chronically ill-appearing Head: Normocephalic and atraumatic Eyes: Normal inspection, extraocular muscles intact Ear, nose, throat: Normal external exam Neck: Normal range of motion Respiratory: lungs clear to auscultation bilaterally Cardiovascular: Regular rate/rhythm, no murmur GI: soft, nontender, no rebound, guarding, foul-smelling urine Extremities: nontender, moves all extremities Neuro: Alert, not oriented no focal deficits, symmetric faces Skin: Warm, dry, and intact MEDICAL DECISION MAKING: This is a 83-year-old male presenting for increased confusion, weakness and fever. Patient is fairly adamant that he did not want to stay. Concern for urosepsis as he is slightly hypotensive into the 70s, 80s -Will give fluid resuscitation right upper back, lactic acid and antibiotics including ceftriaxone -Blood work is reviewed showing leukocytosis to 17, anemia to 8.8. Otherwise patient's creatinine is 2.21 which is elevated. A pressure panel is negative. -At this time UA is unable to be obtained. Nurses did tell [facility] placement but arrival to due to this bladder neck obstruction.. Patient is freely urinating/incontinence, bladder scan shows no postvoid residual. -Due to patient's confusion, suspected UTI, and hypotension, suspect urosepsis as a possible etiology. Will admit for further workup. -Upon multiple reevaluations, patient is responsive to fluid, given a total of 2 L with improvement in blood pressures into the 100s. -Patient was adamant that he did not want to stay. I did discuss findings with his daughter and the need for admission. She agrees and call the patient. He is now amenable to staying in the hospital. Differential diagnosis: Sepsis, UTI, pneumonia, CHF ER treatment provided: See below Diagnostics interpreted by me: ECG: None Cardiac Monitoring: An order was placed for continuous cardiac monitoring. The monitor shows a rate of 90 with sinus rhythm. Laboratory studies: As stated above and show below. Imaging studies: See below. Critical Care Note: I have personally spent 32 minutes of critical care time in the direct management of this patient. This includes bedside care, interpretation of diagnostic studies, and testing, discussion with consultants, patient, and family members, and other required patient management activities. This 32 minutes is in excess of all separately billable procedures. Past Med/Surg History Problem List (Updated 10/18/23 @ 11:07 by Gene Loza MD) Sepsis due to urinary tract infection (Acute) Confusion Weakness Acute kidney injury superimposed on CKD (Acute) C. difficile diarrhea CKD (chronic kidney disease) (Acute) Bladder neck contracture Hydronephrosis Constipation Overflow diarrhea Diarrhea Chronic diarrhea Prostate cancer (Chronic 09/27/11) "Rising PSA, pretreatment PSA 7.44 clinical stage TIc Biopsy stage T2b [place] grade 3+2 and 3+3 Active surveillance Recheck PSA 10.2, repeat biopsy [place] 3+3, biopsy stage T2b Continued rise in PSA Status post robotic prostatectomy 07/10/2011, stage [id number] Status post completion of radiation therapy the prostate bed 12/17/2011 received 7000 cGy" Vitamin D deficiency (Acute) Rosacea (Acute) Quadriparesis (Chronic) Organic impotence (Acute) Male stress incontinence (Acute) Leukopenia (Acute) Hypertension Hyperlipidemia (Acute) Cervical cord myelomalacia Weight loss Cognitive decline Malnutrition Cerebral atrophy Depression Loose bowel movements UTI (urinary tract infection) Acute UTI (Acute) Chronic diarrhea Dysphagia Anemia Medical History Near syncope Weakness Hypokalemia Acute UTI Hematochezia Benign neoplasm of large intestine Surgical History H/O Spinal surgery H/O prostatectomy Hx of tonsillectomy Family History Mother Lung cancer Breast cancer Other Alcoholism in family Denies family history of Ovarian cancer Prostate cancer Myocardial infarction Colorectal cancer Social History Smoking Status: Unknown if ever smoked Second Hand Exposure: No; Do You Dip or Chew Tobacco: No; Hx Alcohol Use: No Hx Substance Use: No Preferred Language: Burmese Communication Ability: Effective Visual Impairment: Partially Limited Hearing Ability: Hard of Hearing Tube Cleaning Operator Required: No Beliefs That Will Affect Care: None marital status: / Current Living Situation: [facility] Current Living Situation Comment: [facility] current occupational status: retired How many Children do You have: 2 Feels Safe at Home: Yes Childhood Exposure to Second-Hand Smoke: Yes caffeine: Yes Dental Care, Regularly: Yes Physical Activity Frequency: 5-6 Times per Week Seatbelt Use: always Sunscreen Use: No Assistive Devices: Walker and Wheelchair Allergies Allergies Allergy/AdvReac Type Severity Reaction Status Date / Time pollen extracts Allergy Intermediate ITCHY Verified 10/16/23 19:02 EYES, SNEEZING, CONGESTION donepezil AdvReac Intermediate Diarrhea Verified 10/16/23 19:02 Home Meds Home Medications Medication Instructions Recorded Confirmed acetaminophen 325 mg tablet 325 mg PO Q4H PRN PAIN/FEVER 07/28/23 10/16/23 cholestyramine-aspartame 4 gram 1 ea PO BID 10/16/23 10/16/23 oral powder for susp in a packet (Prevalite) diphenoxylate-atropine 2.5 1 tab PO Q12H PRN Diarrhea 10/16/23 10/16/23 mg-0.025 mg tablet (Lomotil) docusate sodium 100 mg capsule 100 mg PO DAILY PRN Constipation 10/16/23 10/16/23 loperamide 2 mg tablet (Imodium 2 mg PO 2XWK loose stool 10/16/23 10/16/23 A-D) montelukast 10 mg tablet 10 mg PO DAILY 10/16/23 10/16/23 polyethylene glycol 3350 17 17 g PO DAILY PRN Constipation 10/16/23 10/16/23 gram/dose oral powder (Miralax) Previous Rx's Medication Instructions Recorded menthol 0.44 %-zinc oxide 20.6 % 1 applic topical QID PRN skin 09/11/23 topical ointment (Calmoseptine) irritation #113 grams mirtazapine 15 mg tablet 15 mg PO HS #30 tabs 09/12/23 cholecalciferol (vitamin D3) 50 2,000 unit PO DAILY #90 caps 09/16/23 mcg (2,000 unit) capsule ferrous sulfate 325 mg (65 mg 325 mg PO DAILY #90 tabs 09/16/23 iron) tablet multivitamin (Multiple Vitamins 1 tab PO DAILY #90 tabs 09/16/23 tablet) psyllium husk 0.4 gram capsule 0.4 g PO DAILY #180 caps 09/16/23 (Metamucil) Results & Data (ED) Vital Signs Vital Signs - 24 hr 10/16/23 18:22 10/16/23 18:25 10/16/23 18:30 Temperature Temperature Source Pulse Rate 82 Pulse Rate [Apical] 82 Pulse Rate from SpO2 Sensor Respiratory Rate 20 Respiratory Effort / Characteristics Non-Labored Spontaneous Respiratory Depth Normal Respiratory Pattern Regular Blood Pressure Blood Pressure [Right Arm] 87/56 L 130/89 Blood Pressure Mean Blood Pressure Mean [Right Arm] 66 102 Pulse Oximetry 98 Oxygen Delivery Method Room Air Sepsis Recent Fever Within 48 Hours Sepsis New/Unexplained Change in Mental Status Sepsis Action Taken by Nursing 10/16/23 18:46 10/16/23 19:00 10/16/23 19:33 Temperature 37.4 C Temperature Source Oral Pulse Rate 79 79 75 Pulse Rate [Apical] Pulse Rate from SpO2 Sensor Respiratory Rate 20 20 Respiratory Effort / Characteristics Non-Labored Spontaneous Respiratory Depth Normal Respiratory Pattern Regular Blood Pressure 85/56 L 100/63 95/52 L Blood Pressure [Right Arm] Blood Pressure Mean 65 75 66 Blood Pressure Mean [Right Arm] Pulse Oximetry 99 99 99 Oxygen Delivery Method Room Air Sepsis Recent Fever Within 48 Hours Yes Sepsis New/Unexplained Change in Mental Status No Sepsis Action Taken by Nursing No Action Required 10/16/23 20:16 Temperature Temperature Source Pulse Rate Pulse Rate [Apical] Pulse Rate from SpO2 Sensor 63 Respiratory Rate Respiratory Effort / Characteristics Respiratory Depth Respiratory Pattern Blood Pressure 95/48 L Blood Pressure [Right Arm] Blood Pressure Mean 65 Blood Pressure Mean [Right Arm] Pulse Oximetry 99 Oxygen Delivery Method Sepsis Recent Fever Within 48 Hours Sepsis New/Unexplained Change in Mental Status Sepsis Action Taken by Nursing Laboratory Data 10/17/23 08:34 10/17/23 18:24 Lab Results 10/16/23 10/16/23 10/16/23 Range/Units 18:38 18:57 19:00 WBC 17.21 H (4.8-10.8) K/ul RBC 3.31 L (4.70-6.10) M/uL Hgb 8.8 L (14.0-18.0) g/dl Hct 28.6 L (42.0-52.0) % MCV 86.4 (80.0-100.0) fL MCH 26.6 (25.0-34.0) pg MCHC 30.8 L (32.0-36.0) g/dL RDW Std Deviation 46.7 H (36.4-46.3) fL RDW Coeff of [place] 14.6 H (11.5-14.5) % Plt Count 387 (130-400) K/uL MPV 8.1 L (9.4-12.4) fL Immature Gran % (Auto) 4.5 % Neut % (Auto) 79.6 % Lymph % (Auto) 6.9 % [place] % (Auto) 8.8 % Eos % (Auto) 0.1 % Baso % (Auto) 0.1 % Neut # (Auto) 13.72 H (1.40-6.50) K/uL Lymph # (Auto) 1.18 L (1.20-3.40) K/uL [place] # (Auto) 1.52 H (0.11-0.59) K/uL Eos # (Auto) 0.01 (0.00-0.50) K/uL Baso # (Auto) 0.01 (0.00-0.20) K/uL Immature Gran # (Auto) 0.77 H (0.01-0.20) K/uL Sodium 135 L (136-145) mmol/L Potassium 3.3 L (3.5-5.1) mmol/L Chloride 109 H (98-107) mmol/L Carbon Dioxide 18 L (21-32) mmol/L Anion Gap 8 (3-11) BUN 39 H (6-23) mg/dl Creatinine 2.21 H (0.6-1.4) mg/dl Est Cr Clr Drug Dosing 22.6 ml/min Est GFR ( Amer) 31.0 ml/min Est GFR (Non-Af Amer) 26.8 ml/min BUN/Creatinine Ratio 17.6 (10-20) Glucose 121 H (70-99(Fasting)) mg/dl Lactate 1.6 (0.4-2.0) mmol/L Calcium 8.7 (8.6-10.3) mg/dl Total Bilirubin 0.5 (0.2-1.0) mg/dl Direct Bilirubin 0.1 (0-0.2) mg/dl AST 25 (13-39) U/L ALT 22 (7-52) U/L Alkaline Phosphatase 158 H (34-104) U/L Total Protein 6.8 (6.0-8.3) gm/dl Albumin 3.0 L (3.4-5.0) gm/dl Lipase 24 (11-82) U/L Adenovirus (PCR) Not Detected (NotDetected) B. pertussis DNA (PCR) Not Detected (NotDetected) B.parapertussis DNA PCR Not Detected (NotDetected) C. pneumoniae DNA (PCR) Not Detected (NotDetected) Coronavirus OC43 (PCR) Not Detected (NotDetected) Coronavirus HKU1 (PCR) Not Detected (NotDetected) Coronavirus 229E (PCR) Not Detected (NotDetected) SARS-CoV-2 (PCR) Not Detected (NotDetected) Coronavirus NL63 (PCR) Not Detected (NotDetected) Human Metapneumovir PCR Not Detected (NotDetected) Influenza Type A (PCR) Not Detected (NotDetected) Influenza Type B (PCR) Not Detected (NotDetected) M. pneumoniae (PCR) Not Detected (NotDetected) Parainfluenza 1 (PCR) Not Detected (NotDetected) Parainfluenza 2 (PCR) Not Detected (NotDetected) Parainfluenza 3 (PCR) Not Detected (NotDetected) Parainfluenza 4 (PCR) Not Detected (NotDetected) RSV (PCR) Not Detected (NotDetected) Entero/Rhino (PCR) Not Detected (NotDetected) Administered Medications Discontinued Medications Acetaminophen (Acetaminophen 325 Mg Tab) 650 mg PO Q4H PRN PRN Reason: Pain or Fever Stop: 08/25/24 00:26 Last Admin: 10/17/23 04:31 Dose: 650 mg Documented By: LINWOOD Cholestyramine Resin (Cholestyramine Light 4 Gm Pkt) 4 gm PO BID@1000,2200 IRVING Stop: 11/16/23 09:59 Last Admin: 10/17/23 20:58 Dose: Not Given Documented By: Admin: 10/17/23 09:40 Dose: Not Given Documented By: EARL Ferrous Sulfate (Ferrous Sulfate 325 Mg Tab) 325 mg PO DAILY IRVING Stop: 11/16/23 08:59 Last Admin: 10/17/23 07:53 Dose: 325 mg Documented By: EARL Sodium Chloride (Nss) 1,000 mls @ 999 mls/hr IV .Q1H1M IRVING Stop: 10/16/23 21:30 Last Infusion: 10/17/23 00:29 Dose: Infused Documented By: Admin: 10/16/23 22:48 Dose: 999 mls/hr Documented By: Infusion: 10/16/23 21:35 Dose: Infused Documented By: Admin: 10/16/23 20:20 Dose: 999 mls/hr Documented By: LALITHA Ceftriaxone Sodium (Rocephin) 2,000 mg in 50 mls @ 100 mls/hr IV NOW STA Stop: 10/16/23 20:49 Last Infusion: 10/16/23 21:35 Dose: Infused Documented By: Admin: 10/16/23 20:58 Dose: 100 mls/hr Documented By: LALITHA Piperacillin Sod/Tazobactam Sod (Zosyn) 4.5 gm in 100 mls @ 200 mls/hr IV NOW STA; Protocol Stop: 10/16/23 23:05 Last Infusion: 10/17/23 00:28 Dose: Infused Documented By: Admin: 10/16/23 23:01 Dose: 200 mls/hr Documented By: LAILTHA Piperacillin Sod/Tazobactam (Sod 4.5 gm/ Dextrose) 100 mls @ 25 mls/hr IV Q8H IRVING; Protocol Stop: 10/27/23 05:59 Last Admin: 10/17/23 20:53 Dose: 25 mls/hr Documented By: Infusion: 10/17/23 18:01 Dose: Infused Documented By: Infusion: 10/17/23 18:01 Dose: 0 mls/hr Documented By: Admin: 10/17/23 14:02 Dose: 25 mls/hr Documented By: Infusion: 10/17/23 10:53 Dose: Infused Documented By: Admin: 10/17/23 06:47 Dose: 25 mls/hr Documented By: LINWOOD Lactated Ringer's (Lr) 1,000 mls @ 100 mls/hr IV .Q10H IRVING Stop: 11/16/23 08:14 Last Admin: 10/17/23 18:00 Dose: 100 mls/hr Documented By: Infusion: 10/17/23 18:00 Dose: Infused Documented By: Admin: 10/17/23 08:37 Dose: 100 mls/hr Documented By: EARL Mirtazapine (Mirtazapine Tab 15 Mg Tab) 15 mg PO HS IRVING Stop: 11/16/23 20:59 Last Admin: 10/17/23 22:00 Dose: Not Given Documented By: GERRY Montelukast Sodium (Montelukast Sodium 10 Mg Tablet) 10 mg PO DAILY IRVING Stop: 11/16/23 08:59 Last Admin: 10/17/23 07:53 Dose: 10 mg Documented By: EARL Multivitamins (Multivitamin Tab) 1 tab PO DAILY IRVING Stop: 11/16/23 08:59 Last Admin: 10/17/23 07:53 Dose: 1 tab Documented By: EARL Potassium Chloride (Potassium Chloride Crtab 20 Meq Tabcr) 40 meq PO NOW STA Stop: 10/17/23 04:00 Last Admin: 10/17/23 04:31 Dose: 40 meq Documented By: LINWOOD Psyllium Hydrophilic Mucilloid (Psyllium Or Guar Gum Fiber 4gm Packet) 4 gm PO DAILY IRVING Stop: 11/16/23 08:59 Last Admin: 10/17/23 07:53 Dose: 4 gm Documented By: EARL Vitamin D (Cholecalciferol 25 Mcg (1000 Units) Tab) 50 mcg PO DAILY IRVING Stop: 11/16/23 08:59 Last Admin: 10/17/23 07:53 Dose: 50 mcg Documented By: EARL Discharge Plan Visit Data Chief Complaint: Weakness Stated Complaint: WEAKNESS, CONFUSION ED Provider: Gene Loza Discharge Problem: Sepsis due to urinary tract infection, Acute kidney injury superimposed on CKD Patient Disposition: Admitted As Inpatient Condition: Serious Discharge Instructions Interventions: ED Discharge Assessment Last Done: 10/16/23 23:13
--- NOTE | 2023-10-16 22:23 | History & Physical Report ---
Date of Service October 16, 2023 Assessment & Plan (1) Acute kidney injury superimposed on CKD: (2) Bladder neck contracture: (3) Prostate cancer: (4) Quadriparesis: (5) Male stress incontinence: (6) Hypertension: (7) Hyperlipidemia: (8) Cervical cord myelomalacia: (9) UTI (urinary tract infection): (10) Confusion: (11) Weakness: (12) Sepsis due to urinary tract infection: Plan Sepsis due to urinary tract infection- Admit to monitored bed Blood pressure at its lowest 85/56, did improve with 1 L normal saline bolus to 109/56 Was given ceftriaxone 2 g IV by the ED Patient does have history of E. coli positive blood cultures 11/25/2021, with resistance to most penicillins and most cephalosporins, including ceftriaxone Zosyn 4.5 g IV now, and every 8 hours Follow urine culture and sensitivity Follow blood culture and sensitivity Attempted to place Johnson catheter was not successful in the emergency department, however, patient does appear to have some urine passage via leakage Consult urology, Dr. Sevilla, who has seen the patient in the outpatient setting Confusion and agitation- Was somewhat improved after receiving 1 L normal saline Acute kidney injury superimposed on CKD- Creatinine 2.21, with base 1.77 He did receive 1 L normal saline bolus from the ED Will hold on aggressive fluid administration at this point, due to concerns regarding bladder neck obstruction, and potential bladder distention Quadriparesis- Continue usual supportive medications History of Present Illness Chief Complaint: The patient presented to the emergency department due to concerns regarding confusion, progressive weakness, and possible urinary retention. Primary Care Provider: Aracely Chow DO The patient is a 83-year-old male with a past medical history including C. difficile diarrhea, CKD stage III, bladder neck contracture, hydronephrosis, prostate cancer status post prostatectomy in 2011, vitamin D deficiency, ro sacea, quadriparesis, male stress incontinence, hypertension, hyperlipidemia, chronic anemia, depression, cerebral atrophy and cognitive decline. He presents to the emergency department with symptoms as noted above. A Johnson catheter was unable to be placed in the emergency department. The patient was initially unwilling to be admitted to the hospital, however, his daughter did convince him to stay for needed treatment. Allergies Allergy/AdvReac Type Severity Reaction Status Date / Time pollen extracts Allergy Intermediate ITCHY Verified 10/16/23 19:02 EYES, SNEEZING, CONGESTION donepezil AdvReac Intermediate Diarrhea Verified 10/16/23 19:02 Home Medications Medication Instructions Recorded Confirmed Type acetaminophen 325 mg tablet 325 mg PO Q4H PRN PAIN/FEVER 07/28/23 10/16/23 History menthol 0.44 %-zinc oxide 20.6 % 1 applic topical QID PRN skin 09/11/23 10/16/23 Rx topical ointment (Calmoseptine) irritation #113 grams mirtazapine 15 mg tablet 15 mg PO HS #30 tabs 09/12/23 10/16/23 Rx cholecalciferol (vitamin D3) 50 2,000 unit PO DAILY #90 caps 09/16/23 10/16/23 Rx mcg (2,000 unit) capsule ferrous sulfate 325 mg (65 mg 325 mg PO DAILY #90 tabs 09/16/23 10/16/23 Rx iron) tablet multivitamin (Multiple Vitamins 1 tab PO DAILY #90 tabs 09/16/23 10/16/23 Rx tablet) psyllium husk 0.4 gram capsule 0.4 g PO DAILY #180 caps 09/16/23 10/16/23 Rx (Metamucil) cholestyramine-aspartame 4 gram 1 ea PO BID 10/16/23 10/16/23 History oral powder for susp in a packet (Prevalite) diphenoxylate-atropine 2.5 1 tab PO Q12H PRN Diarrhea 10/16/23 10/16/23 History mg-0.025 mg tablet (Lomotil) docusate sodium 100 mg capsule 100 mg PO DAILY PRN Constipation 10/16/23 10/16/23 History loperamide 2 mg tablet (Imodium 2 mg PO 2XWK loose stool 10/16/23 10/16/23 History A-D) montelukast 10 mg tablet 10 mg PO DAILY 10/16/23 10/16/23 History polyethylene glycol 3350 17 17 g PO DAILY PRN Constipation 10/16/23 10/16/23 History gram/dose oral powder (Miralax) Past Med/Surg History Problem List (Updated 10/16/23 @ 23:58 by Fransisco Raymundo MD) Sepsis due to urinary tract infection Confusion Weakness Acute kidney injury superimposed on CKD C. difficile diarrhea CKD (chronic kidney disease) (Acute) Bladder neck contracture Hydronephrosis Constipation Overflow diarrhea Diarrhea Chronic diarrhea Prostate cancer (Chronic 09/27/11) "Rising PSA, pretreatment PSA 7.44 clinical stage TIc Biopsy stage T2b Mobile grade 3+2 and 3+3 Active surveillance Recheck PSA 10.2, repeat biopsy Mobile 3+3, biopsy stage T2b Continued rise in PSA Status post robotic prostatectomy 07/10/2011, stage [id number] Status post completion of radiation therapy the prostate bed 12/17/2011 received 7000 cGy" Vitamin D deficiency (Acute) Rosacea (Acute) Quadriparesis (Chronic) Organic impotence (Acute) Male stress incontinence (Acute) Leukopenia (Acute) Hypertension Hyperlipidemia (Acute) Cervical cord myelomalacia Weight loss Cognitive decline Malnutrition Cerebral atrophy Depression Loose bowel movements UTI (urinary tract infection) Acute UTI (Acute) Chronic diarrhea Dysphagia Anemia Medical History Near syncope Weakness Hypokalemia Acute UTI Hematochezia Benign neoplasm of large intestine Surgical History H/O Spinal surgery H/O prostatectomy Hx of tonsillectomy Family History Mother Lung cancer Breast cancer Other Alcoholism in family Denies family history of Ovarian cancer Prostate cancer Myocardial infarction Colorectal cancer Social History Smoking Status: Never smoker Second Hand Exposure: No; Do You Dip or Chew Tobacco: No; Hx Alcohol Use: No Hx Substance Use: No Preferred Language: Kinyarwanda Communication Ability: Effective Visual Impairment: Partially Limited Hearing Ability: Hard of Hearing Television Audio Engineer Required: No Beliefs That Will Affect Care: None marital status: / Current Living Situation: Personal Care Facility Current Living Situation Comment: [facility] current occupational status: retired How many Children do You have: 2 Feels Safe at Home: Yes Childhood Exposure to Second-Hand Smoke: Yes caffeine: Yes Dental Care, Regularly: Yes Physical Activity Frequency: 5-6 Times per Week Seatbelt Use: always Sunscreen Use: No Assistive Devices: Walker and Wheelchair Review of Systems Review of Systems: The patient denies chest pain, palpitations, shortness of breath, dyspnea on exertion, cough, lower extremity swelling, sore throat, fevers, chills, sweats, vomiting, diarrhea , constipation, abdominal pain, pelvic pain, blood in urine or stool, lightheadedness, dizziness, headache, rash, abnormal bruising or bleeding, back or neck pain, or night sweats. The review of systems is otherwise negative other than for that already noted above, and at least 10 systems have been reviewed. Physical Exam Physical Exam: The patient is awake, intermittently confused and agitated, normocephalic and atraumatic, lying in bed and in no acute distress. HEENT--PERRL, EOMI, mucous membranes and oropharynx mildly dry. Neck--supple. No JVD. No bruits. Thyroid normal, trachea midline, no adenopathy. Heart--normal S1 and S2. No murmurs, rubs or gallops. Lungs--clear bilaterally, no respiratory distress, no accessory muscle use. Abdomen--normal bowel sounds and soft. Nontender. Nondistended Extremities--No edema. Dermatologic--normal skin turgor, normal color, no abnormal lymph nodes, no rash. Neurologic--quadriparesis Rheumatologic-Limited as above Psychiatric--mildly confused and agitated Results & Data Results & Data Vital Signs (Past 12 Hours) Vital Signs Temp Pulse Pulse Resp BP BP Pulse Ox 10/16/23 22:16 16 122/60 98 10/16/23 21:33 16 115/70 100 10/16/23 21:15 109/68 99 10/16/23 20:16 95/48 L 99 10/16/23 19:33 75 95/52 L 99 10/16/23 19:00 79 20 100/63 99 10/16/23 18:46 37.4 C 79 20 85/56 L 99 10/16/23 18:30 130/89 10/16/23 18:25 82 10/16/23 18:22 82 20 87/56 L 98 O2 Del Method 10/16/23 22:16 10/16/23 21:33 10/16/23 21:15 10/16/23 20:16 10/16/23 19:33 10/16/23 19:00 10/16/23 18:46 Room Air 10/16/23 18:30 10/16/23 18:25 10/16/23 18:22 Room Air Laboratory Results Laboratory Results WBC 17.21 K/ul (4.8-10.8) H 10/16/23 18:57 RBC 3.31 M/uL (4.70-6.10) L 10/16/23 18:57 Hgb 8.8 g/dl (14.0-18.0) L 10/16/23 18:57 Hct 28.6 % (42.0-52.0) L 10/16/23 18:57 MCV 86.4 fL (80.0-100.0) 10/16/23 18:57 MCH 26.6 pg (25.0-34.0) 10/16/23 18:57 MCHC 30.8 g/dL (32.0-36.0) L 10/16/23 18:57 RDW Std Deviation 46.7 fL (36.4-46.3) H 10/16/23 18:57 RDW Coeff of Rocky 14.6 % (11.5-14.5) H 10/16/23 18:57 Plt Count 387 K/uL (130-400) 10/16/23 18:57 MPV 8.1 fL (9.4-12.4) L 10/16/23 18:57 Immature Gran % (Auto) 4.5 % 10/16/23 18:57 Neut % (Auto) 79.6 % 10/16/23 18:57 Lymph % (Auto) 6.9 % 10/16/23 18:57 Petroleum % (Auto) 8.8 % 10/16/23 18:57 Eos % (Auto) 0.1 % 10/16/23 18:57 Baso % (Auto) 0.1 % 10/16/23 18:57 Neut # (Auto) 13.72 K/uL (1.40-6.50) H 10/16/23 18:57 Lymph # (Auto) 1.18 K/uL (1.20-3.40) L 10/16/23 18:57 Petroleum # (Auto) 1.52 K/uL (0.11-0.59) H 10/16/23 18:57 Eos # (Auto) 0.01 K/uL (0.00-0.50) 10/16/23 18:57 Baso # (Auto) 0.01 K/uL (0.00-0.20) 10/16/23 18:57 Immature Gran # (Auto) 0.77 K/uL (0.01-0.20) H 10/16/23 18:57 Sodium 135 mmol/L (136-145) L 10/16/23 18:57 Potassium 3.3 mmol/L (3.5-5.1) L 10/16/23 18:57 Chloride 109 mmol/L (98-107) H 10/16/23 18:57 Carbon Dioxide 18 mmol/L (21-32) L 10/16/23 18:57 Anion Gap 8 (3-11) 10/16/23 18:57 BUN 39 mg/dl (6-23) H 10/16/23 18:57 Creatinine 2.21 mg/dl (0.6-1.4) H 10/16/23 18:57 Est Cr Clr Drug Dosing 22.6 ml/min 10/16/23 18:57 Est GFR ( Amer) 31.0 ml/min 10/16/23 18:57 Est GFR (Non-Af Amer) 26.8 ml/min 10/16/23 18:57 BUN/Creatinine Ratio 17.6 (10-20) 10/16/23 18:57 Glucose 121 mg/dl (70-99(Fasting)) H 10/16/23 18:57 Lactate 1.6 mmol/L (0.4-2.0) 10/16/23 18:38 Calcium 8.7 mg/dl (8.6-10.3) 10/16/23 18:57 Total Bilirubin 0.5 mg/dl (0.2-1.0) 10/16/23 18:57 Direct Bilirubin 0.1 mg/dl (0-0.2) 10/16/23 18:57 AST 25 U/L (13-39) 10/16/23 18:57 ALT 22 U/L (7-52) 10/16/23 18:57 Alkaline Phosphatase 158 U/L (34-104) H 10/16/23 18:57 Total Protein 6.8 gm/dl (6.0-8.3) 10/16/23 18:57 Albumin 3.0 gm/dl (3.4-5.0) L 10/16/23 18:57 Lipase 24 U/L (11-82) 10/16/23 18:57 Adenovirus (PCR) Not Detected (NotDetected) 10/16/23 19:00 B. pertussis DNA (PCR) Not Detected (NotDetected) 10/16/23 19:00 B.parapertussis DNA PCR Not Detected (NotDetected) 10/16/23 19:00 C. pneumoniae DNA (PCR) Not Detected (NotDetected) 10/16/23 19:00 Coronavirus OC43 (PCR) Not Detected (NotDetected) 10/16/23 19:00 Coronavirus HKU1 (PCR) Not Detected (NotDetected) 10/16/23 19:00 Coronavirus 229E (PCR) Not Detected (NotDetected) 10/16/23 19:00 SARS-CoV-2 (PCR) Not Detected (NotDetected) 10/16/23 19:00 Coronavirus NL63 (PCR) Not Detected (NotDetected) 10/16/23 19:00 Human Metapneumovir PCR Not Detected (NotDetected) 10/16/23 19:00 Influenza Type A (PCR) Not Detected (NotDetected) 10/16/23 19:00 Influenza Type B (PCR) Not Detected (NotDetected) 10/16/23 19:00 M. pneumoniae (PCR) Not Detected (NotDetected) 10/16/23 19:00 Parainfluenza 1 (PCR) Not Detected (NotDetected) 10/16/23 19:00 Parainfluenza 2 (PCR) Not Detected (NotDetected) 10/16/23 19:00 Parainfluenza 3 (PCR) Not Detected (NotDetected) 10/16/23 19:00 Parainfluenza 4 (PCR) Not Detected (NotDetected) 10/16/23 19:00 RSV (PCR) Not Detected (NotDetected) 10/16/23 19:00 Entero/Rhino (PCR) Not Detected (NotDetected) 10/16/23 19:00 Code Status & VTE Plan Code Status DNR/DNI VTE Prophylaxis Plan VTE Prophylaxis will be ordered: Yes PG Care Time/CCT Total # of Minutes Spent Total Time Spent with Patient: Total time spent is greater than 50% in coordination of care (as documented) at patient's floor/unit and/or counseling patient: Coding Level of Care Code 69741 INT INP/OBS CARE 3/75MIN Diagnoses Acute kidney injury superimposed on CKD N17.9; N18.9 Bladder neck contracture N32.0 Prostate cancer C61 Quadriparesis G82.50 Male stress incontinence N39.3 Essential hypertension I10 Hypertension type: essential hypertension Hyperlipidemia E78.5 Cervical cord myelomalacia G95.89 UTI (urinary tract infection) N39.0 Confusion R41.0 Weakness R53.1 Sepsis due to urinary tract infection A41.9; N39.0 (6) Hypertension Hypertension type: essential hypertension Qualified Code(s): I10 - Essential (primary) hypertension
[2023-10-16] MEDS: PIPERACILLIN/TAZOBACTAM 4.5 GM/100 ML BAG IV STA (23:01)
[2023-10-17] MEDS ORDERED: DOCUSATE SODIUM 100 MG CAP PO PRN (00:27)
[2023-10-17] MEDS ORDERED: POLYETHYLENE (MIRALAX) 17 GM PACK PO PRN (00:27)
[2023-10-17] MEDS ORDERED: ONDANSETRON INJ 2 MG/ML 2 ML VIAL IV PRN (00:27)
[2023-10-17] MEDS: POTASSIUM CHLORIDE CRTAB 20 MEQ TABCR PO STA (04:31)
[2023-10-17] MEDS: ACETAMINOPHEN 325 MG TAB PO PRN (04:31)
[2023-10-17] MEDS: PIPERACILLIN/TAZOBACTAM 4.5 GM in DEXTROSE 5% MINI-B 100 ML IV SCH (06:47)
[2023-10-17] MEDS: CHOLECALCIFEROL 25 MCG (1000 UNITS) TAB PO SCH (07:53)
[2023-10-17] MEDS: MONTELUKAST SODIUM 10 MG TABLET PO SCH (07:53)
[2023-10-17] MEDS: PSYLLIUM or GUAR GUM FIBER 4GM PACKET PO SCH (07:53)
[2023-10-17] MEDS: FERROUS SULFATE 325 MG TAB PO SCH (07:53)
[2023-10-17] MEDS: MULTIVITAMIN TAB PO SCH (07:53)
[2023-10-17] MEDS: LACTATED RINGER'S 1,000 ML IV SCH (08:37)
[2023-10-17 09:07] LABS: Basophils # (auto) 0.02 K/uL (0.00-0.20); Basophils % (auto) 0.1 %; Eosinophils # (auto) 0.01 K/uL (0.00-0.50); Hemoglobin 8.4 g/dl (14.0-18.0); Immature Granulocytes # (auto) 0.83 K/uL (0.01-0.20); Immature Granulocytes % (auto) 4.1 %; Lymphocytes # (auto) 1.42 K/uL (1.20-3.40); Lymphocytes % (auto) 7.1 %; Mean Corpuscular Hemoglobin 26.9 pg (25.0-34.0); Mean Corpuscular Hgb Conc 31.1 g/dL (32.0-36.0); Mean Corpuscular Volume 86.5 fL (80.0-100.0); Mean Platelet Volume 8.1 fL (9.4-12.4); Monocytes # (auto) 1.88 K/uL (0.11-0.59); Monocytes % (auto) 9.4 %; Neutrophils # (auto) 15.87 K/uL (1.40-6.50); Neutrophils % (auto) 79.3 %; Platelet Count 356 K/uL (130-400); RDW Coefficient of Variation 14.7 % (11.5-14.5); RDW Standard Deviation 46.2 fL (36.4-46.3); Red Blood Count 3.12 M/uL (4.70-6.10); White Blood Count 20.03 K/ul (4.8-10.8)
[2023-10-17 09:29] LABS: Albumin Level 2.7 gm/dl (3.4-5.0); BUN Creatinine Ratio 16.1 (10-20); Calcium 8.5 mg/dl (8.6-10.3); Creatinine Clr Calc Pharmacy 22.9 ml/min; Est GFR (African American) 31.5 ml/min; Est GFR (Non-African American) 27.2 ml/min; Phosphorus 3.6 mg/dl (2.5-4.9); Potassium 4.3 mmol/L (3.5-5.1)
[2023-10-17] MEDS: CHOLESTYRAMINE LIGHT 4 GM PKT PO SCH (09:40)
--- NOTE | 2023-10-17 11:08 | Hospitalist Progress Note ---
Date of Service October 17, 2023 Assessment & Plan (1) Sepsis due to urinary tract infection: Plan: With acute metabolic encephalopathy, hypotension, leukocytosis of 20k, fever, tachycardia, normal lactate. BPs improved with IVF resuscitation Blood cxs drawn and remain NGTD, UA still not collected as he has not had any urine output except about 80 mL since admission Segura catheter unable to be placed due to bladder neck contracture Urology consult appreciated CT abd/pel with extensive gas formation in bladder extending to pelvic sidewalls, gas into penis, possible abscess/infection in prostatectomy bed, gas into right ureter and kidney, bilat perinephric stranding. Here with emphysematous pyelitis, emphysematous pyelonephritis Urology suspects a potential fistula between urethra/bladder neck and possibly pubic bone/other pelvic structures. He has a history of a prostatectomy with a bladder neck contracture, making bedside segura catheter unsuccessful. 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 His WBC is worsening and he is making little urine. Options would be cystoscopy with possible bladder neck dilation and placement of bilateral ureteral stents vs bilateral nephrostomy tube placement- retrograde approach would be challenging and potentially unsuccessful given his anatomy and suspected fistula. Recommendation from a clinical standpoint would be transfer for bilateral nephrostomy tubes. Patient does have history of E. coli positive blood cultures 11/25/2021, with resistance to most penicillins and most cephalosporins, including ceftriaxone COntinue Zosyn 4.5 g every 8 hours FOllow blood cultures Collect UA if able to get urine sample Discussed extensively with family and patient after he was more awake/alert--> initially plans for possible conservative care and transition to comfort measures given patient's previous requests for comfort care if poor prognosis. However, patient has decided now to pursue transfer for further care to include bilat nephrostomy tubes. 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 Baseline measurer 1.7 with metabolic acidosis, normal lactate Continue maintenance IVFs, avoid nephrotoxins Follow BMP this evening and again in AM Dialysis would not likely be part of his goals of care if continues to be oliguric transferring for nephrostomy tubes (3) Bladder neck contracture: Plan: as above, secondary to h/o prostate CA and prostatectomy (4) Quadriparesis: Plan: secondary to cervical myelomalacia-can move all extremities but weak supportive care Plan Dispo-awaiting acceptance at [facility] Admission and Anticipated Discharge Date Admission Date: October 16, 2023 Subjective Pt lethargic in the morning when seen, only able to deny abd pain. No urine output this AM and had 80 mL on PVR bladder scan. I spent 3 hours in total today on this patient and saw him on 3 occasions, spoke with his daughter, Cordell, on the phone on three occasions as well as spent time discussing his care with Urology on multipl eoccasions. I also spent 1 of those hours on various phone calls with transfer centers with [facility] as well as [facility] in discussing his care. Later in the day, after fever came down, pt was much more awake and alert and was able to comprehend his condition and decided he would want transfer for nephrostomy tubes. Tele with NSR, PACs, PVCs, rates 70-100s Physical Exam Constitutional: well developed and + lethargic; no acute distress Respiratory: normal respiratory effort, lungs clear to auscultation Cardiovascular: RRR, no murmur, no edema Gastrointestinal (Abdomen): normal bowel sounds, soft, nontender, no hepatosplenomegaly Genitourinary: condom catheter in place, no urine output Results & Data Results & Data Vital Signs (Past 12 Hours) Vital Signs Temp Pulse Pulse Pulse Resp BP BP 10/17/23 08:26 82 10/17/23 08:10 36.5 C 74 17 101/58 L 10/17/23 07:16 10/17/23 04:02 38.3 C H 97 H 18 129/71 10/17/23 02:08 101 H 10/17/23 00:41 36.8 C 98 H 16 Pulse Ox O2 Del Method 10/17/23 08:26 10/17/23 08:10 97 Room Air 10/17/23 07:16 Room Air 10/17/23 04:02 97 Room Air 10/17/23 02:08 10/17/23 00:41 98 Room Air Laboratory Results CBC, BMP, blood cxs reviewed Diagnostic Findings CT abd/pel reviewed PG Care Time/CCT Total # of Minutes Spent Total Time Spent with Patient: Total time spent is greater than 50% in coordination of care (as documented) at patient's floor/unit and/or counseling patient: Prolonged Care Time Prolonged Care Time: Yes Total Prolonged Care Time: 180 180 min Coding Level of Care Code 34368 SUB INP/OBS CARE 3/50MIN (25 - SIGNIFICANT, SEPARATELY IDENTIFIABLE ) Diagnoses Sepsis due to urinary tract infection A41.9; N39.0 Acute kidney injury superimposed on CKD N17.9; N18.9 Bladder neck contracture N32.0 Quadriparesis G82.50 Additional Codes Prolonged Care Time - Prolonged Care Time: Yes ([id number])
--- NOTE | 2023-10-17 11:13 | CT Scan Report ---
ABDOMEN AND PELVIS CT WITHOUT CONTRAST CT DOSE: 1124.03 mGy.cm HISTORY: Sepsis, UTI, STEVE TECHNIQUE: Multiaxial CT images of the abdomen and pelvis were performed without contrast. A dose lo wering technique was utilized adhering to the principles of ALARA. COMPARISON STUDY: Abdomen and pelvis CT 05/09/2023. FINDINGS: Groundglass densities at the right lung base favor mild dependent change versus a low-grade pneumonitis. The left lung base is clear. No pneumoperitoneum. No pneumatosis. No acute fractures. T here is again noted a right inguinal hernia containing loops of small bowel. This is similar to the p rior study. Multiple small gallstones. No gallbladder wall thickening. The unenhanced liver, spleen, adrenal glands, and pancreas are unremarkable. Normal caliber abdominal aorta. Borderline enlarged re troperitoneal lymph nodes are again noted. No pelvic lymphadenopathy. No pelvic free fluid. No dilate d loops of bowel to suggest an obstruction. Moderate fecal retention. Normal appendix. Mild rectal wa ll thickening is again noted. Postoperative changes consistent with a prior prostatectomy. There is g as and fluid at the prostatectomy bed/bladder base which has slightly progressed. Small foci of gas a re seen extending into the pelvic sidewalls at the obturator internus muscles. This is most pronounce d on the right and is best seen on image 286. Therefore, this raises the possibility of infection/abs cess at the prostatectomy bed/bladder base with extension into the pelvic sidewalls/obturator internu s muscles. There is thickening of the bilateral obturator internus muscles again noted. Thickening of the bladder wall which contains gas and is in direct communication to the prostatectomy bed defect i s again noted. Urothelial thickening within the bilateral renal collecting systems and ureters with b ilateral perinephric edema again noted. This has progressed on the right. There is moderate bilateral hydroureteronephrosis, unchanged. There is gas within the right renal collecting system and right ur eter which is new from the prior study. Therefore, a developing right-sided emphysematous pyelonephri tis is not excluded. A left renal cyst is again noted. The punctate left renal stone again noted. No right renal calculi. IMPRESSION: 1. There is gas and fluid at the prostatectomy bed/bladder base which has slightly progressed. Small foci of gas are seen extending into the pelvic sidewalls at the obturator internus muscles which is m ost pronounced on the right. Therefore, this raises the possibility of infection/abscess at the prost atectomy bed/bladder base with extension into the pelvic sidewalls/obturator internus muscles. 2. Thickening of the bladder wall which contains gas and is in direct communication to the prostatect prerna bed defect is again noted. 3. Urothelial thickening within the bilateral renal collecting systems and ureters with bilateral per inephric edema again noted. This has progressed on the right. There is moderate bilateral hydroureter onephrosis, unchanged. There is gas within the right renal collecting system and right ureter which i s new from the prior study. Therefore, a developing right-sided emphysematous pyelonephritis is not e xcluded. 4. Mild rectal wall thickening, unchanged. 5. Additional findings as described above. 6. This report was called/faxed to the patient's sponge buffer following dictation. ACT 112: Negative or not required by law. Electronically signed by: Eugenio Mathis M.D. 10/17/2023 11:11 AM
--- NOTE | 2023-10-17 13:51 | Urology Consultation ---
Date of Consultation October 17, 2023 Assessment & Plan (1) Sepsis due to urinary tract infection: (2) Acute kidney injury superimposed on CKD: (3) Bladder neck contracture: (4) Hydronephrosis: Plan 83yo/M with a hx of prostate cancer s/p radical prostatectomy in 2011 and bladde r neck contracture admitted with Sepsis, UTI, STEVE on CKD, and altered mental status. Nursing staff in the ED attempted Segura catheter placement however this was unsuccessful. Urology was consulted for history of bladder neck contracture and STEVE. - Afebrile and normotensive at present. - Labs reviewed -WBC 20.03, hemoglobin 8.4, creatinine 2.18. - Blood cultures pending. Urine culture to be collected. - Condom catheter in place with no output in bag. Bladder scanned for 80 mL. - No new imaging available for review. Plan: - Will obtain a CT abdomen pelvis without contrast given septic picture, STEVE, and hx of hydronephrosis and bladder neck contracture - NPO for now pending imaging results - Continue to monitor urine output, bladder scan PRN - Continue antibiotics and tailor as culture data becomes available. - Continue supportive care. - Additional recommendations pending CT imaging. - Urology will follow along. Supervising Physician Co-Signing Physician Notes Discussed patient with MARCO ANTONIO. Agree with plan with the following changes: CT scan shows what I suspect is a potential fistula between urethra/bladder neck and possibly pubic bone/other pelvic structures. He has a history of a prostatectomy with a bladder neck contracture, making bedside segura catheter unsuccessful. 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 His WBC is worsening and he is making little urine. Options would be cystoscopy with possible bladder neck dilation and placement of bilateral ureteral stents vs bilateral nephrostomy tube placement. I think retrograde approach would be challenging and potentially unsuccessful given his anatomy and suspected fistula. My recommendation from a clinical standpoint would be transfer for bilateral nephrostomy tubes. I had a lengthy discussion with his daughter Sagrario, who is POA. The patient is altered so likely would not be able to make his own medical decisions. I discussed the procedural options. I advised that if he does nothing, there is a high probability he could from his current infection and renal failure. I discussed that catheter and stents vs nephrostomy tubes would likely be permanent given his clinical picture. She made it clear that he had previously voiced he would not want anything significant such as these procedures done. She spoke with her family and I again talked with her after this. They have decided upon antibiotics but otherwise no further procedural intervention. She expressed understanding of the consequences of doing nothing. I let her know that if they change their mind or have any other questions, to please reach out. This plan was communicated with the primary team. History of Present Illness Attending Physician: Jessy Murcia MD History of Present Illness 83-year-old male with a past medical history including C. difficile diarrhea, CKD stage III, bladder neck contracture, hydronephrosis, prostate cancer status post prostatectomy in 2011, vitamin D deficiency, rosacea, quadriparesis, male stress incontinence, hypertension, hyperlipidemia, chronic anemia, depression, cerebral atrophy and cognitive decline who presented to the emergency room on 10/16/2023 with confusion, weakness, possible urinary retention. He is admitted to medicine service with sepsis, UTI, STEVE on CKD, altered mental status. Urology was consulted for bladder neck contracture, STEVE on CKD, and hypotension. Patient is well-known to the urology service, follows with Dr. Sevilla. History of prostate cancer (s/p radical prostatectomy in 2011), bladder neck contracture, bilateral hydronephrosis with low PVR. Nursing staff in the emergency room attempted catheter placement, however this was unsuccessful. Patient reportedly had a bladder scan of 0 mL at that time. Patient was seen at bedside this AM. Asleep on arrival, awakened to name. No acute distress. Oriented to self only. Patient incontinent at baseline. Bladder scan by nursing staff this morning for 80 mL. Condom catheter in place with no output in bag. Allergies Allergy/AdvReac Type Severity Reaction Status Date / Time pollen extracts Allergy Intermediate ITCHY Verified 10/16/23 19:02 EYES, SNEEZING, CONGESTION donepezil AdvReac Intermediate Diarrhea Verified 10/16/23 19:02 Home Medications Medication Instructions Recorded Confirmed Type acetaminophen 325 mg tablet 325 mg PO Q4H PRN PAIN/FEVER 07/28/23 10/16/23 History menthol 0.44 %-zinc oxide 20.6 % 1 applic topical QID PRN skin 06/20/24 07/25/24 Rx topical ointment (Calmoseptine) irritation #113 grams mirtazapine 15 mg tablet 15 mg PO HS #30 tabs 09/12/23 10/16/23 Rx cholecalciferol (vitamin D3) 50 2,000 unit PO DAILY #90 caps 09/16/23 10/16/23 Rx mcg (2,000 unit) capsule ferrous sulfate 325 mg (65 mg 325 mg PO DAILY #90 tabs 09/16/23 10/16/23 Rx iron) tablet multivitamin (Multiple Vitamins 1 tab PO DAILY #90 tabs 09/16/23 10/16/23 Rx tablet) psyllium husk 0.4 gram capsule 0.4 g PO DAILY #180 caps 09/16/23 10/16/23 Rx (Metamucil) cholestyramine-aspartame 4 gram 1 ea PO BID 10/16/23 10/16/23 History oral powder for susp in a packet (Prevalite) diphenoxylate-atropine 2.5 1 tab PO Q12H PRN Diarrhea 10/16/23 10/16/23 History mg-0.025 mg tablet (Lomotil) docusate sodium 100 mg capsule 100 mg PO DAILY PRN Constipation 10/16/23 10/16/23 History loperamide 2 mg tablet (Imodium 2 mg PO 2XWK loose stool 10/16/23 10/16/23 History A-D) montelukast 10 mg tablet 10 mg PO DAILY 10/16/23 10/16/23 History polyethylene glycol 3350 17 17 g PO DAILY PRN Constipation 10/16/23 10/16/23 History gram/dose oral powder (Miralax) Patient History Medical History Near syncope Weakness Hypokalemia Acute UTI Hematochezia Benign neoplasm of large intestine Surgical History H/O Spinal surgery H/O prostatectomy Hx of tonsillectomy Family History Mother Lung cancer Breast cancer Other Alcoholism in family Denies family history of Ovarian cancer Prostate cancer Myocardial infarction Colorectal cancer Social History Smoking Status: Unknown if ever smoked Second Hand Exposure: No; Do You Dip or Chew Tobacco: No; Hx Alcohol Use: No Hx Substance Use: No Preferred Language: Irish Communication Ability: Effective Visual Impairment: Partially Limited Hearing Ability: Hard of Hearing Application Support Technician Required: No Beliefs That Will Affect Care: None marital status: / Current Living Situation: [facility] Current Living Situation Comment: [facility] current occupational status: retired How many Children do You have: 2 Feels Safe at Home: Yes Childhood Exposure to Second-Hand Smoke: Yes caffeine: Yes Dental Care, Regularly: Yes Physical Activity Frequency: 5-6 Times per Week Seatbelt Use: always Sunscreen Use: No Assistive Devices: Walker and Wheelchair Review of Systems Review of Systems: All systems reviewed & are unremarkable except as noted in HPI & below Physical Exam Constitutional: + ill appearing and + altered mental sta tus; no acute distress Neck: normal visual inspection Respiratory: no respiratory distress and no labored breathing Musculoskeletal: Head/Neck/Chest: normocephalic Skin: Warm and dry Neurologic: awake Psychiatric: Orientation: oriented to person Genitourinary: Condom cath in place Results & Data Vital Signs (Past 12 Hours) Vital Signs Temp Pulse Pulse Resp BP BP Pulse Ox 10/17/23 11:31 36.4 C L 72 17 122/72 98 10/17/23 08:26 82 10/17/23 08:10 36.5 C 74 17 101/58 L 97 10/17/23 07:16 10/17/23 04:02 38.3 C H 97 H 18 129/71 97 10/17/23 02:08 101 H O2 Del Method 10/17/23 11:31 Room Air 10/17/23 08:26 10/17/23 08:10 Room Air 10/17/23 07:16 Room Air 10/17/23 04:02 Room Air 10/17/23 02:08 PG Care Time/CCT Total # of Minutes Spent Total Time Spent with Patient: Total time spent is greater than 50% in coordination of care (as documented) at patient's floor/unit and/or counseling patient: Coding Level of Care Code 61269 INT INP/OBS CARE 2/55MIN Diagnoses Sepsis due to urinary tract infection A41.9; N39.0 Acute kidney injury superimposed on CKD N17.9; N18.9 Bladder neck contracture N32.0 Hydronephrosis N13.30
--- NOTE | 2023-10-17 18:09 | Discharge Summary ---
Discharge Summary Date of Service October 17, 2023 Principal Dx & Hospital Course #1 = Principal Diagnosis (1) Sepsis due to urinary tract infection: With acute metabolic encephalopathy, hypotension, leukocytosis of 20k, fever, tachycardia, normal lactate. BPs improved with IVF resuscitation Blood cxs drawn and remain NGTD, UA still not collected as he has not had any urine output except about 80 mL since admission Segura catheter unable to be placed due to bladder neck contracture Urology consult appreciated CT abd/pel with extensive gas formation in bladder extending to pelvic sidewalls, gas into penis, possible abscess/infection in prostatectomy bed, gas into right ureter and kidney, bilat perinephric stranding. Here with emphysematous pyelitis, emphysematous pyelonephritis Urology suspects a potential fistula between urethra/bladder neck and possibly pubic bone/other pelvic structures. He has a history of a prostatectomy with a bladder neck contracture, making bedside segura catheter unsuccessful. 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 His WBC is worsening and he is making little urine. Options would be cystoscopy with possible bladder neck dilation and placement of bilateral ureteral stents vs bilateral nephrostomy tube placement- retrograde approach would be challenging and potentially unsuccessful given his anatomy and suspected fistula. Recommendation from a clinical standpoint would be transfer for bilateral nephrostomy tubes. Patient does have history of E. coli positive blood cultures 11/25/2021, with resistance to most penicillins and most cephalosporins, including ceftriaxone COntinue Zosyn 4.5 g every 8 hours FOllow blood cultures Collect UA if able to get urine sample Discussed extensively with family and patient after he was more awake/alert--> initially plans for possible conservative care and transition to comfort measures given patient's previous requests for comfort care if poor prognosis. However, patient has decided now to pursue transfer for further care to include bilat nephrostomy tubes. (2) Acute kidney injury superimposed on CKD: Clinical Appeals Reviewer 2.2 on admission and with oliguria. 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 difficile diarrhea, CKD stage III, bladder neck contracture, hydronephrosis, prostate cancer status post prostatectomy in 2011, vitamin D deficiency, rosacea, quadriparesis, male stress incontinence, hypertension, hyperlipidemia, chronic anemia, depression, cerebral atrophy and cognitive decline. He presents to the emergency department with symptoms as noted above. A Segura catheter was unable to be placed in the emergency department. The patient was initially unwilling to be admitted to the hospital, however, his daughter did convince him to stay for needed treatment. Discharge Exam Constitutional: well developed and + lethargic; no acute distress Respiratory: normal respiratory effort, lungs clear to auscultation Cardiovascular: RRR, no murmur, no edema Gastrointestinal (Abdomen): normal bowel sounds, soft, nontender, no hepatosplenomegaly Genitourinary: condom catheter in place, no urine output Updated Medication List Medication Instructions Recorded Confirmed Type acetaminophen 325 mg tablet 325 mg PO Q4H PRN PAIN/FEVER 07/28/23 10/16/23 Histo ry menthol 0.44 %-zinc oxide 20.6 % 1 applic topical QID PRN skin 09/11/23 10/16/23 Rx topical ointment (Calmoseptine) irritation #113 grams mirtazapine 15 mg tablet 15 mg PO HS #30 tabs 09/12/23 10/16/23 Rx cholecalciferol (vitamin D3) 50 2,000 unit PO DAILY #90 caps 09/16/23 10/16/23 Rx mcg (2,000 unit) capsule ferrous sulfate 325 mg (65 mg 325 mg PO DAILY #90 tabs 09/16/23 10/16/23 Rx iron) tablet multivitamin (Multiple Vitamins 1 tab PO DAILY #90 tabs 09/16/23 10/16/23 Rx tablet) psyllium husk 0.4 gram capsule 0.4 g PO DAILY #180 caps 09/16/23 10/16/23 Rx (Metamucil) cholestyramine-aspartame 4 gram 1 ea PO BID 10/16/23 10/16/23 History oral powder for susp in a packet (Prevalite) diphenoxylate-atropine 2.5 1 tab PO Q12H PRN Diarrhea 10/16/23 10/16/23 History mg-0.025 mg tablet (Lomotil) docusate sodium 100 mg capsule 100 mg PO DAILY PRN Constipation 10/16/23 10/16/23 History loperamide 2 mg tablet (Imodium 2 mg PO 2XWK loose stool 10/16/23 10/16/23 History A-D) montelukast 10 mg tablet 10 mg PO DAILY 10/16/23 10/16/23 History polyethylene glycol 3350 17 17 g PO DAILY PRN Constipation 10/16/23 10/16/23 History gram/dose oral powder (Miralax) Hospital Stay Data Consultations 10/16/23 22:24 ED Decision to Admit Stat 10/17/23 00:27 Consult Urology Routine Procedures Performed Operation Date: 10/17/23 08:20 <No data on this case meets the specified criteria> Diagnostic Imagining Performed 10/17/23 08:17 CT abd pelvis wo con Urgent Pending Results Patient Have Any Pending Studies at Discharge: Yes (Blood cultures) Discharge Instructions Given to Patient (Per Discharging Provider) Transferred to [facility] Total Time Total Time Spent Total Time Spent (In Minutes): 35 min Total Time Includes: Examination of the Patient, Discharge Planning, Medication Reconciliation and Communication With Other Providers Coding Level of Care Code 54424 INP/OBS DISCH >30 MIN Diagnoses Sepsis due to urinary tract infection A41.9; N39.0 Acute kidney injury superimposed on CKD N17.9; N18.9 Bladder neck contracture N32.0 Quadriparesis G82.50
[2023-10-17 18:54] LABS: BUN Creatinine Ratio 14.6 (10-20); Calcium 8.4 mg/dl (8.6-10.3); Creatinine Clr Calc Pharmacy 23.6 ml/min; Est GFR (African American) 32.6 ml/min; Est GFR (Non-African American) 28.1 ml/min; Potassium 3.9 mmol/L (3.5-5.1)
[2023-10-17] MEDS: MIRTAZAPINE TAB 15 MG TAB PO SCH (22:00)
--- NOTE | 2023-10-18 07:41 | Electrocardiogram Report ---
Test Reason : Blood Pressure : / mmHG Vent. Rate : 077 BPM Atrial Rate : 077 BPM P-R Int : 120 ms QRS Dur : 146 ms QT Int : 390 ms P-R-T Axes : -21 -85 019 degrees QTc Int : 441 ms Normal sinus rhythm Left axis deviation Non-specific intra-ventricular conduction block Abnormal ECG When compared with ECG of 02-JUL-2023 23:20, Non-specific intra-ventricular conduction block has replaced Right bundle branch block Confirmed by Vito Amin ([id number]) on 10/18/2023 7:41:30 AM Referred By: Mahnaz [place] [facility] Confirmed By:Vito Amin
== END 2023-10-18 01:05 | disposition short-term general hospital (02) | DRG 871 ==
LOC: ED 18:07 → SUATTDRO 22:23 → 2N 22:23

== ENCOUNTER 2024-02-16 19:43 | Inpatient (IN) ==
--- NOTE | 2024-02-16 19:57 | Emergency Department Note ---
Impression & Plan Sepsis, UTI (urinary tract infection) ED Provider Note NAME: CORNELIUS VILLAFUERTE AGE: 83 SEX: M : 1940 ARRIVES VIA: Ambulance INFORMANT: Patient ED PROVIDER(S): Kelvin Donovan DO CHIEF COMPLAINT: Fever HPI: Patient is an 83-year-old male with a past medical history of sepsis, CKD, quadriplegia, C. difficile who presents to the ER [facility] for weakness. Patient has had a fever today of 103. They gave him Tylenol prior to transfer. He admits to a little bit of cough, congestion, congestion earlier today. He notes he did vomit once but has no belly pain. He admits to [place] it has been present for a long time. No headache or change in vision. No dysuria, urgency, or frequency. No belly pain. No other exacerbating or remitting factors. ADDITIONAL HISTORY OBTAINED: Per HPI Chronic Medical/Social Conditions Affecting Care: Per HPI PAST MEDICAL HISTORY:See Below PAST SURGICAL HISTORY:See Below FAMILY HISTORY:See Below SOCIAL HISTORY:See Below HOME MEDICATIONS:See Below ALLERGIES:See Below VITALS:See Below PHYSICAL EXAMINATION: GENERAL: Sitting up in bed, alert, chronically ill-appearing, disheveled EYE EXAM: normal conjunctiva. PERRL and EOM's grossly intact. OROPHARYNX: no exudate, no erythema, lips, buccal mucosa, and tongue normal and mucous membranes are moist NECK: supple, no nuchal rigidity, no adenopathy, non-tender LUNGS: Clear to auscultation. Normal chest wall mechanics HEART: no murmurs, S1 normal and S2 normal ABDOMEN: abdomen soft, non-tender, normo-active bowel sounds, no masses, no rebound or guarding. BACK: Back is symmetrical on inspection and there is no deformity, no midline tenderness, no CVA tenderness. UPPER EXTREMITIES: upper extremities are grossly normal. LOWER EXTREMITIES: No pitting edema. NEURO EXAM: Normal sensorium, renal nerves II through XII are intact, oriented to person place and time. MEDICAL DECISION MAKING: Patient is an 83-year-old male who presents to the ER febrile, and hypotensive with systolic pressures in the 80s. IVs were established and blood work was obtained. Labs showed a leukocytosis of 13,000. Mild anemia 10. INR unremarkable. BMP with LFTs bilirubin and mag were unremarkable. Lactate at 1.6. Pro-Niko at 0.4. UA was suggestive of UTI with bacteria +4, whites leuks and nitrates. Patient's cultures and external records were reviewed and did appear to be susceptible to meropenem. Patient was given 2 L of IV fluids. He was updated bedside. Systolic pressures improved to the upper 90s. Discussed case with the hospitalist admitted for further workup. Consults/Care Managements Discussions: Per [facility] Triage Nursing notes reviewed. Limited review of prior medical records performed Vital Signs: reviewed and remarkable for febrile and hypotensive Differential diagnosis: Differential diagnosis includes etiologies such as sepsis, UTI, pneumonia, metabolic, electrolyte abnormalities, cardiac sources, intracerebral event, toxicologic, neurological, as well as others were entertained. ER treatment provided: See below Diagnostics interpreted by me include EKG and cardiac monitoring as listed below: -Cardiac Monitoring: An order was placed for continuous cardiac monitoring. The monitor shows a rate of 80 with sinus rhythm. -ECG: Sinus rhythm rate 85 Left axis Right bundle branch block Poor baseline in V3 QTc 452 -Laboratory studies:Interpreted by me as stated above in MDM and shown below. Imaging studies: Xrays: As interpreted by me: Portable AP upright 1 view of the chest shows no focal infiltrate CTs show: none Procedures:none Critical Care: None Past Med/Surg History Problem List (Updated 02/16/24 @ 23:34 by Kelvin Donovan DO) UTI (urinary tract infection) (Acute) Sepsis (Acute) Pneumaturia Sepsis due to urinary tract infection (Acute) Confusion Weakness Acute kidney injury superimposed on CKD (Acute) C. difficile diarrhea CKD (chronic kidney disease) (Acute) Bladder neck contracture Hydronephrosis Constipation Overflow diarrhea Diarrhea Chronic diarrhea Vitamin D deficiency (Acute) Rosacea (Acute) Quadriparesis (Chronic) Organic impotence (Acute) Male stress incontinence (Acute) Leukopenia (Acute) Hypertension Hyperlipidemia (Acute) Cervical cord myelomalacia Weight loss Cognitive decline Malnutrition Cerebral atrophy Depression Loose bowel movements Acute UTI (Acute) Chronic diarrhea Dysphagia Anemia Medical History Prostate cancer (09/27/11) "Rising PSA, pretreatment PSA 7.44 clinical stage TIc Biopsy stage T2b Arnold grade 3+2 and 3+3 Active surveillance Recheck PSA 10.2, repeat biopsy Arnold 3+3, biopsy stage T2b Continued rise in PSA Status post robotic prostatectomy 07/10/2011, stage [id number] Status post completion of radiation therapy the prostate bed 12/17/2011 received 7000 cGy" Near syncope Hypokalemia Acute UTI Hematochezia Benign neoplasm of large intestine Surgical History H/O Spinal surgery H/O prostatectomy Hx of tonsillectomy Family History Mother Lung cancer Breast cancer Other Alcoholism in family Denies family history of Ovarian cancer Prostate cancer Myocardial infarction Colorectal cancer Social History Smoking Status: Unknown if ever smoked Second Hand Exposure: No; Do You Dip or Chew Tobacco: No; Hx Alcohol Use: No Hx Substance Use: No Preferred Language: Marshallese Communication Ability: Effective Visual Impairment: Partially Limited Hearing Ability: Hard of Hearing 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 Beliefs That Will Affect Care: None marital status: / Current Living Situation: Group Home Current Living Situation Comment: [facility] current occupational status: retired How many Children do You have: 2 Feels Safe at Home: Yes Childhood Exposure to Second-Hand Smoke: Yes caffeine: Yes Dental Care, Regularly: Yes Physical Activity Frequency: 5-6 Times per Week Seatbelt Use: always Sunscreen Use: No Assistive Devices: Walker and Wheelchair Allergies Allergies Allergy/AdvReac Type Severity Reaction Status Date / Time pollen extracts Allergy Intermediate ITCHY Verified 01/25/24 08:11 EYES, SNEEZING, CONGESTION donepezil AdvReac Intermediate Diarrhea Verified 01/25/24 08:11 Home Meds Home Medications Medication Instructions Recorded Confirmed acetaminophen 325 mg tablet 325 mg PO Q4H PRN PAIN/FEVER 07/28/23 01/25/24 cholestyramine-aspartame 4 gram 1 ea PO BID 10/16/23 01/25/24 oral powder for susp in a packet (Prevalite) diphenoxylate-atropine 2.5 1 tab PO Q12H PRN Diarrhea 10/16/23 01/25/24 mg-0.025 mg tablet (Lomotil) montelukast 10 mg tablet 10 mg PO DAILY 10/16/23 01/25/24 polyethylene glycol 3350 17 17 g PO DAILY PRN Constipation 10/16/23 01/25/24 gram/dose oral powder (Miralax) vancomycin 125 mg capsule 125 mg PO QID 01/25/24 01/25/24 Previous Rx's Medication Instructions Recorded mirtazapine 15 mg tablet 15 mg PO HS #30 tabs 09/12/23 cholecalciferol (vitamin D3) 50 2,000 unit PO DAILY #90 caps 09/16/23 mcg (2,000 unit) capsule ferrous sulfate 325 mg (65 mg 325 mg PO DAILY #90 tabs 09/16/23 iron) tablet multivitamin (Multiple Vitamins 1 tab PO DAILY #90 tabs 09/16/23 tablet) psyllium husk 0.4 gram capsule 0.4 g PO DAILY #180 caps 09/16/23 (Metamucil) mupirocin 2 % topical ointment 1 applic topical TID #22 grams 11/11/23 Results & Data (ED) Vital Signs Vital Signs - 24 hr 02/16/24 19:46 02/16/24 19:46 02/16/24 19:47 Temperature 38.0 C H 38.0 C H Temperature Source Oral Oral Pulse Rate 89 Pulse Rate [Apical] 87 Pulse Rate from SpO2 Sensor Pulse Rhythm [Apical] Regular Respiratory Rate 22 24 Respiratory Effort / Characteristics Non-Labored Spontaneous Non-Labored Spontaneous Respiratory Depth Normal Normal Blood Pressure 87/53 L 87/53 L Blood Pressure [Right Arm] 90/55 L Blood Pressure Mean 64 56 Blood Pressure Mean [Right Arm] 66 Pulse Oximetry 96 95 Oxygen Delivery Method Room Air Room Air Sepsis Recent Fever Within 48 Hours Yes Sepsis New/Unexplained Change in Mental Status No Sepsis Action Taken by Nursing Physician Notified 02/16/24 19:48 02/16/24 19:49 02/16/24 19:53 Temperature Temperature Source Pulse Rate 89 87 Pulse Rate [Apical] Pulse Rate from SpO2 Sensor Pulse Rhythm [Apical] Respiratory Rate 18 Respiratory Effort / Characteristics Respiratory Depth Blood Pressure 90/55 L Blood Pressure [Right Arm] Blood Pressure Mean 69 Blood Pressure Mean [Right Arm] Pulse Oximetry Oxygen Delivery Method Sepsis Recent Fever Within 48 Hours Sepsis New/Unexplained Change in Mental Status Sepsis Action Taken by Nursing 02/16/24 19:55 02/16/24 19:55 02/16/24 20:06 Temperature 38.0 C H Temperature Source Oral Pulse Rate 84 Pulse Rate [Apical] 87 Pulse Rate from SpO2 Sensor Pulse Rhythm [Apical] Respiratory Rate 22 18 Respiratory Effort / Characteristics Non-Labored Spontaneous Respiratory Depth Normal Blood Pressure Blood Pressure [Right Arm] 90/55 L Blood Pressure Mean Blood Pressure Mean [Right Arm] 66 Pulse Oximetry 95 95 Oxygen Delivery Method Room Air Room Air Sepsis Recent Fever Within 48 Hours Sepsis New/Unexplained Change in Mental Status Sepsis Action Taken by Nursing 02/16/24 20:08 02/16/24 20:09 02/16/24 20:15 Temperature Temperature Source Pulse Rate Pulse Rate [Apical] 82 83 Pulse Rate from SpO2 Sensor Pulse Rhythm [Apical] Respiratory Rate 20 14 Respiratory Effort / Characteristics Non-Labored Spontaneous Non-Labored Spontaneous Respiratory Depth Normal Normal Blood Pressure 91/53 L Blood Pressure [Right Arm] 91/53 L 87/53 L Blood Pressure Mean 60 Blood Pressure Mean [Right Arm] 65 64 Pulse Oximetry 95 96 Oxygen Delivery Method Room Air Room Air Sepsis Recent Fever Within 48 Hours Sepsis New/Unexplained Change in Mental Status Sepsis Action Taken by Nursing 02/16/24 20:16 02/16/24 20:21 02/16/24 20:30 Temperature 36.7 C Temperature Source Oral Pulse Rate 79 Pulse Rate [Apical] 77 Pulse Rate from SpO2 Sensor 79 Pulse Rhythm [Apical] Respiratory Rate 22 23 Respiratory Effort / Characteristics Non-Labored Spontaneous Respiratory Depth Normal Blood Pressure 87/53 L Blood Pressure [Right Arm] 94/66 L Blood Pressure Mean 63 Blood Pressure Mean [Right Arm] 75 Pulse Oximetry 96 96 Oxygen Delivery Method Room Air Sepsis Recent Fever Within 48 Hours Sepsis New/Unexplained Change in Mental Status Sepsis Action Taken by Nursing 02/16/24 20:42 02/16/24 20:45 02/16/24 20:45 Temperature Temperature Source Pulse Rate 72 73 Pulse Rate [Apical] Pulse Rate from SpO2 Sensor 72 74 Pulse Rhythm [Apical] Respiratory Rate 20 24 Respiratory Effort / Characteristics Respiratory Depth Blood Pressure 94/66 L Blood Pressure [Right Arm] Blood Pressure Mean 68 Blood Pressure Mean [Right Arm] Pulse Oximetry 96 95 Oxygen Delivery Method Sepsis Recent Fever Within 48 Hours Sepsis New/Unexplained Change in Mental Status Sepsis Action Taken by Nursing 02/16/24 20:45 02/16/24 20:48 02/16/24 21:00 Temperature Temperature Source Pulse Rate 73 Pulse Rate [Apical] Pulse Rate from SpO2 Sensor 74 Pulse Rhythm [Apical] Respiratory Rate 23 Respiratory Effort / Characteristics Respiratory Depth Blood Pressure 94/66 L 93/59 L Blood Pressure [Right Arm] Blood Pressure Mean 68 71 Blood Pressure Mean [Right Arm] Pulse Oximetry 95 Oxygen Delivery Method Room Air Sepsis Recent Fever Within 48 Hours Sepsis New/Unexplained Change in Mental Status Sepsis Action Taken by Nursing 02/16/24 21:09 02/16/24 21:36 02/16/24 21:45 Temperature Temperature Source Pulse Rate 73 Pulse Rate [Apical] 70 Pulse Rate from SpO2 Sensor 63 Pulse Rhythm [Apical] Respiratory Rate 22 19 Respiratory Effort / Characteristics Non-Labored Spontaneous Respiratory Depth Normal Blood Pressure 129/75 Blood Pressure [Right Arm] 86/58 L Blood Pressure Mean 80 Blood Pressure Mean [Right Arm] 67 Pulse Oximetry 96 96 Oxygen Delivery Method Room Air Room Air Sepsis Recent Fever Within 48 Hours Sepsis New/Unexplained Change in Mental Status Sepsis Action Taken by Nursing 02/16/24 21:51 02/16/24 22:15 02/16/24 22:15 Temperature Temperature Source Pulse Rate 69 65 Pulse Rate [Apical] Pulse Rate from SpO2 Sensor 65 65 Pulse Rhythm [Apical] Respiratory Rate 16 23 Respiratory Effort / Characteristics Respiratory Depth Blood Pressure 114/65 Blood Pressure [Right Arm] Blood Pressure Mean 76 Blood Pressure Mean [Right Arm] Pulse Oximetry 97 97 Oxygen Delivery Method Sepsis Recent Fever Within 48 Hours Sepsis New/Unexplained Change in Mental Status Sepsis Action Taken by Nursing 02/16/24 22:30 02/16/24 22:39 02/16/24 23:00 Temperature 36.7 C Temperature Source Oral Pulse Rate 65 Pulse Rate [Apical] 65 Pulse Rate from SpO2 Sensor 65 Pulse Rhythm [Apical] Respiratory Rate 21 18 Respiratory Effort / Characteristics Non-Labored Spontaneous Respiratory Depth Normal Blood Pressure 107/61 Blood Pressure [Right Arm] 119/73 Blood Pressure Mean 73 Blood Pressure Mean [Right Arm] 88 Pulse Oximetry 97 99 Oxygen Delivery Method Room Air Sepsis Recent Fever Within 48 Hours Sepsis New/Unexplained Change in Mental Status Sepsis Action Taken by Nursing Laboratory Data 02/16/24 20:28 02/16/24 20:28 Lab Results 02/16/24 02/16/24 02/16/24 Range/Units 20:07 20:19 20:28 WBC 13.21 H (4.8-10.8) K/ul RBC 4.00 L (4.70-6.10) M/uL Hgb 10.7 L (14.0-18.0) g/dl POC Hgb (14.0-18.0) g/dl Hct 32.7 L (42.0-52.0) % POC Hct (42-52) % MCV 81.8 (80.0-100.0) fL MCH 26.8 (25.0-34.0) pg MCHC 32.7 (32.0-36.0) g/dL RDW Std Deviation 47.8 H (36.4-46.3) fL RDW Coeff of Rocky 15.9 H (11.5-14.5) % Plt Count 312 (130-400) K/uL MPV 8.9 L (9.4-12.4) fL Immature Gran % (Auto) 1.1 % Neut % (Auto) 70.2 % Lymph % (Auto) 12.0 % Reagan % (Auto) 16.4 % Eos % (Auto) 0.2 % Baso % (Auto) 0.1 % Neut # (Auto) 9.26 H (1.40-6.50) K/uL Lymph # (Auto) 1.59 (1.20-3.40) K/uL Reagan # (Auto) 2.17 H (0.11-0.59) K/uL Eos # (Auto) 0.03 (0.00-0.50) K/uL Baso # (Auto) 0.01 (0.00-0.20) K/uL Immature Gran # (Auto) 0.15 (0.01-0.20) K/uL PT 11.4 (9.0-12.0) Seconds INR 1.1 (0.9-1.1) POC Sodium (135-144) mmol/L Sodium 138 (136-145) mmol/L POC Potassium (3.3-5.0) mmol/L Potassium 3.8 (3.5-5.1) mmol/L POC Chloride (101-112) mmol/L Chloride 108 H (98-107) mmol/L Carbon Dioxide 25 (21-32) mmol/L POC Total CO2 (24-31) mmol/L Anion Gap 5 (3-11) POC Anion Gap (16-25) mmol/L POC BUN (7-18) mg/dl BUN 20 (6-23) mg/dl Creatinine 1.60 H (0.6-1.4) mg/dl POC Creatinine (0.6-1.3) mg/dl Est Cr Clr Drug Dosing 34.5 ml/min eGFR 42.75 BUN/Creatinine Ratio 12.5 (10-20) Glucose 139 H (70-99(Fasting)) mg/dl POC Glucose (other) (70-99) mg/dl Lactate 1.6 (0.4-2.0) mmol/L Calcium 8.7 (8.6-10.3) mg/dl POC Ioniz Calcium Louis (1.12-1.32) mmol/l Magnesium 1.9 (1.7-2.4) mg/dl Total Bilirubin 0.4 (0.2-1.0) mg/dl Direct Bilirubin 0.0 (0-0.2) mg/dl AST 16 (13-39) U/L ALT 9 (7-52) U/L Alkaline Phosphatase 109 H (34-104) U/L Troponin I High Sens 10.4 (0-20) pg/ml Total Protein 6.2 (6.0-8.3) gm/dl Albumin 3.2 L (3.4-5.0) gm/dl Procalcitonin 0.41 (0-0.5) ng/ml Urine Color Yellow Urine Appearance Turbid A (Clear) Urine pH 6.5 (4.5-7.5) Ur Specific [place] 1.011 (1.000-1.030) Urine Protein 2+ H (Negative) Urine Glucose (UA) Negative (Negative) Urine Ketones Negative (Negative) Urine Blood 2+ H (Negative) Urine Nitrite Positive A (Negative) Urine Bilirubin Negative (Negative) Urine Urobilinogen Negative (Negative) Ur Leukocyte Esterase 3+ H (Negative) Urine WBC (Auto) >50 H (0-5) /hpf Urine RBC (Auto) >20 H (0-2) /hpf U Hyaline Cast (Auto) 11-20 H (0-2) /lpf U Epithel Cells (Auto) 0-2 (0-2) /hpf Urine Bacteria (Auto) 4+ H (None Seen) Adenovirus (PCR) Not Detected (NotDetected) B. pertussis DNA (PCR) Not Detected (NotDetected) B.parapertussis DNA PCR Not Detected (NotDetected) C. pneumoniae DNA (PCR) Not Detected (NotDetected) Coronavirus OC43 (PCR) Not Detected (NotDetected) Coronavirus HKU1 (PCR) Not Detected (NotDetected) Coronavirus 229E (PCR) Not Detected (NotDetected) SARS-CoV-2 (PCR) Not Detected (NotDetected) Coronavirus NL63 (PCR) Not Detected (NotDetected) Human Metapneumovir PCR Not Detected (NotDetected) Influenza Type A (PCR) Not Detected (NotDetected) Influenza Type B (PCR) Not Detected (NotDetected) M. pneumoniae (PCR) Not Detected (NotDetected) Parainfluenza 1 (PCR) Not Detected (NotDetected) Parainfluenza 2 (PCR) Not Detected (NotDetected) Parainfluenza 3 (PCR) Not Detected (NotDetected) Parainfluenza 4 (PCR) Not Detected (NotDetected) RSV (PCR) Not Detected (NotDetected) Entero/Rhino (PCR) Not Detected (NotDetected) 02/16/24 Range/Units 20:29 WBC (4.8-10.8) K/ul RBC (4.70-6.10) M/uL Hgb (14.0-18.0) g/dl POC Hgb 10.5 L (14.0-18.0) g/dl Hct (42.0-52.0) % POC Hct 31 L (42-52) % MCV (80.0-100.0) fL MCH (25.0-34.0) pg MCHC (32.0-36.0) g/dL RDW Std Deviation (36.4-46.3) fL RDW Coeff of Rocky (11.5-14.5) % Plt Count (130-400) K/uL MPV (9.4-12.4) fL Immature Gran % (Auto) % Neut % (Auto) % Lymph % (Auto) % Reagan % (Auto) % Eos % (Auto) % Baso % (Auto) % Neut # (Auto) (1.40-6.50) K/uL Lymph # (Auto) (1.20-3.40) K/uL Reagan # (Auto) (0.11-0.59) K/uL Eos # (Auto) (0.00-0.50) K/uL Baso # (Auto) (0.00-0.20) K/uL Immature Gran # (Auto) (0.01-0.20) K/uL PT (9.0-12.0) Seconds INR (0.9-1.1) POC Sodium 138 (135-144) mmol/L Sodium (136-145) mmol/L POC Potassium 3.7 (3.3-5.0) mmol/L Potassium (3.5-5.1) mmol/L POC Chloride 105 (101-112) mmol/L Chloride (98-107) mmol/L Carbon Dioxide (21-32) mmol/L POC Total CO2 20 L (24-31) mmol/L Anion Gap (3-11) POC Anion Gap 18.0 (16-25) mmol/L POC BUN 18 (7-18) mg/dl BUN (6-23) mg/dl Creatinine (0.6-1.4) mg/dl POC Creatinine 1.7 H (0.6-1.3) mg/dl Est Cr Clr Drug Dosing ml/min eGFR BUN/Creatinine Ratio (10-20) Glucose (70-99(Fasting)) mg/dl POC Glucose (other) 132 H (70-99) mg/dl Lactate (0.4-2.0) mmol/L Calcium (8.6-10.3) mg/dl POC Ioniz Calcium Louis 1.12 (1.12-1.32) mmol/l Magnesium (1.7-2.4) mg/dl Total Bilirubin (0.2-1.0) mg/dl Direct Bilirubin (0-0.2) mg/dl AST (13-39) U/L ALT (7-52) U/L Alkaline Phosphatase (34-104) U/L Troponin I High Sens (0-20) pg/ml Total Protein (6.0-8.3) gm/dl Albumin (3.4-5.0) gm/dl Procalcitonin (0-0.5) ng/ml Urine Color Urine Appearance (Clear) Urine pH (4.5-7.5) Ur Specific [place] (1.000-1.030) Urine Protein (Negative) Urine Glucose (UA) (Negative) Urine Ketones (Negative) Urine Blood (Negative) Urine Nitrite (Negative) Urine Bilirubin (Negative) Urine Urobilinogen (Negative) Ur Leukocyte Esterase (Negative) Urine WBC (Auto) (0-5) /hpf Urine RBC (Auto) (0-2) /hpf U Hyaline Cast (Auto) (0-2) /lpf U Epithel Cells (Auto) (0-2) /hpf Urine Bacteria (Auto) (None Seen) Adenovirus (PCR) (NotDetected) B. pertussis DNA (PCR) (NotDetected) B.parapertussis DNA PCR (NotDetected) C. pneumoniae DNA (PCR) (NotDetected) Coronavirus OC43 (PCR) (NotDetected) Coronavirus HKU1 (PCR) (NotDetected) Coronavirus 229E (PCR) (NotDetected) SARS-CoV-2 (PCR) (NotDetected) Coronavirus NL63 (PCR) (NotDetected) Human Metapneumovir PCR (NotDetected) Influenza Type A (PCR) (NotDetected) Influenza Type B (PCR) (NotDetected) M. pneumoniae (PCR) (NotDetected) Parainfluenza 1 (PCR) (NotDetected) Parainfluenza 2 (PCR) (NotDetected) Parainfluenza 3 (PCR) (NotDetected) Parainfluenza 4 (PCR) (NotDetected) RSV (PCR) (NotDetected) Entero/Rhino (PCR) (NotDetected) Administered Medications Discontinued Medications Sodium Chloride (Nss) 1,000 mls @ 999 mls/hr IV .Q1H1M IRVING Stop: 02/16/24 22:00 Last Infusion: 02/16/24 22:59 Dose: Infused Documented By: Admin: 02/16/24 21:36 Dose: 999 mls/hr Documented By: Infusion: 02/16/24 21:35 Dose: Infused Documented By: Admin: 02/16/24 20:15 Dose: 999 mls/hr Documented By: HOUSTON Meropenem 500 mg/ Syringe 10 mls @ 2 mls/min IV NOW STA; Protocol Stop: 02/16/24 19:58 Last Admin: 02/16/24 20:52 Dose: 2 mls/min Documented By: HOUSTON Imaging Data Radiologist's Impression: Chest X-Ray 02/16/24 19:52 Exam(s): XR CXR 1 VIEW EXAM: XR Chest, 1 View CLINICAL HISTORY: Reason for exam: Sepsis. TECHNIQUE: Frontal view of the chest. COMPARISON: Chest x-ray 08/13/2023 FINDINGS: Lungs: Patient is rotated. No Consolidation. No overt edema. Pleural space: No pleural effusion. No pneumothorax. Heart: Unremarkable. No cardiomegaly. IMPRESSION: No acute cardiopulmonary abnormality. Electronically signed by: Lauri Briscoe MD 02/16/24 21:20 PM Discharge Plan Visit Data Chief Complaint: Fever Stated Complaint: FEVER, LEG WEAKNESS ED Provider: Kelvin Donovan Discharge Problem: Sepsis, UTI (urinary tract infection) Patient Disposition: Admitted As Inpatient Discharge Instructions Interventions: ED Discharge Assessment Last Done: 02/16/24 23:33 Forms Stand Alone Forms: [facility] Prescriptions Prescriptions: No Action mirtazapine 15 mg tablet 15 mg PO HS Qty: 30 0RF cholecalciferol (vitamin D3) 50 mcg (2,000 unit) capsule 2,000 unit PO DAILY Qty: 90 3RF ferrous sulfate 325 mg (65 mg iron) tablet 325 mg PO DAILY Qty: 90 3RF multivitamin [Multiple Vitamins] Tablet 1 tab PO DAILY Qty: 90 3RF psyllium husk [Metamucil] 0.4 gram capsule 0.4 g PO DAILY Qty: 180 3RF acetaminophen 325 mg tablet 325 mg PO Q4H MDD 3 GRAMS APAP/24 HOURS PRN (Reason: PAIN/FEVER) mupirocin 2 % ointment 1 applic topical TID Qty: 22 0RF Rx Instructions: Apply to cellulitis of right nephrostomy tube site. vancomycin 125 mg capsule 125 mg PO QID diphenoxylate-atropine [Lomotil] 2.5-0.025 mg Tablet 1 tab PO Q12H PRN (Reason: Diarrhea) polyethylene glycol 3350 [Miralax] 17 gram/dose Powder 17 g PO DAILY PRN (Reason: Constipation) montelukast 10 mg tablet 10 mg PO DAILY cholestyramine-aspartame [Prevalite] 4 gram powder in packet 1 ea PO BID Referrals Referrals: Darin Reynaga [Primary Care Provider] - Discharge Problem: Sepsis Qualifiers: Sepsis type: sepsis due to unspecified organism Sepsis acute organ dysfunction status: unspecified Qualified Code(s): A41.9 - Sepsis, unspecified organism UTI (urinary tract infection) Qualifiers: Urinary tract infection type: site unspecified
[2024-02-16] MEDS: SODIUM CHLORIDE 0.9% 1,000 ML IV SCH (20:15)
[2024-02-16 20:41] LABS: iSTAT Creatinine 1.7 mg/dl (0.6-1.3); iSTAT Hemoglobin 10.5 g/dl (14.0-18.0); iSTAT Ionized Calcium 1.12 mmol/l (1.12-1.32); iSTAT Potassium 3.7 mmol/L (3.3-5.0)
[2024-02-16] MEDS: MEROPENEM 500 MG in SYRINGE 0 ML IV STA (20:52)
[2024-02-16 20:53] LABS: Basophils # (auto) 0.01 K/uL (0.00-0.20); Basophils % (auto) 0.1 %; Eosinophils # (auto) 0.03 K/uL (0.00-0.50); Eosinophils % (auto) 0.2 %; Hematocrit (blood only) 32.7 % (42.0-52.0); Hemoglobin 10.7 g/dl (14.0-18.0); Immature Granulocytes # (auto) 0.15 K/uL (0.01-0.20); Immature Granulocytes % (auto) 1.1 %; Lymphocytes # (auto) 1.59 K/uL (1.20-3.40); Mean Corpuscular Hemoglobin 26.8 pg (25.0-34.0); Mean Corpuscular Hgb Conc 32.7 g/dL (32.0-36.0); Mean Corpuscular Volume 81.8 fL (80.0-100.0); Mean Platelet Volume 8.9 fL (9.4-12.4); Monocytes # (auto) 2.17 K/uL (0.11-0.59); Monocytes % (auto) 16.4 %; Neutrophils # (auto) 9.26 K/uL (1.40-6.50); Neutrophils % (auto) 70.2 %; Platelet Count 312 K/uL (130-400); RDW Coefficient of Variation 15.9 % (11.5-14.5); RDW Standard Deviation 47.8 fL (36.4-46.3); White Blood Count 13.21 K/ul (4.8-10.8)
[2024-02-16 20:58] LABS: Appearance Urine Turbid (Clear); Bacteria Urine Automated 4+ (None Seen); Bilirubin Urine Negative (Negative); Blood Urine 2+ (Negative); Color Urine Yellow; Epithelial Cell Urine Auto 0-2 /hpf (0-2); Glucose Urine UA Negative (Negative); Ketones Urine Negative (Negative); Leukocyte Esterase Urine 3+ (Negative); Nitrite Urine Positive (Negative); Protein Urine 2+ (Negative); RBC Urine Automated >20 /hpf (0-2); Specific Gravity Urine 1.011 (1.000-1.030); Urobilinogen Urine Negative (Negative); WBC Urine Automated >50 /hpf (0-5); pH Urine 6.5 (4.5-7.5)
[2024-02-16 21:01] LABS: Albumin Level 3.2 gm/dl (3.4-5.0); BUN Creatinine Ratio 12.5 (10-20); Bilirubin,Total 0.4 mg/dl (0.2-1.0); Calcium 8.7 mg/dl (8.6-10.3); Creatinine Clr Calc Pharmacy 34.5 ml/min; Magnesium 1.9 mg/dl (1.7-2.4); Potassium 3.8 mmol/L (3.5-5.1); Total Protein 6.2 gm/dl (6.0-8.3)
[2024-02-16 21:01] LABS: Adenovirus PCR Not Detected (NotDetected); Bordetella parapertussis PCR Not Detected (NotDetected); Bordetella pertussis PCR Not Detected (NotDetected); Chlamydia pneumoniae PCR Not Detected (NotDetected); Coronavirus 229E PCR Not Detected (NotDetected); Coronavirus CoV-2 (COVID19)PCR Not Detected (NotDetected); Coronavirus HKU1 PCR Not Detected (NotDetected); Coronavirus NL63 PCR Not Detected (NotDetected); Coronavirus OC43PCR Not Detected (NotDetected); Human Metapneumovirus PCR Not Detected (NotDetected); Influenza A PCR Not Detected (NotDetected); Influenza B PCR Not Detected (NotDetected); Mycoplasma pneumoniae PCR Not Detected (NotDetected); Parainfluenza Virus 1 PCR Not Detected (NotDetected); Parainfluenza Virus 2 PCR Not Detected (NotDetected); Parainfluenza Virus 3 PCR Not Detected (NotDetected); Parainfluenza Virus 4 PCR Not Detected (NotDetected); Respiratory Syncytial VirusPCR Not Detected (NotDetected); Rhinovirus/Enterovirus PCR Not Detected (NotDetected)
[2024-02-16 21:07] LABS: Troponin I High Sensitivity 10.4 pg/ml (0-20)
[2024-02-16 21:11] LABS: INR 1.1 (0.9-1.1); Prothrombin Time 11.4 Seconds (9.0-12.0)
--- NOTE | 2024-02-16 21:21 | XRay Report ---
Exam(s): XR CXR 1 VIEW EXAM: XR Chest, 1 View CLINICAL HISTORY: Reason for exam: Sepsis. TECHNIQUE: Frontal view of the chest. COMPARISON: Chest x-ray 08/13/2023 FINDINGS: Lungs: Patient is rotated. No Consolidation. No overt edema. Pleural space: No pleural effusion. No pneumothorax. Heart: Unremarkable. No cardiomegaly. IMPRESSION: No acute cardiopulmonary abnormality. Electronically signed by: Lauri Briscoe MD 02/16/24 21:20 PM
--- NOTE | 2024-02-16 22:22 | History & Physical Report ---
Date of Service February 16, 2024 Assessment & Plan (1) Sepsis due to urinary tract infection: (2) Catheter-associated urinary tract infection: (3) CKD (chronic kidney disease): (4) Cervical cord myelomalacia: (5) Quadriparesis: (6) C. difficile diarrhea: Plan Sepsis due to catheter associated UTI- On 01/25/2024, urine culture with Pseudomonas x 2 species On 11/25/21, urine culture with E. coli that cephalosporin resistant On 05/02/2020, Klebsiella pneumoniae pansensitive Most recent admission from 10/15-10/17/2023 for similar presentation Patient was given meropenem 500 mg IV from the ED Follow urine culture and sensitivity Will place on cefepime 2 g IV every 12 hours Status post NSS 2 L bolus from the ED Maintenance fluids NSS at 80 mL/h x 1 L Lowest blood pressure recorded 87/53, with improvement to 101/57 after rehydration C. difficile diarrhea- Placed on vancomycin 25 mg p.o. 4 times daily CKD- Creatinine 1.60 on admission, which is his baseline Follow laboratories in the a.m. Quadriparesis/cervical cord myelomalacia- Continue usual supportive medications History of Present Illness Chief Complaint: The patient is referred to the emergency department from [facility] due to a temperature to 103, and progressive weakness. Primary Care Provider: Darin Reynaga The patient is a 89-year-old male with past medical history including chronic indwelling Johnson catheter, urinary tract infection, C. difficile colitis, sepsis due to UTI, history of STEVE on CKD, hypertension, hyperlipidemia, cervical cord myelomalacia, and quadriparesis. He is referred from [facility] due to temperature of 103 degrees, and progressive weakness. He has a chronic indwelling Johnson catheter, and urine was hyper concentrated and infected. Allergies Allergy/AdvReac Type Severity Reaction Status Date / Time pollen extracts Allergy Intermediate ITCHY Verified 01/25/24 08:11 EYES, SNEEZING, CONGESTION donepezil AdvReac Intermediate Diarrhea Verified 01/25/24 08:11 Home Medications Medication Instructions Recorded Confirmed Type acetaminophen 325 mg tablet 325 mg PO Q4H PRN PAIN/FEVER 07/28/23 01/25/24 History mirtazapine 15 mg tablet 15 mg PO HS #30 tabs 09/12/23 01/25/24 Rx cholecalciferol (vitamin D3) 50 2,000 unit PO DAILY #90 caps 09/16/23 01/25/24 Rx mcg (2,000 unit) capsule ferrous sulfate 325 mg (65 mg 325 mg PO DAILY #90 tabs 09/16/23 01/25/24 Rx iron) tablet multivitamin (Multiple Vitamins 1 tab PO DAILY #90 tabs 09/16/23 01/25/24 Rx tablet) psyllium husk 0.4 gram capsule 0.4 g PO DAILY #180 caps 09/16/23 01/25/24 Rx (Metamucil) cholestyramine-aspartame 4 gram 1 ea PO BID 10/16/23 01/25/24 History oral powder for susp in a packet (Prevalite) diphenoxylate-atropine 2.5 1 tab PO Q12H PRN Diarrhea 10/16/23 01/25/24 History mg-0.025 mg tablet (Lomotil) montelukast 10 mg tablet 10 mg PO DAILY 10/16/23 01/25/24 History polyethylene glycol 3350 17 17 g PO DAILY PRN Constipation 10/16/23 01/25/24 History gram/dose oral powder (Miralax) mupirocin 2 % topical ointment 1 applic topical TID #22 grams 11/11/23 01/25/24 Rx vancomycin 125 mg capsule 125 mg PO QID 01/25/24 01/25/24 History Past Med/Surg History Problem List (Updated 02/17/24 @ 02:54 by Fransisco Raymundo MD) Catheter-associated urinary tract infection UTI (urinary tract infection) (Acute) Sepsis (Acute) Pneumaturia Sepsis due to urinary tract infection (Acute) Confusion Weakness Acute kidney injury superimposed on CKD (Acute) C. difficile diarrhea CKD (chronic kidney disease) (Acute) Bladder neck contracture Hydronephrosis Constipation Overflow diarrhea Diarrhea Chronic diarrhea Vitamin D deficiency (Acute) Rosacea (Acute) Quadriparesis (Chronic) Organic impotence (Acute) Male stress incontinence (Acute) Leukopenia (Acute) Hypertension Hyperlipidemia (Acute) Cervical cord myelomalacia Weight loss Cognitive decline Malnutrition Cerebral atrophy Depression Loose bowel movements Acute UTI (Acute) Chronic diarrhea Dysphagia Anemia Medical History Prostate cancer (09/27/11) "Rising PSA, pretreatment PSA 7.44 clinical stage TIc Biopsy stage T2b Charles grade 3+2 and 3+3 Active surveillance Recheck PSA 10.2, repeat biopsy Hardy 3+3, biopsy stage T2b Continued rise in PSA Status post robotic prostatectomy 07/10/2011, stage [id number] Status post completion of radiation therapy the prostate bed 12/17/2011 received 7000 cGy" Near syncope Hypokalemia Acute UTI Hematochezia Benign neoplasm of large intestine Surgical History H/O Spinal surgery H/O prostatectomy Hx of tonsillectomy Family History Mother Lung cancer Breast cancer Other Alcoholism in family Denies family history of Ovarian cancer Prostate cancer Myocardial infarction Colorectal cancer Social History Smoking Status: Unknown if ever smoked Second Hand Exposure: No; Do You Dip or Chew Tobacco: No; Hx Alcohol Use: No Hx Substance Use: No Preferred Language: Haitian Communication Ability: Unable Visual Impairment: Partially Limited Hearing Ability: Hard of Hearing Instructional Interventionist Required: No Beliefs That Will Affect Care: None marital status: / Current Living Situation: [facility] Current Living Situation Comment: [facility] current occupational status: retired How many Children do You have: 2 Feels Safe at Home: Yes Childhood Exposure to Second-Hand Smoke: Yes caffeine: Yes Dental Care, Regularly: Yes Physical Activity Frequency: 5-6 Times per Week Seatbelt Use: always Sunscreen Use: No Assistive Devices: Walker and Wheelchair Review of Systems Review of Systems: The patient denies chest pain, palpitations, shortness of breath, dyspnea on exertion, cough, lower extremity swelling, sore throat, fevers, chills, sweats, weight change, diarrhea , constipation, abdominal pain, pelvic pain, blood in urine or stool, dysuria, urinary frequency or urgency, lightheadedness, dizziness, headache, memory loss, loss of consciousness, rash, abnormal bruising or bleeding, imbalance, focal weakness, numbness or tingling in arms generalized arthralgias or myalgias, back or neck pain, or night sweats. The review of systems is otherwise negative other than for that already noted above, and at least 10 systems have been reviewed. Physical Exam Physical Exam: The patient is awake, alert and oriented 3, well developed and well nourished, normocephalic and atraumatic, lying in bed and in no acute distress. HEENT--PERRL, EOMI, mucous membranes and oropharynx dry. Neck--supple. No JVD. No bruits. Thyroid normal, trachea midline, no adenopathy. Heart--normal S1 and S2. No murmurs, rubs or gallops. Lungs--clear bilaterally, no respiratory distress, no accessory muscle use. Abdomen--normal bowel sounds and soft. Nontender. Nondistended Extremities-- No edema. There are good distal pulses b/l. Dermatologic--normal skin turgor, normal color, no abnormal lymph nodes, no rash. Neurologic--cranial nerves II through XII grossly intact. Rheumatologic--quadriparesis Psychiatric--normal affect. Results & Data Results & Data Vital Signs (Past 12 Hours) Vital Signs Temp Pulse Pulse Resp BP BP Pulse Ox 02/16/24 21:51 69 16 97 02/16/24 21:45 129/75 02/16/24 21:36 70 19 86/58 L 96 02/16/24 21:09 73 22 96 02/16/24 21:00 93/59 L 02/16/24 20:48 73 23 95 02/16/24 20:45 94/66 L 02/16/24 20:45 73 24 95 02/16/24 20:45 94/66 L 02/16/24 20:42 72 20 96 02/16/24 20:30 36.7 C 77 23 94/66 L 96 02/16/24 20:21 79 22 96 02/16/24 20:16 87/53 L 02/16/24 20:15 83 14 87/53 L 96 02/16/24 20:09 91/53 L 02/16/24 20:08 82 20 91/53 L 95 02/16/24 20:06 84 18 02/16/24 19:55 38.0 C H 87 22 90/55 L 95 02/16/24 19:55 95 02/16/24 19:53 90/55 L 02/16/24 19:49 87 02/16/24 19:48 89 18 02/16/24 19:47 87/53 L 02/16/24 19:46 38.0 C H 87 24 90/55 L 95 02/16/24 19:46 38.0 C H 89 22 87/53 L 96 O2 Del Method 02/16/24 21:51 02/16/24 21:45 02/16/24 21:36 Room Air 02/16/24 21:09 Room Air 02/16/24 21:00 02/16/24 20:48 Room Air 02/16/24 20:45 02/16/24 20:45 02/16/24 20:45 02/16/24 20:42 02/16/24 20:30 Room Air 02/16/24 20:21 02/16/24 20:16 02/16/24 20:15 Room Air 02/16/24 20:09 02/16/24 20:08 Room Air 02/16/24 20:06 02/16/24 19:55 Room Air 02/16/24 19:55 Room Air 02/16/24 19:53 02/16/24 19:49 02/16/24 19:48 02/16/24 19:47 02/16/24 19:46 Room Air 02/16/24 19:46 Room Air Laboratory Results Laboratory Results WBC 13.21 K/ul (4.8-10.8) H 02/16/24 20: RBC 4.00 M/uL (4.70-6.10) L 02/16/24 20:28 Hgb 10.7 g/dl (14.0-18.0) L 02/16/24 20:28 POC Hgb 10.5 g/dl (14.0-18.0) L 02/16/24 20:29 Hct 32.7 % (42.0-52.0) L 02/16/24 20:28 POC Hct 31 % (42-52) L 02/16/24 20:29 MCV 81.8 fL (80.0-100.0) 02/16/24 20:28 MCH 26.8 pg (25.0-34.0) 02/16/24 20:28 MCHC 32.7 g/dL (32.0-36.0) 02/16/24 20:28 RDW Std Deviation 47.8 fL (36.4-46.3) H 02/16/24: RDW Coeff of Rocky 15.9 % (11.5-14.5) H 02/16/24 20: Plt Count 312 K/uL (130-400) 02/16/24 20: MPV 8.9 fL (9.4-12.4) L 02/16/24: Immature Gran % (Auto) 1.1 % 02/16/24: Neut % (Auto) 70.2 % 02/16/24: Lymph % (Auto) 12.0 % 02/16/24: [place] % (Auto) 16.4 % 02/16/24 Eos % (Auto) 0.2 % 02/16/24 Baso % (Auto) 0.1 % 02/16/24 Neut # (Auto) 9.26 K/uL (1.40-6.50) H 02/16/24: Lymph # (Auto) 1.59 K/uL (1.20-3.40) 02/16/24 20: [place] # (Auto) 2.17 K/uL (0.11-0.59) H 02/16/24: Eos # (Auto) 0.03 K/uL (0.00-0.50) 02/16/24: Baso # (Auto) 0.01 K/uL (0.00-0.20) 02/16/24: Immature Gran # (Auto) 0.15 K/uL (0.01-0.20) 02/16/24: PT 11.4 Seconds (9.0-12.0) 02/16/24: INR 1.1 (0.9-1.1) 02/16/24 20: POC Sodium 138 mmol/L (135-144) 02/16/24 20: Sodium 138 mmol/L (136-145) 02/16/24 20: POC Potassium 3.7 mmol/L (3.3-5.0) 02/16/24 20: Potassium 3.8 mmol/L (3.5-5.1) 02/16/24: POC Chloride 105 mmol/L (101-112) 02/16/24 20: Chloride 108 mmol/L (98-107) H 02/16/24 20: Carbon Dioxide 25 mmol/L (21-32) 02/16/24 20: POC Total CO2 20 mmol/L (24-31) L 02/16/24 20: Anion Gap 5 (3-11) 02/16/24 20: POC Anion Gap 18.0 mmol/L (16-25) 02/16/24 20: POC BUN 18 mg/dl (7-18) 02/16/24 20: BUN 20 mg/dl (6-23) 02/16/24 20: Creatinine 1.60 mg/dl (0.6-1.4) H 02/16/24 20: POC Creatinine 1.7 mg/dl (0.6-1.3) H 02/16/24 20: Est Cr Clr Drug Dosing 34.5 ml/min 02/16/24 20: eGFR 42.75 02/16/24 20: BUN/Creatinine Ratio 12.5 (10-20) 02/16/24 20: Glucose 139 mg/dl (70-99(Fasting)) H 02/16/24 20: POC Glucose (other) 132 mg/dl (70-99) H 02/16/24 20: Lactate 1.6 mmol/L (0.4-2.0) 02/16/24 20: Calcium 8.7 mg/dl (8.6-10.3) 02/16/24 20: POC Ioniz Calcium Louis 1.12 mmol/l (1.12-1.32) 02/16/24 20: Magnesium 1.9 mg/dl (1.7-2.4) 02/16/24 20: Total Bilirubin 0.4 mg/dl (0.2-1.0) 02/16/24 20: Direct Bilirubin 0.0 mg/dl (0-0.2) 02/16/24 20: AST 16 U/L (13-39) 02/16/24 20: ALT 9 U/L (7-52) 02/16/24 20: Alkaline Phosphatase 109 U/L (34-104) H 02/16/24 20:28 Troponin I High Sens 10.4 pg/ml (0-20) 02/16/24 20:28 Total Protein 6.2 gm/dl (6.0-8.3) 02/16/24 20: Albumin 3.2 gm/dl (3.4-5.0) L 02/16/24 20:28 Procalcitonin 0.41 ng/ml (0-0.5) 02/16/24 20:28 Urine Color Yellow 02/16/24 20:19 Urine Appearance Turbid (Clear) A 02/16/24 20:19 Urine pH 6.5 (4.5-7.5) 02/16/24 20:19 Ur Specific [place] 1.011 (1.000-1.030) 02/16/24 20:19 Urine Protein 2+ (Negative) H 02/16/24 20:19 Urine Glucose (UA) Negative (Negative) 02/16/24 20:19 Urine Ketones Negative (Negative) 02/16/24 20:19 Urine Blood 2+ (Negative) H 02/16/24 20:19 Urine Nitrite Positive (Negative) A 02/16/24 20: Urine Bilirubin Negative (Negative) 02/16/24 20:19 Urine Urobilinogen Negative (Negative) 02/16/24 20:19 Ur Leukocyte Esterase 3+ (Negative) H 02/16/24 20:19 Urine WBC (Auto) >50 /hpf (0-5) H 02/16/24 20:19 Urine RBC (Auto) >20 /hpf (0-2) H 02/16/24 20:19 U Hyaline Cast (Auto) 11-20 /lpf (0-2) H 02/16/24 20:19 U Epithel Cells (Auto) 0-2 /hpf (0-2) 02/16/24 20:19 Urine Bacteria (Auto) 4+ (None Seen) H 02/16/24 20:19 Adenovirus (PCR) Not Detected (NotDetected) 02/16/24 20:07 B. pertussis DNA (PCR) Not Detected (NotDetected) 02/16/24 20:07 B.parapertussis DNA PCR Not Detected (NotDetected) 02/16/24 20:07 C. pneumoniae DNA (PCR) Not Detected (NotDetected) 02/16/24 20:07 Coronavirus OC43 (PCR) Not Detected (NotDetected) 02/16/24 20:07 Coronavirus HKU1 (PCR) Not Detected (NotDetected) 02/16/24 20:07 Coronavirus 229E (PCR) Not Detected (NotDetected) 02/16/24 20:07 SARS-CoV-2 (PCR) Not Detected (NotDetected) 02/16/24 20:07 Coronavirus NL63 (PCR) Not Detected (NotDetected) 02/16/24 20:07 Human Metapneumovir PCR Not Detected (NotDetected) 02/16/24 20:07 Influenza Type A (PCR) Not Detected (NotDetected) 02/16/24 20:07 Influenza Type B (PCR) Not Detected (NotDetected) 02/16/24 20:07 M. pneumoniae (PCR) Not Detected (NotDetected) 02/16/24 20:07 Parainfluenza 1 (PCR) Not Detected (NotDetected) 02/16/24 20:07 Parainfluenza 2 (PCR) Not Detected (NotDetected) 02/16/24 20:07 Parainfluenza 3 (PCR) Not Detected (NotDetected) 02/16/24 20:07 Parainfluenza 4 (PCR) Not Detected (NotDetected) 02/16/24 20:07 RSV (PCR) Not Detected (NotDetected) 02/16/24 20:07 Entero/Rhino (PCR) Not Detected (NotDetected) 02/16/24 20:07 Impressions Chest X-Ray 02/16/24 19:52 Exam(s): XR CXR 1 VIEW EXAM: XR Chest, 1 View CLINICAL HISTORY: Reason for exam: Sepsis. TECHNIQUE: Frontal view of the chest. COMPARISON: Chest x-ray 08/13/2023 FINDINGS: Lungs: Patient is rotated. No Consolidation. No overt edema. Pleural space: No pleural effusion. No pneumothorax. Heart: Unremarkable. No cardiomegaly. IMPRESSION: No acute cardiopulmonary abnormality. Electronically signed by: Lauri Briscoe MD 02/16/24 21:20 PM Code Status & VTE Plan Code Status DNR/DNI VTE Prophylaxis Plan VTE Prophylaxis will be ordered: Yes PG Care Time/CCT Total # of Minutes Spent Total Time Spent with Patient: Total time spent is greater than 50% in coordination of care (as documented) at patient's floor/unit and/or counseling patient: Coding Level of Care Code 10220 INT INP/OBS CARE 3/75MIN Diagnoses Sepsis due to urinary tract infection A41.9; N39.0 Catheter-associated urinary tract infection T83.511A; N39.0 CKD (chronic kidney disease) N18.9 Chronic kidney disease stage: unspecified stage Cervical cord myelomalacia G95.89 Quadriparesis G82.50 C. difficile diarrhea A04.72 (3) CKD (chronic kidney disease) Chronic kidney disease stage: unspecified stage Qualified Code(s): N18.9 - Chronic kidney disease, unspecified
[2024-02-16] MEDS ORDERED: ACETAMINOPHEN 325 MG TAB PO PRN (23:46)
[2024-02-16] MEDS ORDERED: ONDANSETRON INJ 2 MG/ML 2 ML VIAL IV PRN (23:46)
[2024-02-17] MEDS: CEFEPIME 2000MG 2,000 MG/20 ML SYR IV SCH (00:07)
[2024-02-17] MEDS: SODIUM CHLORIDE 0.9% 1,000 ML IV SCH (06:16)
[2024-02-17 07:06] LABS: Basophils # (auto) 0.03 K/uL (0.00-0.20); Basophils % (auto) 0.3 %; Eosinophils # (auto) 0.07 K/uL (0.00-0.50); Eosinophils % (auto) 0.6 %; Hematocrit (blood only) 33.4 % (42.0-52.0); Hemoglobin 10.6 g/dl (14.0-18.0); Immature Granulocytes # (auto) 0.16 K/uL (0.01-0.20); Immature Granulocytes % (auto) 1.4 %; Lymphocytes # (auto) 1.56 K/uL (1.20-3.40); Lymphocytes % (auto) 14.1 %; Mean Corpuscular Hemoglobin 26.7 pg (25.0-34.0); Mean Corpuscular Hgb Conc 31.7 g/dL (32.0-36.0); Mean Corpuscular Volume 84.1 fL (80.0-100.0); Mean Platelet Volume 9.6 fL (9.4-12.4); Monocytes # (auto) 1.93 K/uL (0.11-0.59); Monocytes % (auto) 17.4 %; Neutrophils # (auto) 7.35 K/uL (1.40-6.50); Neutrophils % (auto) 66.2 %; Platelet Count 253 K/uL (130-400); RDW Standard Deviation 49.8 fL (36.4-46.3); Red Blood Count 3.97 M/uL (4.70-6.10)
[2024-02-17] MEDS: FERROUS SULFATE 325 MG TAB PO SCH (08:34)
[2024-02-17] MEDS: CHOLECALCIFEROL 25 MCG (1000 UNITS) TAB PO SCH (08:34)
[2024-02-17] MEDS: CHERRY SYRUP 5 ML UDP PO SCH (08:35)
[2024-02-17] MEDS: VANCOMYCIN HCL 125 MG/2.5ML SOLN PO SCH (08:35)
[2024-02-17] MEDS: MONTELUKAST SODIUM 10 MG TABLET PO SCH (08:35)
[2024-02-17] MEDS: HEPARIN SOD 5,000 UNIT/0.5 ML VIAL SQ SCH (08:40)
[2024-02-17] MEDS: CHOLESTYRAMINE LIGHT 4 GM PKT PO SCH (11:32)
[2024-02-17] MEDS: NYSTATIN POWDER 15GM BTL EXT SCH (15:00)
--- NOTE | 2024-02-17 18:21 | Electrocardiogram Report ---
Test Reason : Blood Pressure : */* mmHG Vent. Rate : 85 BPM Atrial Rate : 85 BPM P-R Int : 118 ms QRS Dur : 122 ms QT Int : 380 ms P-R-T Axes : -7 269 37 degrees QTcB Int : 452 ms Normal sinus rhythm Right superior axis deviation Right ventricular hypertrophy Junctional ST depression, probably normal Abnormal ECG When compared with ECG of 17-Oct-2023 18:33, QRS duration has decreased Confirmed by Luis Watson ([id number]) on 02/17/2024 6:20:31 PM Referred By: REFERRED SELF Confirmed By: Luis Watson
[2024-02-17] MEDS: MIRTAZAPINE TAB 15 MG TAB PO SCH (21:08)
--- NOTE | 2024-02-17 22:58 | Hospitalist Progress Note ---
Date of Service February 17, 2024 Assessment & Plan (1) Sepsis due to urinary tract infection: (2) Catheter-associated urinary tract infection: (3) CKD (chronic kidney disease): (4) Cervical cord myelomalacia: (5) Quadriparesis: (6) C. difficile diarrhea: Plan Sepsis due to catheter associated UTI- On 01/25/2024, urine culture with Pseudomonas x 2 species On 11/25/21, urine culture with E. coli that cephalosporin resistant On 05/02/2020, Klebsiella pneumoniae pansensitive Most recent admission from 10/15-10/17/2023 for similar presentation Patient was given meropenem 500 mg IV from the ED Follow urine culture and sensitivity Will place on cefepime 2 g IV every 12 hours Status post NSS 2 L bolus from the ED Maintenance fluids NSS at 80 mL/h x 1 L Lowest blood pressure recorded 87/53, with improvement to 101/57 after rehydration Blood pressure has been stable on 02/16 Concern that patient's nephrostomy tubes may need to be replaced. C. difficile diarrhea- Placed on vancomycin 25 mg p.o. 4 times daily CKD- Creatinine 1.60 on admission, which is his baseline Follow laboratories in the a.m. Quadriparesis/cervical cord myelomalacia- Continue usual supportive medications Admission and Anticipated Discharge Date Admission Date: February 16, 2024 Subjective 83 yo male reports no new symptoms. Review of Systems Review of Systems: All systems reviewed & are unremarkable except as noted in HPI & below Physical Exam Physical Exam: The patient is awake, alert and oriented 3 HEENT--PERRL, EOMI, mucous membranes and oropharynx dry. Neck--supple. No JVD. No bruits. Thyroid normal, trachea midline, no adenopathy. Heart--normal S1 and S2. No murmurs, rubs or gallops. Lungs--clear bilaterally, no respiratory distress, no accessory muscle use. Abdomen--normal bowel sounds and soft. Nontender. Nondistended Extremities-- No edema. There are good distal pulses b/l. Neurologic--cranial nerves II through XII grossly intact. Rheumatologic--quadriparesis Psychiatric--normal affect. Results & Data Results & Data Vital Signs (Past 12 Hours) Vital Signs Temp Pulse Pulse Resp BP Pulse Ox O2 Del Method 02/17/24 22:48 81 02/17/24 19:48 37.2 C 78 18 140/90 96 Room Air 02/17/24 15:36 72 02/17/24 15:32 36.8 C 73 18 143/83 H 96 Room Air 02/17/24 14:03 69 PG Care Time/CCT Total # of Minutes Spent Total Time Spent with Patient: Total time spent is greater than 50% in coordination of care (as documented) at patient's floor/unit and/or counseling patient: Coding Level of Care Code 35416 SUB INP/OBS CARE 2/35MIN Diagnoses Sepsis due to urinary tract infection A41.9; N39.0 Catheter-associated urinary tract infection T83.511A; N39.0 CKD (chronic kidney disease) N18.9 Chronic kidney disease stage: unspecified stage Cervical cord myelomalacia G95.89 Quadriparesis G82.50 C. difficile diarrhea A04.72 (3) CKD (chronic kidney disease) Chronic kidney disease stage: unspecified stage Qualified Code(s): N18.9 - Chronic kidney disease, unspecified
[2024-02-18 06:59] LABS: Basophils # (auto) 0.02 K/uL (0.00-0.20); Basophils % (auto) 0.3 %; Eosinophils # (auto) 0.13 K/uL (0.00-0.50); Eosinophils % (auto) 1.7 %; Hematocrit (blood only) 29.6 % (42.0-52.0); Hemoglobin 9.7 g/dl (14.0-18.0); Immature Granulocytes # (auto) 0.09 K/uL (0.01-0.20); Immature Granulocytes % (auto) 1.2 %; Lymphocytes # (auto) 1.65 K/uL (1.20-3.40); Lymphocytes % (auto) 21.5 %; Mean Corpuscular Hemoglobin 27.2 pg (25.0-34.0); Mean Corpuscular Hgb Conc 32.8 g/dL (32.0-36.0); Mean Corpuscular Volume 82.9 fL (80.0-100.0); Mean Platelet Volume 8.8 fL (9.4-12.4); Monocytes # (auto) 1.36 K/uL (0.11-0.59); Monocytes % (auto) 17.7 %; Neutrophils # (auto) 4.42 K/uL (1.40-6.50); Neutrophils % (auto) 57.6 %; Platelet Count 272 K/uL (130-400); RDW Coefficient of Variation 15.9 % (11.5-14.5); RDW Standard Deviation 48.2 fL (36.4-46.3); Red Blood Count 3.57 M/uL (4.70-6.10); White Blood Count 7.67 K/ul (4.8-10.8)
[2024-02-18 07:21] LABS: Magnesium 1.9 mg/dl (1.7-2.4)
[2024-02-18 11:20] LABS: BUN Creatinine Ratio 12.9 (10-20); Calcium 7.9 mg/dl (8.6-10.3); Creatinine Clr Calc Pharmacy 43.5 ml/min; Potassium 3.9 mmol/L (3.5-5.1)
--- NOTE | 2024-02-18 13:41 | Infectious Disease Consult ---
Date of Consultation February 18, 2024 Assessment & Plan (1) UTI (urinary tract infection): (2) Sepsis: (3) Sepsis due to urinary tract infection: (4) Acute kidney injury superimposed on CKD: Plan This is a 63-year-old man with a past medical history of CKD, quadriparesis, cognitive decline C. 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 Patient has cognitive decline and is a poor historian. History obtained from discussion with bedside nurse and review of the chart. On exam patient denies any abdominal pain, chills. He does admit to having an episode of nausea and vomiting. He is unable to tell me how long his nephrostomy tubes have been placed. In the ED febrile with a T of 38, pulse 87, RR 2224, blood pressure 87/53, O2 sats 96% on room air. Labs: WBC 13.21, BUN 20, creatinine 1.60. Urinalysis (per nursing likely obtained from nephrostomy tubes) positive nitrites, 3+ leukocyte esterase, greater than 50 WBC, 0-2 epithelial cells. Procalcitonin 0.40. Respiratory viral panel negative. Urine culture growing Pseudomonas aeruginosa with intermediate sensitivity to gentamicin and E. coli pending sensitivities. Blood cultures with no growth to date. Chest x-ray shows no acute pulmonary process. He is currently on oral vancomycin and IV cefepime. ID consulted for UTI Micro: Blood cultures 02/15 NGTD Urine culture 02/15 (nephrostomy tubes per report ) PSA ( I gent), Ecoli pending sensi Antibiotics: Oral vancomycin 02/16ongoing Cefepime 02/15ongoing # Sepsis # Probable complicated UTI in the setting of bilateral nephrostomy tubes # Bilateral hydronephrosis status post bilateral nephrostomy tubes # History of C. difficile: No current diarrhea # History of spinal surgery Discussion: He presented with fever, tachycardia, hypotension and tachypnea. He has some pain at the bilateral nephrostomy sites but no jignesh urinary signs or symptoms. He does admit to episode of nausea and vomiting. Urine culture from nephrostomy tube growing. Pseudomonas and E. coli so far. He has a history of c difficile but no active diarrhea at this time. Recommendations: -Continue cefepime 2 g iv q12 pending E. coli sensitivity. Adjust based on sensitivity of blood culture and urine culture -Follow-up urine culture to finalization -Follow-up blood cultures -Has pain bilateral nephrostomy sites although mild, would obtain CTAP -Consider urology evaluation in setting of complex urologic history and sepsis likely secondary to urinary source in the setting of nephrostomy tubes -Changed oral vanco from treatment dose of 125 mg po qid to secondary prophylaxis dosing during concomitant antibiotic use as he is at increased risk for recurrence given age. Changed to oral vancomycin 125 mg po once daily) for the duration of antibiotic treatment plus an additional tail of one week D/W team Thank you for this consult. ID will continue to follow. ID will not round or review chart on 02/19/24. Will return Friday02/20/24 Marline Srivastava MD, MPH Infectious Disease [facility] Call [phone] with questions Consultation Information Consultation was provided via telemedicine using two-way real-time interactive telecommunication between the patient and the telemedicine provider. For the duration of the visit, the provider was performing the assessment from a different facility than the patient. This includesuse of bluetooth stethoscope forauscultationperformed by the telepresenter that the telemedicine provider can hear if described in the physical exam. Employment Instruction[employer] Associate contact information: Please call [facility] Call Center . (Phone Number For Physician Use Only) After establishing a telemedicine visit, patient was: Patient was verified with two unique identifiers Time Spent with Patient: Initial => 75 min History of Present Illness Reason for Consultation: UTI Requesting Physician: Jorge Ko Attending Physician: Jorge Ko History of Present Illness This is a 63-year-old man with a past medical history of CKD, quadriparesis, cognitive decline C. 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 Patient has cognitive decline and is a poor historian. History obtained from discussion with bedside nurse and review of the chart. On exam patient denies any abdominal pain, chills. He does admit to having an episode of nausea and vomiting. He is unable to tell me how long his nephrostomy tubes have been placed. In the ED febrile with a T of 38, pulse 87, RR 2224, blood pressure 87/53, O2 sats 96% on room air. Labs: WBC 13.21, BUN 20, creatinine 1.60. Urinalysis (per nursing likely obtained from nephrostomy tubes) positive nitrites, 3+ leukocyte esterase, greater than 50 WBC, 0-2 epithelial cells. ProcCalcitonin 0.40. Respiratory viral panel negative. Urine culture growing Pseudomonas aeruginosa with intermediate sensitivity to gentamicin and E. coli pending sensitivities. Blood cultures with no growth to date. Chest x-ray shows no acute pulmonary process. He is currently on oral vancomycin and IV cefepime. ID consulted for UTI Allergies Allergy/AdvReac Type Severity Reaction Status Date / Time pollen extracts Allergy Intermediate ITCHY Verified 01/25/24 08:11 EYES, SNEEZING, CONGESTION donepezil AdvReac Intermediate Diarrhea Verified 01/25/24 08:11 Home Medications Medication Instructions Recorded Confirmed Type acetaminophen 325 mg tablet 325 mg PO Q4H PRN PAIN/FEVER 07/28/23 01/25/24 History mirtazapine 15 mg tablet 15 mg PO HS #30 tabs 09/12/23 01/25/24 Rx cholecalciferol (vitamin D3) 50 2,000 unit PO DAILY #90 caps 09/16/23 01/25/24 Rx mcg (2,000 unit) capsule ferrous sulfate 325 mg (65 mg 325 mg PO DAILY #90 tabs 09/16/23 01/25/24 Rx iron) tablet multivitamin (Multiple Vitamins 1 tab PO DAILY #90 tabs 09/16/23 01/25/24 Rx tablet) psyllium husk 0.4 gram capsule 0.4 g PO DAILY #180 caps 09/16/23 01/25/24 Rx (Metamucil) cholestyramine-aspartame 4 gram 1 ea PO BID 10/16/23 01/25/24 History oral powder for susp in a packet (Prevalite) diphenoxylate-atropine 2.5 1 tab PO Q12H PRN Diarrhea 10/16/23 01/25/24 History mg-0.025 mg tablet (Lomotil) montelukast 10 mg tablet 10 mg PO DAILY 10/16/23 01/25/24 History polyethylene glycol 3350 17 17 g PO DAILY PRN Constipation 10/16/23 01/25/24 History gram/dose oral powder (Miralax) mupirocin 2 % topical ointment 1 applic topical TID #22 grams 11/11/23 01/25/24 Rx vancomycin 125 mg capsule 125 mg PO QID 01/25/24 01/25/24 History Patient History Medical History Prostate cancer (09/27/11) "Rising PSA, pretreatment PSA 7.44 clinical stage TIc Biopsy stage T2b [place] grade 3+2 and 3+3 Active surveillance Recheck PSA 10.2, repeat biopsy [place] 3+3, biopsy stage T2b Continued rise in PSA Status post robotic prostatectomy 07/10/2011, stage [id number] Status post completion of radiation therapy the prostate bed 12/17/2011 received 7000 cGy" Near syncope Hypokalemia Acute UTI Hematochezia Benign neoplasm of large intestine Surgical History H/O Spinal surgery H/O prostatectomy Hx of tonsillectomy Family History Mother Lung cancer Breast cancer Other Alcoholism in family Denies family history of Ovarian cancer Prostate cancer Myocardial infarction Colorectal cancer Social History Smoking Status: Unknown if ever smoked Second Hand Exposure: No; Do You Dip or Chew Tobacco: No; Hx Alcohol Use: No Hx Substance Use: No Preferred Language: Upper Sorbian Communication Ability: Effective Visual Impairment: Partially Limited Hearing Ability: Hard of Hearing Obiee Report Developer Required: No Beliefs That Will Affect Care: None marital status: / Current Living Situation: Correction Current Living Situation Comment: [facility] current occupational status: retired How many Children do You have: 2 Feels Safe at Home: Yes Childhood Exposure to Second-Hand Smoke: Yes caffeine: Yes Dental Care, Regularly: Yes Physical Activity Frequency: 5-6 Times per Week Seatbelt Use: always Sunscreen Use: No Assistive Devices: Walker and Wheelchair Review of System Unreliable as poor historian/cognitive decline Physical Exam Physical Exam: GEN NAD HEENT- anicteric sclera Abd- soft, mild lower ab tender -BL nephrostomy tubes in place with clear urine- Mild TTP at insertion sites R>L. No segura on my exam Ext- No edema Neuro- AAO times 2 Pscyh- Cooperative. Results & Data Vital Signs (Past 12 Hours) Vital Signs Temp Pulse Pulse Resp BP Pulse Ox O2 Del Method 02/18/24 10:49 36.9 C 72 18 109/72 97 Room Air 02/18/24 08:49 Room Air 02/18/24 07:31 67 02/18/24 07:10 36.7 C 69 20 116/68 95 Room Air 02/18/24 03:17 36.8 C 73 18 138/85 96 Room Air Laboratory Results Laboratory Results - last 48 hr 02/16/24 02/16/24 02/16/24 20:07 20:19 20:28 WBC 13.21 H RBC 4.00 L Hgb 10.7 L POC Hgb Hct 32.7 L POC Hct MCV 81.8 MCH 26.8 MCHC 32.7 RDW Std Deviation 47.8 H RDW Coeff of [place] 15.9 H Plt Count 312 MPV 8.9 L Immature Gran % (Auto) 1.1 Neut % (Auto) 70.2 Lymph % (Auto) 12.0 [place] % (Auto) 16.4 Eos % (Auto) 0.2 Baso % (Auto) 0.1 Neut # (Auto) 9.26 H Lymph # (Auto) 1.59 [place] # (Auto) 2.17 H Eos # (Auto) 0.03 Baso # (Auto) 0.01 Immature Gran # (Auto) 0.15 PT 11.4 INR 1.1 POC Sodium Sodium 138 POC Potassium Potassium 3.8 POC Chloride Chloride 108 H Carbon Dioxide 25 POC Total CO2 Anion Gap 5 POC Anion Gap POC BUN BUN 20 Creatinine 1.60 H POC Creatinine Est Cr Clr Drug Dosing 34.5 eGFR 42.75 BUN/Creatinine Ratio 12.5 Glucose 139 H POC Glucose (other) Lactate 1.6 Calcium 8.7 POC Ioniz Calcium Louis Magnesium 1.9 Total Bilirubin 0.4 Direct Bilirubin 0.0 AST 16 ALT 9 Alkaline Phosphatase 109 H Troponin I High Sens 10.4 Total Protein 6.2 Albumin 3.2 L Procalcitonin 0.41 Urine Color Yellow Urine Appearance Turbid A Urine pH 6.5 Ur Specific [place] 1.011 Urine Protein 2+ H Urine Glucose (UA) Negative Urine Ketones Negative Urine Blood 2+ H Urine Nitrite Positive A Urine Bilirubin Negative Urine Urobilinogen Negative Ur Leukocyte Esterase 3+ H Urine WBC (Auto) >50 H Urine RBC (Auto) >20 H U Hyaline Cast (Auto) 11-20 H U Epithel Cells (Auto) 0-2 Urine Bacteria (Auto) 4+ H Nasal Screen MRSA (PCR) Adenovirus (PCR) Not Detected B. pertussis DNA (PCR) Not Detected B.parapertussis DNA PCR Not Detected C. pneumoniae DNA (PCR) Not Detected Coronavirus OC43 (PCR) Not Detected Coronavirus HKU1 (PCR) Not Detected Coronavirus 229E (PCR) Not Detected SARS-CoV-2 (PCR) Not Detected Coronavirus NL63 (PCR) Not Detected Human Metapneumovir PCR Not Detected Influenza Type A (PCR) Not Detected Influenza Type B (PCR) Not Detected M. pneumoniae (PCR) Not Detected Parainfluenza 1 (PCR) Not Detected Parainfluenza 2 (PCR) Not Detected Parainfluenza 3 (PCR) Not Detected Parainfluenza 4 (PCR) Not Detected RSV (PCR) Not Detected Entero/Rhino (PCR) Not Detected 02/16/24 02/17/24 02/17/24 20:29 06:32 07:30 WBC 11.10 H RBC 3.97 L Hgb 10.6 L POC Hgb 10.5 L Hct 33.4 L POC Hct 31 L MCV 84.1 MCH 26.7 MCHC 31.7 L RDW Std Deviation 49.8 H RDW Coeff of [place] 16.0 H Plt Count 253 MPV 9.6 Immature Gran % (Auto) 1.4 Neut % (Auto) 66.2 Lymph % (Auto) 14.1 [place] % (Auto) 17.4 Eos % (Auto) 0.6 Baso % (Auto) 0.3 Neut # (Auto) 7.35 H Lymph # (Auto) 1.56 [place] # (Auto) 1.93 H Eos # (Auto) 0.07 Baso # (Auto) 0.03 Immature Gran # (Auto) 0.16 PT INR POC Sodium 138 Sodium POC Potassium 3.7 Potassium POC Chloride 105 Chloride Carbon Dioxide POC Total CO2 20 L Anion Gap POC Anion Gap 18.0 POC BUN 18 BUN Creatinine POC Creatinine 1.7 H Est Cr Clr Drug Dosing eGFR BUN/Creatinine Ratio Glucose POC Glucose (other) 132 H Lactate Calcium POC Ioniz Calcium Louis 1.12 Magnesium 1.9 Total Bilirubin Direct Bilirubin AST ALT Alkaline Phosphatase Troponin I High Sens Total Protein Albumin Procalcitonin Urine Color Urine Appearance Urine pH Ur Specific [place] Urine Protein Urine Glucose (UA) Urine Ketones Urine Blood Urine Nitrite Urine Bilirubin Urine Urobilinogen Ur Leukocyte Esterase Urine WBC (Auto) Urine RBC (Auto) U Hyaline Cast (Auto) U Epithel Cells (Auto) Urine Bacteria (Auto) Nasal Screen MRSA (PCR) Negative Adenovirus (PCR) B. pertussis DNA (PCR) B.parapertussis DNA PCR C. pneumoniae DNA (PCR) Coronavirus OC43 (PCR) Coronavirus HKU1 (PCR) Coronavirus 229E (PCR) SARS-CoV-2 (PCR) Coronavirus NL63 (PCR) Human Metapneumovir PCR Influenza Type A (PCR) Influenza Type B (PCR) M. pneumoniae (PCR) Parainfluenza 1 (PCR) Parainfluenza 2 (PCR) Parainfluenza 3 (PCR) Parainfluenza 4 (PCR) RSV (PCR) Entero/Rhino (PCR) 02/18/24 06:39 WBC 7.67 RBC 3.57 L Hgb 9.7 L POC Hgb Hct 29.6 L POC Hct MCV 82.9 MCH 27.2 MCHC 32.8 RDW Std Deviation 48.2 H RDW Coeff of [place] 15.9 H Plt Count 272 MPV 8.8 L Immature Gran % (Auto) 1.2 Neut % (Auto) 57.6 Lymph % (Auto) 21.5 [place] % (Auto) 17.7 Eos % (Auto) 1.7 Baso % (Auto) 0.3 Neut # (Auto) 4.42 Lymph # (Auto) 1.65 [place] # (Auto) 1.36 H Eos # (Auto) 0.13 Baso # (Auto) 0.02 Immature Gran # (Auto) 0.09 PT INR POC Sodium Sodium 138 POC Potassium Potassium 3.9 POC Chloride Chloride 111 H Carbon Dioxide 21 POC Total CO2 Anion Gap 6 POC Anion Gap POC BUN BUN 16 Creatinine 1.24 D POC Creatinine Est Cr Clr Drug Dosing 43.5 eGFR 58.05 BUN/Creatinine Ratio 12.9 Glucose 89 POC Glucose (other) Lactate Calcium 7.9 L POC Ioniz Calcium Louis Magnesium 1.9 Total Bilirubin Direct Bilirubin AST ALT Alkaline Phosphatase Troponin I High Sens Total Protein Albumin Procalcitonin Urine Color Urine Appearance Urine pH Ur Specific [place] Urine Protein Urine Glucose (UA) Urine Ketones Urine Blood Urine Nitrite Urine Bilirubin Urine Urobilinogen Ur Leukocyte Esterase Urine WBC (Auto) Urine RBC (Auto) U Hyaline Cast (Auto) U Epithel Cells (Auto) Urine Bacteria (Auto) Nasal Screen MRSA (PCR) Adenovirus (PCR) B. pertussis DNA (PCR) B.parapertussis DNA PCR C. pneumoniae DNA (PCR) Coronavirus OC43 (PCR) Coronavirus HKU1 (PCR) Coronavirus 229E (PCR) SARS-CoV-2 (PCR) Coronavirus NL63 (PCR) Human Metapneumovir PCR Influenza Type A (PCR) Influenza Type B (PCR) M. pneumoniae (PCR) Parainfluenza 1 (PCR) Parainfluenza 2 (PCR) Parainfluenza 3 (PCR) Parainfluenza 4 (PCR) RSV (PCR) Entero/Rhino (PCR) Diagnostic Findings Microbiology 02/16/24 20:19 Urine,Clean Catch Urine Culture - Preliminary Pseudomonas aeruginosa Escherichia coli 02/16/24 20:28 Blood Aerobic Blood Culture - Preliminary No growth in Aerobic bottle after 24 hours. 02/16/24 20:28 Blood Anaerobic Blood Culture - Final 02/16/24 20:28 Blood Aerobic Blood Culture - Preliminary No growth in Aerobic bottle after 24 hours. 02/16/24 20:28 Blood Anaerobic Blood Culture - Preliminary No growth in Anaerobic bottle after 24 hours. Chest X-Ray 02/16/24 19:52 Exam(s): XR CXR 1 VIEW EXAM: XR Chest, 1 View CLINICAL HISTORY: Reason for exam: Sepsis. TECHNIQUE: Frontal view of the chest. COMPARISON: Chest x-ray 08/13/2023 FINDINGS: Lungs: Patient is rotated. No Consolidation. No overt edema. Pleural space: No pleural effusion. No pneumothorax. Heart: Unremarkable. No cardiomegaly. IMPRESSION: No acute cardiopulmonary abnormality. Electronically signed by: Lauri Briscoe MD 02/16/24 21:20 PM Medications Administered Home Medications Medication Instructions Recorded Confirmed Last Taken acetaminophen 325 mg tablet 325 mg PO Q4H PRN PAIN/FEVER 07/28/23 01/25/24 Unknown mirtazapine 15 mg tablet 15 mg PO HS #30 tabs 09/12/23 01/25/24 01/24/24 cholecalciferol (vitamin D3) 50 2,000 unit PO DAILY #90 caps 09/16/23 01/25/24 01/24/24 mcg (2,000 unit) capsule ferrous sulfate 325 mg (65 mg 325 mg PO DAILY #90 tabs 09/16/23 01/25/24 01/24/24 iron) tablet multivitamin (Multiple Vitamins 1 tab PO DAILY #90 tabs 09/16/23 01/25/24 01/24/24 tablet) psyllium husk 0.4 gram capsule 0.4 g PO DAILY #180 caps 09/16/23 01/25/24 01/24/24 (Metamucil) cholestyramine-aspartame 4 gram 1 ea PO BID 10/16/23 01/25/24 01/24/24 oral powder for susp in a packet (Prevalite) diphenoxylate-atropine 2.5 1 tab PO Q12H PRN Diarrhea 10/16/23 01/25/24 Unknown mg-0.025 mg tablet (Lomotil) montelukast 10 mg tablet 10 mg PO DAILY 10/16/23 01/25/24 01/24/24 polyethylene glycol 3350 17 17 g PO DAILY PRN Constipation 10/16/23 01/25/24 Unknown gram/dose oral powder (Miralax) mupirocin 2 % topical ointment 1 applic topical TID #22 grams 11/11/23 01/25/24 01/25/24 vancomycin 125 mg capsule 125 mg PO QID 01/25/24 01/25/24 01/24/24 Active Medications Generic Name Dose Route Start Last Admin Trade Name Freq PRN Reason Stop Dose Admin Cholestyramine Resin 4 gm 02/17/24 10:00 02/18/24 11:00 Cholestyramine Light 4 Gm Pkt PO 03/18/24 09:59 4 gm BID@1000,2200 IRVING Administration Ferrous Sulfate 325 mg 02/17/24 09:00 02/18/24 08:35 Ferrous Sulfate 325 Mg Tab PO 03/18/24 08:59 325 mg DAILY IRVING Administration Heparin Sodium (Porcine) 5,000 units 02/17/24 09:00 02/18/24 08:34 Heparin Sod 5,000 Unit/0.5 Ml Vial SQ 03/18/24 08:59 5,000 units Q12 IRVING Administration Cefepime HCl 2,000 mg in 20 mls @ 5 mls/min 02/17/24 00:00 02/18/24 13:10 Maxipime 2000mg IV 02/27/24 00:00 5 mls/min Q12H IRVING Administration Protocol Mirtazapine 15 mg 02/17/24 21:00 02/17/24 21:08 Mirtazapine Tab 15 Mg Tab PO 03/18/24 20:59 15 mg HS IRVING Administration Montelukast Sodium 10 mg 02/17/24 09:00 02/18/24 08:35 Montelukast Sodium 10 Mg Tablet PO 03/18/24 08:59 10 mg DAILY IRVING Administration Nystatin 1 appln 02/17/24 14:00 02/18/24 13:09 Nystatin Powder 15gm Btl EXT 03/18/24 13:59 1 appln TID IRVING Administration Vitamin D 50 mcg 02/17/24 09:00 02/18/24 08:35 Cholecalciferol 25 Mcg (1000 Units) Tab PO 03/18/24 08:59 50 mcg DAILY IRVING Administration (1) UTI (urinary tract infection) Urinary tract infection type: site unspecified (2) Sepsis Sepsis acute organ dysfunction status: unspecified Sepsis type: sepsis due to unspecified organism Qualified Code(s): A41.9 - Sepsis, unspecified organism
[2024-02-18] MEDS: VANCOMYCIN HCL 125 MG/2.5ML SOLN PO SCH (13:59)
[2024-02-18] MEDS: CHERRY SYRUP 5 ML UDP PO SCH (13:59)
--- NOTE | 2024-02-18 19:48 | Hospitalist Progress Note ---
Date of Service February 18, 2024 Assessment & Plan (1) Sepsis due to urinary tract infection: (2) Catheter-associated urinary tract infection: (3) CKD (chronic kidney disease): (4) Cervical cord myelomalacia: (5) Quadriparesis: (6) C. difficile diarrhea: Plan Sepsis due to catheter associated UTI- On 01/25/2024, urine culture with Pseudomonas x 2 species On 11/25/21, urine culture with E. coli that cephalosporin resistant On 05/02/2020, Klebsiella pneumoniae pansensitive Most recent admission from 10/15-10/17/2023 for similar presentation Patient was given meropenem 500 mg IV from the ED Follow urine culture and sensitivity Will place on cefepime 2 g IV every 12 hours Status post NSS 2 L bolus from the ED Maintenance fluids NSS at 80 mL/h x 1 L Lowest blood pressure recorded 87/53, with improvement to 101/57 after rehydration Blood pressure has been stable on 02/16 D/W Kalyani Rothman, will not exchange tubes at the [facility] unless patient decompensates. C. difficile diarrhea- Placed on vancomycin 25 mg p.o. 4 times daily. Discussed with [place] [facility], empirically treated patient with vancomycin; diarrhea subsided. will treat for 10 days as tet was not ordered. Patient with normal stools, cannot order c. diff now. CKD- Creatinine 1.60 on admission, which is his baseline Follow laboratories in the a.m. Quadriparesis/cervical cord myelomalacia- Continue usual supportive medications Admission and Anticipated Discharge Date Admission Date: February 16, 2024 Subjective Patient reports no new symptoms. Physical Exam Physical Exam: The patient is awake, alert and oriented 3 HEENT--PERRL, EOMI Neck--supple. No JVD. No bruits. Thyroid normal, trachea midline, no adenopathy. Heart--normal S1 and S2. No murmurs, rubs or gallops. Lungs--clear bilaterally, no respiratory distress, no accessory muscle use. Abdomen--normal bowel sounds and soft. Nontender. Nondistended Extremities-- No edema. There are good distal pulses b/l. Neurologic--cranial nerves II through XII grossly intact. Rheumatologic--quadriparesis Psychiatric--normal affect. Results & Data Results & Data Vital Signs (Past 12 Hours) Vital Signs Temp Pulse Resp BP Pulse Ox O2 Del Method 02/18/24 19:08 36.8 C 77 18 135/72 98 Room Air 02/18/24 15:35 36.3 C L 68 18 110/68 98 Room Air 02/18/24 10:49 36.9 C 72 18 109/72 97 Room Air 02/18/24 08:49 Room Air PG Care Time/CCT Total # of Minutes Spent Total Time Spent with Patient: Total time spent is greater than 50% in coordination of care (as documented) at patient's floor/unit and/or counseling patient: Coding Level of Care Code 57231 SUB INP/OBS CARE 3/50MIN Diagnoses Sepsis due to urinary tract infection A41.9; N39.0 Catheter-associated urinary tract infection T83.511A; N39.0 CKD (chronic kidney disease) N18.9 Chronic kidney disease stage: unspecified stage Cervical cord myelomalacia G95.89 Quadriparesis G82.50 C. difficile diarrhea A04.72 Time Spent (min) 50 (3) CKD (chronic kidney disease) Chronic kidney disease stage: unspecified stage Qualified Code(s): N18.9 - Chronic kidney disease, unspecified
[2024-02-19 06:50] LABS: Basophils # (auto) 0.03 K/uL (0.00-0.20); Basophils % (auto) 0.4 %; Eosinophils # (auto) 0.12 K/uL (0.00-0.50); Eosinophils % (auto) 1.8 %; Hematocrit (blood only) 31.7 % (42.0-52.0); Hemoglobin 10.4 g/dl (14.0-18.0); Immature Granulocytes % (auto) 1.5 %; Lymphocytes # (auto) 1.76 K/uL (1.20-3.40); Mean Corpuscular Hgb Conc 32.8 g/dL (32.0-36.0); Mean Corpuscular Volume 82.3 fL (80.0-100.0); Monocytes # (auto) 1.01 K/uL (0.11-0.59); Monocytes % (auto) 14.9 %; Neutrophils # (auto) 3.74 K/uL (1.40-6.50); Neutrophils % (auto) 55.4 %; Platelet Count 292 K/uL (130-400); RDW Standard Deviation 48.3 fL (36.4-46.3); Red Blood Count 3.85 M/uL (4.70-6.10); White Blood Count 6.76 K/ul (4.8-10.8)
[2024-02-19 07:07] LABS: Calcium 8.1 mg/dl (8.6-10.3); Magnesium 1.9 mg/dl (1.7-2.4); Potassium 4.1 mmol/L (3.5-5.1)
[2024-02-19 07:12] LABS: BUN Creatinine Ratio 15.8 (10-20); Creatinine Clr Calc Pharmacy 45.4 ml/min
[2024-02-19] MEDS: CHERRY SYRUP 5 ML UDP PO SCH (08:38)
[2024-02-19] MEDS: VANCOMYCIN HCL 125 MG/2.5ML SOLN PO SCH (08:38)
[2024-02-19] MEDS ORDERED: VANCOMYCIN HCL 125 MG/2.5ML SOLN PO SCH (09:00)
[2024-02-19] MEDS ORDERED: CHERRY SYRUP 5 ML UDP PO SCH (09:00)
--- NOTE | 2024-02-19 22:00 | Hospitalist Progress Note ---
Date of Service February 19, 2024 Assessment & Plan (1) Sepsis due to urinary tract infection: (2) Catheter-associated urinary tract infection: (3) CKD (chronic kidney disease): (4) Cervical cord myelomalacia: (5) Quadriparesis: (6) C. difficile diarrhea: Plan Sepsis due to catheter associated UTI- On 01/25/2024, urine culture with Pseudomonas x 2 species On 11/25/21, urine culture with E. coli that cephalosporin resistant On 05/02/2020, Klebsiella pneumoniae pansensitive Most recent admission from 10/15-10/17/2023 for similar presentation Patient was given meropenem 500 mg IV from the ED Follow urine culture and sensitivity Will place on cefepime 2 g IV every 12 hours Status post NSS 2 L bolus from the ED Maintenance fluids NSS at 80 mL/h x 1 L Lowest blood pressure recorded 87/53, with improvement to 101/57 after rehydration Blood pressure has been stable on 02/16 D/W Kalyani Rothman, will not exchange tubes at the [facility] unless patient decompensates. Now growing resistant bacteria with limited options. This may need to be revisited on 01/18 C. difficile diarrhea- Placed on vancomycin 25 mg p.o. 4 times daily. Discussed with Joslin Oskar, empirically treated patient with vancomycin; diarrhea subsided. will treat for 10 days as test was not ordered. Final dose will be on 01/20 Patient with normal stools, cannot order c. diff now. CKD- Creatinine 1.60 on admission, which is his baseline Follow laboratories in the a.m. Quadriparesis/cervical cord myelomalacia- Continue usual supportive medications Admission and Anticipated Discharge Date Admission Date: February 16, 2024 Subjective Patient with no new symptoms. Physical Exam Physical Exam: The patient is awake, alert and oriented 3 HEENT--PERRL, EOMI Neck--supple. No JVD. No bruits. Thyroid normal, trachea midline, no adenopathy. Heart--normal S1 and S2. No murmurs, rubs or gallops. Lungs--clear bilaterally, no respiratory distress, no accessory muscle use. Abdomen--normal bowel sounds and soft. Nontender. Nondistended Extremities-- No edema. There are good distal pulses b/l. Neurologic--cranial nerves II through XII grossly intact. Rheumatologic--quadriparesis Psychiatric--normal affect. Results & Data Results & Data Vital Signs (Past 12 Hours) Vital Signs Temp Pulse Pulse Resp BP Pulse Ox O2 Del Method 02/19/24 20:27 36.7 C 74 18 114/60 94 Room Air 02/19/24 16:04 36.3 C L 67 22 110/68 97 Room Air 02/19/24 15:00 80 02/19/24 10:48 36.8 C 71 12 135/80 99 Room Air PG Care Time/CCT Total # of Minutes Spent Total Time Spent with Patient: Total time spent is greater than 50% in coordination of care (as documented) at patient's floor/unit and/or counseling patient: Coding Level of Care Code 38263 SUB INP/OBS CARE 2/35MIN Diagnoses Sepsis due to urinary tract infection A41.9; N39.0 Catheter-associated urinary tract infection T83.511A; N39.0 CKD (chronic kidney disease) N18.9 Chronic kidney disease stage: unspecified stage Cervical cord myelomalacia G95.89 Quadriparesis G82.50 C. difficile diarrhea A04.72 (3) CKD (chronic kidney disease) Chronic kidney disease stage: unspecified stage Qualified Code(s): N18.9 - Chronic kidney disease, unspecified
[2024-02-20 06:59] LABS: BUN Creatinine Ratio 13.5 (10-20); Calcium 8.4 mg/dl (8.6-10.3); Creatinine Clr Calc Pharmacy 36.3 ml/min; Potassium 4.6 mmol/L (3.5-5.1)
--- NOTE | 2024-02-20 13:39 | Hospitalist Progress Note ---
Date of Service February 20, 2024 Assessment & Plan (1) Sepsis due to urinary tract infection: Plan: Sepsis/complicated UTI Pseudomonas/ESBL E. coli UTI Add sepsis criteria on admission. No longer meets criteria, doing well on cefepime Complicated by nephrostomy status Does continue to have a little bit of pain in his right lower flank although this is several inches below his nephrostomy tube Reviewed ID recommendations as patient does continue to have some discomfort at his nephrostomy sites although mild CTA/P is recommended Current UCx is positive for both ESBL E. coli, sensitive to cefepime and Pseudomonas also sensitive to cefepime. 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 On review he has been managed at [facility] in the past and was due for an exchange 01/2024. Call urology placed to review outpatient follow-up versus tube exchange. If tubes are indwelling they are at high risk of colonization/biofilm formation and antibiotics should be extended through exchange. 01/26/2024 right nephrostomy tube was salvaged by IR. Was referred for displacement. Patient also with some green/purulent penile discharge noted by nursing 02/19. Culture sent. Patient has a history of ESBL/Pseudomonas infection, given purulence reasonable to test has does not have any underlying MRSA, (2) C. difficile diarrhea: Plan: C. difficile diarrhea- Patient was treated empirically with vancomycin and diarrhea improved. Will continue vancomycin 1 2 5 mg every 4 hours, last dose 02/21/2024 Stools improved (3) Catheter-associated urinary tract infection: (4) CKD (chronic kidney disease): Plan: CKD- Creatinine baseline around 1.6 Creatinine 1.48 on 02/19. No STEVE (5) Cervical cord myelomalacia: Plan: Quadriparesis/cervical cord myelomalacia No acute change and no new neurologic deficits. Supportive care (6) Quadriparesis: Admission and Anticipated Discharge Date Admission Date: February 16, 2024 Results & Data Results & Data Vital Signs (Past 12 Hours) Vital Signs Temp Pulse Pulse Resp BP Pulse Ox O2 Del Method 02/20/24 12:00 36.5 C 67 18 130/77 97 Room Air 02/20/24 07:57 60 02/20/24 07:52 36.7 C 68 18 135/81 97 Room Air PG Care Time/CCT Total # of Minutes Spent Total Time Spent with Patient: Total time spent is greater than 50% in coordination of care (as documented) at patient's floor/unit and/or counseling patient: Coding Diagnoses Sepsis due to urinary tract infection A41.9; N39.0 C. 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
--- NOTE | 2024-02-20 14:15 | CT Scan Report ---
EXAM: CT Abdomen and Pelvis Without Intravenous Contrast INDICATION: Right flank pain. Nephrostomy. TECHNIQUE: Axial computed tomography images of the abdomen and pelvis without intravenous contrast. Sagittal and coronal reformatted images were created and reviewed. This CT exam was performed using one or more of the following dose reduction techniques: automated exposure control, adjustment of the mA and/or kV according to patient size, and/or use of iterative reconstruction technique. COMPARISON: 12/02/2023 FINDINGS: Limitations: None. Lung bases: There is scarring in the bilateral lower lobes. There is a new right paraspinal well-defined oval 5 x 6 mm noncalcified lower lobe nodule. Pleural space: No visualized pleural effusion or pneumothorax. Heart: Stable mild cardiomegaly. Mediastinum: No abnormality noted. ABDOMEN: Liver: Lack of intravenous contrast limits detection of some masses. No abnormality noted. Gallbladder and bile ducts: Multiple gallstones present. No ductal dilatation or stones. Pancreas: No pancreatic mass, calcification, inflammation or ductal dilation noted. Spleen: No significant abnormality noted. Adrenals: No significant abnormality noted. Kidneys and ureters: Stable bilateral nephrostomy tubes. No fluid along the course of either tube. There is stable mild hydroureteronephrosis and perinephric and periureteral edema. Small bubble of air noted in the left renal pelvis. Simple left renal cyst/s. No simple cyst follow-up necessary. Right kidney appears normal. No renal stone, hydronephrosis or perinephric fluid. Stomach and bowel: Stable bowel containing right inguinal hernia. Moderate amounts of stool throughout the redundant colon. No obstruction or inflammatory process. PELVIS: Appendix: No findings to suggest acute appendicitis. Bladder: Collapsed air-filled urinary bladder with circumferential thickening. Reproductive: Prostatectomy. ABDOMEN and PELVIS: Intraperitoneal space: No free air. No significant fluid collection. Bones/joints: No acute changes. Soft tissues: No abdominal wall fluid collection. Vasculature: No abdominal aortic aneurysm. Lymph nodes: No pathologically enlarged lymph nodes. IMPRESSION: 1. Stable appearance of bilateral nephrostomy tubes, hydronephrosis and urinary tract inflammatory changes. 2. Stable air in the collapsed, circumferentially thickened bladder. Correlate with urinalysis for cystitis. 3. Moderate to large amounts of colonic stool without obstruction. 4. Cholelithiasis. 5. New approximate 6 mm medial right lower lobe pulmonary nodule. Fleischner Society Guidelines (MacMahon, et al. Radiology 2017; 284(1):228-43) suggest the following. For low-risk patients recommend follow-up chest CT at 6-12 months. If unchanged consider an additional follow-up CT at 18-24 months. For high-risk patients initial follow-up chest CT at 6-12 months and if unchanged, 18-24 months. ACT 112: Negative or not required by law. Electronically signed by Nicole Smallwood 02-20-2024 2:14 PM
--- NOTE | 2024-02-20 15:31 | Infectious Disease Progress Nt ---
Date of Service February 20, 2024 Assessment & Plan (1) UTI (urinary tract infection): (2) Sepsis: (3) Sepsis due to urinary tract infection: (4) Acute kidney injury superimposed on CKD: Plan This is a 63-year-old man with a past medical history of CKD, quadriparesis, cognitive decline C. 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 Patient has cognitive decline and is a poor historian. History obtained from discussion with bedside nurse and review of the chart. On exam patient denies any abdominal pain, chills. He does admit to having an episode of nausea and vomiting. He is unable to tell me how long his nephrostomy tubes have been placed. In the ED febrile with a T of 38, pulse 87, RR 2224, blood pressure 87/53, O2 sats 96% on room air. Labs: WBC 13.21, BUN 20, creatinine 1.60. Urinalysis (per nursing likely obtained from nephrostomy tubes) positive nitrites, 3+ leukocyte esterase, greater than 50 WBC, 0-2 epithelial cells. Procalcitonin 0.40. Respiratory viral panel negative. Urine culture growing Pseudomonas aeruginosa with intermediate sensitivity to gentamicin and E. coli pending sensitivities. Blood cultures with no growth to date. Chest x-ray shows no acute pulmonary process. He is currently on oral vancomycin and IV cefepime. ID consulted for UTI Micro: Blood cultures 02/15 NGTD Urine culture 02/15 (nephrostomy tubes per report ) PSA ( I gent), Ecoli R to amp, amox/clac cip, lev, ceftaz. I to pip evaristo Urine Culture Final 02/19/24-1120 Organism 1 Pseudomonas aeruginosa Riddle Count >100,000 CFU/ml Sens Sensitivities to Follow Organism 2 Escherichia coli Riddle Count >100,000 CFU/ml Sens Sensitivities to Follow P aerugino E coli RX M.I.C. RX M.I.C. --- --------- --- --------- Amikacin S <=16 S <=16 Amox/Clav R >8 Ampicillin R >16 Amp/Sul I 16/8 Aztreonam S <=4 Cefazolin R >16 Cefepime S <=2 S <=2 Cefotaxime S 8 Cefoxitin R >16 Ceftazidime S <=1 Ceftriaxone R 32 Cefuroxime R >16 Ciprofloxacin S <=0.25 R >2 Ertapenem S <=0.5 Gentamicin I 8 S <=2 Levofloxacin S 1 R >4 Meropenem S <=1 S <=1 Nitrofurantoin S <=32 Tobramycin S <=2 S <=2 Trimeth/Sulfa S <=0.5/9.5 Pip/Tazo S <=8 I 32 Antibiotics: Oral vancomycin 02/16ongoing Cefepime 02/15ongoing # Sepsis # Probable complicated UTI in the setting of bilateral nephrostomy tubes # History of Bilateral hydronephrosis status post bilateral nephrostomy tubes # History of C. difficile: No current diarrhea # History of spinal surgery Discussion: He presented with fever, tachycardia, hypotension and tachypnea. He has some pain at the bilateral nephrostomy sites but no jignesh urinary signs or symptoms. He does admit to episode of nausea and vomiting. Urine culture from nephrostomy tube growing. Pseudomonas and E. coli so far. He has a history of c difficile but no active diarrhea at this time. per report, he had diarrhea prior to admission and was started on oral vanco for Cdiff ( unclear if positive testing). CTAP shows Stable appearance of bilateral nephrostomy tubes, hydronephrosis and urinary tract inflammatory changes. Moderate to large amounts of colonic stool without obstruction. There is a new 6mm pulm nodule . On RA Will need follow up CT No plan for change of nephrostomy per urology . Recommendations: -Continue cefepime 2 g iv q12 ( GOGO 2) for coverage of Pseudomonas and MDR Ecoli. Complete 7 days (02/15-02/22). Urology does not plan to exchange nephrostomy. Recurrent infection likely with colonized tubes. He maloney sno bacteremia and is HDS, -Follow-up blood cultures -Unclear if he had cdiff diagnosed prior to admission. If so complete total ot 10 d oral vanco q6hrs from when started outpatient ( scheduled EOT 01/20). After this change to secondary prophylaxis dosing during concomitant antibiotic use as he is at increased risk for recurrence given age. (vancomycin 125 mg po once daily) for the duration of antibiotic treatment plus an additional tail of one week ( EOT 03/01) ID will sign off. Call with questions. Marline Srivastava MD, MPH Infectious Disease [facility], [facility] Call [phone] with questions Admission and Anticipated Discharge Date Admission Date: February 16, 2024 Subjective This patient recommendation is based on a telemedicine consult request which was completed asynchronously through chart review and information provided by the primary physician. The patient was not seen or examined today. The evaluation is consultative in nature and all patient care and treatment decisions can either be accepted or rejected by the patient's primary hospital-based treating physician using their own independent medical judgment for their patient. Time Spent Reviewing Chart: 31+ minutes Per chart review pt was clinically diagnosed with Cdiff prior to admission . Can't test now as no diarrhea No plans for Neph tube change per Urology unless he decompensates CTAP reviewed. UCx with Psa and MDR Ecoli Results & Data Vital Signs (Past 12 Hours) Vital Signs Temp Pulse Pulse Resp BP Pulse Ox O2 Del Method 02/20/24 12:00 36.5 C 67 18 130/77 97 Room Air 02/20/24 07:57 60 02/20/24 07:52 36.7 C 68 18 135/81 97 Room Air Laboratory Results [facility] 02/20/24 06:21 Sodium 143 Potassium 4.6 Chloride 112 H Carbon Dioxide 25 BUN 20 Creatinine 1.48 H Glucose 90 Calcium 8.4 L Laboratory Results - last 48 hr 02/19/24 02/20/24 06:21 06:21 WBC 6.76 RBC 3.85 L Hgb 10.4 L Hct 31.7 L MCV 82.3 MCH 27.0 MCHC 32.8 RDW Std Deviation 48.3 H RDW Coeff of [place] 16.0 H Plt Count 292 MPV 9.0 L Immature Gran % (Auto) 1.5 Neut % (Auto) 55.4 Lymph % (Auto) 26.0 [place] % (Auto) 14.9 Eos % (Auto) 1.8 Baso % (Auto) 0.4 Neut # (Auto) 3.74 Lymph # (Auto) 1.76 [place] # (Auto) 1.01 H Eos # (Auto) 0.12 Baso # (Auto) 0.03 Immature Gran # (Auto) 0.10 Sodium 141 143 Potassium 4.1 4.6 Chloride 114 H 112 H Carbon Dioxide 21 25 Anion Gap 6 6 BUN 19 20 Creatinine 1.20 1.48 H Est Cr Clr Drug Dosing 45.4 36.3 eGFR 60.38 46.94 BUN/Creatinine Ratio 15.8 13.5 Glucose 87 90 Calcium 8.1 L 8.4 L Magnesium 1.9 Diagnostic Findings Microbiology 02/16/24 20:19 Urine,Clean Catch Urine Culture - Final Pseudomonas aeruginosa Escherichia coli 02/16/24 20:28 Blood Aerobic Blood Culture - Preliminary No growth in Aerobic bottle after 48 hours. 02/16/24 20:28 Blood Anaerobic Blood Culture - Preliminary No growth in Anaerobic bottle after 48 hours. 02/16/24 20:28 Blood Aerobic Blood Culture - Preliminary No growth in Aerobic bottle after 48 hours. 02/16/24 20:28 Blood Anaerobic Blood Culture - Final Abdomen/Pelvis CT 02/20/24 13:45 EXAM: CT Abdomen and Pelvis Without Intravenous Contrast INDICATION: Right flank pain. Nephrostomy. TECHNIQUE: Axial computed tomography images of the abdomen and pelvis without intravenous contrast. Sagittal and coronal reformatted images were created and reviewed. This CT exam was performed using one or more of the following dose reduction techniques: automated exposure control, adjustment of the mA and/or kV according to patient size, and/or use of iterative reconstruction technique. COMPARISON: 12/02/2023 FINDINGS: Limitations: None. Lung bases: There is scarring in the bilateral lower lobes. There is a new right paraspinal well-defined oval 5 x 6 mm noncalcified lower lobe nodule. Pleural space: No visualized pleural effusion or pneumothorax. Heart: Stable mild cardiomegaly. Mediastinum: No abnormality noted. ABDOMEN: Liver: Lack of intravenous contrast limits detection of some masses. No abnormality noted. Gallbladder and bile ducts: Multiple gallstones present. No ductal dilatation or stones. Pancreas: No pancreatic mass, calcification, inflammation or ductal dilation noted. Spleen: No significant abnormality noted. Adrenals: No significant abnormality noted. Kidneys and ureters: Stable bilateral nephrostomy tubes. No fluid along the course of either tube. There is stable mild hydroureteronephrosis and perinephric and periureteral edema. Small bubble of air noted in the left renal pelvis. Simple left renal cyst/s. No simple cyst follow-up necessary. Right kidney appears normal. No renal stone, hydronephrosis or perinephric fluid. Stomach and bowel: Stable bowel containing right inguinal hernia. Moderate amounts of stool throughout the redundant colon. No obstruction or inflammatory process. PELVIS: Appendix: No findings to suggest acute appendicitis. Bladder: Collapsed air-filled urinary bladder with circumferential thickening. Reproductive: Prostatectomy. ABDOMEN and PELVIS: Intraperitoneal space: No free air. No significant fluid collection. Bones/joints: No acute changes. Soft tissues: No abdominal wall fluid collection. Vasculature: No abdominal aortic aneurysm. Lymph nodes: No pathologically enlarged lymph nodes. IMPRESSION: 1. Stable appearance of bilateral nephrostomy tubes, hydronephrosis and urinary tract inflammatory changes. 2. Stable air in the collapsed, circumferentially thickened bladder. Correlate with urinalysis for cystitis. 3. Moderate to large amounts of colonic stool without obstruction. 4. Cholelithiasis. 5. New approximate 6 mm medial right lower lobe pulmonary nodule. Fleischner Society Guidelines (MacMahon, et al. Radiology 2017; 284(1):228-43) suggest the following. For low-risk patients recommend follow-up chest CT at 6-12 months. If unchanged consider an additional follow-up CT at 18-24 months. For high-risk patients initial follow-up chest CT at 6-12 months and if unchanged, 18-24 months. ACT 112: Negative or not required by law. Electronically signed by Nicole Smallwood 02-20-2024 2:14 PM Medications Administered Home Medications Medication Instructions Recorded Confirmed Last Taken acetaminophen 325 mg tablet 325 mg PO Q4H PRN PAIN/FEVER 07/28/23 01/25/24 Unknown mirtazapine 15 mg tablet 15 mg PO HS #30 tabs 09/12/23 01/25/24 01/24/24 cholecalciferol (vitamin D3) 50 2,000 unit PO DAILY #90 caps 09/16/23 01/25/24 01/24/24 mcg (2,000 unit) capsule ferrous sulfate 325 mg (65 mg 325 mg PO DAILY #90 tabs 09/16/23 01/25/24 01/24/24 iron) tablet multivitamin (Multiple Vitamins 1 tab PO DAILY #90 tabs 09/16/23 01/25/24 01/24/24 tablet) psyllium husk 0.4 gram capsule 0.4 g PO DAILY #180 caps 09/16/23 01/25/24 01/24/24 (Metamucil) cholestyramine-aspartame 4 gram 1 ea PO BID 10/16/23 01/25/24 01/24/24 oral powder for susp in a packet (Prevalite) diphenoxylate-atropine 2.5 1 tab PO Q12H PRN Diarrhea 10/16/23 01/25/24 Unknown mg-0.025 mg tablet (Lomotil) montelukast 10 mg tablet 10 mg PO DAILY 10/16/23 01/25/24 01/24/24 polyethylene glycol 3350 17 17 g PO DAILY PRN Constipation 10/16/23 01/25/24 Unknown gram/dose oral powder (Miralax) mupirocin 2 % topical ointment 1 applic topical TID #22 grams 11/11/23 01/25/24 01/25/24 vancomycin 125 mg capsule 125 mg PO QID 01/25/24 01/25/24 01/24/24 Active Medications Generic Name Dose Route Start Last Admin Trade Name Jose Enriqueq PRN Reason Stop Dose Admin Peters Syrup 5 ml 02/19/24 09:00 02/20/24 08:18 Peters Syrup 5 Ml Udp PO 02/29/24 08:59 5 ml DAILY IRVING Administration Cholestyramine Resin 4 gm 02/17/24 10:00 02/20/24 09:43 Cholestyramine Light 4 Gm Pkt PO 03/18/24 09:59 Not Given BID@1000,2200 IRVING Ferrous Sulfate 325 mg 02/17/24 09:00 02/20/24 08:21 Ferrous Sulfate 325 Mg Tab PO 03/18/24 08:59 325 mg DAILY IRVING Administration Heparin Sodium (Porcine) 5,000 units 02/17/24 09:00 02/20/24 08:19 Heparin Sod 5,000 Unit/0.5 Ml Vial SQ 03/18/24 08:59 Not Given Q12 IRVING Cefepime HCl 2,000 mg in 20 mls @ 5 mls/min 02/17/24 00:00 02/20/24 12:49 Maxipime 2000mg IV 02/27/24 00:00 5 mls/min Q12H IRVING Administration Protocol Mirtazapine 15 mg 02/17/24 21:00 02/19/24 22:34 Mirtazapine Tab 15 Mg Tab PO 03/18/24 20:59 Not Given HS IRVING Montelukast Sodium 10 mg 02/17/24 09:00 02/20/24 08:21 Montelukast Sodium 10 Mg Tablet PO 03/18/24 08:59 10 mg DAILY IRVING Administration Nystatin 1 appln 02/17/24 14:00 02/20/24 13:31 Nystatin Powder 15gm Btl EXT 03/18/24 13:59 1 appln TID IRVING Administration Vancomycin HCl 125 mg 02/19/24 09:00 02/20/24 08:18 Vancomycin Hcl 125 Mg/2.5ml Soln PO 02/29/24 08:59 125 mg DAILY IRVING Administration Vitamin D 50 mcg 02/17/24 09:00 02/20/24 08:20 Cholecalciferol 25 Mcg (1000 Units) Tab PO 03/18/24 08:59 50 mcg DAILY IRVING Administration (1) UTI (urinary tract infection) Urinary tract infection type: site unspecified (2) Sepsis Sepsis acute organ dysfunction status: unspecified Sepsis type: sepsis due to unspecified organism Qualified Code(s): A41.9 - Sepsis, unspecified organism
--- NOTE | 2024-02-20 15:59 | Hospitalist Progress Note ---
Date of Service February 20, 2024 Assessment & Plan (1) Sepsis due to urinary tract infection: Plan: Complicated UTI with indwelling bilateral nephrostomy tubes Culture positive for Pseudomonas/ESBL E. coli ID recommendations reviewed. Recommend continuing cefepime, follow UCx to finalization, follow blood cultures, and review of CTA/P given pain near his right urostomy site. CTA/P shows stable appearance of the nephrostomy tubes, and thickened bladder with changes consistent with known cystitis. Did review with urology. Patient with chronic colonization with ESBL/pseudomonal organisms. Agree that is not emergent to pursue transfer for tube exchange unless patient decompensates or tubes are malpositioned, fortunately neither of these are the case at this time. May keep scheduled outpatient follow-up for his history Continue cefepime every 12 hours 02/15 - 02/22 Patient appears medically stable. PT/OT is pending. Case management following. [facility] Can either have home health set up with infusion to continue through 02/22 if appropriate services are available. Unfortunately due to indwelling nephrostomy tubes and chronic colonization he is at high risk of relapsing infection Additionally some concern for a purulent/green discharge from penis overnight per nursing staff. Gram stain/culture obtained, given purulence reasonable to follow for results of this as patient is not on MRSA coverage should this be present Additionally CT does show a 6 mm right lower lobe nodule. This will need repeat interval CT at 6 to 12 months. (2) C. difficile diarrhea: Plan: Diagnosed and treated with vancomycin 125 mg p.o. 4 times daily as outpatient. Final dose was scheduled to be 02/21/2024 Will continue vancomycin 125 mg 4 times daily through 01/24 and then extend this to cover for the duration of his antibiotic treatment +1 week as 125 mg p.o. daily for prophylaxis per ID recommendations. 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 Has some continued right flank pain closer to the buttock. No fevers chills or sweats overnight. Somewhat frustrated by long hospital course, no other questions or concerns at time of bedside visit. No chest pain or chest pressure. Eating breakfast comfortably at the bedside at time of visit. Per nursing staff some concern for green/purulent penile discharge Physical Exam Physical Exam: General: A&Ox3. NAD. Cooperative. HEENT: Atraumatic, normocephalic. Pulm: CTAB A&P. -wheezes, -rales, -rhonchi. Symmetrical chest rise. No increase in work of breathing. No respiratory distress. Cardiac: RRR, -mrg. Radial pulses intact and symmetrical. Abdominal: No abdominal tenderness, guarding/rebound. Does have some right lower quadrant back tenderness to palpation, no tenderness directly around nephrostomy tubes and CVA tenderness is not present Extremity: Quadriplegia Results & Data Results & Data Vital Signs (Past 12 Hours) Vital Signs Temp Pulse Pulse Resp BP Pulse Ox O2 Del Method 02/20/24 12:00 36.5 C 67 18 130/77 97 Room Air 02/20/24 07:57 60 02/20/24 07:52 36.7 C 68 18 135/81 97 Room Air PG Care Time/CCT Total # of Minutes Spent Total Time Spent with Patient: Total time spent is greater than 50% in coordination of care (as documented) at patient's floor/unit and/or counseling patient: Coding Level of Care Code 38861 SUB INP/OBS CARE 2/35MIN Diagnoses Sepsis due to urinary tract infection A41.9; N39.0 C. 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
--- NOTE | 2024-02-21 22:31 | Hospitalist Progress Note ---
Date of Service February 21, 2024 Assessment & Plan (1) Sepsis due to urinary tract infection: Plan: Complicated UTI with indwelling bilateral nephrostomy tubes Culture positive for Pseudomonas/ESBL E. coli ID recommendations reviewed. Recommend continuing cefepime, follow UCx to finalization, follow blood cultures, and review of CTA/P given pain near his right urostomy site. CTA/P shows stable appearance of the nephrostomy tubes, and thickened bladder with changes consistent with known cystitis. Did review with urology. Patient with chronic colonization with ESBL/pseudomonal organisms. Agree that is not emergent to pursue transfer for tube exchange unless patient decompensates or tubes are malpositioned, fortunately neither of these are the case at this time. May keep scheduled outpatient follow-up for his history Continue cefepime every 12 hours 02/15 - 02/22 Patient appears medically stable. PT/OT is pending. Case management following. [facility] Can either have home health set up with infusion to continue through 02/22 if appropriate services are available. Unfortunately due to indwelling nephrostomy tubes and chronic colonization he is at high risk of relapsing infection Additionally some concern for a purulent/green discharge from penis overnight per nursing staff. Gram stain/culture obtained, given purulence reasonable to follow for results of this as patient is not on MRSA coverage should this be present Purulent drainage from penis growing pseudomonas Continue above antibiotics. Additionally CT does show a 6 mm right lower lobe nodule. This will need repeat interval CT at 6 to 12 months.. (2) C. difficile diarrhea: Plan: Diagnosed and treated with vancomycin 125 mg p.o. 4 times daily as outpatient. Final dose was scheduled to be 02/21/2024 Will continue vancomycin 125 mg 4 times daily through 01/24 and then extend this to cover for the duration of his antibiotic treatment +1 week as 125 mg p.o. daily for prophylaxis per ID recommendations. 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 Review of Systems Review of Systems: All systems reviewed & are unremarkable except as noted in HPI & below Physical Exam Physical Exam: The patient is awake, alert and oriented 3 HEENT--PERRL, EOMI Neck--supple. No JVD. No bruits. Thyroid normal, trachea midline, no adenopathy. Heart--normal S1 and S2. No murmurs, rubs or gallops. Lungs--clear bilaterally, no respiratory distress, no accessory muscle use. Abdomen--normal bowel sounds and soft. Nontender. Nondistended Extremities-- No edema. There are good distal pulses b/l. Neurologic--cranial nerves II through XII grossly intact. Rheumatologic--quadriparesis Psychiatric--normal affect. Results & Data Results & Data Vital Signs (Past 12 Hours) Vital Signs Temp Pulse Pulse Resp BP Pulse Ox O2 Del Method 02/21/24 19:10 36.9 C 72 16 123/69 96 Room Air 02/21/24 15:20 36.7 C 66 18 113/65 97 Room Air 02/21/24 15:15 74 02/21/24 11:22 36.8 C 61 18 129/64 97 Room Air PG Care Time/CCT Total # of Minutes Spent Total Time Spent with Patient: Total time spent is greater than 50% in coordination of care (as documented) at patient's floor/unit and/or counseling patient: Coding Level of Care Code 37552 SUB INP/OBS CARE 2/35MIN Diagnoses Sepsis due to urinary tract infection A41.9; N39.0 C. 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
[2024-02-22 07:50] LABS: Basophils # (auto) 0.03 K/uL (0.00-0.20); Basophils % (auto) 0.4 %; Eosinophils # (auto) 0.11 K/uL (0.00-0.50); Eosinophils % (auto) 1.4 %; Hematocrit (blood only) 35.5 % (42.0-52.0); Hemoglobin 11.2 g/dl (14.0-18.0); Immature Granulocytes # (auto) 0.24 K/uL (0.01-0.20); Lymphocytes # (auto) 2.13 K/uL (1.20-3.40); Lymphocytes % (auto) 26.6 %; Mean Corpuscular Hemoglobin 26.7 pg (25.0-34.0); Mean Corpuscular Hgb Conc 31.5 g/dL (32.0-36.0); Mean Corpuscular Volume 84.5 fL (80.0-100.0); Mean Platelet Volume 9.5 fL (9.4-12.4); Neutrophils % (auto) 58.6 %; Platelet Count 341 K/uL (130-400); RDW Coefficient of Variation 16.1 % (11.5-14.5); RDW Standard Deviation 49.3 fL (36.4-46.3); White Blood Count 8.01 K/ul (4.8-10.8)
[2024-02-22 08:08] LABS: BUN Creatinine Ratio 18.2 (10-20); C Reactive Protein 1.78 mg/dl (0-0.5); Calcium 8.9 mg/dl (8.6-10.3); Creatinine Clr Calc Pharmacy 42.5 ml/min; Potassium 3.9 mmol/L (3.5-5.1)
[2024-02-22] MEDS: MEROPENEM 500 MG in SYRINGE 0 ML IV SCH (18:44)
--- NOTE | 2024-02-22 21:44 | Hospitalist Progress Note ---
Date of Service February 22, 2024 Assessment & Plan (1) Sepsis due to urinary tract infection: Plan: Complicated UTI with indwelling bilateral nephrostomy tubes Culture positive for Pseudomonas/ESBL E. coli ID recommendations reviewed. Recommend continuing cefepime, follow UCx to finalization, follow blood cultures, and review of CTA/P given pain near his right urostomy site. CTA/P shows stable appearance of the nephrostomy tubes, and thickened bladder with changes consistent with known cystitis. Did review with urology. Patient with chronic colonization with ESBL/pseudomonal organisms. Agree that is not emergent to pursue transfer for tube exchange unless patient decompensates or tubes are malpositioned, fortunately neither of these are the case at this time. May keep scheduled outpatient follow-up for his history Continue cefepime every 12 hours 02/15 - 02/22 Patient appears medically stable. PT/OT is pending. Case management following. [facility] Can either have home health set up with infusion to continue through 02/22 if appropriate services are available. Unfortunately due to indwelling nephrostomy tubes and chronic colonization he is at high risk of relapsing infection Additionally some concern for a purulent/green discharge from penis overnight per nursing staff. Gram stain/culture obtained, given purulence reasonable to follow for results of this as patient is not on MRSA coverage should this be present Purulent drainage from penis growing pseudomonas Continue above antibiotics. Additionally CT does show a 6 mm right lower lobe nodule. This will need repeat interval CT at 6 to 12 months.. On02/21 Called Kalyani Rothman again, Urology and ID did not agree that patient required nephrostomy tubes exchanged. Switched to Meropenem for ESBL, will need to complete 10 days of meropenem as per ID from Kalyani. (2) C. difficile diarrhea: Plan: Diagnosed and treated with vancomycin 125 mg p.o. 4 times daily as outpatient. however transitioned to prophylactic dose on 02/18 Will continue vancomycin 125 mg daily extending this to cover for the duration of his antibiotic treatment +1 week as 125 mg p.o. daily for prophylaxis per ID recommendations. 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 Physical Exam Physical Exam: The patient is awake, alert and oriented 3 HEENT--PERRL, EOMI Neck--supple. No JVD. No bruits. Thyroid normal, trachea midline, no adenopathy. Heart--normal S1 and S2. No murmurs, rubs or gallops. Lungs--clear bilaterally, no respiratory distress, no accessory muscle use. Abdomen--normal bowel sounds and soft. Nontender. Nondistended Extremities-- No edema. There are good distal pulses b/l. Neurologic--cranial nerves II through XII grossly intact. Rheumatologic--quadriparesis Psychiatric--normal affect. Results & Data Results & Data Vital Signs (Past 12 Hours) Vital Signs Temp Pulse Resp BP Pulse Ox O2 Del Method 02/22/24 19:33 74 16 116/68 98 Room Air 02/22/24 15:17 36.9 C 64 18 119/69 98 Room Air 02/22/24 11:31 36.6 C 71 18 128/70 97 Room Air PG Care Time/CCT Total # of Minutes Spent Total Time Spent with Patient: Total time spent is greater than 50% in coordination of care (as documented) at patient's floor/unit and/or counseling patient: Prolonged Care Time Prolonged Care Time: Yes Total Prolonged Care Time: 70 150 15:00 to 16:10 Coding Level of Care Code 00524 SUB INP/OBS CARE 3/50MIN (25 - SIGNIFICANT, SEPARATELY IDENTIFIABLE ) Diagnoses Sepsis due to urinary tract infection A41.9; N39.0 C. 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
[2024-02-23 06:54] LABS: Hematocrit (blood only) 35.3 % (42.0-52.0); Hemoglobin 11.1 g/dl (14.0-18.0); Mean Corpuscular Hemoglobin 26.7 pg (25.0-34.0); Mean Corpuscular Hgb Conc 31.4 g/dL (32.0-36.0); Mean Corpuscular Volume 84.9 fL (80.0-100.0); Mean Platelet Volume 8.5 fL (9.4-12.4); Platelet Count 361 K/uL (130-400); RDW Coefficient of Variation 15.9 % (11.5-14.5); RDW Standard Deviation 49.1 fL (36.4-46.3); Red Blood Count 4.16 M/uL (4.70-6.10); White Blood Count 8.19 K/ul (4.8-10.8)
[2024-02-23 07:19] LABS: BUN Creatinine Ratio 14.1 (10-20); C Reactive Protein 1.57 mg/dl (0-0.5); Calcium 9.3 mg/dl (8.6-10.3); Creatinine Clr Calc Pharmacy 37.1 ml/min; Potassium 5.4 mmol/L (3.5-5.1)
[2024-02-23 07:32] LABS: Basophils # (auto) 0.04 K/uL (0.00-0.20); Basophils % (auto) 0.5 %; Eosinophils # (auto) 0.18 K/uL (0.00-0.50); Eosinophils % (auto) 2.2 %; Immature Granulocytes # (auto) 0.48 K/uL (0.01-0.20); Immature Granulocytes % (auto) 5.9 %; Lymphocytes # (auto) 2.47 K/uL (1.20-3.40); Lymphocytes % (auto) 30.2 %; Monocytes # (auto) 0.84 K/uL (0.11-0.59); Monocytes % (auto) 10.3 %; Neutrophils # (auto) 4.18 K/uL (1.40-6.50); Neutrophils % (auto) 50.9 %
--- NOTE | 2024-02-23 07:49 | Hospitalist Progress Note ---
Date of Service February 23, 2024 Assessment & Plan (1) Sepsis due to urinary tract infection: Plan: Complicated UTI poa with indwelling bilateral nephrostomy tubes Culture positive for Pseudomonas/ESBL E. coli ID recommendations reviewed. meropenem x 10 D, currently negative blood cultures, CTA/P shows stable appearance of the nephrostomy tubes, and thickened bladder with changes consistent with known cystitis. Did review with urology. Patient with chronic colonization with ESBL/pseudomonal organisms. Agree that is not emergent to pursue transfer for tube exchange unless patient decompensates or tubes are malpositioned, fortunately neither of these are the case at this time. May keep scheduled outpatient follow-up Patient appears medically stable. PT/OT is pending. Case management following. Anticipate placement back to [facility]. he is at high risk of relapsing infection previous attending On 02/21 Called Kalyani Rothman again, Urology and ID did not agree that patient required nephrostomy tubes exchanged. Switched to Meropenem for ESBL, will need to complete 10 days of meropenem as per ID from Kalyani. (2) C. difficile diarrhea: Plan: Diagnosed and treated with vancomycin 125 mg p.o. 4 times daily as outpatient. however transitioned to prophylactic dose on 02/18 Will continue vancomycin 125 mg daily extending this to cover for the duration of his antibiotic treatment +1 week as 125 mg p.o. daily for prophylaxis per ID recommendations. 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 at this time Physical Exam Physical Exam: pt is weakened speaks in soft voice lungs are diminished at bases cardiac exam is regular with no murmur Results & Data Results & Data Vital Signs (Past 12 Hours) Vital Signs Temp Pulse Pulse Resp BP Pulse Ox O2 Del Method 02/23/24 07:05 97.3 F L 73 19 122/70 97 Room Air 02/23/24 04:20 96.1 F L 62 136/77 98 Room Air 02/23/24 00:00 66 02/22/24 22:42 88 16 128/72 Laboratory Results review cbc review chemistry aberrant hyperkalemia will recheck 02/23 PG Care Time/CCT Total # of Minutes Spent Total Time Spent with Patient: Total time spent is greater than 50% in coordination of care (as documented) at patient's floor/unit and/or counseling patient: Coding Level of Care Code 65783 SUB INP/OBS CARE 3/50MIN Diagnoses Sepsis due to urinary tract infection A41.9; N39.0 C. 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
[2024-02-24 09:07] LABS: BUN Creatinine Ratio 14.7 (10-20); Calcium 9.3 mg/dl (8.6-10.3); Creatinine Clr Calc Pharmacy 35.5 ml/min; Potassium 3.8 mmol/L (3.5-5.1)
[2024-02-24 09:30] LABS: Hematocrit (blood only) 40.5 % (42.0-52.0); Hemoglobin 12.6 g/dl (14.0-18.0); Mean Corpuscular Hemoglobin 26.5 pg (25.0-34.0); Mean Corpuscular Hgb Conc 31.1 g/dL (32.0-36.0); Mean Corpuscular Volume 85.3 fL (80.0-100.0); Mean Platelet Volume 8.8 fL (9.4-12.4); Platelet Count 444 K/uL (130-400); RDW Coefficient of Variation 16.1 % (11.5-14.5); RDW Standard Deviation 50.2 fL (36.4-46.3); Red Blood Count 4.75 M/uL (4.70-6.10); White Blood Count 8.01 K/ul (4.8-10.8)
--- NOTE | 2024-02-24 17:33 | Hospitalist Progress Note ---
Date of Service February 24, 2024 Assessment & Plan (1) Sepsis due to urinary tract infection: Plan: Complicated UTI poa with indwelling bilateral nephrostomy tubes Culture positive for Pseudomonas/ESBL E. coli ID recommendations reviewed. meropenem x 10 D, currently negative blood cultures, CTA/P shows stable appearance of the nephrostomy tubes, and thickened bladder with changes consistent with known cystitis. Did review with urology. Patient with chronic colonization with ESBL/pseudomonal organisms. Agree that is not emergent to pursue transfer for tube exchange unless patient decompensates or tubes are malpositioned, fortunately neither of these are the case at this time. May keep scheduled outpatient follow-up Patient appears medically stable. PT/OT is pending. Case management following. [facility] he is at high risk of relapsing infection previous attending On 02/21 Called Kalyani Rothman again, Urology and ID did not agree that patient required nephrostomy tubes exchanged. Switched to Meropenem for ESBL, will need to complete 10 days of meropenem as per ID from Kalyani. (2) C. difficile diarrhea: Plan: Diagnosed and treated with vancomycin 125 mg p.o. 4 times daily as outpatient. however transitioned to prophylactic dose on 02/18 Will continue vancomycin 125 mg daily extending this to cover for the duration of his antibiotic treatment +1 week as 125 mg p.o. daily for prophylaxis per ID recommendations. 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 Plan DVT prophylaxis: Heparin CODE STATUS: DNR Admission and Anticipated Discharge Date Admission Date: February 16, 2024 Subjective pt is improved likely from antibiotic treatment plans for antibiotics thru 03/02 possible stent exchange 03/03/24 Physical Exam Physical Exam: pt is weakened but of more clear mentation lungs are diminished at bases cardiac exam is regular with no murmur Results & Data Results & Data Vital Signs (Past 12 Hours) Vital Signs Temp Pulse Pulse Resp BP Pulse Ox O2 Del Method 02/24/24 15:42 97.9 F 88 20 122/78 96 Room Air 02/24/24 14:40 58 L 02/24/24 14:00 64 02/24/24 12:00 97.7 F 90 18 102/63 95 Room Air 02/24/24 07:46 98.1 F 89 16 129/60 93 Room Air 02/24/24 07:30 Room Air Laboratory Results review cbc review chemistry PG Care Time/CCT Total # of Minutes Spent Total Time Spent with Patient: Total time spent is greater than 50% in coordination of care (as documented) at patient's floor/unit and/or counseling patient: Coding Level of Care Code 46421 SUB INP/OBS CARE 2/35MIN Diagnoses Sepsis due to urinary tract infection A41.9; N39.0 C. 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
--- NOTE | 2024-02-25 15:55 | Hospitalist Progress Note ---
Date of Service February 25, 2024 Assessment & Plan (1) Sepsis due to urinary tract infection: Plan: Complicated UTI poa with indwelling bilateral nephrostomy tubes Culture positive for Pseudomonas/ESBL E. coli ID recommendations reviewed. meropenem x 10 D, currently negative blood cultures, CTA/P shows stable appearance of the nephrostomy tubes, and thickened bladder with changes consistent with known cystitis. Did review with urology. Patient with chronic colonization with ESBL/pseudomonal organisms. Agree that is not emergent to pursue transfer for tube exchange unless patient decompensates or tubes are malpositioned, fortunately neither of these are the case at this time. May keep scheduled outpatient follow-up Patient appears medically stable. PT/OT is pending. Case management following. [facility] are [facility] he is at high risk of relapsing infection previous attending On 02/21 Called Kalyani Rothman again, Urology and ID did not agree that patient required nephrostomy tubes exchanged. Switched to Meropenem for ESBL, will need to complete 10 days of meropenem as per ID from Kalyani. (2) C. difficile diarrhea: Plan: Diagnosed and treated with vancomycin 125 mg p.o. 4 times daily as outpatient. however transitioned to prophylactic dose on 02/18 Will continue vancomycin 125 mg daily extending this to cover for the duration of his antibiotic treatment +1 week as 125 mg p.o. daily for prophylaxis per ID recommendations. 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 will discuss with urologist dr Wood Physical Exam Physical Exam: pt is with more clear mentation lungs are diminished at bases cardiac exam is regular with no murmur Results & Data Results & Data Vital Signs (Past 12 Hours) Vital Signs Temp Pulse Pulse Resp BP Pulse Ox O2 Del Method 02/25/24 15:17 98.2 F 90 18 106/71 99 Room Air 02/25/24 15:01 77 02/25/24 12:02 97.5 F L 74 18 108/72 99 Room Air 02/25/24 08:52 60 02/25/24 07:58 98.1 F 71 18 113/73 95 Room Air PG Care Time/CCT Total # of Minutes Spent Total Time Spent with Patient: Total time spent is greater than 50% in coordination of care (as documented) at patient's floor/unit and/or counseling patient: Coding Level of Care Code 87056 SUB INP/OBS CARE 3/50MIN Diagnoses Sepsis due to urinary tract infection A41.9; N39.0 C. 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
[2024-02-26 08:01] LABS: Hematocrit (blood only) 33.9 % (42.0-52.0); Hemoglobin 10.9 g/dl (14.0-18.0); Mean Corpuscular Hemoglobin 26.7 pg (25.0-34.0); Mean Corpuscular Hgb Conc 32.2 g/dL (32.0-36.0); Mean Corpuscular Volume 83.1 fL (80.0-100.0); Mean Platelet Volume 8.6 fL (9.4-12.4); Platelet Count 378 K/uL (130-400); RDW Standard Deviation 48.3 fL (36.4-46.3); Red Blood Count 4.08 M/uL (4.70-6.10); White Blood Count 8.16 K/ul (4.8-10.8)
[2024-02-26 08:24] LABS: BUN Creatinine Ratio 21.1 (10-20); Calcium 8.8 mg/dl (8.6-10.3); Creatinine Clr Calc Pharmacy 40.5 ml/min; Potassium 4.2 mmol/L (3.5-5.1)
--- NOTE | 2024-02-26 18:17 | Hospitalist Progress Note ---
Date of Service February 26, 2024 Assessment & Plan (1) Sepsis due to urinary tract infection: Plan: Complicated UTI poa with indwelling bilateral nephrostomy tubes Culture positive for Pseudomonas/ESBL E. coli ID recommendations reviewed. meropenem x 10 D, currently negative blood cultures, CTA/P shows stable appearance of the nephrostomy tubes, and thickened bladder with changes consistent with known cystitis. Did review with urology. Patient with chronic colonization with ESBL/pseudomonal organisms. Agree that is not emergent to pursue transfer for tube exchange unless patient decompensates or tubes are malpositioned, fortunately neither of these are the case at this time. May keep scheduled outpatient follow-up Patient appears medically stable. PT/OT is pending. Case management following. [facility] he is at high risk of relapsing infection previous attending On 02/21 Called Kalyani Rothman again, Urology and ID did not agree that patient required nephrostomy tubes exchanged. Switched to Meropenem for ESBL, will need to complete 10 days of meropenem as per ID from Kalyani. (2) C. difficile diarrhea: Plan: Diagnosed and treated with vancomycin 125 mg p.o. 4 times daily as outpatient. however transitioned to prophylactic dose on 02/18 Will continue vancomycin 125 mg daily extending this to cover for the duration of his antibiotic treatment +1 week as 125 mg p.o. daily for prophylaxis per ID recommendations. 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 will discuss with urologist dr Wood Physical Exam Physical Exam: pt is with more clear mentation lungs are diminished at bases cardiac exam is regular with no murmur Results & Data Results & Data Vital Signs (Past 12 Hours) Vital Signs Temp Pulse Pulse Resp BP Pulse Ox O2 Del Method 02/26/24 16:00 74 02/26/24 15:28 98.1 F 81 18 106/66 97 Room Air 02/26/24 13:00 Room Air 02/26/24 12:06 98.4 F 63 18 143/79 H 97 Room Air 02/26/24 11:00 60 02/26/24 07:48 98.1 F 71 19 149/84 H 99 Room Air PG Care Time/CCT Total # of Minutes Spent Total Time Spent with Patient: Total time spent is greater than 50% in coordination of care (as documented) at patient's floor/unit and/or counseling patient: Coding Level of Care Code 38398 SUB INP/OBS CARE 2/35MIN Diagnoses Sepsis due to urinary tract infection A41.9; N39.0 C. 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
[2024-02-28 05:57] LABS: Hematocrit (blood only) 33.2 % (42.0-52.0); Hemoglobin 10.6 g/dl (14.0-18.0); Mean Corpuscular Hgb Conc 31.9 g/dL (32.0-36.0); Mean Corpuscular Volume 84.5 fL (80.0-100.0); Mean Platelet Volume 8.7 fL (9.4-12.4); Platelet Count 316 K/uL (130-400); RDW Coefficient of Variation 16.1 % (11.5-14.5); RDW Standard Deviation 49.8 fL (36.4-46.3); Red Blood Count 3.93 M/uL (4.70-6.10)
[2024-02-28 06:19] LABS: BUN Creatinine Ratio 21.5 (10-20); Calcium 8.9 mg/dl (8.6-10.3); Creatinine Clr Calc Pharmacy 36.4 ml/min; Potassium 4.1 mmol/L (3.5-5.1)
--- NOTE | 2024-02-28 13:10 | Hospitalist Progress Note ---
Date of Service February 28, 2024 Assessment & Plan (1) Sepsis due to urinary tract infection: Plan: Complicated UTI poa with indwelling bilateral nephrostomy tubes Culture positive for Pseudomonas/ESBL E. coli ID recommendations reviewed. meropenem x 10 D, currently negative blood cultures, CTA/P shows stable appearance of the nephrostomy tubes, and thickened bladder with changes consistent with known cystitis. Did review with urology. Patient with chronic colonization with ESBL/pseudomonal organisms. Agree that is not emergent to pursue transfer for tube exchange unless patient decompensates or tubes are malpositioned, fortunately neither of these are the case at this time. May keep scheduled outpatient follow-up Patient appears medically stable. PT/OT is pending. Case management following. Anticipate placement back to [facility] once antibiotics are complete he is at high risk of relapsing infection last scheduled nephrostomy tubes exchange in [place] [facility] was 01/09/24, right dislodged and replaced 01/26/24, at earliest will likely have tubes exchanged march 2024, pt has established urology care at [place] with Dr Amado Switched to Meropenem for ESBL, will need to complete 10 days of meropenem as per ID from Kalyani. (2) C. difficile diarrhea: Plan: Diagnosed and treated with vancomycin 125 mg p.o. 4 times daily as outpatient. however transitioned to prophylactic dose on 02/18 Will continue vancomycin 125 mg daily extending this to cover for the duration of his antibiotic treatment +1 week as 125 mg p.o. daily for prophylaxis per ID recommendations. 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 Plan DVT prophylaxis: Heparin is refused by pt care coordination, called IR in [place], called daughter and called [facility] trying to coordinate outpt nephrostomy tube exchange, daughter believes last exchange was in November 2023 CODE STATUS: DNR Admission and Anticipated Discharge Date Admission Date: February 16, 2024 Subjective pt continues to improve from antibiotic treatment of serratia uti poa plans for antibiotics thru 03/02 spoke with daughter and [place] [facility], no stent exchange planned or scheduled, pt has established care with [facility] urology and recommend no change in stent if draining well and change at regular interval ( 3 mo) Physical Exam Physical Exam: pt is with more clear mentation at baseline lungs are diminished at bases cardiac exam is regular with no murmur Results & Data Results & Data Vital Signs (Past 12 Hours) Vital Signs Temp Pulse Pulse Resp BP Pulse Ox O2 Del Method 02/28/24 10:57 Room Air 02/28/24 10:30 97.5 F L 54 L 16 115/69 96 Room Air 02/28/24 07:50 68 02/28/24 07:06 97.7 F 71 17 116/78 95 Room Air 02/28/24 03:38 97.9 F 78 17 123/74 98 Room Air Laboratory Results reviewed cbc reviewed chemistry PG Care Time/CCT Total # of Minutes Spent Total Time Spent with Patient: Total time spent is greater than 50% in coordination of care (as documented) at patient's floor/unit and/or counseling patient: Coding Level of Care Code 36692 SUB INP/OBS CARE 3/50MIN Diagnoses Sepsis due to urinary tract infection A41.9; N39.0 C. 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
[2024-02-29] MEDS: CHOLESTYRAMINE LIGHT 4 GM PKT PO SCH (09:08)
--- NOTE | 2024-02-29 14:04 | Hospitalist Progress Note ---
Date of Service February 29, 2024 Assessment & Plan (1) Sepsis due to urinary tract infection: Plan: Complicated UTI poa with indwelling bilateral nephrostomy tubes Culture positive for Pseudomonas/ESBL E. coli ID recommendations reviewed. meropenem x 10 D, currently negative blood cultures, CTA/P shows stable appearance of the nephrostomy tubes, and thickened bladder with changes consistent with known cystitis. Did review with urology. Patient with chronic colonization with ESBL/pseudomonal organisms. Agree that is not emergent to pursue transfer for tube exchange unless patient decompensates or tubes are malpositioned, fortunately neither of these are the case at this time. May keep scheduled outpatient follow-up Patient appears medically stable. PT/OT is pending. Case management following. [facility] are complete he is at high risk of relapsing infection last scheduled nephrostomy tubes exchange in [place] [facility] was 01/09/24, right dislodged and replaced 01/26/24, at earliest will likely have tubes exchanged march 2024, pt has established urology care at [place] with Dr Amado Switched to Meropenem for ESBL, will need to complete 10 days of meropenem LD 03/03/24 (2) C. difficile diarrhea: Plan: Diagnosed and treated with vancomycin 125 mg p.o. 4 times daily as outpatient. however transitioned to prophylactic dose on 02/18 Will continue vancomycin 125 mg daily extending this to cover for the duration of his antibiotic treatment +1 week as 125 mg p.o. daily for prophylaxis per ID recommendations. 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 Plan DVT prophylaxis: Heparin is refused by pt care coordination, called IR in [place], called daughter and called [facility] trying to coordinate outpt nephrostomy tube exchange, daughter believes last exchange was in November 2023 CODE STATUS: DNR Admission and Anticipated Discharge Date Admission Date: February 16, 2024 Subjective pt is bored wants to walk more, did see PT here left message for family regarding tube change Physical Exam Physical Exam: pleasant, no distress cardiac exam is regular lungs are clear abd is soft adn non tender Results & Data Results & Data Vital Signs (Past 12 Hours) Vital Signs Temp Pulse Pulse Resp BP Pulse Ox O2 Del Method 02/29/24 10:58 97.5 F L 71 20 120/67 97 Room Air 02/29/24 07:57 Room Air 02/29/24 07:18 97.7 F 64 19 114/69 96 Room Air 02/29/24 07:11 59 L 02/29/24 03:09 97.9 F 65 18 97/62 L 98 Room Air PG Care Time/CCT Total # of Minutes Spent Total Time Spent with Patient: Total time spent is greater than 50% in coordination of care (as documented) at patient's floor/unit and/or counseling patient: Coding Level of Care Code 83534 SUB INP/OBS CARE 2/35MIN Diagnoses Sepsis due to urinary tract infection A41.9; N39.0 C. 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
--- NOTE | 2024-03-01 12:21 | Hospitalist Progress Note ---
Date of Service March 01, 2024 Assessment & Plan (1) Sepsis due to urinary tract infection: Plan: Complicated UTI poa with indwelling bilateral nephrostomy tubes Culture positive for Pseudomonas/ESBL E. coli ID recommendations reviewed. meropenem x 10 D, currently negative blood cultures, CTA/P shows stable appearance of the nephrostomy tubes, and thickened bladder with changes consistent with known cystitis. Did review with urology. Patient with chronic colonization with ESBL/pseudomonal organisms. Agree that is not emergent to pursue transfer for tube exchange unless patient decompensates or tubes are malpositioned, fortunately neither of these are the case at this time. May keep scheduled outpatient follow-up Patient appears medically stable. PT/OT is pending. Case management following. Anticipate placement back to [facility] once antibiotics are complete he is at high risk of relapsing infection last scheduled nephrostomy tubes exchange in [place] [facility] was 01/09/24, right dislodged and replaced 01/26/24, at earliest will likely have tubes exchanged march 2024, pt has [place] urology care [place] with Dr Amado Switched to Meropenem for ESBL, will need to complete 10 days of meropenem LD 03/02/24 (2) C. difficile diarrhea: Plan: Diagnosed and treated with vancomycin 125 mg p.o. 4 times daily as outpatient. however transitioned to prophylactic dose on 02/18 Will continue vancomycin 125 mg daily extending this to cover for the duration of his antibiotic treatment +1 week as 125 mg p.o. daily for prophylaxis per ID recommendations. 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 Plan DVT prophylaxis: Heparin is refused by pt care coordination, called IR in [place], called daughter and called [facility] trying to coordinate outpt nephrostomy tube exchange, daughter believes last exchange was in November 2023 CODE STATUS: DNR Admission and Anticipated Discharge Date Admission Date: February 16, 2024 Subjective pt is bored wants to walk more, did see PT here, [facility] will accept pt back after antibiotics left message for family regarding tube change Results & Data Results & Data Vital Signs (Past 12 Hours) Vital Signs Temp Pulse Resp BP Pulse Ox O2 Del Method 03/01/24 11:10 98.2 F 68 19 130/72 96 Room Air 03/01/24 08:27 97.7 F 66 16 111/67 97 Room Air 03/01/24 07:45 Room Air 03/01/24 02:42 98.4 F 67 16 126/71 97 Room Air PG Care Time/CCT Total # of Minutes Spent Total Time Spent with Patient: Total time spent is greater than 50% in coordination of care (as documented) at patient's floor/unit and/or counseling patient: Coding Level of Care Code 28485 SUB INP/OBS CARE 235MIN Diagnoses Sepsis due to urinary tract infection A41.9; N39.0 C. 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
[2024-03-01 23:10] VITALS: O2SAT 96
[2024-03-02 07:29] VITALS: RESP 18
[2024-03-02 11:13] VITALS: TEMP 97.9
[2024-03-02 14:22] VITALS: BP 107/62; PULSE 76
--- NOTE | 2024-03-02 15:24 | Discharge Summary ---
Discharge Summary Date of Service March 02, 2024 Principal Dx & Hospital Course #1 = Principal Diagnosis (1) Sepsis due to urinary tract infection: Complicated UTI poa with indwelling bilateral nephrostomy tubes Culture positive for Pseudomonas/drug resistant E. coli ID recommendations reviewed. meropenem x 10 D, blood cultures, CTA/P shows stable appearance of the nephrostomy tubes, and thickened bladder with changes consistent with known cystitis. Did review with urology. Patient with chronic colonization with ESBL/pseudomonal organisms. Agree that is not emergent to pursue transfer for tube exchange unless patient decompensates or tubes are malpositioned, fortunately neither of these are the case at this time. May keep scheduled outpatient follow-up Patient appears medically stable. PT/OT is pending. Case management following. Anticipate placement back to [facility] now that antibiotics are complete he is at high risk of relapsing infection last scheduled nephrostomy tubes exchange in [place] [facility] was 01/09/24, right dislodged and replaced 01/26/24, at earliest will likely have tubes exchanged march 2024, pt has established urology care at [place] with Dr Amado Switched to Meropenem for ESBL, will need to complete 10 days of meropenem LD 03/02/24 (2) C. difficile diarrhea: Diagnosed and treated with vancomycin 125 mg p.o. 4 times daily as outpatient. however transitioned to prophylactic dose on 02/18 Will continue vancomycin 125 mg daily extending this to cover for the duration of his antibiotic treatment +1 week as 125 mg p.o. daily for prophylaxis per ID recommendations. 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 difficile colitis, sepsis due to UTI, history of STEVE on CKD, hypertension, hyperlipidemia, cervical cord myelomalacia, and quadriparesis. He is referred from [facility] due to temperature of 103 degrees, and progressive weakness. He has a chronic indwelling Johnson catheter, and urine was hyper concentrated and infected. 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 Activity: Resume your previous activity Non-emergency contact: Primary Care Provider and Urologist Call non-emergency contact if: your symptoms worsen Follow-up/Referrals: Darin Reynaga [Primary Care Provider] - Diet: Regular Addtl Attending Provider Instructions: you have completed your antibiotic treatment for your infection please follow up with Dr Amado to help coordinate your future nephrostomy tube exchanges, there is going to be opportunity to have these exchanged at [facility] in early 2024, if that is more convenient for you Dr Amado can unitize the Interventional Radiology department here to do that Addtl Manager Brand Provider Instructions: you are recommended one week of C diff prevention after discharge by taking a medication once a day Pending Studies at Discharge: No Stand-Alone Forms: My [facility] [employer], Smoking Cessation Skilled Items Patient informed of condition?: Yes DNR: Yes Discharge Level of Care: Other Communicable Disease: No Discharge Prognosis: Stable Lines: None Urinary Catheter: Yes Medications and DC Order Prescriptions: Continued mirtazapine 15 mg tablet 15 mg PO HS Qty: 30 0RF cholecalciferol (vitamin D3) 50 mcg (2,000 unit) capsule 2,000 unit PO DAILY Qty: 90 3RF ferrous sulfate 325 mg (65 mg iron) tablet 325 mg PO DAILY Qty: 90 3RF multivitamin [Multiple Vitamins] Tablet 1 tab PO DAILY Qty: 90 3RF psyllium husk [Metamucil] 0.4 gram capsule 0.4 g PO DAILY Qty: 180 3RF acetaminophen 325 mg tablet 325 mg PO Q4H MDD 3 GRAMS APAP/24 HOURS PRN (Reason: PAIN/FEVER) mupirocin 2 % ointment 1 applic topical TID Qty: 22 0RF Rx Instructions: Apply to cellulitis of right nephrostomy tube site. diphenoxylate-atropine [Lomotil] 2.5-0.025 mg Tablet 1 tab PO Q12H PRN (Reason: Diarrhea) polyethylene glycol 3350 [Miralax] 17 gram/dose Powder 17 g PO DAILY PRN (Reason: Constipation) montelukast 10 mg tablet 10 mg PO DAILY Changed vancomycin 125 mg capsule 125 mg PO DAILY 7 Days Qty: 7 0RF Discontinued cholestyramine-aspartame [Prevalite] 4 gram powder in packet 1 ea PO BID Discharge Orders: Discharge Order (Routine); Ordered 03/02/24 Ordered By: Shaan Hogue Admission Data Admit Date/Time: 02/16/24 22:22 Attending Provider: Shaan Hogue Admit Provider: Fransisco Raymundo Primary Care Provider: Darin Reynaga Other Providers: Fransisco Raymundo; [facility] Other Interventions: Discharge Summary Assessment (RN) Last Done: 03/02/24 14:20 Hospital Stay Data Consultations 02/16/24 21:13 ED Decision to Admit Stat 02/17/24 15:49 Consult Infectious Diseases Routine Diagnostic Imagining Performed 02/20/24 13:45 CT abd pelvis wo con Urgent Pending Results Patient Have Any Pending Studies at Discharge: No Discharge Instructions Given to Patient (Per Discharging Provider) you have completed your antibiotic treatment for your infection please follow up with Dr Amado to help coordinate your future nephrostomy tube exchanges, there is going to be opportunity to have these exchanged at [facility] in early 2024, if that is more convenient for you Dr Amado can unitize the Interventional Radiology department here to do that Total Time Total Time Spent Total Time Spent (In Minutes): It required greater than 30 minutes to prepare this patient for discharge. Coding Level of Care Code 76226 INP/OBS DISCH >30 MIN Diagnoses Sepsis due to urinary tract infection A41.9; N39.0 C. difficile diarrhea A04.72 CKD (chronic kidney disease) N18.9 Chronic kidney disease stage: unspecified stage Cervical cord myelomalacia G95.89
== END 2024-03-02 16:21 | disposition home or self-care (01) | DRG 698 ==
LOC: ED 19:43 → SUATTDRO 22:22 → 2S 22:22

== ENCOUNTER 2024-03-24 19:34 | Inpatient (IN) ==
--- NOTE | 2024-03-24 19:47 | Emergency Department Note ---
Impression & Plan Sepsis, Acute kidney injury superimposed on chronic kidney disease, Complicated urinary tract infection, Leukocytosis ED Provider Note HISTORY OF PRESENT ILLNESS: Patient is an 84-year-old male presenting with confusion and fever. [facility] He reportedly was slightly more confused today than normal. He had a temperature of 102 at the facility. Unknown if he got antipyretics prior to arrival. Patient has bilateral nephrostomy tubes. Per report from his facility, he "gets like this when he has a urine infection." On arrival to the ER, the patient has no complaints. He is requesting a cup of water. ROS: as above PHYSICAL EXAM: Constitutional: Patient appears in no acute distress. HENT: Head: Normocephalic and atraumatic. Eyes: EOMI, PERRL Mouth/Throat: Mucous membranes moist. Neck: Trachea midline. Neck supple. Cardiovascular: RRR, No murmurs, rubs or gallops. Intact distal pulses. Pulmonary/Chest: No respiratory distress. Breath sounds clear and equal bilaterally. No wheezes or rales. Abdominal: Abdomen soft, no tenderness, rebound or guarding. Back: No midline spinal tenderness, no paraspinal tenderness, no CVA tenderness. Nephrostomy tubes present on the bilateral lower lumbar region. Musculoskeletal: No edema, tenderness or deformity noted. Skin: Warm and dry. No rash, erythema, pallor or cyanosis Neurological: Alert. CN II-XII grossly intact, moving all extremities equally and fully. MDM: - Vitals signs showed hypertension and a fever. - History obtained via EMS, given patient's confusion. History as above. - Chronic conditions affecting care: HTN; HLD; CKD; BPH - Differential diagnoses include, but are not limited to: UTI; viral syndrome; pneumonia; electrolyte abnormality; CVA; intracranial hemorrhage; ACS - Order placed for continuous cardiac monitoring. At this time, monitor showed rate of 90 bpm with normal sinus rhythm, per my interpretation. - External medical records reviewed. Discharge summary dated 03/02/2024 was reviewed. Patient was admitted that time for sepsis secondary to UTI. He has grown Pseudomonas and ESBL. - EKG interpreted by myself showed normal sinus rhythm. Rate 92 bpm. QT 366. No acute ischemic changes. Noted to have a right bundle branch block. - Laboratory workup interpreted by myself showed leukocytosis (WBC 17.18) with neutrophil predominance; thrombocytosis (plt 462); normal PT/INR; stable electrolytes; STEVE on CKD (Cr 1.56); normal troponin; normal lactate; normal procalcitonin - Blood cultures obtained - CXR negative for pneumonia, per my interpretation - Patient given 2L NS. Patient sepsis fluid volume calculation based on ideal body weight is 2427.00 mL - UA obtained from both nephrostomy tubes. Both UAs show evidence of infection. Patient has previously grown Pseudomonas aeruginosa on previous blood cultures, most recently on culture from 02/20/2024 when electronic medical record was reviewed. IV Zosyn ordered as antibiotic coverage. - Viral respiratory panel negative - 1g IV tylenol ordered for fever. - Discussion was had with case coordinator about patient's case and need for admission - Hospitalist, Dr. Raymundo, consulted for admission. Did report that the patient has also grown ESBL on previous urine cultures and requested meropenem be ordered. IV meropenem ordered. - Patient admitted to [facility] for further evaluation and management. ASSESSMENT AND PLAN: Diagnosis: sepsis; complicated UTI; leukocytosis; STEVE on CKD Plan: admit Past Med/Surg History Problem List (Updated 03/24/24 @ 21:32 by Melissa Toro MD) Leukocytosis (Acute) Complicated urinary tract infection (Acute) Acute kidney injury superimposed on chronic kidney disease (Acute) Sepsis (Acute) Catheter-associated urinary tract infection UTI (urinary tract infection) (Acute) Sepsis (Acute) Pneumaturia Sepsis due to urinary tract infection (Acute) Confusion Weakness Acute kidney injury superimposed on CKD (Acute) C. difficile diarrhea CKD (chronic kidney disease) (Acute) Bladder neck contracture Hydronephrosis Constipation Overflow diarrhea Diarrhea Chronic diarrhea Vitamin D deficiency (Acute) Rosacea (Acute) Quadriparesis (Chronic) Organic impotence (Acute) Male stress incontinence (Acute) Leukopenia (Acute) Hypertension Hyperlipidemia (Acute) Cervical cord myelomalacia Weight loss Cognitive decline Malnutrition Cerebral atrophy Depression Loose bowel movements Acute UTI (Acute) Chronic diarrhea Dysphagia Anemia Medical History Prostate cancer (09/27/11) "Rising PSA, pretreatment PSA 7.44 clinical stage TIc Biopsy stage T2b [place] grade 3+2 and 3+3 Active surveillance Recheck PSA 10.2, repeat biopsy [place] 3+3, biopsy stage T2b Continued rise in PSA Status post robotic prostatectomy 07/10/2011, stage [id number] Status post completion of radiation therapy the prostate bed 12/17/2011 received 7000 cGy" Near syncope Hypokalemia Acute UTI Hematochezia Benign neoplasm of large intestine Surgical History H/O Spinal surgery H/O prostatectomy Hx of tonsillectomy Family History Mother Lung cancer Breast cancer Other Alcoholism in family Denies family history of Ovarian cancer Prostate cancer Myocardial infarction Colorectal cancer Social History Smoking Status: Never smoker Second Hand Exposure: No; Do You Dip or Chew Tobacco: No; Hx Alcohol Use: No Hx Substance Use: No Preferred Language: Slovak Communication Ability: Effective Visual Impairment: Partially Limited Hearing Ability: Hard of Hearing Industrial Psychologist Required: No Beliefs That Will Affect Care: None marital status: / Current Living Situation: [facility] Current Living Situation Comment: [facility] current occupational status: retired How many Children do You have: 2 Feels Safe at Home: Yes Childhood Exposure to Second-Hand Smoke: Yes caffeine: Yes Dental Care, Regularly: Yes Physical Activity Frequency: 5-6 Times per Week Seatbelt Use: always Sunscreen Use: No Assistive Devices: Walker and Wheelchair Allergies Allergies Allergy/AdvReac Type Severity Reaction Status Date / Time pollen extracts Allergy Intermediate ITCHY Verified 01/25/24 08:11 EYES, SNEEZING, CONGESTION donepezil AdvReac Intermediate Diarrhea Verified 01/25/24 08:11 Home Meds Home Medications Medication Instructions Recorded Confirmed acetaminophen 325 mg tablet 325 mg PO Q4H PRN PAIN/FEVER 07/28/23 03/24/24 diphenoxylate-atropine 2.5 1 tab PO Q12H PRN Diarrhea 10/16/23 03/24/24 mg-0.025 mg tablet (Lomotil) montelukast 10 mg tablet 10 mg PO DAILY 10/16/23 03/24/24 polyethylene glycol 3350 17 17 g PO DAILY PRN Constipation 10/16/23 03/24/24 gram/dose oral powder (Miralax) Lactobacillus acidoph-L.bulgaricus 1 tab PO BID 03/24/24 03/24/24 1 million cell tablet (Floranex) cholestyramine (with sugar) 4 gram 4 g PO BID 03/24/24 03/24/24 powder for susp in a packet docusate sodium 100 mg capsule 100 mg PO DAILY PRN Constipation 03/24/24 03/24/24 Previous Rx's Medication Instructions Recorded mirtazapine 15 mg tablet 15 mg PO HS #30 tabs 09/12/23 cholecalciferol (vitamin D3) 50 2,000 unit PO DAILY #90 caps 09/16/23 mcg (2,000 unit) capsule ferrous sulfate 325 mg (65 mg 325 mg PO DAILY #90 tabs 09/16/23 iron) tablet multivitamin (Multiple Vitamins 1 tab PO DAILY #90 tabs 09/16/23 tablet) psyllium husk 0.4 gram capsule 0.4 g PO DAILY #180 caps 09/16/23 (Metamucil) mupirocin 2 % topical ointment 1 applic topical TID #22 grams 11/11/23 Results & Data (ED) Vital Signs Vital Signs - 24 hr 03/24/24 20:06 03/24/24 20:11 Temperature 37.9 C H Temperature Source Oral Pulse Rate 99 H Pulse Rate [Apical] 90 Respiratory Rate 26 H 22 Respiratory Effort / Characteristics Non-Labored Spontaneous Non-Labored Spontaneous Respiratory Depth Normal Normal Respiratory Pattern Regular Regular Blood Pressure 142/87 H Blood Pressure Mean 105 Blood Pressure Position [Left Arm] Semi-fowlers Pulse Oximetry 96 97 Oxygen Delivery Method Room Air Room Air Sepsis Recent Fever Within 48 Hours Yes Sepsis New/Unexplained Change in Mental Status No Sepsis Action Taken by Nursing Physician Notified Laboratory Data 03/24/24 20:02 03/24/24 20:02 Lab Results 03/24/24 03/24/24 03/24/24 Range/Units 19:45 19:58 20:01 WBC (4.8-10.8) K/ul RBC (4.70-6.10) M/uL Hgb (14.0-18.0) g/dl Hct (42.0-52.0) % MCV (80.0-100.0) fL MCH (25.0-34.0) pg MCHC (32.0-36.0) g/dL RDW Std Deviation (36.4-46.3) fL RDW Coeff of [place] (11.5-14.5) % Plt Count (130-400) K/uL MPV (9.4-12.4) fL Immature Gran % (Auto) % Neut % (Auto) % Lymph % (Auto) % [place] % (Auto) % Eos % (Auto) % Baso % (Auto) % Neut # (Auto) (1.40-6.50) K/uL Lymph # (Auto) (1.20-3.40) K/uL [place] # (Auto) (0.11-0.59) K/uL Eos # (Auto) (0.00-0.50) K/uL Baso # (Auto) (0.00-0.20) K/uL Immature Gran # (Auto) (0.01-0.20) K/uL PT (9.0-12.0) Seconds INR (0.9-1.1) APTT (21-31) Seconds PTT Ratio Sodium (136-145) mmol/L Potassium (3.5-5.1) mmol/L Chloride (98-107) mmol/L Carbon Dioxide (21-32) mmol/L Anion Gap (3-11) BUN (6-23) mg/dl Creatinine (0.6-1.4) mg/dl Est Cr Clr Drug Dosing ml/min eGFR BUN/Creatinine Ratio (10-20) Glucose (70-99(Fasting)) mg/dl Lactate (0.4-2.0) mmol/L Calcium (8.6-10.3) mg/dl Magnesium (1.7-2.4) mg/dl Total Bilirubin (0.2-1.0) mg/dl AST (13-39) U/L ALT (7-52) U/L Alkaline Phosphatase (34-104) U/L Troponin I High Sens (0-20) pg/ml Total Protein (6.0-8.3) gm/dl Albumin (3.4-5.0) gm/dl Globulin (2.5-4.0) gm/dl Albumin/Globulin Ratio (0.9-2) Procalcitonin (0-0.5) ng/ml Urine Color Yellow Yellow Urine Appearance Turbid A Turbid A (Clear) Urine pH 6.5 7.0 (4.5-7.5) Ur Specific [place] 1.010 1.013 (1.000-1.030) Urine Protein 2+ H 2+ H (Negative) Urine Glucose (UA) Negative Negative (Negative) Urine Ketones Negative Negative (Negative) Urine Blood 1+ H 2+ H (Negative) Urine Nitrite Positive A Positive A (Negative) Urine Bilirubin Negative Negative (Negative) Urine Urobilinogen Negative Negative (Negative) Ur Leukocyte Esterase 3+ H 3+ H (Negative) Urine WBC (Auto) >50 H >50 H (0-5) /hpf Urine RBC (Auto) 6-10 H 11-20 H (0-2) /hpf U Hyaline Cast (Auto) 3-5 H 11-20 H (0-2) /lpf U Epithel Cells (Auto) 0-2 0-2 (0-2) /hpf Urine Bacteria (Auto) 4+ H 4+ H (None Seen) Adenovirus (PCR) Not Detected (NotDetected) B. pertussis DNA (PCR) Not Detected (NotDetected) B.parapertussis DNA PCR Not Detected (NotDetected) C. pneumoniae DNA (PCR) Not Detected (NotDetected) Coronavirus OC43 (PCR) Not Detected (NotDetected) Coronavirus HKU1 (PCR) Not Detected (NotDetected) Coronavirus 229E (PCR) Not Detected (NotDetected) SARS-CoV-2 (PCR) Not Detected (NotDetected) Coronavirus NL63 (PCR) Not Detected (NotDetected) Human Metapneumovir PCR Not Detected (NotDetected) Influenza Type A (PCR) Not Detected (NotDetected) Influenza Type B (PCR) Not Detected (NotDetected) M. pneumoniae (PCR) Not Detected (NotDetected) Parainfluenza 1 (PCR) Not Detected (NotDetected) Parainfluenza 2 (PCR) Not Detected (NotDetected) Parainfluenza 3 (PCR) Not Detected (NotDetected) Parainfluenza 4 (PCR) Not Detected (NotDetected) RSV (PCR) Not Detected (NotDetected) Entero/Rhino (PCR) Not Detected (NotDetected) 01/01/25 Range/Units 20:02 WBC 17.18 H (4.8-10.8) K/ul RBC 4.51 L (4.70-6.10) M/uL Hgb 12.1 L (14.0-18.0) g/dl Hct 37.5 L (42.0-52.0) % MCV 83.1 (80.0-100.0) fL MCH 26.8 (25.0-34.0) pg MCHC 32.3 (32.0-36.0) g/dL RDW Std Deviation 46.0 (36.4-46.3) fL RDW Coeff of [place] 15.1 H (11.5-14.5) % Plt Count 462 H (130-400) K/uL MPV 8.4 L (9.4-12.4) fL Immature Gran % (Auto) 1.4 % Neut % (Auto) 81.6 % Lymph % (Auto) 7.3 % [place] % (Auto) 9.1 % Eos % (Auto) 0.5 % Baso % (Auto) 0.1 % Neut # (Auto) 14.01 H (1.40-6.50) K/uL Lymph # (Auto) 1.26 (1.20-3.40) K/uL [place] # (Auto) 1.57 H (0.11-0.59) K/uL Eos # (Auto) 0.08 (0.00-0.50) K/uL Baso # (Auto) 0.02 (0.00-0.20) K/uL Immature Gran # (Auto) 0.24 H (0.01-0.20) K/uL PT 11.4 (9.0-12.0) Seconds INR 1.1 (0.9-1.1) APTT 29 (21-31) Seconds PTT Ratio 1.1 Sodium 136 (136-145) mmol/L Potassium 4.0 (3.5-5.1) mmol/L Chloride 103 (98-107) mmol/L Carbon Dioxide 24 (21-32) mmol/L Anion Gap 9 (3-11) BUN 17 (6-23) mg/dl Creatinine 1.56 H (0.6-1.4) mg/dl Est Cr Clr Drug Dosing 30.0 ml/min eGFR 43.80 BUN/Creatinine Ratio 10.9 (10-20) Glucose 100 H (70-99(Fasting)) mg/dl Lactate 1.7 (0.4-2.0) mmol/L Calcium 9.0 (8.6-10.3) mg/dl Magnesium 1.9 (1.7-2.4) mg/dl Total Bilirubin 0.5 (0.2-1.0) mg/dl AST 14 (13-39) U/L ALT 9 (7-52) U/L Alkaline Phosphatase 164 H (34-104) U/L Troponin I High Sens 12.3 (0-20) pg/ml Total Protein 8.1 (6.0-8.3) gm/dl Albumin 3.8 (3.4-5.0) gm/dl Globulin 4.3 H (2.5-4.0) gm/dl Albumin/Globulin Ratio 0.9 (0.9-2) Procalcitonin 0.26 (0-0.5) ng/ml Urine Color Urine Appearance (Clear) Urine pH (4.5-7.5) Ur Specific [place] (1.000-1.030) Urine Protein (Negative) Urine Glucose (UA) (Negative) Urine Ketones (Negative) Urine Blood (Negative) Urine Nitrite (Negative) Urine Bilirubin (Negative) Urine Urobilinogen (Negative) Ur Leukocyte Esterase (Negative) Urine WBC (Auto) (0-5) /hpf Urine RBC (Auto) (0-2) /hpf U Hyaline Cast (Auto) (0-2) /lpf U Epithel Cells (Auto) (0-2) /hpf Urine Bacteria (Auto) (None Seen) Adenovirus (PCR) (NotDetected) B. pertussis DNA (PCR) (NotDetected) B.parapertussis DNA PCR (NotDetected) C. pneumoniae DNA (PCR) (NotDetected) Coronavirus OC43 (PCR) (NotDetected) Coronavirus HKU1 (PCR) (NotDetected) Coronavirus 229E (PCR) (NotDetected) SARS-CoV-2 (PCR) (NotDetected) Coronavirus NL63 (PCR) (NotDetected) Human Metapneumovir PCR (NotDetected) Influenza Type A (PCR) (NotDetected) Influenza Type B (PCR) (NotDetected) M. pneumoniae (PCR) (NotDetected) Parainfluenza 1 (PCR) (NotDetected) Parainfluenza 2 (PCR) (NotDetected) Parainfluenza 3 (PCR) (NotDetected) Parainfluenza 4 (PCR) (NotDetected) RSV (PCR) (NotDetected) Entero/Rhino (PCR) (NotDetected) Administered Medications Discontinued Medications Piperacillin Sod/Tazobactam Sod (Zosyn) 4.5 gm in 100 mls @ 200 mls/hr IV NOW ONE; Protocol Stop: 03/24/24 20:59 Last Admin: 03/24/24 21:03 Dose: 200 mls/hr Documented By: EMB Imaging Data Radiologist's Impression: Chest X-Ray 03/24/24 19:42 Exam(s): XR CXR 1 VIEW EXAM: XR Chest, 1 View CLINICAL HISTORY: Reason for exam: Sepsis. TECHNIQUE: Frontal view of the chest. COMPARISON: 02/16/24 FINDINGS: Lungs: Unremarkable. No consolidation. Pleural space: Unremarkable. No pleural effusion or pneumothorax. Heart: Unremarkable. No cardiomegaly or pulmonary vascular congestion. Bones/joints: No acute fracture. No dislocation. IMPRESSION: No evidence of acute cardiopulmonary disease. Electronically signed by: Roberto Pickard M.D. 03/24/24 21:05 PM Discharge Plan Visit Data Chief Complaint: Fever Stated Complaint: Fever, Cough, General Illness ED Provider: Melissa Toro Discharge Problem: Sepsis, Acute kidney injury superimposed on chronic kidney disease, Complicated urinary tract infection, Leukocytosis Forms Stand Alone Forms: [facility] [place] [facility] Prescriptions Prescriptions: No Action mirtazapine 15 mg tablet 15 mg PO HS Qty: 30 0RF cholecalciferol (vitamin D3) 50 mcg (2,000 unit) capsule 2,000 unit PO DAILY Qty: 90 3RF ferrous sulfate 325 mg (65 mg iron) tablet 325 mg PO DAILY Qty: 90 3RF multivitamin [Multiple Vitamins] Tablet 1 tab PO DAILY Qty: 90 3RF psyllium husk [Metamucil] 0.4 gram capsule 0.4 g PO DAILY Qty: 180 3RF acetaminophen 325 mg tablet 325 mg PO Q4H MDD 3 GRAMS APAP/24 HOURS PRN (Reason: PAIN/FEVER) mupirocin 2 % ointment 1 applic topical TID Qty: 22 0RF Rx Instructions: Apply to cellulitis of right nephrostomy tube site. docusate sodium 100 mg Capsule 100 mg PO DAILY PRN (Reason: Constipation) cholestyramine (with sugar) 4 gram Powder In Packet 4 g PO BID Rx Instructions: administer w/meal; avoid other meds within 1hr before or 4-6hr after dose Lactobacillus acidoph-L.bulgar [Floranex] 1 million cell Tablet 1 tab PO BID diphenoxylate-atropine [Lomotil] 2.5-0.025 mg Tablet 1 tab PO Q12H PRN (Reason: Diarrhea) polyethylene glycol 3350 [Miralax] 17 gram/dose Powder 17 g PO DAILY PRN (Reason: Constipation) montelukast 10 mg tablet 10 mg PO DAILY Referrals Referrals: Darin Reynaga [Primary Care Provider] -
[2024-03-24 20:27] LABS: Basophils # (auto) 0.02 K/uL (0.00-0.20); Basophils % (auto) 0.1 %; Eosinophils # (auto) 0.08 K/uL (0.00-0.50); Eosinophils % (auto) 0.5 %; Hematocrit (blood only) 37.5 % (42.0-52.0); Hemoglobin 12.1 g/dl (14.0-18.0); Immature Granulocytes # (auto) 0.24 K/uL (0.01-0.20); Immature Granulocytes % (auto) 1.4 %; Lymphocytes # (auto) 1.26 K/uL (1.20-3.40); Lymphocytes % (auto) 7.3 %; Mean Corpuscular Hemoglobin 26.8 pg (25.0-34.0); Mean Corpuscular Hgb Conc 32.3 g/dL (32.0-36.0); Mean Corpuscular Volume 83.1 fL (80.0-100.0); Mean Platelet Volume 8.4 fL (9.4-12.4); Monocytes # (auto) 1.57 K/uL (0.11-0.59); Monocytes % (auto) 9.1 %; Neutrophils # (auto) 14.01 K/uL (1.40-6.50); Neutrophils % (auto) 81.6 %; Platelet Count 462 K/uL (130-400); RDW Coefficient of Variation 15.1 % (11.5-14.5); Red Blood Count 4.51 M/uL (4.70-6.10); White Blood Count 17.18 K/ul (4.8-10.8)
[2024-03-24 20:36] LABS: Appearance Urine Turbid (Clear); Bacteria Urine Automated 4+ (None Seen); Bilirubin Urine Negative (Negative); Blood Urine 2+ (Negative); Color Urine Yellow; Epithelial Cell Urine Auto 0-2 /hpf (0-2); Glucose Urine UA Negative (Negative); Ketones Urine Negative (Negative); Leukocyte Esterase Urine 3+ (Negative); Nitrite Urine Positive (Negative); Protein Urine 2+ (Negative); Specific Gravity Urine 1.013 (1.000-1.030); Urobilinogen Urine Negative (Negative); WBC Urine Automated >50 /hpf (0-5)
[2024-03-24 20:49] LABS: Albumin Globulin Ratio 0.9 (0.9-2); Albumin Level 3.8 gm/dl (3.4-5.0); BUN Creatinine Ratio 10.9 (10-20); Bilirubin,Total 0.5 mg/dl (0.2-1.0); Globulin 4.3 gm/dl (2.5-4.0); Magnesium 1.9 mg/dl (1.7-2.4); Total Protein 8.1 gm/dl (6.0-8.3)
[2024-03-24 20:54] LABS: Troponin I High Sensitivity 12.3 pg/ml (0-20)
[2024-03-24 21:00] LABS: INR 1.1 (0.9-1.1); Partial Thromboplastin Ratio 1.1; Partial Thromboplastin Time 29 Seconds (21-31); Prothrombin Time 11.4 Seconds (9.0-12.0)
[2024-03-24 21:00] LABS: Appearance Urine Turbid (Clear); Bacteria Urine Automated 4+ (None Seen); Bilirubin Urine Negative (Negative); Blood Urine 1+ (Negative); Color Urine Yellow; Epithelial Cell Urine Auto 0-2 /hpf (0-2); Glucose Urine UA Negative (Negative); Ketones Urine Negative (Negative); Leukocyte Esterase Urine 3+ (Negative); Nitrite Urine Positive (Negative); Protein Urine 2+ (Negative); Urobilinogen Urine Negative (Negative); WBC Urine Automated >50 /hpf (0-5); pH Urine 6.5 (4.5-7.5)
[2024-03-24] MEDS: PIPERACILLIN/TAZOBACTAM 4.5 GM/100 ML BAG IV ONE (21:03)
--- NOTE | 2024-03-24 21:06 | XRay Report ---
Exam(s): XR CXR 1 VIEW EXAM: XR Chest, 1 View CLINICAL HISTORY: Reason for exam: Sepsis. TECHNIQUE: Frontal view of the chest. COMPARISON: 02/16/24 FINDINGS: Lungs: Unremarkable. No consolidation. Pleural space: Unremarkable. No pleural effusion or pneumothorax. Heart: Unremarkable. No cardiomegaly or pulmonary vascular congestion. Bones/joints: No acute fracture. No dislocation. IMPRESSION: No evidence of acute cardiopulmonary disease. Electronically signed by: Roberto Pickard M.D. 03/24/24 21:05 PM
[2024-03-24 21:28] LABS: Adenovirus PCR Not Detected (NotDetected); Bordetella parapertussis PCR Not Detected (NotDetected); Bordetella pertussis PCR Not Detected (NotDetected); Chlamydia pneumoniae PCR Not Detected (NotDetected); Coronavirus 229E PCR Not Detected (NotDetected); Coronavirus CoV-2 (COVID19)PCR Not Detected (NotDetected); Coronavirus HKU1 PCR Not Detected (NotDetected); Coronavirus NL63 PCR Not Detected (NotDetected); Coronavirus OC43PCR Not Detected (NotDetected); Human Metapneumovirus PCR Not Detected (NotDetected); Influenza A PCR Not Detected (NotDetected); Influenza B PCR Not Detected (NotDetected); Mycoplasma pneumoniae PCR Not Detected (NotDetected); Parainfluenza Virus 1 PCR Not Detected (NotDetected); Parainfluenza Virus 2 PCR Not Detected (NotDetected); Parainfluenza Virus 3 PCR Not Detected (NotDetected); Parainfluenza Virus 4 PCR Not Detected (NotDetected); Respiratory Syncytial VirusPCR Not Detected (NotDetected); Rhinovirus/Enterovirus PCR Not Detected (NotDetected)
[2024-03-24] MEDS: SODIUM CHLORIDE 0.9% 2,000 ML IV ONE (21:43)
[2024-03-24] MEDS: ACETAMINOPHEN 1,000 MG/100 ML VIAL IV STA (21:48)
--- NOTE | 2024-03-24 21:49 | History & Physical Report ---
Date of Service March 24, 2024 Assessment & Plan (1) Complicated urinary tract infection: (2) Acute kidney injury superimposed on chronic kidney disease: (3) Catheter-associated urinary tract infection: (4) Quadriparesis: (5) History of insertion of nephrostomy tube: Plan The patient is a 84-year-old male with a past medical history including catheter associated UTI, sepsis due to UTI, STEVE on CKD, C. difficile diarrhea, hypertension, hyperlipidemia, cervical cord myelomalacia, cognitive decline, and quadriparesis. He was most recently admitted to [facility] from 02/15- 03/02/2024, where he was treated with meropenem 500 mg IV every 8 hours for 10 days due to history of ESBL E. coli and Pseudomonas urinary tract infections. He was also on vancomycin 125 mg p.o. 4 times daily for 2 weeks, and then daily prophylaxis per recommendations of infectious disease. He received 1 L normal saline from the ED, and was referred for evaluation for admission #Recurrent nephrostomy tube catheter associated urinary tract infection- History of ESBL E. coli and Pseudomonas aeruginosa Most recent admission from 02/15-03/02/2024 treated with meropenem 500 mg IV every 8 hours for 10 days Will restart meropenem Follow urine culture sensitivity Patient's symptoms of confusion, temperature and fatigue are similar to previous episodes of presentation Status post 1 L normal saline bolus from the ED Placed on NSS at 80 mL/h x 1 additional liter #Acute kidney injury superimposed on CKD- Creatinine 1.56, with base 1.28 IV fluids as above, recheck laboratories in the a.m. #C. difficile infection- Recommendation from infectious disease in the past to be on vancomycin orally, w hich will be placed on again #Cervical cord myelomalacia/quadriparesis- Usual supportive medications #CODE STATUS: DNR/DNI #Disposition- For eventual return to [facility] History of Present Illness Chief Complaint: The patient presents to the emergency department with confusion and temperature, as a referral from [facility], where he was found to have a temperature of 102, and became more confused than usual today. Primary Care Provider: Darin Reynaga The patient is a 84-year-old male with a past medical history including catheter associated UTI, sepsis due to UTI, STEVE on CKD, C. difficile diarrhea, hypertens ion, hyperlipidemia, cervical cord myelomalacia, cognitive decline, and quadriparesis. He was most recently admitted to [facility] from 02/15- 03/02/2024, where he was treated with meropenem 5 mg IV every 8 hours for 10 days due to history of ESBL E. coli and Pseudomonas urinary tract infections. He was also on vancomycin 125 mg p.o. 4 times daily for 2 weeks, and then daily prophylaxis per recommendations of infectious disease. He received 1 L normal saline from the ED, and was referred for evaluation for admission Allergies Allergy/AdvReac Type Severity Reaction Status Date / Time pollen extracts Allergy Intermediate ITCHY Verified 01/25/24 08:11 EYES, SNEEZING, CONGESTION donepezil AdvReac Intermediate Diarrhea Verified 01/25/24 08:11 Home Medications Medication Instructions Recorded Confirmed Type acetaminophen 325 mg tablet 325 mg PO Q4H PRN PAIN/FEVER 07/28/23 03/24/24 History mirtazapine 15 mg tablet 15 mg PO HS #30 tabs 09/12/23 03/24/24 Rx cholecalciferol (vitamin D3) 50 2,000 unit PO DAILY #90 caps 09/16/23 03/24/24 Rx mcg (2,000 unit) capsule ferrous sulfate 325 mg (65 mg 325 mg PO DAILY #90 tabs 09/16/23 03/24/24 Rx iron) tablet multivitamin (Multiple Vitamins 1 tab PO DAILY #90 tabs 09/16/23 03/24/24 Rx tablet) psyllium husk 0.4 gram capsule 0.4 g PO DAILY #180 caps 09/16/23 03/24/24 Rx (Metamucil) diphenoxylate-atropine 2.5 1 tab PO Q12H PRN Diarrhea 10/16/23 03/24/24 History mg-0.025 mg tablet (Lomotil) montelukast 10 mg tablet 10 mg PO DAILY 10/16/23 03/24/24 History polyethylene glycol 3350 17 17 g PO DAILY PRN Constipation 10/16/23 03/24/24 History gram/dose oral powder (Miralax) mupirocin 2 % topical ointment 1 applic topical TID #22 grams 11/11/23 03/24/24 Rx Lactobacillus acidoph-L.bulgaricus 1 tab PO BID 03/24/24 03/24/24 History 1 million cell tablet (Floranex) cholestyramine (with sugar) 4 gram 4 g PO BID 03/24/24 03/24/24 History powder for susp in a packet docusate sodium 100 mg capsule 100 mg PO DAILY PRN Constipation 03/24/24 03/24/24 History Past Med/Surg History Problem List (Updated 03/24/24 @ 21:32 by Melissa Toro MD) History of insertion of nephrostomy tube Leukocytosis (Acute) Complicated urinary tract infection (Acute) Acute kidney injury superimposed on chronic kidney disease (Acute) Sepsis (Acute) Catheter-associated urinary tract infection UTI (urinary tract infection) (Acute) Sepsis (Acute) Pneumaturia Sepsis due to urinary tract infection (Acute) Confusion Weakness Acute kidney injury superimposed on CKD (Acute) C. difficile diarrhea CKD (chronic kidney disease) (Acute) Bladder neck contracture Hydronephrosis Constipation Overflow diarrhea Diarrhea Chronic diarrhea Vitamin D deficiency (Acute) Rosacea (Acute) Quadriparesis (Chronic) Organic impotence (Acute) Male stress incontinence (Acute) Leukopenia (Acute) Hypertension Hyperlipidemia (Acute) Cervical cord myelomalacia Weight loss Cognitive decline Malnutrition Cerebral atrophy Depression Loose bowel movements Acute UTI (Acute) Chronic diarrhea Dysphagia Anemia Medical History Prostate cancer (09/27/11) "Rising PSA, pretreatment PSA 7.44 clinical stage TIc Biopsy stage T2b [place] grade 3+2 and 3+3 Active surveillance Recheck PSA 10.2, repeat biopsy [place] 3+3, biopsy stage T2b Continued rise in PSA Status post robotic prostatectomy 07/10/2011, stage [id number] Status post completion of radiation therapy the prostate bed 12/17/2011 received 7000 cGy" Near syncope Hypokalemia Acute UTI Hematochezia Benign neoplasm of large intestine Surgical History H/O Spinal surgery H/O prostatectomy Hx of tonsillectomy Family History Mother Lung cancer Breast cancer Other Alcoholism in family Denies family history of Ovarian cancer Prostate cancer Myocardial infarction Colorectal cancer Social History Smoking Status: Never smoker Second Hand Exposure: No; Do You Dip or Chew Tobacco: No; Hx Alcohol Use: No Hx Substance Use: No Preferred Language: [place] Communication Ability: Effective Visual Impairment: Partially Limited Hearing Ability: Hard of Hearing Rn Chronic Required: No Beliefs That Will Affect Care: None marital status: / Current Living Situation[facility] Current Living Situation Comment: [facility] current occupational status: retired How many Children do You have: 2 Other Information That Helps Us Care for You: No Feels Safe at Home: Yes Safety Concerns: Feels Safe At This Time Childhood Exposure to Second-Hand Smoke: Yes caffeine: Yes Dental Care, Regularly: Yes Physical Activity Frequency: 5-6 Times per Week Seatbelt Use: always Sunscreen Use: No Assistive Devices: Glasses and Wheelchair Review of Systems Review of Systems: The patient denies chest pain, palpitations, shortness of breath, dyspnea on exertion, cough, lower extremity swelling, sore throat, fevers, chills, sweats, nausea, vomiting, change in chronic diarrhea, blood in urine or stool, lightheadedness, dizziness, headache, memory loss, loss of consciousness, rash, abnormal bruising or bleeding, imbalance, focal weakness, numbness or tingling in arms, generalized arthralgias or myalgias, back or neck pain, or night sweats. The review of systems is otherwise negative other than for that already noted above, and at least 10 systems have been reviewed. Physical Exam Physical Exam: The patient is awake, alert and oriented 3, well developed and well nourished, normocephalic and atraumatic, lying in bed and in no acute distress. HEENT--PERRL, EOMI, mucous membranes and oropharynx mildly dry. Neck--supple. No JVD. No bruits. Thyroid normal, trachea midline, no adenopathy. Heart--normal S1 and S2. No murmurs, rubs or gallops. Lungs--clear bilaterally, no respiratory distress, no accessory muscle use. Abdomen--normal bowel sounds and soft. Nontender. Mildly tympanitic Extremities--No edema. Dermatologic--normal skin turgor, normal color, no abnormal lymph nodes, no rash. Neurologic--quadriparesis Rheumatologic--normal range of motion. Psychiatric--normal affect. Results & Data Results & Data Vital Signs (Past 12 Hours) Vital Signs Temp Pulse Pulse Resp BP BP Pulse Ox 03/24/24 21:47 39 C H 86 24 129/67 96 03/24/24 20:11 90 22 97 03/24/24 20:06 37.9 C H 99 H 26 H 142/87 H 96 O2 Del Method 03/24/24 21:47 Room Air 03/24/24 20:11 Room Air 03/24/24 20:06 Room Air Laboratory Results Laboratory Results WBC 17.18 K/ul (4.8-10.8) H 03/24/24 20:02 RBC 4.51 M/uL (4.70-6.10) L 03/24/24 20:02 Hgb 12.1 g/dl (14.0-18.0) L 03/24/24 20:02 Hct 37.5 % (42.0-52.0) L 03/24/24 20:02 MCV 83.1 fL (80.0-100.0) 03/24/24 20:02 MCH 26.8 pg (25.0-34.0) 03/24/24 20: MCHC 32.3 g/dL (32.0-36.0) 03/24/24 20:02 RDW Std Deviation 46.0 fL (36.4-46.3) 03/24/24 20:02 RDW Coeff of [place] 15.1 % (11.5-14.5) H 03/24/24 20:02 Plt Count 462 K/uL (130-400) H 03/24/24 20:02 MPV 8.4 fL (9.4-12.4) L 03/24/24 20:02 Immature Gran % (Auto) 1.4 % 03/24/24 20:02 Neut % (Auto) 81.6 % 03/24/24 20:02 Lymph % (Auto) 7.3 % 03/24/24 20:02 [place] % (Auto) 9.1 % 03/24/24 20:02 Eos % (Auto) 0.5 % 03/24/24 20:02 Baso % (Auto) 0.1 % 03/24/24 20:02 Neut # (Auto) 14.01 K/uL (1.40-6.50) H 03/24/24 20:02 Lymph # (Auto) 1.26 K/uL (1.20-3.40) 03/24/24 20:02 [place] # (Auto) 1.57 K/uL (0.11-0.59) H 03/24/24 20:02 Eos # (Auto) 0.08 K/uL (0.00-0.50) 03/24/24 20:02 Baso # (Auto) 0.02 K/uL (0.00-0.20) 03/24/24 20:02 Immature Gran # (Auto) 0.24 K/uL (0.01-0.20) H 03/24/24 20:02 PT 11.4 Seconds (9.0-12.0) 03/24/24 20:02 INR 1.1 (0.9-1.1) 03/24/24 20:02 APTT 29 Seconds (21-31) 03/24/24 20:02 PTT Ratio 1.1 03/24/24 20:02 Sodium 136 mmol/L (136-145) 03/24/24 20:02 Potassium 4.0 mmol/L (3.5-5.1) 03/24/24 20:02 Chloride 103 mmol/L (98-107) 03/24/24 20:02 Carbon Dioxide 24 mmol/L (21-32) 03/24/24 20:02 Anion Gap 9 (3-11) 03/24/24 20:02 BUN 17 mg/dl (6-23) 03/24/24 20:02 Creatinine 1.56 mg/dl (0.6-1.4) H 03/24/24 20:02 Est Cr Clr Drug Dosing 30.0 ml/min 03/24/24 20:02 eGFR 43.80 03/24/24 20:02 BUN/Creatinine Ratio 10.9 (10-20) 03/24/24 20:02 Glucose 100 mg/dl (70-99(Fasting)) H 03/24/24 20:02 Lactate 1.7 mmol/L (0.4-2.0) 03/24/24 20:02 Calcium 9.0 mg/dl (8.6-10.3) 03/24/24 20:02 Magnesium 1.9 mg/dl (1.7-2.4) 03/24/24 20:02 Total Bilirubin 0.5 mg/dl (0.2-1.0) 03/24/24 20:02 AST 14 U/L (13-39) 03/24/24 20:02 ALT 9 U/L (7-52) 03/24/24 20:02 Alkaline Phosphatase 164 U/L (34-104) H 03/24/24 20:02 Troponin I High Sens 12.3 pg/ml (0-20) 03/24/24 20:02 Total Protein 8.1 gm/dl (6.0-8.3) 03/24/24 20:02 Albumin 3.8 gm/dl (3.4-5.0) 03/24/24 20:02 Globulin 4.3 gm/dl (2.5-4.0) H 03/24/24 20:02 Albumin/Globulin Ratio 0.9 (0.9-2) 03/24/24 20:02 Procalcitonin 0.26 ng/ml (0-0.5) 03/24/24 20:02 Urine Color Yellow 03/24/24 19:58 Urine Appearance Turbid (Clear) A 03/24/24 19:58 Urine pH 7.0 (4.5-7.5) 03/24/24 19:58 Ur Specific [place] 1.013 (1.000-1.030) 03/24/24 19:58 Urine Protein 2+ (Negative) H 03/24/24 19:58 Urine Glucose (UA) Negative (Negative) 03/24/24 19:58 Urine Ketones Negative (Negative) 03/24/24 19:58 Urine Blood 2+ (Negative) H 03/24/24 19:58 Urine Nitrite Positive (Negative) A 03/24/24 19:58 Urine Bilirubin Negative (Negative) 03/24/24 19:58 Urine Urobilinogen Negative (Negative) 03/24/24 19:58 Ur Leukocyte Esterase 3+ (Negative) H 03/24/24 19:58 Urine WBC (Auto) >50 /hpf (0-5) H 03/24/24 19:58 Urine RBC (Auto) 11-20 /hpf (0-2) H 03/24/24 19:58 U Hyaline Cast (Auto) 11-20 /lpf (0-2) H 03/24/24 19:58 U Epithel Cells (Auto) 0-2 /hpf (0-2) 03/24/24 19:58 Urine Bacteria (Auto) 4+ (None Seen) H 03/24/24 19:58 Adenovirus (PCR) Not Detected (NotDetected) 03/24/24 20:01 B. pertussis DNA (PCR) Not Detected (NotDetected) 03/24/24 20:01 B.parapertussis DNA PCR Not Detected (NotDetected) 03/24/24 20:01 C. pneumoniae DNA (PCR) Not Detected (NotDetected) 03/24/24 20:01 Coronavirus OC43 (PCR) Not Detected (NotDetected) 03/24/24 20:01 Coronavirus HKU1 (PCR) Not Detected (NotDetected) 03/24/24 20:01 Coronavirus 229E (PCR) Not Detected (NotDetected) 03/24/24 20:01 SARS-CoV-2 (PCR) Not Detected (NotDetected) 03/24/24 20:01 Coronavirus NL63 (PCR) Not Detected (NotDetected) 03/24/24 20:01 Human Metapneumovir PCR Not Detected (NotDetected) 03/24/24 20:01 Influenza Type A (PCR) Not Detected (NotDetected) 03/24/24 20:01 Influenza Type B (PCR) Not Detected (NotDetected) 03/24/24 20:01 M. pneumoniae (PCR) Not Detected (NotDetected) 03/24/24 20:01 Parainfluenza 1 (PCR) Not Detected (NotDetected) 03/24/24 20:01 Parainfluenza 2 (PCR) Not Detected (NotDetected) 03/24/24 20:01 Parainfluenza 3 (PCR) Not Detected (NotDetected) 03/24/24 20:01 Parainfluenza 4 (PCR) Not Detected (NotDetected) 03/24/24 20:01 RSV (PCR) Not Detected (NotDetected) 03/24/24 20:01 Entero/Rhino (PCR) Not Detected (NotDetected) 03/24/24 20:01 Impressions Chest X-Ray 03/24/24 19:42 Exam(s): XR CXR 1 VIEW EXAM: XR Chest, 1 View CLINICAL HISTORY: Reason for exam: Sepsis. TECHNIQUE: Frontal view of the chest. COMPARISON: 02/16/24 FINDINGS: Lungs: Unremarkable. No consolidation. Pleural space: Unremarkable. No pleural effusion or pneumothorax. Heart: Unremarkable. No cardiomegaly or pulmonary vascular congestion. Bones/joints: No acute fracture. No dislocation. IMPRESSION: No evidence of acute cardiopulmonary disease. Electronically signed by: Roberto Pickard M.D. 03/24/24 21:05 PM Code Status & VTE Plan Code Status DNR/DNI VTE Prophylaxis Plan VTE Prophylaxis will be ordered: Yes PG Care Time/CCT Total # of Minutes Spent Total Time Spent with Patient: Total time spent is greater than 50% in coordination of care (as documented) at patient's floor/unit and/or counseling patient: Coding Level of Care Code 80148 INT INP/OBS CARE 3/75MIN Diagnoses Complicated urinary tract infection N39.0 Acute kidney injury superimposed on chronic kidney disease N17.9; N18.9 Catheter-associated urinary tract infection T83.511A; N39.0 Quadriparesis G82.50 History of insertion of nephrostomy tube Z98.890
[2024-03-24] MEDS ORDERED: ONDANSETRON INJ 2 MG/ML 2 ML VIAL IV PRN (22:46)
[2024-03-24] MEDS ORDERED: ACETAMINOPHEN 325 MG TAB PO PRN (22:46)
[2024-03-24] MEDS: MEROPENEM 500 MG in SYRINGE 0 ML IV SCH (22:48)
[2024-03-24] MEDS: SODIUM CHLORIDE 0.9% 1,000 ML IV SCH (23:11)
[2024-03-25] MEDS: CHERRY SYRUP 5 ML UDP PO SCH (05:51)
[2024-03-25] MEDS: VANCOMYCIN HCL 125 MG/2.5ML SOLN PO SCH (05:51)
[2024-03-25 07:28] LABS: Basophils # (auto) 0.04 K/uL (0.00-0.20); Basophils % (auto) 0.2 %; Eosinophils # (auto) 0.09 K/uL (0.00-0.50); Eosinophils % (auto) 0.5 %; Hematocrit (blood only) 32.6 % (42.0-52.0); Hemoglobin 10.6 g/dl (14.0-18.0); Immature Granulocytes # (auto) 0.38 K/uL (0.01-0.20); Immature Granulocytes % (auto) 2.1 %; Lymphocytes # (auto) 1.18 K/uL (1.20-3.40); Lymphocytes % (auto) 6.6 %; Mean Corpuscular Hemoglobin 27.1 pg (25.0-34.0); Mean Corpuscular Hgb Conc 32.5 g/dL (32.0-36.0); Mean Corpuscular Volume 83.4 fL (80.0-100.0); Mean Platelet Volume 8.7 fL (9.4-12.4); Monocytes # (auto) 2.12 K/uL (0.11-0.59); Monocytes % (auto) 11.9 %; Neutrophils # (auto) 14.08 K/uL (1.40-6.50); Neutrophils % (auto) 78.7 %; Platelet Count 400 K/uL (130-400); RDW Coefficient of Variation 15.1 % (11.5-14.5); RDW Standard Deviation 46.5 fL (36.4-46.3); Red Blood Count 3.91 M/uL (4.70-6.10); White Blood Count 17.89 K/ul (4.8-10.8)
[2024-03-25 07:49] LABS: Albumin Level 2.9 gm/dl (3.4-5.0); BUN Creatinine Ratio 12.1 (10-20); Calcium 7.9 mg/dl (8.6-10.3); Creatinine Clr Calc Pharmacy 37.6 ml/min; Magnesium 1.7 mg/dl (1.7-2.4); Phosphorus 3.6 mg/dl (2.5-4.9); Potassium 4.1 mmol/L (3.5-5.1)
[2024-03-25] MEDS: CHOLECALCIFEROL 25 MCG (1000 UNITS) TAB PO SCH (08:30)
[2024-03-25] MEDS: MUPIROCIN 2% OINT 22 GM TUBE TOP SCH (08:30)
[2024-03-25] MEDS: MULTIVITAMIN TAB PO SCH (08:30)
[2024-03-25] MEDS: MONTELUKAST SODIUM 10 MG TABLET PO SCH (08:30)
[2024-03-25] MEDS: FERROUS SULFATE 325 MG TAB PO SCH (08:30)
[2024-03-25] MEDS: ADVANCED PROBIOTIC 625 MG CAPSULE PO SCH (08:30)
[2024-03-25] MEDS: HEPARIN SOD 5,000 UNIT/0.5 ML VIAL SQ SCH (08:34)
[2024-03-25] MEDS: CHOLESTYRAMINE LIGHT 4 GM PKT PO SCH (11:16)
--- NOTE | 2024-03-25 12:49 | Electrocardiogram Report ---
Test Reason : Blood Pressure : */* mmHG Vent. Rate : 92 BPM Atrial Rate : 92 BPM P-R Int : 118 ms QRS Dur : 136 ms QT Int : 366 ms P-R-T Axes : 0 -88 29 degrees QTcB Int : 452 ms Normal sinus rhythm Left axis deviation Right bundle branch block Abnormal ECG When compared with ECG of 16-Feb-2024 19:50, Right bundle branch block is now Present Confirmed by Michael Harmon ([id number]) on 03/25/2024 12:49:28 PM Referred By: Mahnaz [facility] ([facility] Confirmed By: Michael Harmon
--- NOTE | 2024-03-25 19:05 | Hospitalist Progress Note ---
Date of Service March 25, 2024 Assessment & Plan (1) Complicated urinary tract infection: (2) Acute kidney injury superimposed on chronic kidney disease: (3) Catheter-associated urinary tract infection: (4) Quadriparesis: (5) History of insertion of nephrostomy tube: Plan The patient is a 84-year-old male with a past medical history including catheter associated UTI, sepsis due to UTI, STEVE on CKD, C. difficile diarrhea, hypertension, hyperlipidemia, cervical cord myelomalacia, cognitive decline, and quadriparesis. He was most recently admitted to [facility] from 02/15- 03/02/2024, where he was treated with meropenem 500 mg IV every 8 hours for 10 days due to history of ESBL E. coli and Pseudomonas urinary tract infections. He was also on vancomycin 125 mg p.o. 4 times daily for 2 weeks, and then daily prophylaxis per recommendations of infectious disease. He received 1 L normal saline from the ED, and was referred for evaluation for admission #Recurrent nephrostomy tube catheter associated urinary tract infection- History of ESBL E. coli and Pseudomonas aeruginosa Most recent admission from 02/15-03/02/2024 treated with meropenem 500 mg IV every 8 hours for 10 days Preliminary urine culture showing Pseudomonas and E. coli, sensitivities pending Continue meropenem Patient's symptoms of confusion, temperature and fatigue are similar to previous episodes of presentation Will discuss with urology on exchanging nephrostomy tube after acute treatment #Acute kidney injury superimposed on CKD- Creatinine 1.56 on admission, with baseline of 1.28 IV fluids provided, STEVE improving Monitor BMP in a.m. #C. difficile infection- Recommendation from infectious disease in the past to be on vancomycin orally, which has been continued #Cervical cord myelomalacia/quadriparesis- Usual supportive medications #CODE STATUS: DNR/DNI #[facility] Admission and Anticipated Discharge Date Admission Date: March 24, 2024 Subjective Patient seen and evaluated at bedside. He reports "feeling so-so." He notes that his appetite is "not great," but states that he is sleeping well at night. He denies nausea, vomiting, diarrhea, abdominal pain. We discussed his preliminary urine culture and current treatment plan. No additional complaints or concerns at this time. Physical Exam Physical Exam: General: No acute distress, nondiaphoretic, well-developed, well-nourished. Skin: The skin was without rashes, erythema, edema, or bruising. Cardiac: Regular rate and rhythm without murmurs gallops or rubs. Pulm: Clear to auscultation bilaterally without wheezes, rales or rhonchi. No respiratory distress. 95% on room air. Abdominal: Soft, nontender, nondistended. Bowel sounds present. No suprapubic tenderness. : Concentrated urine in Johnson catheter bag. Neuro: A&O x3. No focal neurological deficits. Quadriparesis at baseline. Results & Data Results & Data Vital Signs (Past 12 Hours) Vital Signs Temp Pulse Resp BP Pulse Ox O2 Del Method 03/25/24 15:20 105/59 L 03/25/24 15:17 98.8 F 74 17 95/58 L 95 Room Air 03/25/24 11:40 Room Air 03/25/24 08:12 98.6 F 81 16 150/77 H 96 Room Air Laboratory Results Reviewed CBC Reviewed CMP Reviewed urine culture Reviewed blood cultures PG Care Time/CCT Total # of Minutes Spent Total Time Spent with Patient: Total time spent is greater than 50% in coordination of care (as documented) at patient's floor/unit and/or counseling patient: Coding Level of Care Code 25366 SUB INP/OBS CARE 2/35MIN Diagnoses Complicated urinary tract infection N39.0 Acute kidney injury superimposed on chronic kidney disease N17.9; N18.9 Catheter-associated urinary tract infection T83.511A; N39.0 Quadriparesis G82.50 History of insertion of nephrostomy tube Z98.890
[2024-03-25] MEDS: MIRTAZAPINE TAB 15 MG TAB PO SCH (20:46)
[2024-03-26 07:42] LABS: Albumin Level 2.8 gm/dl (3.4-5.0); BUN Creatinine Ratio 10.8 (10-20); Basophils # (auto) 0.02 K/uL (0.00-0.20); Basophils % (auto) 0.2 %; Calcium 7.9 mg/dl (8.6-10.3); Creatinine Clr Calc Pharmacy 37.9 ml/min; Eosinophils # (auto) 0.15 K/uL (0.00-0.50); Eosinophils % (auto) 1.3 %; Hematocrit (blood only) 28.9 % (42.0-52.0); Hemoglobin 9.3 g/dl (14.0-18.0); Immature Granulocytes # (auto) 0.29 K/uL (0.01-0.20); Immature Granulocytes % (auto) 2.5 %; Lymphocytes # (auto) 1.81 K/uL (1.20-3.40); Lymphocytes % (auto) 15.5 %; Magnesium 1.8 mg/dl (1.7-2.4); Mean Corpuscular Hemoglobin 26.8 pg (25.0-34.0); Mean Corpuscular Hgb Conc 32.2 g/dL (32.0-36.0); Mean Corpuscular Volume 83.3 fL (80.0-100.0); Monocytes # (auto) 1.68 K/uL (0.11-0.59); Monocytes % (auto) 14.4 %; Neutrophils # (auto) 7.72 K/uL (1.40-6.50); Neutrophils % (auto) 66.1 %; Platelet Count 368 K/uL (130-400); Potassium 3.5 mmol/L (3.5-5.1); RDW Coefficient of Variation 15.2 % (11.5-14.5); RDW Standard Deviation 46.3 fL (36.4-46.3); Red Blood Count 3.47 M/uL (4.70-6.10); White Blood Count 11.67 K/ul (4.8-10.8)
--- NOTE | 2024-03-26 14:58 | Hospitalist Progress Note ---
Date of Service March 26, 2024 Assessment & Plan (1) Complicated urinary tract infection: (2) Acute kidney injury superimposed on chronic kidney disease: (3) Catheter-associated urinary tract infection: (4) Quadriparesis: (5) History of insertion of nephrostomy tube: Plan The patient is a 84-year-old male with a past medical history including catheter associated UTI, sepsis due to UTI, STEVE on CKD, C. difficile diarrhea, hypertension, hyperlipidemia, cervical cord myelomalacia, cognitive decline, and quadriparesis. He was most recently admitted to [facility] from 02/15- 03/02/2024, where he was treated with meropenem 500 mg IV every 8 hours for 10 days due to history of ESBL E. coli and Pseudomonas urinary tract infections. He was also on vancomycin 125 mg p.o. 4 times daily for 2 weeks, and then daily prophylaxis per recommendations of infectious disease. He continues on meropenem currently while awaiting ID's recommendations. #Recurrent nephrostomy tube catheter associated urinary tract infection- History of intermittent/resistant E. coli and Pseudomonas aeruginosa -- no history of ESBL per review of urine cultures here, as cefepime has been sensitive Most recent admission from 02/15-03/02/2024 treated with meropenem 500 mg IV every 8 hours for 10 days Patient's symptoms of confusion, fever, and fatigue are similar to previous episodes of presentation Preliminary urine culture showing Pseudomonas (intermediate to gentamicin) and E. coli (sensitivities pending) Continue meropenem Infectious Disease consulted, appreciate recommendations Will discuss case with IR/urology if exchange of nephrostomy tubes is recommended #Acute kidney injury superimposed on CKD- Creatinine 1.56 on admission, with baseline of 1.28 STEVE improving, continue to encourage PO hydration Monitor BMP in a.m. #C. difficile infection- Recommendation from infectious disease in the past to be on vancomycin orally as prophylaxis, which has been continued #Cervical cord myelomalacia/quadriparesis- Usual supportive medications CODE STATUS: DNR/DNI Disposition: For eventual return to [facility]; if patient requires extended course of IV antibiotics, he will need SNF placement Consulted ID Discussed case with ID via phone call Admission and Anticipated Discharge Date Admission Date: March 24, 2024 Subjective Patient seen and evaluated at bedside. He denies any acute complaints at this time. He denies pain around his nephrostomy tube insertion sites bilaterally, dysuria, chills. We discussed getting infectious diseases opinion on nephrostomy tube exchange and duration of antibiotic treatment. He is agreeable. No additional complaints or concerns at this time. Physical Exam Physical Exam: General: No acute distress, nondiaphoretic, well-developed, well-nourished. Skin: The skin was without rashes, edema, or bruising. Small area of erythema surrounding right nephrostomy tube insertion site. Cardiac: Regular rate and rhythm without murmurs gallops or rubs. Pulm: Clear to auscultation bilaterally without wheezes, rales or rhonchi. No respiratory distress. 96% on room air. Abdominal: Soft, nontender, nondistended. Bowel sounds present. No suprapubic tenderness. : Concentrated urine in Johnson catheter bag. Neuro: A&O x3. No focal neurological deficits. Quadriparesis at baseline. Results & Data Results & Data Vital Signs (Past 12 Hours) Vital Signs Temp Pulse Resp BP Pulse Ox O2 Del Method 03/26/24 08:03 97.5 F L 63 16 124/64 96 Room Air Laboratory Results Reviewed CBC Reviewed BMP Reviewed urine culture Reviewed blood cultures PG Care Time/CCT Total # of Minutes Spent Total Time Spent with Patient: Total time spent is greater than 50% in coordination of care (as documented) at patient's floor/unit and/or counseling patient: Coding Level of Care Code 27183 SUB INP/OBS CARE 3/50MIN Diagnoses Complicated urinary tract infection N39.0 Acute kidney injury superimposed on chronic kidney disease N17.9; N18.9 Catheter-associated urinary tract infection T83.511A; N39.0 Quadriparesis G82.50 History of insertion of nephrostomy tube Z98.890
--- NOTE | 2024-03-26 17:44 | Infectious Disease Consult ---
Date of Consultation March 26, 2024 Assessment & Plan (1) Complicated urinary tract infection: (2) Leukocytosis: (3) Sepsis: Plan This is an 84 -year-old man with a past medical history of CKD, quadriparesis, cognitive decline, C. 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 Noted to be febrile,hypotensive, tachycardic. Treated for Pseudomonas ( I to gen) and MDR Ecoli ( S to Cefepime) complicated UTI . He was evaluated by [facility] at the time. Urology did not pursue exchange of nephrostomy tubes as he remained hemodynamically stable and tubes were not malpositioned. ID recommend a 7 day course of Cefepime as he did not have an ESBL organism and treatment for Cdiff ( diagnosed prior to admission). It was felt that risk of Uti recurrence was high with colonized nephrostomy tubes. He was discharged by his primary team on a 10 d course of Meropenem. Prior to that admission he had b/l tubes exchanged 01/09/24, followed by replacement of R tube 01/26/24 as it was misplaced. He presents on 03/24 from his [facility] fever of 102, weakness and confusion . On admission temperature 37.9, pulse 99, RR 26, BP 142/87, O2 sats 96% on room air. Labs: WBC 17.18, platelets 462, BUN 17, creatinine 1.56. Respiratory viral panel negative. Urinalysis from both tubes positive for nitrites, 3+ leukocyte esterase, greater than 50 WBCs, 4+ bacteria. Urine culture with greater than 100 K Pseudomonas aeruginosa (intermediate to gentamicin, greater than 100 K E. coli (pending sensitivities)> chest x-ray with no evidence of acute pulmonary disease. He received a dose of Zosyn and is currently on meropenem. Blood cultures with no growth to date. WBC down to 11.67. Tmax this admission 39. ID consulted for complicated UTI with bilateral nephrostomy tubes. Per discussion with team no tenderness at nephrostomy tube sites. No complaints of dysuria or other urinary changes. No rash, ab pain, nausea, vomiting. Microbiology Urine culture 03/24 >100 Pseudomonas aeruginosa (intermediate to gentamicin), 100 K E. coli (pending sensitivities) Blood cultures 03/24 NGTD Prior microbiology: Penile drainage culture 02/19 Pseudomonas aeruginosa (intermediate to gentamicin) Urine culture 02/15 100 K Pseudomonas aeruginosa (intermediate to gentamicin), 100 K E. coli (sensitive to cefepime, cefotaxime, ertapenem, meropenem, Bactrim) -Urine culture 01/24 > 100 K Pseudomonas aeruginosa ( celis sensitive) and > 100 K Pseudomonas aeruginosa (intermediate to gentamicin) Antibiotics Meropenem 03/24ongoing Zosyn 03/24 P.o. vancomycin 125ongoing # Sepsis # Probable complicated UTI in the setting of bilateral nephrostomy tubes ( 2nd episode) # History of Bilateral hydronephrosis status post bilateral nephrostomy tubes # History of C. difficile: No current diarrhea # History of spinal surgery Discussion: He presents again with fever, confusion with leukocytosis, tachycardia, and tachypnea. He has no jignesh urinary complaints or pain at Nephrostomy tube sites. UA from both nephrostomy tubes with pyuria and bacteriuria. Urine culture again growing Pseudomonas and Ecoli. He has a history of MDR ECOLI as per above however He has no documented ESBL infection. All Prior Ecoli in UC have been Cefepime S with GOGO 2. Without an alternative diagnosis for his presenting sepsis,would treat for complicated UTI. With the BL colonized nephrostomy tubes , once antibiotics completed his risk for recurrent infection is high. He will then be exposed to additional courses of antibiotic therapy and then at risk for recurrence of Cdiff infection and development of more resistant organisms. Recommendations: -Continue Meropenem for now pending Ecoli Susceptibility. He has NOT had ESBL ecoli in the past per review of available micro, so can likely deescalate if this continues to be the case. IF ESBL ecoli, then continue meropenem. -Would ask urology or IR on feasibility of nephrostomy tube exchange this admission -Follow-up blood cultures -Follow up Ecoli S -Continue C diff secondary prophylaxis dosing during concomitant antibiotic use as he is at increased risk for recurrence given age: vancomycin 125 mg po once daily. Continue for the duration of antibiotic treatment plus an additional tail of one week Then stop. No Telepresenter available for video consult, so E consult performed per review of chart and d/w team. Discussed with team Thank you for this consult. ID will continue to follow. ID will not round or review the chart over the weekend. Call covering provider at [facility] at [phone] with questions. I will return, Friday03/29/24 Marline Srivastava MD, MPH Infectious Disease [facility] Consultation Information This patient recommendation is based on a telemedicine consult request which was completed asynchronously through chart review and information provided by the primary physician. The patient was not seen or examined today. The evaluation is consultative in nature and all patient care and treatment decisions can either be accepted or rejected by the patient's primary hospital-based treating physician using their own independent medical judgment for their patient. [employer] contact information: Please call [facility] Call Center . (Phone Number For Physician Use Only) Time Spent Reviewing Chart: 31+ minutes History of Present Illness Reason for Consultation: Complicated UTI with BL nephrostomy tubes Requesting Physician: MONIE Hill Attending Physician: Shaan Hogue MD History of Present Illness This is an 84 -year-old man with a past medical history of CKD, quadriparesis, cognitive decline, C. 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 Noted to be febrile,hypotensive, tachycardic. Treated for Pseudomonas ( I to gen) and MDR Ecoli ( S to Cefepime) complicated UTI . He was evaluated by [facility] at the time. Urology did not pursue exchange of nephrostomy tubes as he remained hemodynamically stable and tubes were not malpositioned. ID recommend a 7 day course of Cefepime as he did not have an ESBL organism and treatment for Cdiff ( diagnosed prior to admission). It was felt that risk of Uti recurrence was high with colonized nephrostomy tubes. He was discharged by his primary team on a 10 d course of Meropenem. Prior to that admission he had b/l tubes exchanged 01/09/24, followed by replacement of R tube 01/26/24 as it was misplaced. He presents on 03/24 from his [facility] fever of 102, weakness and confusion . On admission temperature 37.9, pulse 99, RR 26, BP 142/87, O2 sats 96% on room air. Labs: WBC 17.18, platelets 462, BUN 17, creatinine 1.56. Respiratory viral panel negative. Urinalysis from both tubes positive for nitrites, 3+ leukocyte esterase, greater than 50 WBCs, 4+ bacteria. Urine culture with greater than 100 K Pseudomonas aeruginosa (intermediate to gentamicin, greater than 100 K E. coli (pending sensitivities)> chest x-ray with no evidence of acute pulmonary disease. He received a dose of Zosyn and is currently on meropenem. Blood cultures with no growth to date. WBC down to 11.67. Tmax this admission 39. ID consulted for complicated UTI with bilateral nephrostomy tubes. Per discussion with team no tenderness at nephrostomy tube sites. No complaints of dysuria or other urinary changes. No rash, ab pain, nausea, vomiting. No Telepresenter available for video consult, so E consult performed per review of chart and d/w team. Allergies Allergy/AdvReac Type Severity Reaction Status Date / Time pollen extracts Allergy Intermediate ITCHY Verified 01/25/24 08:11 EYES, SNEEZING, CONGESTION donepezil AdvReac Intermediate Diarrhea Verified 01/25/24 08:11 Home Medications Medication Instructions Recorded Confirmed Type acetaminophen 325 mg tablet 325 mg PO Q4H PRN PAIN/FEVER 07/28/23 03/24/24 History mirtazapine 15 mg tablet 15 mg PO HS #30 tabs 09/12/23 03/24/24 Rx cholecalciferol (vitamin D3) 50 2,000 unit PO DAILY #90 caps 09/16/23 03/24/24 Rx mcg (2,000 unit) capsule ferrous sulfate 325 mg (65 mg 325 mg PO DAILY #90 tabs 09/16/23 03/24/24 Rx iron) tablet multivitamin (Multiple Vitamins 1 tab PO DAILY #90 tabs 09/16/23 03/24/24 Rx tablet) psyllium husk 0.4 gram capsule 0.4 g PO DAILY #180 caps 09/16/23 03/24/24 Rx (Metamucil) diphenoxylate-atropine 2.5 1 tab PO Q12H PRN Diarrhea 10/16/23 03/24/24 History mg-0.025 mg tablet (Lomotil) montelukast 10 mg tablet 10 mg PO DAILY 10/16/23 03/24/24 History polyethylene glycol 3350 17 17 g PO DAILY PRN Constipation 10/16/23 03/24/24 History gram/dose oral powder (Miralax) mupirocin 2 % topical ointment 1 applic topical TID #22 grams 11/11/23 03/24/24 Rx Lactobacillus acidoph-L.bulgaricus 1 tab PO BID 03/24/24 03/24/24 History 1 million cell tablet (Floranex) cholestyramine (with sugar) 4 gram 4 g PO BID 03/24/24 03/24/24 History powder for susp in a packet docusate sodium 100 mg capsule 100 mg PO DAILY PRN Constipation 03/24/24 03/24/24 History Patient History Medical History Prostate cancer (09/27/11) "Rising PSA, pretreatment PSA 7.44 clinical stage TIc Biopsy stage T2b [place] grade 3+2 and 3+3 Active surveillance Recheck PSA 10.2, repeat biopsy [place] 3+3, biopsy stage T2b Continued rise in PSA Status post robotic prostatectomy 07/10/2011, stage [id number] Status post completion of radiation therapy the prostate bed 12/17/2011 received 7000 cGy" Near syncope Hypokalemia Acute UTI Hematochezia Benign neoplasm of large intestine Surgical History H/O Spinal surgery H/O prostatectomy Hx of tonsillectomy Family History Mother Lung cancer Breast cancer Other Alcoholism in family Denies family history of Ovarian cancer Prostate cancer Myocardial infarction Colorectal cancer Social History Smoking Status: Never smoker Second Hand Exposure: No; Do You Dip or Chew Tobacco: No; Hx Alcohol Use: No Hx Substance Use: No Preferred Language: Spanish Communication Ability: Effective Visual Impairment: Partially Limited Hearing Ability: Hard of Hearing 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 Beliefs That Will Affect Care: None marital status: / Current Living Situation: [facility]odial [facility] status: retired How many Children do You have: 2 Other Information That Helps Us Care for You: No Feels Safe at Home: Yes Safety Concerns: Feels Safe At This Time Childhood Exposure to Second-Hand Smoke: Yes caffeine: Yes Dental Care, Regularly: Yes Physical Activity Frequency: 5-6 Times per Week Seatbelt Use: always Sunscreen Use: No Assistive Devices: Wheelchair Results & Data Vital Signs (Past 12 Hours) Vital Signs Temp Pulse Resp BP Pulse Ox O2 Del Method 03/26/24 15:33 37.0 C 65 18 109/56 L 97 Room Air 03/26/24 08:03 36.4 C L 63 16 124/64 96 Room Air Laboratory Results Laboratory Results - last 48 hr 03/24/24 03/24/24 03/24/24 19:45 19:58 20:01 WBC RBC Hgb Hct MCV MCH MCHC RDW Std Deviation RDW Coeff of Rocky Plt Count MPV Immature Gran % (Auto) Neut % (Auto) Lymph % (Auto) [place] % (Auto) Eos % (Auto) Baso % (Auto) Neut # (Auto) Lymph # (Auto) [place] # (Auto) Eos # (Auto) Baso # (Auto) Immature Gran # (Auto) PT INR APTT PTT Ratio Sodium Potassium Chloride Carbon Dioxide Anion Gap BUN Creatinine Est Cr Clr Drug Dosing eGFR BUN/Creatinine Ratio Glucose Lactate Calcium Phosphorus Magnesium Total Bilirubin AST ALT Alkaline Phosphatase Troponin I High Sens Total Protein Albumin Globulin Albumin/Globulin Ratio Procalcitonin Urine Color Yellow Yellow Urine Appearance Turbid A Turbid A Urine pH 6.5 7.0 Ur Specific [place] 1.010 1.013 Urine Protein 2+ H 2+ H Urine Glucose (UA) Negative Negative Urine Ketones Negative Negative Urine Blood 1+ H 2+ H Urine Nitrite Positive A Positive A Urine Bilirubin Negative Negative Urine Urobilinogen Negative Negative Ur Leukocyte Esterase 3+ H 3+ H Urine WBC (Auto) >50 H >50 H Urine RBC (Auto) 6-10 H 11-20 H U Hyaline Cast (Auto) 3-5 H 11-20 H U Epithel Cells (Auto) 0-2 0-2 Urine Bacteria (Auto) 4+ H 4+ H Nasal Screen MRSA (PCR) Adenovirus (PCR) Not Detected B. pertussis DNA (PCR) Not Detected B.parapertussis DNA PCR Not Detected C. pneumoniae DNA (PCR) Not Detected Coronavirus OC43 (PCR) Not Detected Coronavirus HKU1 (PCR) Not Detected Coronavirus 229E (PCR) Not Detected SARS-CoV-2 (PCR) Not Detected Coronavirus NL63 (PCR) Not Detected Human Metapneumovir PCR Not Detected Influenza Type A (PCR) Not Detected Influenza Type B (PCR) Not Detected M. pneumoniae (PCR) Not Detected Parainfluenza 1 (PCR) Not Detected Parainfluenza 2 (PCR) Not Detected Parainfluenza 3 (PCR) Not Detected Parainfluenza 4 (PCR) Not Detected RSV (PCR) Not Detected Entero/Rhino (PCR) Not Detected 03/24/24 03/25/24 03/25/24 20:02 05:58 06:31 WBC 17.18 H 17.89 H RBC 4.51 L 3.91 L Hgb 12.1 L 10.6 L Hct 37.5 L 32.6 L MCV 83.1 83.4 MCH 26.8 27.1 MCHC 32.3 32.5 RDW Std Deviation 46.0 46.5 H RDW Coeff of Rocky 15.1 H 15.1 H Plt Count 462 H 400 MPV 8.4 L 8.7 L Immature Gran % (Auto) 1.4 2.1 Neut % (Auto) 81.6 78.7 Lymph % (Auto) 7.3 6.6 Baca % (Auto) 9.1 11.9 Eos % (Auto) 0.5 0.5 Baso % (Auto) 0.1 0.2 Neut # (Auto) 14.01 H 14.08 H Lymph # (Auto) 1.26 1.18 L [place] # (Auto) 1.57 H 2.12 H Eos # (Auto) 0.08 0.09 Baso # (Auto) 0.02 0.04 Immature Gran # (Auto) 0.24 H 0.38 H PT 11.4 INR 1.1 APTT 29 PTT Ratio 1.1 Sodium 136 138 Potassium 4.0 4.1 Chloride 103 108 H Carbon Dioxide 24 22 Anion Gap 9 8 BUN 17 17 Creatinine 1.56 H 1.40 Est Cr Clr Drug Dosing 30.0 37.6 eGFR 43.80 49.87 BUN/Creatinine Ratio 10.9 12.1 Glucose 100 H 96 Lactate 1.7 Calcium 9.0 7.9 L Phosphorus 3.6 Magnesium 1.9 1.7 Total Bilirubin 0.5 AST 14 ALT 9 Alkaline Phosphatase 164 H Troponin I High Sens 12.3 Total Protein 8.1 Albumin 3.8 2.9 L Globulin 4.3 H Albumin/Globulin Ratio 0.9 Procalcitonin 0.26 Urine Color Urine Appearance Urine pH Ur Specific [place] Urine Protein Urine Glucose (UA) Urine Ketones Urine Blood Urine Nitrite Urine Bilirubin Urine Urobilinogen Ur Leukocyte Esterase Urine WBC (Auto) Urine RBC (Auto) U Hyaline Cast (Auto) U Epithel Cells (Auto) Urine Bacteria (Auto) Nasal Screen MRSA (PCR) Negative Adenovirus (PCR) B. pertussis DNA (PCR) B.parapertussis DNA PCR C. pneumoniae DNA (PCR) Coronavirus OC43 (PCR) Coronavirus HKU1 (PCR) Coronavirus 229E (PCR) SARS-CoV-2 (PCR) Coronavirus NL63 (PCR) Human Metapneumovir PCR Influenza Type A (PCR) Influenza Type B (PCR) M. pneumoniae (PCR) Parainfluenza 1 (PCR) Parainfluenza 2 (PCR) Parainfluenza 3 (PCR) Parainfluenza 4 (PCR) RSV (PCR) Entero/Rhino (PCR) 03/26/24 06:16 WBC 11.67 H RBC 3.47 L Hgb 9.3 L Hct 28.9 L MCV 83.3 MCH 26.8 MCHC 32.2 RDW Std Deviation 46.3 RDW Coeff of Rocky 15.2 H Plt Count 368 MPV 9.0 L Immature Gran % (Auto) 2.5 Neut % (Auto) 66.1 Lymph % (Auto) 15.5 [place]aca % (Auto) 14.4 Eos % (Auto) 1.3 Baso % (Auto) 0.2 Neut # (Auto) 7.72 H Lymph # (Auto) 1.81 [place] # (Auto) 1.68 H Eos # (Auto) 0.15 Baso # (Auto) 0.02 Immature Gran # (Auto) 0.29 H PT INR APTT PTT Ratio Sodium 138 Potassium 3.5 Chloride 110 H Carbon Dioxide 23 Anion Gap 5 BUN 15 Creatinine 1.39 Est Cr Clr Drug Dosing 37.9 eGFR 50.30 BUN/Creatinine Ratio 10.8 Glucose 89 Lactate Calcium 7.9 L Phosphorus 3.0 Magnesium 1.8 Total Bilirubin AST ALT Alkaline Phosphatase Troponin I High Sens Total Protein Albumin 2.8 L Globulin Albumin/Globulin Ratio Procalcitonin Urine Color Urine Appearance Urine pH Ur Specific [place] Urine Protein Urine Glucose (UA) Urine Ketones Urine Blood Urine Nitrite Urine Bilirubin Urine Urobilinogen Ur Leukocyte Esterase Urine WBC (Auto) Urine RBC (Auto) U Hyaline Cast (Auto) U Epithel Cells (Auto) Urine Bacteria (Auto) Nasal Screen MRSA (PCR) Adenovirus (PCR) B. pertussis DNA (PCR) B.parapertussis DNA PCR C. pneumoniae DNA (PCR) Coronavirus OC43 (PCR) Coronavirus HKU1 (PCR) Coronavirus 229E (PCR) SARS-CoV-2 (PCR) Coronavirus NL63 (PCR) Human Metapneumovir PCR Influenza Type A (PCR) Influenza Type B (PCR) M. pneumoniae (PCR) Parainfluenza 1 (PCR) Parainfluenza 2 (PCR) Parainfluenza 3 (PCR) Parainfluenza 4 (PCR) RSV (PCR) Entero/Rhino (PCR) Diagnostic Findings Microbiology 03/24/24 19:58 Urine,Indwelling Cath Urine Culture - Preliminary Pseudomonas aeruginosa Escherichia coli 03/24/24 19:55 Blood Aerobic Blood Culture - Preliminary No growth in Aerobic bottle after 24 hours. 03/24/24 19:55 Blood Anaerobic Blood Culture - Preliminary No growth in Anaerobic bottle after 24 hours. 03/24/24 20:02 Blood Aerobic Blood Culture - Preliminary No growth in Aerobic bottle after 24 hours. 03/24/24 20:02 Blood Anaerobic Blood Culture - Preliminary No growth in Anaerobic bottle after 24 hours. Chest X-Ray 03/24/24 19:42 Exam(s): XR CXR 1 VIEW EXAM: XR Chest, 1 View CLINICAL HISTORY: Reason for exam: Sepsis. TECHNIQUE: Frontal view of the chest. COMPARISON: 02/16/24 FINDINGS: Lungs: Unremarkable. No consolidation. Pleural space: Unremarkable. No pleural effusion or pneumothorax. Heart: Unremarkable. No cardiomegaly or pulmonary vascular congestion. Bones/joints: No acute fracture. No dislocation. IMPRESSION: No evidence of acute cardiopulmonary disease. Electronically signed by: Roberto Pickard M.D. 03/24/24 21:05 PM Medications Administered Home Medications Medication Instructions Recorded Confirmed Last Taken acetaminophen 325 mg tablet 325 mg PO Q4H PRN PAIN/FEVER 07/28/23 03/24/24 Unknown mirtazapine 15 mg tablet 15 mg PO HS #30 tabs 09/12/23 03/24/24 01/24/24 cholecalciferol (vitamin D3) 50 2,000 unit PO DAILY #90 caps 09/16/23 03/24/24 01/24/24 mcg (2,000 unit) capsule ferrous sulfate 325 mg (65 mg 325 mg PO DAILY #90 tabs 09/16/23 03/24/24 01/24/24 iron) tablet multivitamin (Multiple Vitamins 1 tab PO DAILY #90 tabs 09/16/23 03/24/24 01/24/24 tablet) psyllium husk 0.4 gram capsule 0.4 g PO DAILY #180 caps 09/16/23 03/24/24 01/24/24 (Metamucil) diphenoxylate-atropine 2.5 1 tab PO Q12H PRN Diarrhea 10/16/23 03/24/24 Unknown mg-0.025 mg tablet (Lomotil) montelukast 10 mg tablet 10 mg PO DAILY 10/16/23 03/24/24 01/24/24 polyethylene glycol 3350 17 17 g PO DAILY PRN Constipation 10/16/23 03/24/24 Unknown gram/dose oral powder (Miralax) mupirocin 2 % topical ointment 1 applic topical TID #22 grams 11/11/23 03/24/24 01/25/24 Lactobacillus acidoph-L.bulgaricus 1 tab PO BID 03/24/24 03/24/24 Unknown 1 million cell tablet (Floranex) cholestyramine (with sugar) 4 gram 4 g PO BID 03/24/24 03/24/24 Unknown powder for susp in a packet docusate sodium 100 mg capsule 100 mg PO DAILY PRN Constipation 03/24/24 03/24/24 Unknown Active Medications Generic Name Dose Route Start Last Admin Trade Name Freq PRN Reason Stop Dose Admin Peters Syrup 5 ml 03/25/24 06:00 03/26/24 17:16 Peters Syrup 5 Ml Udp PO 04/04/24 05:59 5 ml Q6 IRVING Administration Cholestyramine Resin 4 gm 03/25/24 10:00 03/26/24 12:03 Cholestyramine Light 4 Gm Pkt PO 04/24/24 09:59 4 gm BID@1000,2200 IRVING Administration Ferrous Sulfate 325 mg 03/25/24 09:00 03/26/24 09:32 Ferrous Sulfate 325 Mg Tab PO 04/24/24 08:59 325 mg DAILY IRVING Administration Heparin Sodium (Porcine) 5,000 units 03/25/24 09:00 03/26/24 09:31 Heparin Sod 5,000 Unit/0.5 Ml Vial SQ 04/24/24 08:59 Not Given Q12 IRVING Meropenem 500 mg/ Syringe 10 mls @ 2 mls/min 03/24/24 21:30 03/26/24 13:15 IV 04/03/24 21:29 2 mls/min Q8H IRVING Administration Protocol Lactobacillus Acidophilus 625 mg 03/25/24 09:00 03/26/24 09:32 Advanced Probiotic 625 Mg Capsule PO 04/24/24 08:59 625 mg BID IRVING Administration Mirtazapine 15 mg 03/25/24 21:00 03/25/24 20:46 Mirtazapine Tab 15 Mg Tab PO 04/24/24 20:59 15 mg HS IRVING Administration Montelukast Sodium 10 mg 03/25/24 09:00 03/26/24 09:32 Montelukast Sodium 10 Mg Tablet PO 04/24/24 08:59 10 mg DAILY IRVING Administration Multivitamins 1 tab 03/25/24 09:00 03/26/24 09:32 Multivitamin Tab PO 04/24/24 08:59 1 tab DAILY IRVING Administration Mupirocin 1 appln 03/25/24 09:00 03/26/24 13:15 Mupirocin 2% Oint 22 Gm Tube TOP 04/24/24 08:59 1 appln TID IRVING Administration Vancomycin HCl 125 mg 03/25/24 06:00 03/26/24 17:16 Vancomycin Hcl 125 Mg/2.5ml Soln PO 04/04/24 05:59 125 mg Q6 IRVING Administration Vitamin D 50 mcg 03/25/24 09:00 03/26/24 09:32 Cholecalciferol 25 Mcg (1000 Units) Tab PO 04/24/24 08:59 50 mcg DAILY IRVING Administration
[2024-03-27 06:55] LABS: Basophils # (auto) 0.03 K/uL (0.00-0.20); Basophils % (auto) 0.3 %; Eosinophils # (auto) 0.15 K/uL (0.00-0.50); Eosinophils % (auto) 1.6 %; Hematocrit (blood only) 29.8 % (42.0-52.0); Hemoglobin 9.8 g/dl (14.0-18.0); Immature Granulocytes % (auto) 2.1 %; Lymphocytes # (auto) 1.88 K/uL (1.20-3.40); Lymphocytes % (auto) 19.5 %; Mean Corpuscular Hemoglobin 27.3 pg (25.0-34.0); Mean Corpuscular Hgb Conc 32.9 g/dL (32.0-36.0); Mean Platelet Volume 8.7 fL (9.4-12.4); Monocytes # (auto) 1.08 K/uL (0.11-0.59); Monocytes % (auto) 11.2 %; Neutrophils # (auto) 6.31 K/uL (1.40-6.50); Neutrophils % (auto) 65.3 %; Platelet Count 354 K/uL (130-400); RDW Coefficient of Variation 15.1 % (11.5-14.5); RDW Standard Deviation 45.9 fL (36.4-46.3); Red Blood Count 3.59 M/uL (4.70-6.10); White Blood Count 9.65 K/ul (4.8-10.8)
[2024-03-27 07:26] LABS: Albumin Level 2.8 gm/dl (3.4-5.0); BUN Creatinine Ratio 11.6 (10-20); Creatinine Clr Calc Pharmacy 36.1 ml/min; Magnesium 1.8 mg/dl (1.7-2.4); Phosphorus 3.6 mg/dl (2.5-4.9); Potassium 3.6 mmol/L (3.5-5.1)
[2024-03-27] MEDS: CEFEPIME 2000MG 2,000 MG/20 ML SYR IV SCH (11:58)
--- NOTE | 2024-03-27 17:29 | Hospitalist Progress Note ---
Date of Service March 27, 2024 Assessment & Plan (1) Complicated urinary tract infection: (2) Acute kidney injury superimposed on chronic kidney disease: (3) Catheter-associated urinary tract infection: (4) Quadriparesis: (5) History of insertion of nephrostomy tube: Plan The patient is a 84-year-old male with a past medical history including catheter associated UTI, sepsis due to UTI, STEVE on CKD, C. difficile diarrhea, hypertension, hyperlipidemia, cervical cord myelomalacia, cognitive decline, and quadriparesis. He was most recently admitted to [facility] from 02/15- 03/02/2024, where he was treated with meropenem 500 mg IV every 8 hours for 10 days due to history of ESBL E. coli and Pseudomonas urinary tract infections. He was also on vancomycin 125 mg p.o. 4 times daily for 2 weeks, and then daily prophylaxis per recommendations of infectious disease. He continues on meropenem currently while awaiting ID's recommendations. #Recurrent nephrostomy tube catheter associated urinary tract infection- History of intermittent/resistant E. coli and Pseudomonas aeruginosa -- no history of ESBL per review of urine cultures here, as cefepime has been sensitive Most recent admission from 02/15-03/02/2024 treated with meropenem 500 mg IV every 8 hours for 10 days Patient's symptoms of confusion, fever, and fatigue are similar to previous episodes of presentation Preliminary urine culture showing Pseudomonas (intermediate to gentamicin) and E. coli (sensitivities pending) Downgraded from meropenem to Cefepime 2g IV Q12H on 03/27/24 Infectious Disease consulted, appreciate recommendations Will discuss case with IR/urology on 03/29/24 about nephrostomy tubes exchange #Acute kidney injury superimposed on CKD- Creatinine 1.56 on admission, with baseline of 1.28 STEVE initially improved, but Cr again increased - suspect secondary to fluid intak Continue to encourage PO hydration Monitor BMP in a.m. #C. difficile infection- Recommendation from infectious disease in the past to be on vancomycin orally as prophylaxis, which has been continued #Cervical cord myelomalacia/quadriparesis- Usual supportive medications CODE STATUS: DNR/DNI Disposition: For eventual return to [facility]; if patient requires extended course of IV antibiotics, he will need SNF placement Admission and Anticipated Discharge Date Admission Date: March 24, 2024 Subjective Patient seen and evaluated at bedside. He reports that he feels tired and weak, but otherwise denies any acute complaints at this time. We discussed that his antibiotics have been downgraded to cefepime and that the ID doctor is recommending nephrostomy tube exchange. Physical Exam Physical Exam: General: No acute distress, nondiaphoretic, well-developed, well-nourished. Skin: Small area of erythema surrounding right nephrostomy tube insertion site. Left nephrostomy tube site with crusted debris. Both nephrostomy tubes draining cloudy fluid. Pressure-induced deep tissue damage of sacral region, POA. Cardiac: Regular rate and rhythm without murmurs gallops or rubs. Pulm: Clear to auscultation bilaterally without wheezes, rales or rhonchi. No respiratory distress. 98% on room air. Abdominal: Soft, nontender, nondistended. Bowel sounds present. No suprapubic tenderness. Neuro: A&O x3. No focal neurological deficits. Quadriparesis at baseline. Results & Data Results & Data Vital Signs (Past 12 Hours) Vital Signs Temp Pulse Resp BP Pulse Ox O2 Del Method 03/27/24 14:46 97.8 F 68 16 114/68 98 Room Air 03/27/24 08:30 Room Air 03/27/24 07:03 97.5 F L 64 18 105/63 97 Room Air Laboratory Results Reviewed CBC Reviewed BMP Reviewed urine culture Reviewed blood cultures PG Care Time/CCT Total # of Minutes Spent Total Time Spent with Patient: Total time spent is greater than 50% in coordination of care (as documented) at patient's floor/unit and/or counseling patient: Coding Level of Care Code 79142 SUB INP/OBS CARE 2/35MIN Diagnoses Complicated urinary tract infection N39.0 Acute kidney injury superimposed on chronic kidney disease N17.9; N18.9 Catheter-associated urinary tract infection T83.511A; N39.0 Quadriparesis G82.50 History of insertion of nephrostomy tube Z98.890
[2024-03-28 07:28] LABS: Calcium 8.3 mg/dl (8.6-10.3); Creatinine Clr Calc Pharmacy 43.5 ml/min; Potassium 4.1 mmol/L (3.5-5.1)
--- NOTE | 2024-03-28 16:37 | Hospitalist Progress Note ---
Date of Service March 28, 2024 Assessment & Plan (1) Complicated urinary tract infection: (2) Acute kidney injury superimposed on chronic kidney disease: (3) Catheter-associated urinary tract infection: (4) Quadriparesis: (5) History of insertion of nephrostomy tube: Plan The patient is a 84-year-old male with a past medical history including catheter associated UTI, sepsis due to UTI, STEVE on CKD, C. difficile diarrhea, hypertension, hyperlipidemia, cervical cord myelomalacia, cognitive decline, and quadriparesis. He was most recently admitted to [facility] from 02/15- 03/02/2024, where he was treated with meropenem 500 mg IV every 8 hours for 10 days due to history of ESBL E. coli and Pseudomonas urinary tract infections. He was also on vancomycin 125 mg p.o. 4 times daily for 2 weeks, and then daily prophylaxis per recommendations of infectious disease. He continues on meropenem currently while awaiting ID's recommendations. #Recurrent nephrostomy tube catheter associated urinary tract infection- History of intermittent/resistant E. coli and Pseudomonas aeruginosa -- no history of ESBL per review of urine cultures here, as cefepime has been sensitive Most recent admission from 02/15-03/02/2024 treated with meropenem 500 mg IV every 8 hours for 10 days Patient's symptoms of confusion, fever, and fatigue are similar to previous episodes of presentation Preliminary urine culture showing Pseudomonas (intermediate to gentamicin) and E. coli (sensitivities pending) Downgraded from meropenem to Cefepime 2g IV Q12H on 03/27/24 Infectious Disease consulted, appreciate recommendations Will discuss case with IR/urology on 03/29/24 about nephrostomy tubes exchange #Acute kidney injury superimposed on CKD- Creatinine 1.56 on admission, with baseline of 1.28 STEVE resolved Continue to encourage PO hydration #C. difficile infection- Recommendation from infectious disease in the past to be on vancomycin orally as prophylaxis, which has been continued #Cervical cord myelomalacia/quadriparesis- Usual supportive medications CODE STATUS: DNR/DNI Disposition: For eventual return to [facility]; if patient requires extended course of IV antibiotics, he will need SNF placement Admission and Anticipated Discharge Date Admission Date: March 24, 2024 Subjective Patient seen and evaluated at bedside. He is frustrated and upset because the kitchen sent the wrong food for lunch. Informed patient he can request new meal if desired; he declined. Otherwise he denies any acute complaints or concerns at this time. Physical Exam Physical Exam: General: No acute distress, nondiaphoretic, well-developed, well-nourished. Skin: Small area of erythema surrounding nephrostomy tube insertion sites bilaterally. Both nephrostomy tubes draining cloudy fluid. Pressure-induced deep tissue damage of sacral region, POA. Cardiac: Regular rate and rhythm without murmurs gallops or rubs. Pulm: Clear to auscultation bilaterally without wheezes, rales or rhonchi. No respiratory distress. 98% on room air. Abdominal: Soft, nontender, nondistended. Bowel sounds present. No suprapubic tenderness. Neuro: A&O x3. No focal neurological deficits. Quadriparesis at baseline. Results & Data Results & Data Vital Signs (Past 12 Hours) Vital Signs Temp Pulse Resp BP Pulse Ox O2 Del Method 03/28/24 15:00 97.7 F 79 18 105/67 98 Room Air 03/28/24 11:29 98.2 F 66 17 106/62 97 Room Air 03/28/24 08:30 Room Air 03/28/24 07:09 97.5 F L 65 16 110/71 95 Room Air Laboratory Results Reviewed BMP PG Care Time/CCT Total # of Minutes Spent Total Time Spent with Patient: Total time spent is greater than 50% in coordination of care (as documented) at patient's floor/unit and/or counseling patient: Coding Level of Care Code 89201 SUB INP/OBS CARE 2/35MIN Diagnoses Complicated urinary tract infection N39.0 Acute kidney injury superimposed on chronic kidney disease N17.9; N18.9 Catheter-associated urinary tract infection T83.511A; N39.0 Quadriparesis G82.50 History of insertion of nephrostomy tube Z98.890
--- NOTE | 2024-03-29 08:47 | Hospitalist Progress Note ---
Date of Service March 29, 2024 Assessment & Plan (1) Complicated urinary tract infection: (2) Acute kidney injury superimposed on chronic kidney disease: (3) Catheter-associated urinary tract infection: (4) Quadriparesis: (5) History of insertion of nephrostomy tube: Plan The patient is a 84-year-old male with a past medical history including catheter associated UTI, sepsis due to UTI, STEVE on CKD, C. difficile diarrhea, hypertension, hyperlipidemia, cervical cord myelomalacia, cognitive decline, and quadriparesis. He was most recently admitted to [facility] from 02/15- 03/02/2024, where he was treated with meropenem 500 mg IV every 8 hours for 10 days due to history of ESBL E. coli and Pseudomonas urinary tract infections. He was also on vancomycin 125 mg p.o. 4 times daily for 2 weeks, and then daily prophylaxis per recommendations of infectious disease. He continues on cefepime for total of 7-10 days of treatment, then will need nephrostomy tubes exchanged once his antibiotics complete as he is at high risk for recurrent infections. #Recurrent nephrostomy tube catheter associated urinary tract infection- History of intermittent/resistant E. coli and Pseudomonas aeruginosa -- no history of ESBL per review of urine cultures here, as cefepime has been sensitive Most recent admission from 02/15-03/02/2024 treated with meropenem 500 mg IV every 8 hours for 10 days Patient's symptoms of confusion, fever, and fatigue are similar to previous episodes of presentation Final urine culture with Pseudomonas (intermediate to gentamicin) and E. coli (resistant to multiple antibiotics) Downgraded from meropenem to Cefepime 2g IV Q12H on 03/27/24 Infectious Disease consulted, recommending total of 7-10 days worth of treatment then getting nephrostomy tubes exchanged Asked nurse navigator to schedule nephrostomy tube exchange at [facility] #Acute kidney injury superimposed on CKD- Creatinine 1.56 on admission, with baseline of 1.28 STEVE resolved Continue to encourage PO hydration #C. difficile infection- Recommendation from infectious disease in the past to be on vancomycin orally as prophylaxis, which has been continued #Cervical cord myelomalacia/quadriparesis- Usual supportive medications Updated family friend at bedside Discussed case with infectious disease Discussed discharge plan with case management CODE STATUS: DNR/DNI Disposition: Continue inpatient stay for IV antibiotics to complete treatment, then will need nephrostomy tubes exchanged at [facility] Admission and Anticipated Discharge Date Admission Date: March 24, 2024 Subjective Patient seen and evaluated at bedside with family friend present. He reports that he feels tired but otherwise denies any acute complaints or concerns at this time. We discussed the recommendation from infectious disease of total treatment length of 7-10 days followed by nephrostomy tube exchange. Unfortunately, this cannot happen at [facility] and will need to occur at [facility]. Patient is understanding. Physical Exam Physical Exam: General: No acute distress, nondiaphoretic, well-developed, well-nourished. Skin: Small area of erythema surrounding nephrostomy tube insertion sites bilaterally. Both nephrostomy tubes draining cloudy fluid. Pressure-induced deep tissue damage of sacral region, POA. Cardiac: Regular rate and rhythm without murmurs gallops or rubs. Pulm: Clear to auscultation bilaterally without wheezes, rales or rhonchi. No respiratory distress. 97% on room air. Abdominal: Soft, nontender, nondistended. Bowel sounds present. No suprapubic tenderness. Neuro: A&O x3. No focal neurological deficits. Quadriparesis at baseline. Results & Data Results & Data Vital Signs (Past 12 Hours) Vital Signs Temp Pulse Resp BP Pulse Ox O2 Del Method 03/29/24 07:43 98.2 F 65 16 114/68 96 Room Air 03/28/24 22:35 Room Air PG Care Time/CCT Total # of Minutes Spent Total Time Spent with Patient: Total time spent is greater than 50% in coordination of care (as documented) at patient's floor/unit and/or counseling patient: Coding Level of Care Code 42757 SUB INP/OBS CARE 3/50MIN Diagnoses Complicated urinary tract infection N39.0 Acute kidney injury superimposed on chronic kidney disease N17.9; N18.9 Catheter-associated urinary tract infection T83.511A; N39.0 Quadriparesis G82.50 History of insertion of nephrostomy tube Z98.890
--- NOTE | 2024-03-29 13:49 | Infectious Disease Progress Nt ---
Date of Service March 29, 2024 Assessment & Plan (1) Complicated urinary tract infection: (2) Leukocytosis: (3) Sepsis: Plan This is an 84 -year-old man with a past medical history of CKD, quadriparesis, cognitive decline, C. 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 Noted to be febrile,hypotensive, tachycardic. Treated for Pseudomonas ( I to gen) and MDR Ecoli ( S to Cefepime) complicated UTI . He was evaluated by [facility] at the time. Urology did not pursue exchange of nephrostomy tubes as he remained hemodynamically stable and tubes were not malpositioned. ID recommend a 7 day course of Cefepime as he did not have an ESBL organism and treatment for Cdiff ( diagnosed prior to admission). It was felt that risk of Uti recurrence was high with colonized nephrostomy tubes. He was discharged by his primary team on a 10 d course of Meropenem. Prior to that admission he had b/l tubes exchanged 01/09/24, followed by replacement of R tube 01/26/24 as it was misplaced. He presents on 03/24 from his [facility] fever of 102, weakness and confusion . On admission temperature 37.9, pulse 99, RR 26, BP 142/87, O2 sats 96% on room air. Labs: WBC 17.18, platelets 462, BUN 17, creatinine 1.56. Respiratory viral panel negative. Urinalysis from both tubes positive for nitrites, 3+ leukocyte esterase, greater than 50 WBCs, 4+ bacteria. Urine culture with greater than 100 K Pseudomonas aeruginosa (intermediate to gentamicin, greater than 100 K E. coli (pending sensitivities)> chest x-ray with no evidence of acute pulmonary disease. He received a dose of Zosyn and is currently on meropenem. Blood cultures with no growth to date. WBC down to 11.67. Tmax this admission 39. ID consulted for complicated UTI with bilateral nephrostomy tubes. Per discussion with team no tenderness at nephrostomy tube sites. No complaints of dysuria or other urinary changes. No rash, ab pain, nausea, vomiting. Microbiology Urine culture 03/24 >100 Pseudomonas aeruginosa (intermediate to gentamicin), 100 K E. coli (pending sensitivities) Blood cultures 03/24 NGTD Prior microbiology: Penile drainage culture 02/19 Pseudomonas aeruginosa (intermediate to gentamicin) Urine culture 02/15 100 K Pseudomonas aeruginosa (intermediate to gentamicin), 100 K E. coli (sensitive to cefepime, cefotaxime, ertapenem, meropenem, Bactrim) -Urine culture 01/24 > 100 K Pseudomonas aeruginosa ( celis sensitive) and > 100 K Pseudomonas aeruginosa (intermediate to gentamicin) Antibiotics Meropenem Zosyn 03/24 P.o. vancomycin 125ongoing Cefepime 03/27-ongoing # Sepsis # Probable complicated UTI in the setting of bilateral nephrostomy tubes ( 2nd episode with Psa An MDR ecoli, NOT ESBL) # History of Bilateral hydronephrosis status post bilateral nephrostomy tubes # History of C. difficile: No current diarrhea # History of spinal surgery Discussion: He presents again with fever, confusion with leukocytosis, tachycardia, and tachypnea. He has no jignesh urinary complaints or pain at Nephrostomy tube sites. UA from both nephrostomy tubes with pyuria and bacteriuria. Urine culture again growing Pseudomonas and MDR Ecoli. He has a history of MDR ECOLI as per above however He has no documented ESBL infection. All Prior Ecoli in UC have been Cefepime S with GOGO 2. Without an alternative diagnosis for his presenting sepsis,would treat for complicated UTI. With the BL colonized nephrostomy tubes , once antibiotics completed his risk for recurrent infection is high. He will then be exposed to additional courses of antibiotic therapy and then at risk for recurrence of Cdiff infection and development of more resistant organisms. 03/29 mild tenderness to palpation at L nephrostomy tube site. Tubes colonized with PSA and MDR ecoli. Recommendations: -Continue Cefepime 2 g IV q12 for PSa and MDR ecoli -Follow up w/ urology or IR on feasibility of nephrostomy tube exchange this admission -Follow-up blood cultures -Continue C diff secondary prophylaxis dosing during concomitant antibiotic use as he is at increased risk for recurrence given age: vancomycin 125 mg po once daily. Continue for the duration of antibiotic treatment plus an additional tail of one week Then stop. Anticipate 7-10 d of therapy. If scheduled for tube exchange this admission, would continue through tube exchange. Risk of bacteremia with tube change as colonized. If tube exchanged post admission, would ensure antibiotics after exchange Discussed with team PA. ID will continue to follow. Marline Srivastava MD, MPH Infectious Disease [facility], ID Division Call [phone] with questions Admission and Anticipated Discharge Date Admission Date: March 24, 2024 Subjective Subsequent visit was provided via telemedicine using two-way real-time interactive telecommunication between the patient and the telemedicine provider. For the duration of the visit, the provider was performing the assessment from a different facility than the patient. This includesuse of bluetooth stethoscope forauscultationperformed by the telepresenter that the telemedicine provider can hear if described in the physical exam. Instrument Specialist contact information: Please call [facility] Call Center . (Phone Number For Physician Use Only) After establishing a telemedicine visit, patient was: Patient was verified with two unique identifiers Time Spent with Patient: Subsequent => 35 min Afebrile ecoli ided as MDR but ESBL Physical Exam Physical Exam: GEN- NAD,hard of hearing HEENT- anicteric sclera Abd- soft, not tender -BL nephrostomy tubes in place with clear urine- Mild TTP at insertion sites at L site. No segura Ext- No edema Neuro- AAO times 2 Pscyh- Cooperative. Results & Data Vital Signs (Past 12 Hours) Vital Signs Temp Pulse Resp BP Pulse Ox O2 Del Method 03/29/24 08:30 Room Air 03/29/24 07:43 36.8 C 65 16 114/68 96 Room Air Laboratory Results Laboratory Results - last 48 hr 03/28/24 06:50 Sodium 139 Potassium 4.1 Chloride 109 H Carbon Dioxide 25 Anion Gap 5 BUN 17 Creatinine 1.21 Est Cr Clr Drug Dosing 43.5 eGFR 59.41 BUN/Creatinine Ratio 14.0 Glucose 93 Calcium 8.3 L Diagnostic Findings Microbiology 03/24/24 19:58 Urine,Indwelling Cath Urine Culture - Final Pseudomonas aeruginosa Escherichia coli 03/24/24 19:55 Blood Aerobic Blood Culture - Preliminary No growth in Aerobic bottle after 48 hours. 03/24/24 19:55 Blood Anaerobic Blood Culture - Preliminary No growth in Anaerobic bottle after 48 hours. 03/24/24 20:02 Blood Aerobic Blood Culture - Preliminary No growth in Aerobic bottle after 48 hours. 03/24/24 20:02 Blood Anaerobic Blood Culture - Preliminary No growth in Anaerobic bottle after 48 hours.
--- NOTE | 2024-03-30 08:33 | Hospitalist Progress Note ---
Date of Service March 30, 2024 Assessment & Plan (1) Complicated urinary tract infection: (2) Acute kidney injury superimposed on chronic kidney disease: (3) Catheter-associated urinary tract infection: (4) Quadriparesis: (5) History of insertion of nephrostomy tube: Plan The patient is a 84-year-old male with a past medical history including catheter associated UTI, sepsis due to UTI, STEVE on CKD, C. difficile diarrhea, hypertension, hyperlipidemia, cervical cord myelomalacia, cognitive decline, and quadriparesis. He was most recently admitted to [facility] from 02/15- 03/02/2024, where he was treated with meropenem 500 mg IV every 8 hours for 10 days due to history of ESBL E. coli and Pseudomonas urinary tract infections. He was also on vancomycin 125 mg p.o. 4 times daily for 2 weeks, and then daily prophylaxis per recommendations of infectious disease. He continues on cefepime for total of 7-10 days of treatment, then will need nephrostomy tubes exchanged once his antibiotics complete as he is at high risk for recurrent infections. #Recurrent nephrostomy tube catheter associated urinary tract infection- History of intermittent/resistant E. coli and Pseudomonas aeruginosa -- no history of ESBL per review of urine cultures here, as cefepime has been sensitive Admission from 02/15-03/02/2024, tx Meropenem IV x 10 days. On admission, fever/fatigue/confusion c/w similar infections Urine cx obtained, Pseudomonas (intermediate to gentamicin) and E. coli (resistant to multiple antibiotics) Initially on Meropenem IV --> de-escalated to Cefepime IV 1/4 per ID consult recommendations WBC wnl, afebrile CM working on discussion w/ celebration holder about nephrostomy tube exchnage at [place], ?transfer for such vs dc after completed course w/ outpt exchange? Did message ID but do note same concerns without exchanging prior to discharge risk of bacteremia. WOULD CONTINUE ABX THROUGH TUBE EXCHANGE. Messaged Navigator to see about possible transfer to [place] for such/accepting back to complete course vs alternative options. Continues on Vanco PO given hx cdiff infection w/ continued abx use PT/OT consults placed as has NOT been up out of bed. #Acute kidney injury superimposed on CKD- Creatinine 1.56 on admission, with baseline of 1.28 Tx as above, renal function back to baseline 1.2 PO hydration encouraged Renal dose meds/avoid toxins as able BMP in AM #C. difficile infection- Recommendation from infectious disease in the past to be on vancomycin orally as prophylaxis, which has been continued #Cervical cord myelomalacia/quadriparesis- Usual supportive medications PT/OT consults placed Updated family friend at bedside previously, no one in room today. Disposition: Continue inpatient stay for IV antibiotics to complete treatment as outlined above and seeing about possible transfer to exchange at present time given risk for bacteremia w/ tube change as colonized and would like exchanged prior to dc if possible to prevent risk. CM following. PT/OT consults placed. From [facility] presently Admission and Anticipated Discharge Date Admission Date: March 24, 2024 Supervising Physician Co-Signing Physician Notes The patient was not seen by me. The chart was reviewed. Case discussed with MONIE Ruiz. Agree with assessment and plan Subjective Eval this morning, getting changed by nursing. Nephrostomy tubes in place, discussed exhcange. Was previously done at [place]. No abdominal pain/nausea. Is hard of hearing at baseline. Does have generalized weakness, wanting to get out of bed. Discussed with nursing and will ensure therapy evaluations placed as has been in bed/very weak. CM looking into nephrostomy exchange but remains on IV abx at this time, planning for 7-10 day course. No fever/chill, chest pain/shortness of breath reported. Questions/concerns addressed at this time. Physical Exam 2 Physical Exam: General: 84yo male getting cleaned up by nursing, NAD but HARD OF HEARING, weakness/has not gotten out of bed HEENT: head atraumatic, normocephalic, mm moist/slightly dry, trachea midline Resp: even/unlabored, no cough/distress, on room air 98% CV: RRR, no significant m/r/g, trace pedal edema but nonpitting, calves nontender/pulses present GI: +BS, soft/NT : b/l nephrostomy tubes, slightly more cloudy on the L>R but clearer yellow urine in bags w/ some white sediment, no clots/blood, slight tenderness at L site, no significant surrounding cellulitis MSK/Neuro: generalized weakness but nonfocal, not confused , answering questions appropriately, hard of hearing Psych: AOx3, cooperative quadrapesis at baseline in wheelchair Skin: Pressure-induced deep tissue damage of sacral region, POA. Results & Data Results & Data Vital Signs (Past 12 Hours) Vital Signs Temp Pulse Resp BP Pulse Ox O2 Del Method 03/30/24 07:11 36.3 C L 61 18 108/68 98 Room Air 03/29/24 22:23 36.3 C L 67 16 115/68 97 Room Air Laboratory Results 03/30/24 10:22 03/30/24 10:22 PG Care Time/CCT Total # of Minutes Spent Total Time Spent with Patient: Total time spent is greater than 50% in coordination of care (as documented) at patient's floor/unit and/or counseling patient: Coding Level of Care Code 03917 SUB INP/OBS CARE 2/35MIN Diagnoses Complicated urinary tract infection N39.0 Acute kidney injury superimposed on chronic kidney disease N17.9; N18.9 Catheter-associated urinary tract infection T83.511A; N39.0 Quadriparesis G82.50 History of insertion of nephrostomy tube Z98.890
[2024-03-30 10:55] LABS: Hematocrit (blood only) 34.3 % (42.0-52.0); Hemoglobin 11.2 g/dl (14.0-18.0); Mean Corpuscular Hemoglobin 27.3 pg (25.0-34.0); Mean Corpuscular Hgb Conc 32.7 g/dL (32.0-36.0); Mean Corpuscular Volume 83.5 fL (80.0-100.0); Platelet Count 386 K/uL (130-400); RDW Coefficient of Variation 14.9 % (11.5-14.5); RDW Standard Deviation 45.1 fL (36.4-46.3); Red Blood Count 4.11 M/uL (4.70-6.10); White Blood Count 9.15 K/ul (4.8-10.8)
[2024-03-30 11:09] LABS: Calcium 8.9 mg/dl (8.6-10.3); Potassium 4.2 mmol/L (3.5-5.1)
[2024-03-30 11:15] LABS: BUN Creatinine Ratio 18.3 (10-20); Creatinine Clr Calc Pharmacy 43.9 ml/min
[2024-03-30 11:32] LABS: Ferritin 575.5 ng/ml (8-388)
--- NOTE | 2024-03-30 15:56 | Infectious Disease Progress Nt ---
Date of Service March 30, 2024 Assessment & Plan (1) Complicated urinary tract infection: (2) Leukocytosis: (3) Sepsis: Plan This is an 84 -year-old man with a past medical history of CKD, quadriparesis, cognitive decline, C. 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 Noted to be febrile,hypotensive, tachycardic. Treated for Pseudomonas ( I to gen) and MDR Ecoli ( S to Cefepime) complicated UTI . He was evaluated by [facility] at the time. Urology did not pursue exchange of nephrostomy tubes as he remained hemodynamically stable and tubes were not malpositioned. ID recommend a 7 day course of Cefepime as he did not have an ESBL organism and treatment for Cdiff ( diagnosed prior to admission). It was felt that risk of Uti recurrence was high with colonized nephrostomy tubes. He was discharged by his primary team on a 10 d course of Meropenem. Prior to that admission he had b/l tubes exchanged 01/09/24, followed by replacement of R tube 01/26/24 as it was misplaced. He presents on 03/24 from his [facility] fever of 102, weakness and confusion . On admission temperature 37.9, pulse 99, RR 26, BP 142/87, O2 sats 96% on room air. Labs: WBC 17.18, platelets 462, BUN 17, creatinine 1.56. Respiratory viral panel negative. Urinalysis from both tubes positive for nitrites, 3+ leukocyte esterase, greater than 50 WBCs, 4+ bacteria. Urine culture with greater than 100 K Pseudomonas aeruginosa (intermediate to gentamicin, greater than 100 K E. coli (pending sensitivities)> chest x-ray with no evidence of acute pulmonary disease. He received a dose of Zosyn and is currently on meropenem. Blood cultures with no growth to date. WBC down to 11.67. Tmax this admission 39. ID consulted for complicated UTI with bilateral nephrostomy tubes. Per discussion with team no tenderness at nephrostomy tube sites. No complaints of dysuria or other urinary changes. No rash, ab pain, nausea, vomiting. Microbiology Urine culture 03/24 >100 Pseudomonas aeruginosa (intermediate to gentamicin), 100 K E. coli (pending sensitivities) Blood cultures 03/24 NGTD Prior microbiology: Penile drainage culture 02/19 Pseudomonas aeruginosa (intermediate to gentamicin) Urine culture 02/15 100 K Pseudomonas aeruginosa (intermediate to gentamicin), 100 K E. coli (sensitive to cefepime, cefotaxime, ertapenem, meropenem, Bactrim) -Urine culture 01/24 > 100 K Pseudomonas aeruginosa ( celis sensitive) and > 100 K Pseudomonas aeruginosa (intermediate to gentamicin) Antibiotics Meropenem Zosyn 03/24 P.o. vancomycin 125ongoing Cefepime 03/27-ongoing # Sepsis # Probable complicated UTI in the setting of bilateral nephrostomy tubes ( 2nd episode with Psa An MDR ecoli, NOT ESBL) # History of Bilateral hydronephrosis status post bilateral nephrostomy tubes # History of C. difficile: No current diarrhea # History of spinal surgery Discussion: He presents again with fever, confusion with leukocytosis, tachycardia, and tachypnea. He has no jignesh urinary complaints or pain at Nephrostomy tube sites. UA from both nephrostomy tubes with pyuria and bacteriuria. Urine culture again growing Pseudomonas and MDR Ecoli. He has a history of MDR ECOLI as per above however He has no documented ESBL infection. All Prior Ecoli in UC have been Cefepime S with GOGO 2. Without an alternative diagnosis for his presenting sepsis,would treat for complicated UTI. With the BL colonized nephrostomy tubes , once antibiotics completed his risk for recurrent infection is high. He will then be exposed to additional courses of antibiotic therapy and then at risk for recurrence of Cdiff infection and development of more resistant organisms. 03/29 mild tenderness to palpation at L nephrostomy tube site. Tubes colonized with PSA and MDR ecoli. 03/30 tube exchange pending --> scheduled for 03/31 at OSH Recommendations: -Continue Cefepime 2 g IV q12 for PSa and MDR ecoli -Follow up w/ urology or IR on feasibility of nephrostomy tube exchange this admission -Follow-up blood cultures -Continue C diff secondary prophylaxis dosing during concomitant antibiotic use as he is at increased risk for recurrence given age: vancomycin 125 mg po once daily. Continue for the duration of antibiotic treatment plus an additional tail of one week Then stop. Anticipate 7-10 d of therapy. If scheduled for tube exchange this admission, would continue through tube exchange. Risk of bacteremia with tube change as colonized. If tube exchanged post admission, would ensure antibiotics after exchange Discussed with team PA. ID will continue to follow. Marline Srivastava MD, MPH Infectious Disease [facility], [facility] Division Call [phone] with questions Admission and Anticipated Discharge Date Admission Date: March 24, 2024 Subjective This patient recommendation is based on a telemedicine consult request which was completed asynchronously through chart review and information provided by the primary physician. The patient was not seen or examined today. The evaluation is consultative in nature and all patient care and treatment decisions can either be accepted or rejected by the patient's primary hospital-based treating physician using their own independent medical judgment for their patient. Time Spent Reviewing Chart: 31+ minutes Afebrile pending nephrostomy exchange Results & Data Vital Signs (Past 12 Hours) Vital Signs Temp Pulse Resp BP Pulse Ox O2 Del Method 03/30/24 14:49 36.8 C 66 16 128/76 95 Room Air 03/30/24 07:45 Room Air 03/30/24 07:11 36.3 C L 61 18 108/68 98 Room Air Laboratory Results Short CBC 03/30/24 Range/Units 10:22 WBC 9.15 (4.8-10.8) K/ul Hgb 11.2 L (14.0-18.0) g/dl Hct 34.3 L (42.0-52.0) % Plt Count 386 (130-400) K/uL BMP 03/30/24 10:22 Sodium 139 Potassium 4.2 Chloride 107 Carbon Dioxide 25 BUN 22 Creatinine 1.20 Glucose 85 Calcium 8.9 Diagnostic Findings Microbiology 03/24/24 19:55 Blood Aerobic Blood Culture - Final No growth in Aerobic bottle after 5 days. 03/24/24 19:55 Blood Anaerobic Blood Culture - Final No growth in Anaerobic bottle after 5 days. 03/24/24 20:02 Blood Aerobic Blood Culture - Final No growth in Aerobic bottle after 5 days. 03/24/24 20:02 Blood Anaerobic Blood Culture - Final No growth in Anaerobic bottle after 5 days. 03/24/24 19:58 Urine,Indwelling Cath Urine Culture - Final Pseudomonas aeruginosa Escherichia coli Medications Administered Home Medications Medication Instructions Recorded Confirmed Last Taken acetaminophen 325 mg tablet 325 mg PO Q4H PRN PAIN/FEVER 05/06/24 01/01/25 Unknown mirtazapine 15 mg tablet 15 mg PO HS #30 tabs 09/12/23 03/24/24 01/24/24 cholecalciferol (vitamin D3) 50 2,000 unit PO DAILY #90 caps 09/16/23 03/24/24 01/24/24 mcg (2,000 unit) capsule ferrous sulfate 325 mg (65 mg 325 mg PO DAILY #90 tabs 09/16/23 03/24/24 01/24/24 iron) tablet multivitamin (Multiple Vitamins 1 tab PO DAILY #90 tabs 09/16/23 03/24/24 01/24/24 tablet) psyllium husk 0.4 gram capsule 0.4 g PO DAILY #180 caps 09/16/23 03/24/24 01/24/24 (Metamucil) diphenoxylate-atropine 2.5 1 tab PO Q12H PRN Diarrhea 10/16/23 03/24/24 Unknown mg-0.025 mg tablet (Lomotil) montelukast 10 mg tablet 10 mg PO DAILY 10/16/23 03/24/24 01/24/24 polyethylene glycol 3350 17 17 g PO DAILY PRN Constipation 10/16/23 03/24/24 Unknown gram/dose oral powder (Miralax) mupirocin 2 % topical ointment 1 applic topical TID #22 grams 11/11/23 03/24/24 01/25/24 Lactobacillus acidoph-L.bulgaricus 1 tab PO BID 03/24/24 03/24/24 Unknown 1 million cell tablet (Floranex) cholestyramine (with sugar) 4 gram 4 g PO BID 03/24/24 03/24/24 Unknown powder for susp in a packet docusate sodium 100 mg capsule 100 mg PO DAILY PRN Constipation 03/24/24 03/24/24 Unknown Active Medications Generic Name Dose Route Start Last Admin Trade Name Freq PRN Reason Stop Dose Admin Peters Syrup 5 ml 03/25/24 06:00 03/30/24 11:36 Peters Syrup 5 Ml Udp PO 04/04/24 05:59 5 ml Q6 IRVING Administration Cholestyramine Resin 4 gm 03/25/24 10:00 03/30/24 09:18 Cholestyramine Light 4 Gm Pkt PO 04/24/24 09:59 Not Given BID@1000,2200 IRVING Ferrous Sulfate 325 mg 03/25/24 09:00 03/30/24 09:13 Ferrous Sulfate 325 Mg Tab PO 04/24/24 08:59 325 mg DAILY IRVING Administration Heparin Sodium (Porcine) 5,000 units 03/25/24 09:00 03/30/24 09:16 Heparin Sod 5,000 Unit/0.5 Ml Vial SQ 04/24/24 08:59 Not Given Q12 IRVING Cefepime HCl 2,000 mg in 20 mls @ 5 mls/min 03/27/24 11:00 03/30/24 11:07 Maxipime 2000mg IV 04/06/24 10:59 5 mls/min Q12H IRVING Administration Protocol Lactobacillus Acidophilus 625 mg 03/25/24 09:00 03/30/24 09:14 Advanced Probiotic 625 Mg Capsule PO 04/24/24 08:59 625 mg BID IRVING Administration Mirtazapine 15 mg 03/25/24 21:00 03/29/24 19:48 Mirtazapine Tab 15 Mg Tab PO 04/24/24 20:59 15 mg HS IRVING Administration Montelukast Sodium 10 mg 03/25/24 09:00 03/30/24 09:15 Montelukast Sodium 10 Mg Tablet PO 04/24/24 08:59 10 mg DAILY IRVING Administration Multivitamins 1 tab 03/25/24 09:00 03/30/24 09:14 Multivitamin Tab PO 04/24/24 08:59 1 tab DAILY IRVING Administration Mupirocin 1 appln 03/25/24 09:00 03/30/24 14:09 Mupirocin 2% Oint 22 Gm Tube TOP 04/24/24 08:59 1 appln TID IRVING Administration Vancomycin HCl 125 mg 03/25/24 06:00 03/30/24 11:37 Vancomycin Hcl 125 Mg/2.5ml Soln PO 04/04/24 05:59 125 mg Q6 IRVING Administration Vitamin D 50 mcg 03/25/24 09:00 03/30/24 09:14 Cholecalciferol 25 Mcg (1000 Units) Tab PO 04/24/24 08:59 50 mcg DAILY IRVING Administration
--- NOTE | 2024-03-31 08:01 | Hospitalist Progress Note ---
Date of Service March 31, 2024 Assessment & Plan (1) Complicated urinary tract infection: (2) Acute kidney injury superimposed on chronic kidney disease: (3) Catheter-associated urinary tract infection: (4) Quadriparesis: (5) History of insertion of nephrostomy tube: Plan The patient is a 84-year-old male with a past medical history including catheter associated UTI, sepsis due to UTI, STEVE on CKD, C. difficile diarrhea, hypertension, hyperlipidemia, cervical cord myelomalacia, cognitive decline, and quadriparesis. He was most recently admitted to [facility] from 02/15- 03/02/2024, where he was treated with meropenem 500 mg IV every 8 hours for 10 days due to history of ESBL E. coli and Pseudomonas urinary tract infections. He was also on vancomycin 125 mg p.o. 4 times daily for 2 weeks, and then daily prophylaxis per recommendations of infectious disease. He continues on cefepime for total of 7-10 days of treatment, then will need nephrostomy tubes exchanged once his antibiotics complete as he is at high risk for recurrent infections. #Recurrent nephrostomy tube catheter associated urinary tract infection- History of intermittent/resistant E. coli and Pseudomonas aeruginosa -- no history of ESBL per review of urine cultures here, as cefepime has been sensitive Admission from 02/15-03/02/2024, tx Meropenem IV x 10 days. On admission, fever/fatigue/confusion c/w similar infections Urine cx obtained, Pseudomonas (intermediate to gentamicin) and E. coli (resistant to multiple antibiotics) Initially on Meropenem IV --> de-escalated to Cefepime IV 03/27 per ID consult recommendations WBC wnl, afebrile CM working on discussion w/ celebration glory about nephrostomy tube exchnage at [place], ?transfer for such vs dc after completed course w/ outpt exchange? Did message ID but do note same concerns without exchanging prior to discharge risk of bacteremia. WOULD CONTINUE ABX THROUGH TUBE EXCHANGE. Messaged Navigator to see about possible transfer to [place] for such/accepting back to complete course vs alternative options. Continues on Vanco PO given hx cdiff infection w/ continued abx use PT/OT consults placed as has NOT been up out of bed. 03/31--> [facility] bed today for nephrostomy tube exchange tomorrow 04/01. Anticipate antibiotics for total 10 days, can shorten to 7 days. #Acute kidney injury superimposed on CKD- Creatinine 1.56 on admission, with baseline of 1.28 Tx as above, renal function back to baseline 1.2 PO hydration encouraged Renal dose meds/avoid toxins as able BMP in AM #C. difficile infection- Recommendation from infectious disease in the past to be on vancomycin orally as prophylaxis, which has been continued #Cervical cord myelomalacia/quadriparesis- Usual supportive medications PT/OT consults placed Updated family friend at bedside previously, no one in room today. Disposition: Continue inpatient stay for IV antibiotics to complete treatment as outlined above and seeing about possible transfer to exchange at present time given risk for bacteremia w/ tube change as colonized and would like exchanged prior to dc if possible to prevent risk. CM following. PT/OT consults placed. From [facility] presently Admission and Anticipated Discharge Date Admission Date: March 24, 2024 Subjective Eval this morning, sitting up in bed. More conversive today, understands plan for transfer for nephrostomy tube exchange. Discussed either discharge from [place] to [facility] vs transfer back and dc pending course but [place] reporting to have bed today/plan for exchange in AM. Remains on Cefepime IV, vanco for hx cdiff. Nephrostomy tube suture on the left fell out, secured with tape, is draining, cloudy yellow urine. Denies fever/chills, no chest pain/trouble breathing/SOb/nausea/vomiting. Plan for transfer when bed confirmed/transportation arranged. Questions/concerns addressed at this time. Results & Data Results & Data Vital Signs (Past 12 Hours) Vital Signs Temp Pulse Pulse Resp BP Pulse Ox O2 Del Method 03/31/24 07:44 36.8 C 65 16 146/90 H 95 Room Air 03/30/24 21:21 36.2 C L 75 16 131/81 96 Room Air 03/30/24 21:00 Room Air PG Care Time/CCT Total # of Minutes Spent Total Time Spent with Patient: Total time spent is greater than 50% in coordination of care (as documented) at patient's floor/unit and/or counseling patient: Coding Diagnoses Complicated urinary tract infection N39.0 Acute kidney injury superimposed on chronic kidney disease N17.9; N18.9 Catheter-associated urinary tract infection T83.511A; N39.0 Quadriparesis G82.50 History of insertion of nephrostomy tube Z98.890
[2024-03-31 11:19] VITALS: PULSE 68; RESP 15; TEMP 97.9; O2SAT 97
--- NOTE | 2024-03-31 12:46 | Discharge Summary ---
Discharge Summary Date of Service March 31, 2024 Principal Dx & Hospital Course #1 = Principal Diagnosis (1) Complicated urinary tract infection: (2) Acute kidney injury superimposed on chronic kidney disease: (3) Catheter-associated urinary tract infection: (4) Quadriparesis: (5) History of insertion of nephrostomy tube: Plan 84-year-old male with a past medical history including catheter associated UTI, sepsis due to UTI, STEVE on CKD, C. diff, HTN/HLD, cervical cord myelomalacia, cognitive decline, and quadriparesis presented with fever/fatigue/confusion c/w previous UTIs. Was recently admitted 02/15-03/02 with Meroopenem IV x 10 days due to hx ESBL/pseudomonas infections and with nephrostomy tubes in place with cloudy drainage and pain to L site. #Recurrent nephrostomy tube catheter associated urinary tract infection- Admission from 02/15-03/02/2024 tx Meropenem IV x 10 days as above and on admission with fever/fatigue/confusion c/w similar infections History of intermittent/resistant E. coli and Pseudomonas aeruginosa -- no history of ESBL per review of urine cultures here, as cefepime has been sensitive Urine cx obtained, Pseudomonas (intermediate to gentamicin) and E. coli ( resistant to multiple antibiotics) Initially on Meropenem IV --> de-escalated to Cefepime IV 03/27 per ID consult recommendations WBC 17k--> normalized with treatment and has been afebrile since that time. WBC without elevation on repeat testing. Blood cultures NGTD x 5 days. Discussed w/ transfer center 03/30 given concerns without exchange nephrostomy tube with discussion with ID who rec exchange given high risk for bacteremia given colonization/pain at L nephrostomy site with + cultures and arrangements have been made for transfer to [facility] for nephrostomy tube exchange 04/01. Per ID, should have abx extended through catheter exchange given colonization and is currently on day 6 of treatment with Cefepime IV and can plan 7-10 days. After exchange, could be transferred back and then discharge to [facility] however did discuss w/ transfer center as being told [facility] able to accept back but no on abx and will have had enough treatment after exchagne that they could send him from there as well. Has been placed on/continued on Vanco 125mg Q6H PO given hx cdiff and per ID would continue while on IV antibiotics with RECS TO CONTINUE ONCE DAILY x 1 week tail following completion of IV abx. Transportation arranged with [facility] for this afternoon to [facility], 5th floor, [address] Nicanor Rosales. #Acute kidney injury superimposed on CKD- Cr 1.56 on admission w/ baseline ~1.28 Tx of infection as above, tubes draining appropriately, Cr improved back to baseline 1.2 prior to discharge and PO hydration encouraged/maintained #C. difficile infection- Recommendation from infectious disease in the past to be on vancomycin orally as prophylaxis, which has been continued q6h with recs for ONE WEEK TAIL following completion of IV abx #Cervical cord myelomalacia/quadriparesis- Usual supportive medications PT/OT consults placed but not seen prior to dc and can be done at [facility] if needed prior to return to [facility] but Dispo: transfer [facility] for nephrostomy tube exchange and completion of abx therapy. Vanco PO continued and should be continued x 1 week following. [facility] once completes course abx/nephrostomy tubes exchanged. Will need continued urology f/u at tx Notes For Next Care Provider Ensure urology f/u ongoing management Continue vanco for 1 wk post IV completion Medication Changes From Visit Cefepime IV continued through nephrostomy tube exchange, vanco PO q6h on IV abx and should be on once daily x 1 week following per ID Admission HPI Per Admitting Provider The patient is a 84-year-old male with a past medical history including catheter associated UTI, sepsis due to UTI, STEVE on CKD, C. difficile diarrhea, hypertension, hyperlipidemia, cervical cord myelomalacia, cognitive decline, and quadriparesis. He was most recently admitted to [facility] from 02/15- 03/02/2024, where he was treated with meropenem 5 mg IV every 8 hours for 10 days due to history of ESBL E. coli and Pseudomonas urinary tract infections. He was also on vancomycin 125 mg p.o. 4 times daily for 2 weeks, and then daily prophylaxis per recommendations of infectious disease. He received 1 L normal saline from the ED, and was referred for evaluation for admission Admission Exam Per Admitting Provider The patient is awake, alert and oriented 3, well developed and well nourished, normocephalic and atraumatic, lying in bed and in no acute distress. HEENT--PERRL, EOMI, mucous membranes and oropharynx mildly dry. Neck--supple. No JVD. No bruits. Thyroid normal, trachea midline, no adenopathy. Heart--normal S1 and S2. No murmurs, rubs or gallops. Lungs--clear bilaterally, no respiratory distress, no accessory muscle use. Abdomen--normal bowel sounds and soft. Nontender. Mildly tympanitic Extremities--No edema. Dermatologic--normal skin turgor, normal color, no abnormal lymph nodes, no rash. Neurologic--quadriparesis Rheumatologic--normal range of motion. Psychiatric--normal affect. Discharge Exam General: 84yo male laying in bed, appears improved today/more talkative, NAD, anxious for this transfer to happen to get him better, depressed affect at times about being in the hospital but much more pleasant today. KOI at baseline HEENT: head atraumatic, normocephalic, mm improved dry, trachea midline Resp: even/unlabored, no cough/distress, on room air 97% CV: RRR, no significant m/r/g, trace pedal edema but nonpitting, calves nontender/pulses present GI: +BS, soft/NT : b/l nephrostomy tubes, slightly more cloudy on the L>R but clearer yellow urine in bags w/ some white sediment, no clots/blood, slight tenderness at L site (suture fell out this morning, secured with tape), no significant surrounding cellulitis at this time MSK/Neuro: generalized weakness but nonfocal, not confused , answering questions appropriately, hard of hearing Psych: AOx3, cooperative quadrapesis at baseline in wheelchair Skin: Pressure-induced deep tissue damage of sacral region, POA. Discharge Plan Discharge Items Patient Disposition: Transfer Acute Care Hospital Reason For Visit: MDR CATHETER ASSOC UTI, STEVE Discharge Diagnosis: Sepsis, catheter associated UTI Goals: You have been hospitalized for an acute medical problem. During your stay at [facility], we have made an effort to correct the problem that brought you to the hospital while keeping you as comfortable as possible. Medications were used to bring your condition under control and your discharge instructions will include directions for any medications you should take after leaving the hospital. Please make sure you see your Primary Care Provider as part of your follow up plan. Activity: As commented below Non-emergency contact: Primary Care Provider and Urologist Call non-emergency contact if: you have any medication questions, your symptoms worsen, your pain is concerning for you and you have a fever Follow-up/Referrals: Darin Reynaga [Primary Care Provider] - Diet: Heart Healthy Addtl Attending Provider Instructions: You have been hospitalized for sepsis due to urinary tract infection from your catheters. You were treated with IV antibiotics and infectious disease was consulted and given concerns for colonization of the tubes as cause for infection and need for exchange, arrangements have been made for exchange at [facility]. You have been continued on Cefepime IV every 12 hours with oral vancomycin every six hours given history of cdiff while on antibiotics per ID recommendations AND should be continued ONCE DAILY after completion of IV antibiotics for ONE WEEK, then stop. You should be able to return to [facility] after exchange and completion of antibiotics. It has been a pleasure being a part of the medical team providing for you while you have been in the hospital. Take care! Pending Studies at Discharge: No Studies:: Blood cultures NO GROWTH - FINAL 5 days Stand-Alone Forms: My [facility] Skilled Items Patient informed of condition?: Yes DNR: Yes Discharge Level of Care: Other Communicable Disease: No Discharge Prognosis: Stable Lines: Peripheral IV Urinary Catheter: No (bilateral nephrostomy tubes) Medications and DC Order Prescriptions: New vancomycin 125 mg capsule 125 mg PO DIRECTED Qty: 30 0RF Rx Instructions: every six hours while on antibiotics and then once daily for a week following then stop Continued mirtazapine 15 mg tablet 15 mg PO HS Qty: 30 0RF cholecalciferol (vitamin D3) 50 mcg (2,000 unit) capsule 2,000 unit PO DAILY Qty: 90 3RF ferrous sulfate 325 mg (65 mg iron) tablet 325 mg PO DAILY Qty: 90 3RF multivitamin [Multiple Vitamins] Tablet 1 tab PO DAILY Qty: 90 3RF psyllium husk [Metamucil] 0.4 gram capsule 0.4 g PO DAILY Qty: 180 3RF acetaminophen 325 mg tablet 325 mg PO Q4H MDD 3 GRAMS APAP/24 HOURS PRN (Reason: PAIN/FEVER) mupirocin 2 % ointment 1 applic topical TID Qty: 22 0RF Rx Instructions: Apply to cellulitis of right nephrostomy tube site. docusate sodium 100 mg Capsule 100 mg PO DAILY PRN (Reason: Constipation) cholestyramine (with sugar) 4 gram Powder In Packet 4 g PO BID Rx Instructions: administer w/meal; avoid other meds within 1hr before or 4-6hr after dose Lactobacillus acidoph-L.bulgar [Floranex] 1 million cell Tablet 1 tab PO BID diphenoxylate-atropine [Lomotil] 2.5-0.025 mg Tablet 1 tab PO Q12H PRN (Reason: Diarrhea) polyethylene glycol 3350 [Miralax] 17 gram/dose Powder 17 g PO DAILY PRN (Reason: Constipation) montelukast 10 mg tablet 10 mg PO DAILY Discharge Orders: Discharge Order (Routine); Ordered 03/31/24 Ordered By: Herlinda Quesada Admission Data Admit Date/Time: 03/24/24 21:48 Attending Provider: Slick Franks Admit Provider: Fransisco Raymundo Primary Care Provider: Darin Reynaga Other Providers: Fransisco Raymundo; Anais Burnett; Olivia Us; Anali Mitchell Antonie J.; Nichol Reynolds; Ly Meléndez Hospital Stay Data Consultations 03/24/24 21:12 ED Decision to Admit Stat 03/26/24 12:28 Consult Infectious Diseases Routine Diagnostic Imagining Performed Chest X-Ray 03/24/24 19:42 Exam(s): XR CXR 1 VIEW EXAM: XR Chest, 1 View CLINICAL HISTORY: Reason for exam: Sepsis. TECHNIQUE: Frontal view of the chest. COMPARISON: 02/16/24 FINDINGS: Lungs: Unremarkable. No consolidation. Pleural space: Unremarkable. No pleural effusion or pneumothorax. Heart: Unremarkable. No cardiomegaly or pulmonary vascular congestion. Bones/joints: No acute fracture. No dislocation. IMPRESSION: No evidence of acute cardiopulmonary disease. Electronically signed by: Roberto Pickard M.D. 03/24/24 21:05 PM Discharge Instructions Given to Patient (Per Discharging Provider) You have been hospitalized for sepsis due to urinary tract infection from your catheters. You were treated with IV antibiotics and infectious disease was consulted and given concerns for colonization of the tubes as cause for infection and need for exchange, arrangements have been made for exchange at [facility]. You have been continued on Cefepime IV every 12 hours with oral vancomycin every six hours given history of cdiff while on antibiotics per ID recommendations AND should be continued ONCE DAILY after completion of IV antibiotics for ONE WEEK, then stop. You should be able to return to [facility] after exchange and completion of antibiotics. It has been a pleasure being a part of the medical team providing for you while you have been in the hospital. Take care! Supervising Physician Co-Signing Physician Notes The patient was not seen by me. The chart was reviewed. Case discussed with MONIE Ruiz. Agree with assessment and plan Total Time Total Time Spent Total Time Spent (In Minutes): 50 Coding Level of Care Code 00030 INP/OBS DISCH >30 MIN Diagnoses Complicated urinary tract infection N39.0 Acute kidney injury superimposed on chronic kidney disease N17.9; N18.9 Catheter-associated urinary tract infection T83.511A; N39.0 Quadriparesis G82.50 History of insertion of nephrostomy tube Z98.890
[2024-03-31 13:13] VITALS: BP 121/70
== END 2024-03-31 14:22 | disposition short-term general hospital (02) | DRG 698 ==
LOC: ED 19:34 → SUATTDRO 21:48 → EDINP 21:48 → 3E 03-25 00:08

== ENCOUNTER 2024-07-10 11:41 | Inpatient (IN) ==
--- NOTE | 2024-07-10 11:49 | Emergency Department Note ---
Impression & Plan STEVE (acute kidney injury), Pseudomonas infection ED Provider Note HISTORY OF PRESENT ILLNESS: Patient is an 84-year-old male presenting with positive culture results. Patient has been seen in the emergency department multiple times in the last week secondary to his complicated nephrostomy tube. He is colonized with Pseudomonas. There was concern from his facility during his last visit to the ER a few days ago that he had developing cellulitis around his neph tube insertion site. 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 Patient did have his nephrostomy tubes exchanged yesterday at [facility]. Patient denies any complaints on arrival to the emergency department. He denies any recent fevers. Denies any nausea or vomiting. ROS: as above PHYSICAL EXAM: Constitutional: Patient appears in no acute distress. HENT: Head: Normocephalic and atraumatic. Eyes: EOMI, PERRL Mouth/Throat: Mucous membranes moist. Neck: Trachea midline. Neck supple. Cardiovascular: RRR, No murmurs, rubs or gallops. Intact distal pulses. Pulmonary/Chest: No respiratory distress. Breath sounds clear and equal bilaterally. No wheezes or rales. Abdominal: Abdomen soft, no tenderness, rebound or guarding. Nephrostomy tubes at bilateral lower back. No appreciable surrounding cellulitis to the insertion areas. Musculoskeletal: No edema, tenderness or deformity noted. Skin: Warm and dry. No rash, erythema, pallor or cyanosis Psychiatric: Appropriate mood and affect for situation. Neurological: Alert and keenly responsive. CN II-XII grossly intact MDM: - Vitals signs stable - History obtained via patient and chart review. History as above. - Chronic conditions affecting care: HTN; HLD; hydronephrosis; CKD - Differential diagnoses include, but are not limited to: cellulitis; colonization; UTI - Order placed for continuous cardiac monitoring. At this time, monitor showed rate of 75 bpm with normal sinus rhythm, per my interpretation. - External medical records reviewed. [facility] interventional radiology note dated 07/09/2024 was reviewed. Patient had nephrostomy tube exchange performed to bilateral neph tubes. - Laboratory workup interpreted by myself showed normal WBC; stable electrolytes; STEVE (Cr 1.70); normal lipase; normal lactate; normal procalcitonin - UAs obtained from both nephrostomy tubes - Blood cultures obtained - Patient given 500 cc NS for STEVE - Given 2g IV cefepime for Pseudomonas coverage. - Discussion was had with ed case manager about patient's case and need for admission - Hospitalist consulted for admission - [facility]. ASSESSMENT AND PLAN: Diagnosis: STEVE; Pseudomonas infection Plan: admit Past Med/Surg History Problem List (Updated 07/10/24 @ 14:24 by Melissa Toro MD) Pseudomonas infection (Acute) STEVE (acute kidney injury) (Acute) Cough (Acute) History of insertion of nephrostomy tube Leukocytosis (Acute) Complicated urinary tract infection (Acute) Acute kidney injury superimposed on chronic kidney disease (Acute) Sepsis (Acute) Catheter-associated urinary tract infection Pneumaturia Confusion Weakness Bladder neck contracture Hydronephrosis Constipation Overflow diarrhea Diarrhea Chronic diarrhea Vitamin D deficiency (Acute) Rosacea (Acute) Organic impotence (Acute) Male stress incontinence (Acute) Leukopenia (Acute) Hypertension Hyperlipidemia (Acute) Weight loss Cognitive decline Malnutrition Cerebral atrophy Depression Loose bowel movements Acute UTI (Acute) Chronic diarrhea Dysphagia Anemia Medical History Sepsis due to urinary tract infection Acute kidney injury superimposed on CKD C. difficile diarrhea CKD (chronic kidney disease) Cervical cord myelomalacia Quadriparesis Prostate cancer (09/27/11) "Rising PSA, pretreatment PSA 7.44 clinical stage TIc Biopsy stage T2b [place] grade 3+2 and 3+3 Active surveillance Recheck PSA 10.2, repeat biopsy [place] 3+3, biopsy stage T2b Continued rise in PSA Status post robotic prostatectomy 07/10/2011, stage [id number] Status post completion of radiation therapy the prostate bed 12/17/2011 received 7000 cGy" Near syncope Hypokalemia Acute UTI Hematochezia Benign neoplasm of large intestine Surgical History H/O Spinal surgery H/O prostatectomy Hx of tonsillectomy Family History Mother Lung cancer Breast cancer Other Alcoholism in family Denies family history of Ovarian cancer Prostate cancer Myocardial infarction Colorectal cancer Social History Smoking Status: Never smoker Second Hand Exposure: No; Do You Dip or Chew Tobacco: No; Hx Alcohol Use: No Hx Substance Use: No Preferred Language: [place] Communication Ability: Effective Visual Impairment: Partially Limited Hearing Ability: Hard of Hearing Materials Coordinator Required: No Beliefs That Will Affect Care: None marital status: / Current Living Situation: Correction Current Living Situation Comment: [facility] current occupational status: retired How many Children do You have: 2 Feels Safe at Home: Yes Childhood Exposure to Second-Hand Smoke: Yes caffeine: Yes Dental Care, Regularly: Yes Physical Activity Frequency: 5-6 Times per Week Seatbelt Use: always Sunscreen Use: No Assistive Devices: Wheelchair Allergies Allergies Allergy/AdvReac Type Severity Reaction Status Date / Time pollen extracts Allergy Intermediate ITCHY Verified 07/06/24 15:53 EYES, SNEEZING, CONGESTION donepezil AdvReac Intermediate Diarrhea Verified 07/06/24 15:53 Home Meds Home Medications Medication Instructions Recorded Confirmed acetaminophen 325 mg tablet 325 mg PO Q4H PRN PAIN/FEVER 07/28/23 07/06/24 polyethylene glycol 3350 17 17 g PO DAILY PRN Constipation 10/16/23 07/06/24 gram/dose oral powder (Miralax) Lactobacillus acidoph-L.bulgaricus 1 tab PO TID 03/24/24 07/06/24 1 million cell tablet (Floranex) cholestyramine (with sugar) 4 gram 4 g PO BID 03/24/24 07/06/24 powder for susp in a packet docusate sodium 100 mg capsule 100 mg PO DAILY PRN Constipation 03/24/24 07/06/24 Lactobacillus acidophilus 20 20,000 mmu cells PO BID 04/21/24 07/06/24 billion cell capsule (Florajen Acidophilus) ascorbic acid (vitamin C) 1,000 mg 1,000 mg PO DAILY 04/21/24 07/06/24 tablet (Vitamin C) menthol 0.44 %-zinc oxide 20.6 % 1 applic topical QID PRN Skin 04/21/24 07/06/24 topical ointment (Calmoseptine) Irritation methenamine hippurate 1 gram tablet 1 g PO DAILY 04/21/24 07/06/24 ergocalciferol (vitamin D2) 1,250 1,250 mcg PO WK 07/06/24 07/06/24 mcg (50,000 unit) capsule (Vitamin D2) nitrofurantoin macrocrystal 100 mg 100 mg PO HS 07/06/24 07/06/24 capsule vancomycin 125 mg capsule 125 mg PO QAM 07/06/24 07/06/24 Previous Rx's Medication Instructions Recorded ferrous sulfate 325 mg (65 mg 325 mg PO DAILY #90 tabs 09/16/23 iron) tablet psyllium husk 0.4 gram capsule 0.4 g PO DAILY #180 caps 09/16/23 (Metamucil) mupirocin 2 % topical ointment 1 applic topical TID #22 grams 11/11/23 cephalexin 500 mg capsule 500 mg PO Q6H 7 days #28 caps 07/07/24 Results & Data (ED) Vital Signs Vital Signs - 24 hr 07/10/24 11:46 07/10/24 12:05 07/10/24 13:36 Temperature 36.7 C Temperature Source Oral Pulse Rate 75 81 Pulse Rate [Apical] 66 Respiratory Rate 16 16 Respiratory Effort / Characteristics Non-Labored Non-Labored Respiratory Depth Normal Normal Respiratory Pattern Regular Blood Pressure 128/75 Blood Pressure [Right Arm] 95/61 L Blood Pressure Mean 92 Blood Pressure Mean [Right Arm] 72 Blood Pressure Position Sitting Pulse Oximetry 96 96 Oxygen Delivery Method Room Air Room Air Sepsis Recent Fever Within 48 Hours No Sepsis New/Unexplained Change in Mental Status No Sepsis Action Taken by Nursing No Action Required Laboratory Data 07/10/24 12:08 07/10/24 12:08 Lab Results 07/10/24 07/10/24 07/10/24 Range/Units 12:08 Unknown Unknown WBC 6.90 (4.8-10.8) K/ul RBC 4.19 L (4.70-6.10) M/uL Hgb 11.5 L (14.0-18.0) g/dl Hct 36.0 L (42.0-52.0) % MCV 85.9 (80.0-100.0) fL MCH 27.4 (25.0-34.0) pg MCHC 31.9 L (32.0-36.0) g/dL RDW Std Deviation 48.8 H (36.4-46.3) fL RDW Coeff of [place] 15.6 H (11.5-14.5) % Plt Count 382 (130-400) K/uL MPV 9.1 L (9.4-12.4) fL Immature Gran % (Auto) 0.7 % Neut % (Auto) 65.2 % Lymph % (Auto) 18.6 % [place] % (Auto) 13.0 % Eos % (Auto) 2.2 % Baso % (Auto) 0.3 % Neut # (Auto) 4.50 (1.40-6.50) K/uL Lymph # (Auto) 1.28 (1.20-3.40) K/uL [place] # (Auto) 0.90 H (0.11-0.59) K/uL Eos # (Auto) 0.15 (0.00-0.50) K/uL Baso # (Auto) 0.02 (0.00-0.20) K/uL Immature Gran # (Auto) 0.05 (0.01-0.20) K/uL Sodium 139 (136-145) mmol/L Potassium 4.0 (3.5-5.1) mmol/L Chloride 108 H (98-107) mmol/L Carbon Dioxide 22 (21-32) mmol/L Anion Gap 9 (3-11) BUN 18 (6-23) mg/dl Creatinine 1.70 H (0.6-1.4) mg/dl Est Cr Clr Drug Dosing Not Reportable eGFR 39.51 BUN/Creatinine Ratio 10.6 (10-20) Glucose 95 (70-99(Fasting)) mg/dl Lactate 1.1 (0.4-2.0) mmol/L Calcium 8.7 (8.6-10.3) mg/dl Total Bilirubin 0.4 (0.2-1.0) mg/dl AST 11 L (13-39) U/L ALT 8 (7-52) U/L Alkaline Phosphatase 125 H (34-104) U/L Total Protein 6.6 (6.0-8.3) gm/dl Albumin 3.4 (3.4-5.0) gm/dl Globulin 3.2 (2.5-4.0) gm/dl Albumin/Globulin Ratio 1.1 (0.9-2) Lipase 36 (11-82) U/L Procalcitonin 0.16 (0-0.5) ng/ml Urine Color Yellow Yellow Urine Appearance Turbid A (Clear) Urine pH (4.5-7.5) Ur Specific [place] (1.000-1.030) Urine Protein (Negative) Urine Glucose (UA) (Negative) Urine Ketones (Negative) Urine Blood (Negative) Urine Nitrite (Negative) Urine Bilirubin (Negative) Urine Urobilinogen (Negative) Ur Leukocyte Esterase (Negative) Urine WBC (Auto) (0-5) /hpf Urine RBC (Auto) (0-2) /hpf U Hyaline Cast (Auto) (0-2) /lpf U Epithel Cells (Auto) (0-2) /hpf Urine Bacteria (Auto) (None Seen) Granular Casts (None Prsent) /lpf Urine Yeast (None Prsent) 07/10/24 07/10/24 07/10/24 Range/Units Unknown Unknown Unknown WBC (4.8-10.8) K/ul RBC (4.70-6.10) M/uL Hgb (14.0-18.0) g/dl Hct (42.0-52.0) % MCV (80.0-100.0) fL MCH (25.0-34.0) pg MCHC (32.0-36.0) g/dL RDW Std Deviation (36.4-46.3) fL RDW Coeff of [place] (11.5-14.5) % Plt Count (130-400) K/uL MPV (9.4-12.4) fL Immature Gran % (Auto) % Neut % (Auto) % Lymph % (Auto) % [place] % (Auto) % Eos % (Auto) % Baso % (Auto) % Neut # (Auto) (1.40-6.50) K/uL Lymph # (Auto) (1.20-3.40) K/uL [place] # (Auto) (0.11-0.59) K/uL Eos # (Auto) (0.00-0.50) K/uL Baso # (Auto) (0.00-0.20) K/uL Immature Gran # (Auto) (0.01-0.20) K/uL Sodium (136-145) mmol/L Potassium (3.5-5.1) mmol/L Chloride (98-107) mmol/L Carbon Dioxide (21-32) mmol/L Anion Gap (3-11) BUN (6-23) mg/dl Creatinine (0.6-1.4) mg/dl Est Cr Clr Drug Dosing eGFR BUN/Creatinine Ratio (10-20) Glucose (70-99(Fasting)) mg/dl Lactate (0.4-2.0) mmol/L Calcium (8.6-10.3) mg/dl Total Bilirubin (0.2-1.0) mg/dl AST (13-39) U/L ALT (7-52) U/L Alkaline Phosphatase (34-104) U/L Total Protein (6.0-8.3) gm/dl Albumin (3.4-5.0) gm/dl Globulin (2.5-4.0) gm/dl Albumin/Globulin Ratio (0.9-2) Lipase (11-82) U/L Procalcitonin (0-0.5) ng/ml Urine Color Urine Appearance Turbid A (Clear) Urine pH 6.0 5.5 (4.5-7.5) Ur Specific [place] 1.018 1.016 (1.000-1.030) Urine Protein 3+ H (Negative) Urine Glucose (UA) (Negative) Urine Ketones (Negative) Urine Blood (Negative) Urine Nitrite (Negative) Urine Bilirubin (Negative) Urine Urobilinogen (Negative) Ur Leukocyte Esterase (Negative) Urine WBC (Auto) (0-5) /hpf Urine RBC (Auto) (0-2) /hpf U Hyaline Cast (Auto) (0-2) /lpf U Epithel Cells (Auto) (0-2) /hpf Urine Bacteria (Auto) (None Seen) Granular Casts (None Prsent) /lpf Urine Yeast (None Prsent) 07/10/24 07/10/24 07/10/24 Range/Units Unknown Unknown Unknown WBC (4.8-10.8) K/ul RBC (4.70-6.10) M/uL Hgb (14.0-18.0) g/dl Hct (42.0-52.0) % MCV (80.0-100.0) fL MCH (25.0-34.0) pg MCHC (32.0-36.0) g/dL RDW Std Deviation (36.4-46.3) fL RDW Coeff of Rocky (11.5-14.5) % Plt Count (130-400) K/uL MPV (9.4-12.4) fL Immature Gran % (Auto) % Neut % (Auto) % Lymph % (Auto) % [place] % (Auto) % Eos % (Auto) % Baso % (Auto) % Neut # (Auto) (1.40-6.50) K/uL Lymph # (Auto) (1.20-3.40) K/uL [place] # (Auto) (0.11-0.59) K/uL Eos # (Auto) (0.00-0.50) K/uL Baso # (Auto) (0.00-0.20) K/uL Immature Gran # (Auto) (0.01-0.20) K/uL Sodium (136-145) mmol/L Potassium (3.5-5.1) mmol/L Chloride (98-107) mmol/L Carbon Dioxide (21-32) mmol/L Anion Gap (3-11) BUN (6-23) mg/dl Creatinine (0.6-1.4) mg/dl Est Cr Clr Drug Dosing eGFR BUN/Creatinine Ratio (10-20) Glucose (70-99(Fasting)) mg/dl Lactate (0.4-2.0) mmol/L Calcium (8.6-10.3) mg/dl Total Bilirubin (0.2-1.0) mg/dl AST (13-39) U/L ALT (7-52) U/L Alkaline Phosphatase (34-104) U/L Total Protein (6.0-8.3) gm/dl Albumin (3.4-5.0) gm/dl Globulin (2.5-4.0) gm/dl Albumin/Globulin Ratio (0.9-2) Lipase (11-82) U/L Procalcitonin (0-0.5) ng/ml Urine Color Urine Appearance (Clear) Urine pH (4.5-7.5) Ur Specific [place] (1.000-1.030) Urine Protein 3+ H (Negative) Urine Glucose (UA) Negative Negative (Negative) Urine Ketones Trace H Trace H (Negative) Urine Blood 2+ H (Negative) Urine Nitrite (Negative) Urine Bilirubin (Negative) Urine Urobilinogen (Negative) Ur Leukocyte Esterase (Negative) Urine WBC (Auto) (0-5) /hpf Urine RBC (Auto) (0-2) /hpf U Hyaline Cast (Auto) (0-2) /lpf U Epithel Cells (Auto) (0-2) /hpf Urine Bacteria (Auto) (None Seen) Granular Casts (None Prsent) /lpf Urine Yeast (None Prsent) 07/10/24 07/10/24 07/10/24 Range/Units Unknown Unknown Unknown WBC (4.8-10.8) K/ul RBC (4.70-6.10) M/uL Hgb (14.0-18.0) g/dl Hct (42.0-52.0) % MCV (80.0-100.0) fL MCH (25.0-34.0) pg MCHC (32.0-36.0) g/dL RDW Std Deviation (36.4-46.3) fL RDW Coeff of [place] (11.5-14.5) % Plt Count (130-400) K/uL MPV (9.4-12.4) fL Immature Gran % (Auto) % Neut % (Auto) % Lymph % (Auto) % [place] % (Auto) % Eos % (Auto) % Baso % (Auto) % Neut # (Auto) (1.40-6.50) K/uL Lymph # (Auto) (1.20-3.40) K/uL [place] # (Auto) (0.11-0.59) K/uL Eos # (Auto) (0.00-0.50) K/uL Baso # (Auto) (0.00-0.20) K/uL Immature Gran # (Auto) (0.01-0.20) K/uL Sodium (136-145) mmol/L Potassium (3.5-5.1) mmol/L Chloride (98-107) mmol/L Carbon Dioxide (21-32) mmol/L Anion Gap (3-11) BUN (6-23) mg/dl Creatinine (0.6-1.4) mg/dl Est Cr Clr Drug Dosing eGFR BUN/Creatinine Ratio (10-20) Glucose (70-99(Fasting)) mg/dl Lactate (0.4-2.0) mmol/L Calcium (8.6-10.3) mg/dl Total Bilirubin (0.2-1.0) mg/dl AST (13-39) U/L ALT (7-52) U/L Alkaline Phosphatase (34-104) U/L Total Protein (6.0-8.3) gm/dl Albumin (3.4-5.0) gm/dl Globulin (2.5-4.0) gm/dl Albumin/Globulin Ratio (0.9-2) Lipase (11-82) U/L Procalcitonin (0-0.5) ng/ml Urine Color Urine Appearance (Clear) Urine pH (4.5-7.5) Ur Specific [place] (1.000-1.030) Urine Protein (Negative) Urine Glucose (UA) (Negative) Urine Ketones (Negative) Urine Blood 3+ H (Negative) Urine Nitrite Positive A Positive A (Negative) Urine Bilirubin Negative Negative (Negative) Urine Urobilinogen Negative (Negative) Ur Leukocyte Esterase (Negative) Urine WBC (Auto) (0-5) /hpf Urine RBC (Auto) (0-2) /hpf U Hyaline Cast (Auto) (0-2) /lpf U Epithel Cells (Auto) (0-2) /hpf Urine Bacteria (Auto) (None Seen) Granular Casts (None Prsent) /lpf Urine Yeast (None Prsent) 07/10/24 07/10/24 07/10/24 Range/Units Unknown Unknown Unknown WBC (4.8-10.8) K/ul RBC (4.70-6.10) M/uL Hgb (14.0-18.0) g/dl Hct (42.0-52.0) % MCV (80.0-100.0) fL MCH (25.0-34.0) pg MCHC (32.0-36.0) g/dL RDW Std Deviation (36.4-46.3) fL RDW Coeff of [place] (11.5-14.5) % Plt Count (130-400) K/uL MPV (9.4-12.4) fL Immature Gran % (Auto) % Neut % (Auto) % Lymph % (Auto) % [place] % (Auto) % Eos % (Auto) % Baso % (Auto) % Neut # (Auto) (1.40-6.50) K/uL Lymph # (Auto) (1.20-3.40) K/uL [place] # (Auto) (0.11-0.59) K/uL Eos # (Auto) (0.00-0.50) K/uL Baso # (Auto) (0.00-0.20) K/uL Immature Gran # (Auto) (0.01-0.20) K/uL Sodium (136-145) mmol/L Potassium (3.5-5.1) mmol/L Chloride (98-107) mmol/L Carbon Dioxide (21-32) mmol/L Anion Gap (3-11) BUN (6-23) mg/dl Creatinine (0.6-1.4) mg/dl Est Cr Clr Drug Dosing eGFR BUN/Creatinine Ratio (10-20) Glucose (70-99(Fasting)) mg/dl Lactate (0.4-2.0) mmol/L Calcium (8.6-10.3) mg/dl Total Bilirubin (0.2-1.0) mg/dl AST (13-39) U/L ALT (7-52) U/L Alkaline Phosphatase (34-104) U/L Total Protein (6.0-8.3) gm/dl Albumin (3.4-5.0) gm/dl Globulin (2.5-4.0) gm/dl Albumin/Globulin Ratio (0.9-2) Lipase (11-82) U/L Procalcitonin (0-0.5) ng/ml Urine Color Urine Appearance (Clear) Urine pH (4.5-7.5) Ur Specific [place] (1.000-1.030) Urine Protein (Negative) Urine Glucose (UA) (Negative) Urine Ketones (Negative) Urine Blood (Negative) Urine Nitrite (Negative) Urine Bilirubin (Negative) Urine Urobilinogen Negative (Negative) Ur Leukocyte Esterase 3+ H 3+ H (Negative) Urine WBC (Auto) >50 H >50 H (0-5) /hpf Urine RBC (Auto) >20 H (0-2) /hpf U Hyaline Cast (Auto) (0-2) /lpf U Epithel Cells (Auto) (0-2) /hpf Urine Bacteria (Auto) (None Seen) Granular Casts (None Prsent) /lpf Urine Yeast (None Prsent) 07/10/24 07/10/24 07/10/24 Range/Units Unknown Unknown Unknown WBC (4.8-10.8) K/ul RBC (4.70-6.10) M/uL Hgb (14.0-18.0) g/dl Hct (42.0-52.0) % MCV (80.0-100.0) fL MCH (25.0-34.0) pg MCHC (32.0-36.0) g/dL RDW Std Deviation (36.4-46.3) fL RDW Coeff of [place] (11.5-14.5) % Plt Count (130-400) K/uL MPV (9.4-12.4) fL Immature Gran % (Auto) % Neut % (Auto) % Lymph % (Auto) % [place] % (Auto) % Eos % (Auto) % Baso % (Auto) % Neut # (Auto) (1.40-6.50) K/uL Lymph # (Auto) (1.20-3.40) K/uL [place] # (Auto) (0.11-0.59) K/uL Eos # (Auto) (0.00-0.50) K/uL Baso # (Auto) (0.00-0.20) K/uL Immature Gran # (Auto) (0.01-0.20) K/uL Sodium (136-145) mmol/L Potassium (3.5-5.1) mmol/L Chloride (98-107) mmol/L Carbon Dioxide (21-32) mmol/L Anion Gap (3-11) BUN (6-23) mg/dl Creatinine (0.6-1.4) mg/dl Est Cr Clr Drug Dosing eGFR BUN/Creatinine Ratio (10-20) Glucose (70-99(Fasting)) mg/dl Lactate (0.4-2.0) mmol/L Calcium (8.6-10.3) mg/dl Total Bilirubin (0.2-1.0) mg/dl AST (13-39) U/L ALT (7-52) U/L Alkaline Phosphatase (34-104) U/L Total Protein (6.0-8.3) gm/dl Albumin (3.4-5.0) gm/dl Globulin (2.5-4.0) gm/dl Albumin/Globulin Ratio (0.9-2) Lipase (11-82) U/L Procalcitonin (0-0.5) ng/ml Urine Color Urine Appearance (Clear) Urine pH (4.5-7.5) Ur Specific [place] (1.000-1.030) Urine Protein (Negative) Urine Glucose (UA) (Negative) Urine Ketones (Negative) Urine Blood (Negative) Urine Nitrite (Negative) Urine Bilirubin (Negative) Urine Urobilinogen (Negative) Ur Leukocyte Esterase (Negative) Urine WBC (Auto) (0-5) /hpf Urine RBC (Auto) >20 H (0-2) /hpf U Hyaline Cast (Auto) 6-10 H 6-10 H (0-2) /lpf U Epithel Cells (Auto) 6-10 H 6-10 H (0-2) /hpf Urine Bacteria (Auto) 4+ H (None Seen) Granular Casts (None Prsent) /lpf Urine Yeast (None Prsent) 07/10/24 07/10/24 07/10/24 Range/Units Unknown Unknown Unknown WBC (4.8-10.8) K/ul RBC (4.70-6.10) M/uL Hgb (14.0-18.0) g/dl Hct (42.0-52.0) % MCV (80.0-100.0) fL MCH (25.0-34.0) pg MCHC (32.0-36.0) g/dL RDW Std Deviation (36.4-46.3) fL RDW Coeff of [place] (11.5-14.5) % Plt Count (130-400) K/uL MPV (9.4-12.4) fL Immature Gran % (Auto) % Neut % (Auto) % Lymph % (Auto) % [place] % (Auto) % Eos % (Auto) % Baso % (Auto) % Neut # (Auto) (1.40-6.50) K/uL Lymph # (Auto) (1.20-3.40) K/uL [place] # (Auto) (0.11-0.59) K/uL Eos # (Auto) (0.00-0.50) K/uL Baso # (Auto) (0.00-0.20) K/uL Immature Gran # (Auto) (0.01-0.20) K/uL Sodium (136-145) mmol/L Potassium (3.5-5.1) mmol/L Chloride (98-107) mmol/L Carbon Dioxide (21-32) mmol/L Anion Gap (3-11) BUN (6-23) mg/dl Creatinine (0.6-1.4) mg/dl Est Cr Clr Drug Dosing eGFR BUN/Creatinine Ratio (10-20) Glucose (70-99(Fasting)) mg/dl Lactate (0.4-2.0) mmol/L Calcium (8.6-10.3) mg/dl Total Bilirubin (0.2-1.0) mg/dl AST (13-39) U/L ALT (7-52) U/L Alkaline Phosphatase (34-104) U/L Total Protein (6.0-8.3) gm/dl Albumin (3.4-5.0) gm/dl Globulin (2.5-4.0) gm/dl Albumin/Globulin Ratio (0.9-2) Lipase (11-82) U/L Procalcitonin (0-0.5) ng/ml Urine Color Urine Appearance (Clear) Urine pH (4.5-7.5) Ur Specific [place] (1.000-1.030) Urine Protein (Negative) Urine Glucose (UA) (Negative) Urine Ketones (Negative) Urine Blood (Negative) Urine Nitrite (Negative) Urine Bilirubin (Negative) Urine Urobilinogen (Negative) Ur Leukocyte Esterase (Negative) Urine WBC (Auto) (0-5) /hpf Urine RBC (Auto) (0-2) /hpf U Hyaline Cast (Auto) (0-2) /lpf U Epithel Cells (Auto) (0-2) /hpf Urine Bacteria (Auto) 4+ H (None Seen) Granular Casts Present A Present A (None Prsent) /lpf Urine Yeast Present A Present A (None Prsent) Administered Medications Discontinued Medications Cefepime HCl (Maxipime 2000mg) 2,000 mg in 20 mls @ 5 mls/min IV NOW STA; Protocol Stop: 07/10/24 11:49 Last Admin: 07/10/24 12:15 Dose: 5 mls/min Documented By: QGV Sodium Chloride (Nss) 500 mls @ 999 mls/hr IV .Q31M ONE Stop: 07/10/24 13:22 Last Infusion: 07/10/24 14:04 Dose: Infused Documented By: Admin: 07/10/24 13:02 Dose: 999 mls/hr Documented By: BS Discharge Plan Visit Data Chief Complaint: Infection ED Provider: Melissa Toro Discharge Problem: STEVE (acute kidney injury), Pseudomonas infection Forms Stand Alone Forms: [facility] Prescriptions Prescriptions: No Action ferrous sulfate 325 mg (65 mg iron) tablet 325 mg PO DAILY Qty: 90 3RF psyllium husk [Metamucil] 0.4 gram capsule 0.4 g PO DAILY Qty: 180 3RF acetaminophen 325 mg tablet 325 mg PO Q4H MDD 3 GRAMS APAP/24 HOURS PRN (Reason: PAIN/FEVER) mupirocin 2 % ointment 1 applic topical TID Qty: 22 0RF Rx Instructions: Apply to cellulitis of right nephrostomy tube site. docusate sodium 100 mg Capsule 100 mg PO DAILY PRN (Reason: Constipation) cholestyramine (with sugar) 4 gram Powder In Packet 4 g PO BID Rx Instructions: administer w/meal; avoid other meds within 1hr before or 4-6hr after dose Lactobacillus acidoph-L.bulgar [Floranex] 1 million cell Tablet 1 tab PO TID ascorbic acid (vitamin C) [Vitamin C] 1,000 mg Tablet 1,000 mg PO DAILY methenamine hippurate 1 gram Tablet 1 g PO DAILY menthol-zinc oxide [Calmoseptine] 0.44-20.6 % Ointment 1 applic TOPICAL QID PRN (Reason: Skin Irritation) Florajen Acidophilus 20 billion cell Capsule 20,000 mmu cells PO BID cephalexin 500 mg capsule 500 mg PO Q6H 7 Days Qty: 28 0RF polyethylene glycol 3350 [Miralax] 17 gram/dose Powder 17 g PO DAILY PRN (Reason: Constipation) vancomycin 125 mg capsule 125 mg PO QAM nitrofurantoin macrocrystal [Macrodantin] 100 mg Capsule 100 mg PO HS Rx Instructions: must administer with a meal/food ergocalciferol (vitamin D2) [Vitamin D2] 1,250 mcg (50,000 unit) Capsule 1,250 mcg PO WK Referrals Referrals: Jimbo Morgan MD [Primary Care Provider] -
[2024-07-10] MEDS: CEFEPIME 2000MG 2,000 MG/20 ML SYR IV STA (12:15)
[2024-07-10 12:40] LABS: Basophils # (auto) 0.02 K/uL (0.00-0.20); Basophils % (auto) 0.3 %; Eosinophils # (auto) 0.15 K/uL (0.00-0.50); Eosinophils % (auto) 2.2 %; Hemoglobin 11.5 g/dl (14.0-18.0); Immature Granulocytes # (auto) 0.05 K/uL (0.01-0.20); Immature Granulocytes % (auto) 0.7 %; Lymphocytes # (auto) 1.28 K/uL (1.20-3.40); Lymphocytes % (auto) 18.6 %; Mean Corpuscular Hemoglobin 27.4 pg (25.0-34.0); Mean Corpuscular Hgb Conc 31.9 g/dL (32.0-36.0); Mean Corpuscular Volume 85.9 fL (80.0-100.0); Mean Platelet Volume 9.1 fL (9.4-12.4); Neutrophils % (auto) 65.2 %; Platelet Count 382 K/uL (130-400); RDW Coefficient of Variation 15.6 % (11.5-14.5); RDW Standard Deviation 48.8 fL (36.4-46.3); Red Blood Count 4.19 M/uL (4.70-6.10)
[2024-07-10 12:50] LABS: Alanine Aminotransferase 8 U/L (7-52); Albumin Globulin Ratio 1.1 (0.9-2); Albumin Level 3.4 gm/dl (3.4-5.0); Alkaline Phosphatase 125 U/L (34-104); Anion Gap 9 (3-11); Aspartate Aminotransferase 11 U/L (13-39); BUN Creatinine Ratio 10.6 (10-20); Bilirubin,Total 0.4 mg/dl (0.2-1.0); Blood Urea Nitrogen 18 mg/dl (6-23); Calcium 8.7 mg/dl (8.6-10.3); Carbon Dioxide 22 mmol/L (21-32); Chloride 108 mmol/L (98-107); Globulin 3.2 gm/dl (2.5-4.0); Glucose 95 mg/dl (70-99(Fasting)); Lipase 36 U/L (11-82); Sodium 139 mmol/L (136-145); Total Protein 6.6 gm/dl (6.0-8.3)
[2024-07-10] MEDS: SODIUM CHLORIDE 0.9% 500 ML IV ONE (13:02)
[2024-07-10 14:14] LABS: Appearance Urine Turbid (Clear); Bacteria Urine Automated 4+ (None Seen); Bilirubin Urine Negative (Negative); Blood Urine 2+ (Negative); Color Urine Yellow; Glucose Urine UA Negative (Negative); Granular Casts Urine Present /lpf (None Prsent); Ketones Urine Trace (Negative); Leukocyte Esterase Urine 3+ (Negative); Nitrite Urine Positive (Negative); Protein Urine 3+ (Negative); RBC Urine Automated >20 /hpf (0-2); Specific Gravity Urine 1.018 (1.000-1.030); Urobilinogen Urine Negative (Negative); WBC Urine Automated >50 /hpf (0-5)
[2024-07-10 14:15] LABS: Appearance Urine Turbid (Clear); Bacteria Urine Automated 4+ (None Seen); Bilirubin Urine Negative (Negative); Blood Urine 3+ (Negative); Color Urine Yellow; Glucose Urine UA Negative (Negative); Granular Casts Urine Present /lpf (None Prsent); Ketones Urine Trace (Negative); Leukocyte Esterase Urine 3+ (Negative); Nitrite Urine Positive (Negative); Protein Urine 3+ (Negative); RBC Urine Automated >20 /hpf (0-2); Specific Gravity Urine 1.016 (1.000-1.030); Urobilinogen Urine Negative (Negative); WBC Urine Automated >50 /hpf (0-5); pH Urine 5.5 (4.5-7.5)
--- NOTE | 2024-07-10 14:22 | History & Physical Report ---
Date of Service July 10, 2024 Assessment & Plan (1) Pseudomonas infection: (2) History of insertion of nephrostomy tube: (3) Catheter-associated urinary tract infection: (4) Cervical cord myelomalacia: (5) Acute kidney injury superimposed on CKD: Plan The patient is a 84-year-old male with a past medical history including catheter associated UTI, sepsis due to UTI, STEVE on CKD, C. difficile diarrhea, hypertension, hyperlipidemia, cervical cord myelomalacia, cognitive decline, and quadriparesis. Called to come in due to positive wound cultures with resistance. 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 coli and Pseudomonas aeruginosa - admission from 02/15-03/02/2024 treated with meropenem 500 mg IV every 8 hours for 10 days - Recently seen by urology on 07/07 in the ED with urine cultures positive for Pseudomonas sent home on cephalexin for 7 days. - [email or web address] interventional radiology note dated 07/09/2024. Patient had nephrostomy tube exchange performed to bilateral neph tubes. - Facility received given a call on 07/10 saying patient had positive wound cultures and should be admitted for IV antibiotics. - Urine cultures on 07/06 grew Pseudomonas with sensitivities to levofloxacin and amikacin, intermediate resistance to ciprofloxacin and aztreonam - Wound cultures grew Pseudomonas with resistant to ciprofloxacin and levofloxacin. - CBC without leukocytosis, lactate negative, CMP with a creatinine of 1.7, Pro- Niko negative. - UA grossly positive for infection. - Started on cefepime in the ED. Will continue at this time. - Given 500 cc bolus in the ED. Will continue on LR at 125 mL an hour. - Urine and blood cultures collected and pending. No signs of sepsis at this time. - Consult urology and infectious disease. Appreciate recommendations. #Acute kidney injury superimposed on CKD- - Creatinine 1.7, with base 1.28 - IV fluids as above, recheck laboratories in the a.m. #Cervical cord myelomalacia/quadriparesis- - Usual supportive medications Fluids: LR at 125 mL an hour Nutrition: Renal Code status: DNR/DNI DVT ppx: Lovenox Consults: Urology and infectious disease Dispo: med/surg, For eventual return to [facility] History of Present Illness Chief Complaint: STEVE; abnormal cultures Primary Care Provider: Jimbo Morgan MD The patient is a 84-year-old male with a past medical history including catheter associated UTI, sepsis due to UTI, STEVE on CKD, C. difficile diarrhea, hypertension, hyperlipidemia, cervical cord myelomalacia, cognitive decline, and quadriparesis. He was recently seen at [facility] ED on 07/07 by ED and neurology. It was decided that nephrostomy tubes were in place and draining well and started on Keflex. He was then set up with IR in [place] and had repositioning of nephrostomy tubes on 07/09. He then returned home to [facility]. Facility received a call today that he should return to the ED and be admitted to the hospital due to positive wound cultures. Patient denies any complaints at this time. He denies any fevers or chills. Denies any abdominal pain. Denies any irritation around nephrostomy tubes. Denies any headache, shortness of breath, or chest pain. Allergies Allergy/AdvReac Type Severity Reaction Status Date / Time pollen extracts Allergy Intermediate ITCHY Verified 07/06/24 15:53 EYES, SNEEZING, CONGESTION donepezil AdvReac Intermediate Diarrhea Verified 07/06/24 15:53 Home Medications Medication Instructions Recorded Confirmed Type acetaminophen 325 mg tablet 325 mg PO Q4H PRN PAIN/FEVER 07/28/23 07/10/24 History psyllium husk 0.4 gram capsule 0.4 g PO DAILY #180 caps 09/16/23 07/10/24 Rx (Metamucil) polyethylene glycol 3350 17 17 g PO DAILY PRN Constipation 10/16/23 07/10/24 History gram/dose oral powder (Miralax) mupirocin 2 % topical ointment 1 applic topical TID #22 grams 11/11/23 07/10/24 Rx Lactobacillus acidoph-L.bulgaricus 1 tab PO TID 03/24/24 07/10/24 History 1 million cell tablet (Floranex) cholestyramine (with sugar) 4 gram 4 g PO BID 03/24/24 07/10/24 History powder for susp in a packet docusate sodium 100 mg capsule 100 mg PO DAILY PRN Constipation 03/24/24 07/10/24 History Lactobacillus acidophilus 20 20,000 mmu cells PO BID 04/21/24 07/10/24 History billion cell capsule (Florajen Acidophilus) ascorbic acid (vitamin C) 1,000 mg 1,000 mg PO DAILY 04/21/24 07/10/24 History tablet (Vitamin C) menthol 0.44 %-zinc oxide 20.6 % 1 applic topical QID PRN Skin 04/21/24 07/10/24 History topical ointment (Calmoseptine) Irritation methenamine hippurate 1 gram tablet 1 g PO DAILY 04/21/24 07/10/24 History ergocalciferol (vitamin D2) 1,250 1,250 mcg PO WK 07/06/24 07/10/24 History mcg (50,000 unit) capsule (Vitamin D2) nitrofurantoin macrocrystal 100 mg 100 mg PO HS 07/06/24 07/10/24 History capsule vancomycin 125 mg capsule 125 mg PO QAM 07/06/24 07/10/24 History cephalexin 500 mg capsule 500 mg PO Q6H 7 days #28 caps 07/07/24 07/10/24 Rx ferrous sulfate 325 mg (65 mg 325 mg PO 3XWK 07/10/24 07/10/24 History iron) tablet Past Med/Surg History Problem List (Updated 07/10/24 @ 15:08 by Matthew Durán DO) Acute kidney injury superimposed on CKD Cervical cord myelomalacia Pseudomonas infection (Acute) STEVE (acute kidney injury) (Acute) History of insertion of nephrostomy tube Leukocytosis (Acute) Complicated urinary tract infection (Acute) Acute kidney injury superimposed on chronic kidney disease (Acute) Sepsis (Acute) Catheter-associated urinary tract infection Weakness Bladder neck contracture Hydronephrosis Vitamin D deficiency (Acute) Rosacea (Acute) Organic impotence (Acute) Male stress incontinence (Acute) Hypertension Hyperlipidemia (Acute) Weight loss Cognitive decline Malnutrition Cerebral atrophy Depression Dysphagia Anemia Medical History (Updated 07/10/24 @ 15:08 by Matthew Durán DO) Sepsis due to urinary tract infection C. difficile diarrhea CKD (chronic kidney disease) Quadriparesis Prostate cancer (09/27/11) "Rising PSA, pretreatment PSA 7.44 clinical stage TIc Biopsy stage T2b [place] grade 3+2 and 3+3 Active surveillance Recheck PSA 10.2, repeat biopsy [place] 3+3, biopsy stage T2b Continued rise in PSA Status post robotic prostatectomy 07/10/2011, stage [id number] Status post completion of radiation therapy the prostate bed 12/17/2011 received 7000 cGy" Near syncope Hypokalemia Acute UTI Hematochezia Benign neoplasm of large intestine Surgical History H/O Spinal surgery H/O prostatectomy Hx of tonsillectomy Family History Mother Lung cancer Breast cancer Other Alcoholism in family Denies family history of Ovarian cancer Prostate cancer Myocardial infarction Colorectal cancer Social History Smoking Status: Never smoker Second Hand Exposure: No; Do You Dip or Chew Tobacco: No; Hx Alcohol Use: No Hx Substance Use: No Preferred Language: Mohawk Communication Ability: Effective Visual Impairment: Partially Limited Hearing Ability: Hard of Hearing 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 Beliefs That Will Affect Care: None marital status: / Current Living Situation: [facility] Current Living Situation Comment: [facility] current occupational status: retired How many Children do You have: 2 Feels Safe at Home: Yes Childhood Exposure to Second-Hand Smoke: Yes caffeine: Yes Dental Care, Regularly: Yes Physical Activity Frequency: 5-6 Times per Week Seatbelt Use: always Sunscreen Use: No Assistive Devices: Wheelchair Review of Systems Review of Systems: All systems reviewed & are unremarkable except as noted in Subjective Physical Exam Physical Exam: Constitutional: well-appearing, no acute distress, hard of hearing CV: regular rhythm, no murmur appreciated, extremities well-perfused, no LE edema Resp: CTABL, no wheezes/rales/rhonchi appreciated, no increased work of breathing GI: soft, nondistended, nontender, BS normoactive Skin: warm, dry, no rash appreciated. Bilateral nephrostomy tubes in place without surrounding erythema or warmth, draining yellow urine Results & Data Results & Data Vital Signs (Past 12 Hours) Vital Signs Temp Pulse Pulse Resp BP BP Pulse Ox 07/10/24 13:36 66 16 95/61 L 96 07/10/24 12:05 81 07/10/24 11:46 36.7 C 75 16 128/75 96 O2 Del Method 07/10/24 13:36 Room Air 07/10/24 12:05 07/10/24 11:46 Room Air Supervising Physician Co-Signing Physician Notes Attending attestation Pt seen and examined in concert with Dr. Durán. In agreement with the documented findings as noted in the resident documentation with any exceptions or additions as noted here. Resting in bed reporting no symptoms of back pain, flank pain, abdominal discomfort, nausea, chest pain, palpitations or lightheadedness. On examination, S1/S2 nl RRR no MCG. CTAB. Abd NT/ND BS+ve Recurrent nephrostopmy tube catheter associated infection - repeat UCx, BCx pending - urology and ID consultation - cefepime. IVF as noted. Trend CBC, BMP daily. STEVE on CKD - mildly elevated Cr. Trend and IVF Else see resident documentation as noted. Resident Activity Tracking Resident Involvement: Resident Care Provided Care Provided: Adult Hospital Medicine
[2024-07-10] MEDS ORDERED: ACETAMINOPHEN 325 MG TAB PO PRN (17:51)
[2024-07-10] MEDS: Patient's HEIGHT &/or WEIGHT Needed STA (19:30)
[2024-07-10] MEDS: LACTATED RINGER'S 1,000 ML IV SCH (19:56)
[2024-07-10] MEDS: ENOXAPARIN INJ 30 MG/0.3 ML SYR SQ SCH (19:56)
[2024-07-10] MEDS: CHOLESTYRAMINE LIGHT 4 GM PKT PO SCH (19:57)
--- NOTE | 2024-07-10 20:40 | Urology Consultation ---
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 Subsequently underwent nephrostomy tube exchange at outlying facility at [facility]. Patient was alerted to return to the ER due to Pseudomonas infection requiring IV antibiotics. Urology was consulted to reevaluate patient with recent nephrostomy tube exchange and resistant pseudomonal infection. Patient currently afebrile, hemodynamically stable. Culture results from presentation on 07/07 shown Pseudomonas with 2 species 1 resistant to fluoroquinolones. Labs reviewedcreatinine 1.7, WBC 6.9, hemoglobin 11.5 Patient is likely colonized due to percutaneous nephrostomy tubes Patient on broad-spectrum antibiotics. Patient currently on cefepime. New cultures and blood cultures have been taken. Consultation is to infectious disease as well. Will need to consider long-term options for coverage of fluoroquinolone resistant Pseudomonas. Recently exchanged bilateral nephrostomy tubes appear to be functional. Did discuss options for evaluation with imaging. Patient stated he thought he had a CT scan done at [place] after the exchange. May be able to get results of this to confirm nephrostomy tubes in proper position. Can also consider checking KUB to assess positioning or renal ultrasound. Agree with plans for broad-spectrum antibiotic coverage and monitoring. Patient's complicated medical/surgical history is reviewed and summarized above, all imaging was reviewed interpreted by myself, and all labs and vitals were reviewed with pertinent values in the HPI or plan section. Patient does have mild STEVE. Likely would benefit from IV hydration. Will plan to monitor as needed moving forward. If any issues or concerns can reconsult or reassess depending on issues. Patient has previously followed with Dr. Chirinos and most recently with Dr. Sevilla. Will likely need follow-up with Dr. Sevilla in the coming weeks. History of Present Illness Reason for Consultation: Nephrostomy tube evaluation Attending Physician: Luis Hernandez MD History of Present Illness Consult for patient with Pseudomonas infection. Had been assessed earlier in the week secondary to issues with displaced nephrostomy tube. Patient with complicated urologic history. He previously followed with Dr. Diaz. Was currently following with Dr. Sevilla. 84-year-old male with history of cognitive decline, hypertension, hyperlipidemia, quadriparesis, C. difficile diarrhea, and CKD who follows with urology for hx of prostate cancer status post prostatectomy in 2011, bladder neck contracture, bilateral hydronephrosis, history of emphysematous pyelitis s tatus post bilateral nephrostomy tubes for urinary diversion. Patient currently admitted secondary to Pseudomonas infection. He had presented to the emergency department on 07/07/24 for evaluation of bleeding around nephrostomy tube. He was seen in the ED on 07/06/2024 for concern of urinary tract infection. CT imaging showed possible displacement of left nephrostomy tube. Underwent nephrostomy tube exchange at [facility] on Friday. He is afebrile and hemodynamically stable in ED. was told to return to ER secondary to resistant infection and need for IV antibiotics. Patient had CT scan prior to nephrostomy tube exchange CT abdomen pelvis with IV contrast. Left nephrostomy tube with distal tip within the left inferior pole collecting system, mild dilation of the left renal collecting system and left renal pelvis. Left greater than right urothelial thickening. Dilation of the left ureter with caliber change and increased enhancement of the distal ureter. Air-filled bladder with wall thickening, similar to prior. Patient is resting comfortably in bed. Has been undergoing IV antibiotics. Not having severe major or major issues. Consulted secondary to significant infection with need for IV antibiotics and reassessment of nephrostomy tubes Allergies Allergy/AdvReac Type Severity Reaction Status Date / Time pollen extracts Allergy Intermediate ITCHY Verified 07/06/24 15:53 EYES, SNEEZING, CONGESTION donepezil AdvReac Intermediate Diarrhea Verified 07/06/24 15:53 Home Medications Medication Instructions Recorded Confirmed Type acetaminophen 325 mg tablet 325 mg PO Q4H PRN PAIN/FEVER 07/28/23 07/10/24 Hi story psyllium husk 0.4 gram capsule 0.4 g PO DAILY #180 caps 09/16/23 07/10/24 Rx (Metamucil) polyethylene glycol 3350 17 17 g PO DAILY PRN Constipation 10/16/23 07/10/24 History gram/dose oral powder (Miralax) mupirocin 2 % topical ointment 1 applic topical TID #22 grams 11/11/23 07/10/24 Rx Lactobacillus acidoph-L.bulgaricus 1 tab PO TID 03/24/24 07/10/24 History 1 million cell tablet (Floranex) cholestyramine (with sugar) 4 gram 4 g PO BID 03/24/24 07/10/24 History powder for susp in a packet docusate sodium 100 mg capsule 100 mg PO DAILY PRN Constipation 03/24/24 07/10/24 History Lactobacillus acidophilus 20 20,000 mmu cells PO BID 04/21/24 07/10/24 History billion cell capsule (Florajen Acidophilus) ascorbic acid (vitamin C) 1,000 mg 1,000 mg PO DAILY 04/21/24 07/10/24 History tablet (Vitamin C) menthol 0.44 %-zinc oxide 20.6 % 1 applic topical QID PRN Skin 04/21/24 07/10/24 History topical ointment (Calmoseptine) Irritation methenamine hippurate 1 gram tablet 1 g PO DAILY 04/21/24 07/10/24 History ergocalciferol (vitamin D2) 1,250 1,250 mcg PO WK 07/06/24 07/10/24 History mcg (50,000 unit) capsule (Vitamin D2) nitrofurantoin macrocrystal 100 mg 100 mg PO HS 07/06/24 07/10/24 History capsule vancomycin 125 mg capsule 125 mg PO QAM 07/06/24 07/10/24 History cephalexin 500 mg capsule 500 mg PO Q6H 7 days #28 caps 07/07/24 07/10/24 Rx ferrous sulfate 325 mg (65 mg 325 mg PO 3XWK 07/10/24 07/10/24 History iron) tablet Patient History Medical History (Updated 07/10/24 @ 15:08 by Matthew Durán DO) Sepsis due to urinary tract infection C. difficile diarrhea CKD (chronic kidney disease) Quadriparesis Prostate cancer (09/27/11) "Rising PSA, pretreatment PSA 7.44 clinical stage TIc Biopsy stage T2b [place] grade 3+2 and 3+3 Active surveillance Recheck PSA 10.2, repeat biopsy [place] 3+3, biopsy stage T2b Continued rise in PSA Status post robotic prostatectomy 07/10/2011, stage [id number] Status post completion of radiation therapy the prostate bed 12/17/2011 received 7000 cGy" Near syncope Hypokalemia Acute UTI Hematochezia Benign neoplasm of large intestine Surgical History H/O Spinal surgery H/O prostatectomy Hx of tonsillectomy Family History Mother Lung cancer Breast cancer Other Alcoholism in family Denies family history of Ovarian cancer Prostate cancer Myocardial infarction Colorectal cancer Social History Smoking Status: Never smoker Second Hand Exposure: No; Do You Dip or Chew Tobacco: No; Hx Alcohol Use: No Hx Substance Use: No Preferred Language: Telugu Communication Ability: Effective Visual Impairment: Partially Limited Hearing Ability: Hard of Hearing 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 Beliefs That Will Affect Care: None marital status: / Current Living Situation: Group Home Current Living Situation Comment: [facility] current occupational status: retired How many Children do You have: 2 Other Information That Helps Us Care for You: No Feels Safe at Home: Yes Safety Concerns: Feels Safe At This Time Childhood Exposure to Second-Hand Smoke: Yes caffeine: Yes Dental Care, Regularly: Yes Physical Activity Frequency: 5-6 Times per Week Seatbelt Use: always Sunscreen Use: No Assistive Devices: Glasses, Hospital Bed and Wheelchair Review of Systems Review of Systems: All systems reviewed & are unremarkable except as noted in HPI & below Physical Exam Physical Exam: General: Alert and oriented x 3 in no acute distress. Advanced age HEENT: Normocephalic Atraumatic. Inspection normal. Cranial Nerves 2-12 Grossly intact. Nares are clear. Neck is supple. Normal inspection of face. Normal inspection of neck. Neurologic: No deficits on inspection. Baseline for motor function and sensory. Psychologic: Normal affect. Respiratory: Nonlabored. No use of accessory muscles. No tachypnea or dyspnea. Cardiovascular: No tachycardia Skin: [place] and Dry. No rashes or visible lesions. Extremities: Moving without issues. No motor deficits on inspection Lymphatics: No edema Abdomen: Soft mildly distended. No rebound or guarding. Nephrostomy tubes draining to bag Results & Data Vital Signs (Past 12 Hours) Vital Signs Temp Pulse Pulse Pulse Resp BP BP 07/10/24 19:50 36.7 C 85 17 110/70 07/10/24 18:05 07/10/24 18:05 36.8 C 72 18 130/74 07/10/24 16:18 70 07/10/24 13:36 66 16 07/10/24 12:05 81 07/10/24 11:46 36.7 C 75 16 128/75 BP Pulse Ox O2 Del Method 07/10/24 19:50 98 Room Air 07/10/24 18:05 Room Air 07/10/24 18:05 97 Room Air 07/10/24 16:18 07/10/24 13:36 95/61 L 96 Room Air 07/10/24 12:05 07/10/24 11:46 96 Room Air PG Care Time/CCT Total # of Minutes Spent Total Time Spent with Patient: Total time spent is greater than 50% in coordination of care (as documented) at patient's floor/unit and/or counseling patient: Coding Level of Care Code 70979 INT INP/OBS CARE 3/75MIN Diagnoses History of insertion of nephrostomy tube Z98.890 Bladder neck contracture N32.0 Hydronephrosis N13.30 Acute kidney injury superimposed on CKD N17.9; N18.9 Cervical cord myelomalacia G95.89 Pseudomonas infection A49.8 Leukocytosis D72.829 Complicated urinary tract infection N39.0 Cerebral atrophy G31.9 Malnutrition E46 Cognitive decline R41.89
[2024-07-10] MEDS: MELATONIN 3 MG TAB PO PRN (21:11)
[2024-07-10] MEDS: CEFEPIME 1000MG 1,000 MG/10 ML SYR IV SCH (23:08)
[2024-07-11] MEDS: ASCORBIC ACID 500 MG TAB PO SCH (10:25)
[2024-07-11] MEDS: DAPTOmycin 700 MG in SYRINGE 0 ML IV SCH (15:35)
[2024-07-11 21:45] LABS: Albumin Level 3.2 gm/dl (3.4-5.0); Bilirubin,Total 0.2 mg/dl (0.2-1.0); Calcium 8.6 mg/dl (8.6-10.3); Potassium 4.2 mmol/L (3.5-5.1)
[2024-07-11 21:51] LABS: BUN Creatinine Ratio 12.4 (10-20); Creatinine Clr Calc Pharmacy 28.4 ml/min; Globulin 3.1 gm/dl (2.5-4.0); Total Protein 6.3 gm/dl (6.0-8.3)
--- NOTE | 2024-07-11 22:26 | Hospitalist Progress Note ---
Date of Service July 11, 2024 Assessment & Plan (1) Pseudomonas infection: (2) History of insertion of nephrostomy tube: (3) Catheter-associated urinary tract infection: (4) Cervical cord myelomalacia: (5) Acute kidney injury superimposed on CKD: Plan The patient is a 84-year-old male with a past medical history including catheter associated UTI, sepsis due to UTI, STEVE on CKD, C. difficile diarrhea, hypertension, hyperlipidemia, cervical cord myelomalacia, cognitive decline, and quadriparesis. Called to come in due to positive wound cultures with resistance. 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 coli and Pseudomonas aeruginosa - admission from 02/15-03/02/2024 treated with meropenem 500 mg IV every 8 hours for 10 days - Recently seen by urology on 07/07 in the ED with urine cultures positive for Pseudomonas sent home on cephalexin for 7 days. - [facility] interventional radiology note dated 07/09/2024. Patient had nephrostomy tube exchange performed to bilateral neph tubes. - Facility received given a call on 07/10 saying patient had positive wound cultures and should be admitted for IV antibiotics. - Urine cultures on 07/06 grew Pseudomonas with sensitivities to levofloxacin and amikacin, intermediate resistance to ciprofloxacin and aztreonam - Wound cultures grew Pseudomonas with resistant to ciprofloxacin and levofloxacin. - CBC without leukocytosis, lactate negative, CMP with a creatinine of 1.7, Pro- Niko negative. - UA grossly positive for infection. - Started on cefepime in the ED. Will continue at this time. - Urine and blood cultures collected and pending. No signs of sepsis at this time. - Consult urology and infectious disease. Appreciate recommendations. -will continue antibiotics as state above. will discuss with ID on friday to if this will need to be continued. #Acute kidney injury superimposed on CKD- - Creatinine remains at 1.7, with base 1.28 - recheck laboratories in the a.m. #Cervical cord myelomalacia/quadriparesis- - Usual supportive medications Nutrition: Renal Code status: DNR/DNI DVT ppx: Lovenox Consults: Urology and infectious disease Dispo: med/surg, For eventual return to [facility] Admission and Anticipated Discharge Date Admission Date: July 10, 2024 Subjective Patient reports no new symptoms. Patient is hard of hearing. Physical Exam Physical Exam: Constitutional: well-appearing, no acute distress, hard of hearing CV: regular rhythm, no murmur appreciated, extremities well-perfused, no LE edema Resp: CTABL, no wheezes/rales/rhonchi appreciated, no increased work of breathing GI: soft, nondistended, nontender, BS normoactive Skin: warm, dry, no rash appreciated. Bilateral nephrostomy tubes in place without surrounding erythema or warmth, draining yellow urine Results & Data Results & Data Vital Signs (Past 12 Hours) Vital Signs Temp Pulse Resp BP Pulse Ox O2 Del Method 07/11/24 19:30 Room Air 07/11/24 19:27 36.5 C 77 101/63 98 Room Air 07/11/24 15:43 36.7 C 70 16 126/74 98 Room Air PG Care Time/CCT Total # of Minutes Spent Total Time Spent with Patient: Total time spent is greater than 50% in coordination of care (as documented) at patient's floor/unit and/or counseling patient: Coding Level of Care Code 11185 SUB INP/OBS CARE 3/50MIN Diagnoses Pseudomonas infection A49.8 History of insertion of nephrostomy tube Z98.890 Catheter-associated urinary tract infection T83.511A; N39.0 Cervical cord myelomalacia G95.89 Acute kidney injury superimposed on CKD N17.9; N18.9 Time Spent (min) 50 Comment chart review
--- NOTE | 2024-07-12 09:11 | Infectious Disease Consult ---
Date of Consultation July 12, 2024 Assessment & Plan (1) Pseudomonas infection: (2) History of insertion of nephrostomy tube: (3) Acute kidney injury superimposed on CKD: Plan 84yo M with h/o CKD, quadriparesis, cognitive decline, C. 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 He denied any fevers, chills, abdominal pain, irritation around PCN sites. On admission, he was afebrile, vss. WBC 6.90, Cr 1.70, PCT 0.16. UA with > 50 WBC, > 20 RBC, 6-10 Epith cells, yeast. UCx with PsA and E faecium. WCX from R PCN site with PsA 2 types. MRSA screen negative. CTAP w IV on 07/07 showed urothelial thickening in left renal pelvis redemonstrated with unchanged appearance of urinary bladder, dilation of the left ureter with caliber change and increased enhancement involving distal 3 cm of ureter extending to UVJ. He has been started on cefepime, daptomycin added with growth of E faecium. ID consulted 07/12 for assistance. Patient does not have any complaints, however he does note some soreness on the right back, which was initially near PCN site, but when reassessed again, it was over right pelvis. Does have some mild skin changes on right as well. Im going to continue treatment for possible R PCN site infection. The urine in both tubes is most likely colonized and he otherwise doesnt have systemic symptoms or leukocytosis. Urology is onboard. Will continue on cefepime and adjust dapto pending on culture results. # Possible Right PCN site infection mild erythema/soreness R PCN cx with Pseudomonas and E faecium # Positive UCx could represent colonization # BL PCN s/p exchange on 07/09 # H/o C diff in 06/2023 - continue cefepime 1g IV q12h - continue daptomycin 700mg IV q24h - will adjust antibiotics pending culture results - would not give long-term abx as this can promote further resistant organisms Will continue to follow. If questions or concerns, contact via [employer] or Infectious Disease Call Center . Lanette Mitchell MD [facility], Division of Infectious Diseases Consultation Information Consultation was provided via telemedicine using two-way real-time interactive telecommunication between the patient and the telemedicine provider. For the duration of the visit, the provider was performing the assessment from a different facility than the patient. This includesuse of bluetooth stethoscope forauscultationperformed by the telepresenter that the telemedicine provider can hear if described in the physical exam. Calender Worker Helper contact information: Please call ID Connect Call Center . (Phone Number For Physician Use Only) After establishing a telemedicine visit, patient was: Patient was verified with two unique identifiers, Patient/authorized rep acknowledged consent and understanding and Gave permission to continue telehealth session Time Spent with Patient: Initial => 75 min History of Present Illness Reason for Consultation: Nephrostomy tube, + wound cultures and urine Attending Physician: Jorge Ko History of Present Illness 84yo M with h/o CKD, quadriparesis, cognitive decline, C. 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 He denied any fevers, chills, abdominal pain, irritation around PCN sites. On admission, he was afebrile, vss. WBC 6.90, Cr 1.70, PCT 0.16. UA with > 50 WBC, > 20 RBC, 6-10 Epith cells, yeast. MRSA screen negative. CTAP w IV on 07/07 showed urothelial thickening in left renal pelvis redemonstrated with unchanged appearance of urinary bladder, dilation of the left ureter with caliber change and increased enhancement involving distal 3 cm of ureter extending to UVJ. He has been started on cefepime, daptomycin added with growth of E faecium. ID consulted 07/12 for assistance. On evaluation, patient does not know why he had his urine tested. He says that he feels well and does not have any pain. He says he does not make urine from below. No abdominal discomfort, vomiting. Allergies Allergy/AdvReac Type Severity Reaction Status Date / Time pollen extracts Allergy Intermediate ITCHY Verified 07/06/24 15:53 EYES, SNEEZING, CONGESTION donepezil AdvReac Intermediate Diarrhea Verified 07/06/24 15:53 Home Medications Medication Instructions Recorded Confirmed Type acetaminophen 325 mg tablet 325 mg PO Q4H PRN PAIN/FEVER 07/28/23 07/10/24 History psyllium husk 0.4 gram capsule 0.4 g PO DAILY #180 caps 09/16/23 07/10/24 Rx (Metamucil) polyethylene glycol 3350 17 17 g PO DAILY PRN Constipation 10/16/23 07/10/24 History gram/dose oral powder (Miralax) mupirocin 2 % topical ointment 1 applic topical TID #22 grams 11/11/23 07/10/24 Rx Lactobacillus acidoph-L.bulgaricus 1 tab PO TID 03/24/24 07/10/24 History 1 million cell tablet (Floranex) cholestyramine (with sugar) 4 gram 4 g PO BID 03/24/24 07/10/24 History powder for susp in a packet docusate sodium 100 mg capsule 100 mg PO DAILY PRN Constipation 03/24/24 07/10/24 History Lactobacillus acidophilus 20 20,000 mmu cells PO BID 04/21/24 07/10/24 History billion cell capsule (Florajen Acidophilus) ascorbic acid (vitamin C) 1,000 mg 1,000 mg PO DAILY 04/21/24 07/10/24 History tablet (Vitamin C) menthol 0.44 %-zinc oxide 20.6 % 1 applic topical QID PRN Skin 04/21/24 07/10/24 History topical ointment (Calmoseptine) Irritation methenamine hippurate 1 gram tablet 1 g PO DAILY 04/21/24 07/10/24 History ergocalciferol (vitamin D2) 1,250 1,250 mcg PO WK 07/06/24 07/10/24 History mcg (50,000 unit) capsule (Vitamin D2) nitrofurantoin macrocrystal 100 mg 100 mg PO HS 07/06/24 07/10/24 History capsule vancomycin 125 mg capsule 125 mg PO QAM 07/06/24 07/10/24 History cephalexin 500 mg capsule 500 mg PO Q6H 7 days #28 caps 07/07/24 07/10/24 Rx ferrous sulfate 325 mg (65 mg 325 mg PO 3XWK 07/10/24 07/10/24 History iron) tablet Patient History Medical History Sepsis due to urinary tract infection C. difficile diarrhea CKD (chronic kidney disease) Quadriparesis Prostate cancer (09/27/11) "Rising PSA, pretreatment PSA 7.44 clinical stage TIc Biopsy stage T2b [place] grade 3+2 and 3+3 Active surveillance Recheck PSA 10.2, repeat biopsy [place] 3+3, biopsy stage T2b Continued rise in PSA Status post robotic prostatectomy 07/10/2011, stage [id number] Status post completion of radiation therapy the prostate bed 12/17/2011 received 7000 cGy" Near syncope Hypokalemia Acute UTI Hematochezia Benign neoplasm of large intestine Surgical History H/O Spinal surgery H/O prostatectomy Hx of tonsillectomy Family History Mother Lung cancer Breast cancer Other Alcoholism in family Denies family history of Ovarian cancer Prostate cancer Myocardial infarction Colorectal cancer Social History Smoking Status: Never smoker Second Hand Exposure: No; Do You Dip or Chew Tobacco: No; Hx Alcohol Use: No Hx Substance Use: No Preferred Language: Mohawk Communication Ability: Effective Visual Impairment: Partially Limited Hearing Ability: Hard of Hearing 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 Beliefs That Will Affect Care: None marital status: / Current Living Situation: [facility] Current Living Situation Comment: [facility] current occupational status: retired How many Children do You have: 2 Other Information That Helps Us Care for You: No Feels Safe at Home: Yes Safety Concerns: Feels Safe At This Time Childhood Exposure to Second-Hand Smoke: Yes caffeine: Yes Dental Care, Regularly: Yes Physical Activity Frequency: 5-6 Times per Week Seatbelt Use: always Sunscreen Use: No Assistive Devices: Scooter/Electric Scooter Review of System 10-point review of systems reviewed and are negative except for as above. Physical Exam Physical Exam: General: Awake, alert, no acute distress HEENT: NC/AT, EOMI, mmm Neck: supple Lungs: respirations non-labored Heart: nl peripheral perfusion Abdomen: soft, NT/ND Back: right PCN insertion site with some crusting, very mild erythema Ext: no LE edema Skin: no rash Neuro: moving all extremities Results & Data Vital Signs (Past 12 Hours) Vital Signs Temp Pulse Resp BP Pulse Ox O2 Del Method 07/12/24 07:25 36.7 C 67 16 130/77 96 Room Air Laboratory Results Labs reviewed. Diagnostic Findings Imaging reviewed.
[2024-07-12 09:13] LABS: Hematocrit (blood only) 33.8 % (42.0-52.0); Hemoglobin 10.7 g/dl (14.0-18.0); Mean Corpuscular Hemoglobin 27.1 pg (25.0-34.0); Mean Corpuscular Hgb Conc 31.7 g/dL (32.0-36.0); Mean Corpuscular Volume 85.6 fL (80.0-100.0); Mean Platelet Volume 8.6 fL (9.4-12.4); Platelet Count 356 K/uL (130-400); RDW Coefficient of Variation 15.1 % (11.5-14.5); RDW Standard Deviation 47.8 fL (36.4-46.3); Red Blood Count 3.95 M/uL (4.70-6.10); White Blood Count 5.03 K/ul (4.8-10.8)
[2024-07-12 09:29] LABS: BUN Creatinine Ratio 13.4 (10-20); C Reactive Protein 2.42 mg/dl (0-0.5); Calcium 8.5 mg/dl (8.6-10.3); Creatinine Clr Calc Pharmacy 37.7 ml/min; Potassium 3.6 mmol/L (3.5-5.1)
--- NOTE | 2024-07-12 22:26 | Hospitalist Progress Note ---
Date of Service July 12, 2024 Assessment & Plan (1) Pseudomonas infection: (2) History of insertion of nephrostomy tube: (3) Catheter-associated urinary tract infection: (4) Cervical cord myelomalacia: (5) Acute kidney injury superimposed on CKD: Plan The patient is a 84-year-old male with a past medical history including catheter associated UTI, sepsis due to UTI, STEVE on CKD, C. difficile diarrhea, hypertension, hyperlipidemia, cervical cord myelomalacia, cognitive decline, and quadriparesis. Called to come in due to positive wound cultures with resistance. 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 coli and Pseudomonas aeruginosa - admission from 02/15-03/02/2024 treated with meropenem 500 mg IV every 8 hours for 10 days - Recently seen by urology on 07/07 in the ED with urine cultures positive for Pseudomonas sent home on cephalexin for 7 days. - [facility] interventional radiology note dated 07/09/2024. Patient had nephrostomy tube exchange performed to bilateral neph tubes. - Facility received given a call on 07/10 saying patient had positive wound cultures and should be admitted for IV antibiotics. - Urine cultures on 07/06 grew Pseudomonas with sensitivities to levofloxacin and amikacin, intermediate resistance to ciprofloxacin and aztreonam - Wound cultures grew Pseudomonas with resistant to ciprofloxacin and levofloxacin. - CBC without leukocytosis, lactate negative, CMP with a creatinine of 1.7, Pro- Niko negative. - UA grossly positive for infection. - Started on cefepime in the ED. Will continue at this time. - Urine and blood cultures collected and pending. No signs of sepsis at this time. - Consult urology and infectious disease. Appreciate recommendations. - will continue antibiotics as state above. - awaiting cultures. appreciate input from ID. #Acute kidney injury superimposed on CKD- - Creatinine remains at 1.7, with base 1.28 - recheck laboratories in the a.m. #Cervical cord myelomalacia/quadriparesis- - Usual supportive medications Nutrition: Renal Code status: DNR/DNI DVT ppx: Lovenox Consults: Urology and infectious disease Dispo: med/surg, For eventual return to [facility] Admission and Anticipated Discharge Date Admission Date: July 10, 2024 Subjective Patient reports no new symptoms. Physical Exam Physical Exam: Constitutional: well-appearing, no acute distress, hard of hearing CV: regular rhythm, no murmur appreciated, extremities well-perfused, no LE edema Resp: CTABL, no wheezes/rales/rhonchi appreciated, no increased work of breathing GI: soft, nondistended, nontender, BS normoactive Skin: warm, dry, no rash appreciated. Bilateral nephrostomy tubes in place without surrounding erythema or warmth, draining yellow urine Results & Data Results & Data Vital Signs (Past 12 Hours) Vital Signs Temp Pulse Resp BP Pulse Ox O2 Del Method 07/12/24 19:32 36.6 C 70 18 123/71 98 Room Air 07/12/24 14:41 36.7 C 68 16 117/67 98 Room Air PG Care Time/CCT Total # of Minutes Spent Total Time Spent with Patient: Total time spent is greater than 50% in coordination of care (as documented) at patient's floor/unit and/or counseling patient: Coding Level of Care Code 78050 SUB INP/OBS CARE 2/35MIN Diagnoses Pseudomonas infection A49.8 History of insertion of nephrostomy tube Z98.890 Catheter-associated urinary tract infection T83.511A; N39.0 Cervical cord myelomalacia G95.89 Acute kidney injury superimposed on CKD N17.9; N18.9
--- NOTE | 2024-07-13 11:06 | Infectious Disease Progress Nt ---
Date of Service July 13, 2024 Assessment & Plan (1) Pseudomonas infection: (2) History of insertion of nephrostomy tube: (3) Acute kidney injury superimposed on CKD: Plan 84yo M with h/o CKD, quadriparesis, cognitive decline, C. 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 He denied any fevers, chills, abdominal pain, irritation around PCN sites. On admission, he was afebrile, vss. WBC 6.90, Cr 1.70, PCT 0.16. UA with > 50 WBC, > 20 RBC, 6-10 Epith cells, yeast. UCx with PsA and E faecium. WCX from R PCN site with PsA 2 types. MRSA screen negative. CTAP w IV on 07/07 showed urothelial thickening in left renal pelvis redemonstrated with unchanged appearance of urinary bladder, dilation of the left ureter with caliber change and increased enhancement involving distal 3 cm of ureter extending to UVJ. He has been started on cefepime, daptomycin added with growth of E faecium. ID consulted 07/12 for assistance. Patient did not have any complaints, however he did note some soreness on the right back, which was initially near PCN site, but when reassessed again, it was over right pelvis. Does have some mild skin changes on right as well. Plan to continue treatment for possible R PCN site infection. Urology is onboard. PCNs just recently exchanged on 07/09. Will continue on cefepime and change daptomycin to linezolid. # Possible Right PCN site infection mild erythema/soreness R PCN cx with Pseudomonas and E faecium # BL PCN s/p exchange on 07/09 # H/o C diff in 06/2023 - Theresa changed daptomycin to linezolid 600mg PO bid - Theresa increased dose of cefepime to 2g IV q12h (CrCl 37) - would treat for a duration of 7 days, (start 07/11, end through 07/17) - please note PCNs will be colonized and UA/urine cultures should not be tested unless patient has symptoms c/f UTI (flank pain, fevers, etc). Would also avoid prophylaxis regimens as this can precipitate further resistance/complications and is generally not recommended in in patients with catheters Will discontinue active follow up at this time. Please do not hesitate to reconsult the Infectious Diseases service as needed. Lanette Mitchell MD [facility], Division of Infectious Diseases [facility]Connect: [phone] Admission and Anticipated Discharge Date Admission Date: July 10, 2024 Subjective This patient recommendation is based on a telemedicine consult request which was completed asynchronously through chart review and information provided by the primary physician. The patient was not seen or examined today. The evaluation is consultative in nature and all patient care and treatment decisions can either be accepted or rejected by the patient's primary hospital-based treating physician using their own independent medical judgment for their patient. Time Spent Reviewing Chart: 31+ minutes Afebrile. Results & Data Vital Signs (Past 12 Hours) Vital Signs Temp Pulse Resp BP Pulse Ox O2 Del Method 07/13/24 07:46 36.8 C 61 16 127/75 98 Room Air 07/13/24 07:35 Room Air Laboratory Results Labs reviewed.
[2024-07-13] MEDS: CEFEPIME 2000MG 2,000 MG/20 ML SYR IV SCH (12:27)
[2024-07-13] MEDS: LINEZOLID 600 MG TAB PO SCH (12:27)
[2024-07-13 21:26] LABS: Hematocrit (blood only) 35.4 % (42.0-52.0); Hemoglobin 11.4 g/dl (14.0-18.0); Mean Corpuscular Hemoglobin 27.8 pg (25.0-34.0); Mean Corpuscular Hgb Conc 32.2 g/dL (32.0-36.0); Mean Corpuscular Volume 86.3 fL (80.0-100.0); Mean Platelet Volume 8.8 fL (9.4-12.4); Platelet Count 398 K/uL (130-400); RDW Coefficient of Variation 15.3 % (11.5-14.5); RDW Standard Deviation 48.9 fL (36.4-46.3); White Blood Count 8.46 K/ul (4.8-10.8)
--- NOTE | 2024-07-13 22:02 | Hospitalist Progress Note ---
Date of Service July 13, 2024 Assessment & Plan (1) Pseudomonas infection: (2) History of insertion of nephrostomy tube: (3) Catheter-associated urinary tract infection: (4) Cervical cord myelomalacia: (5) Acute kidney injury superimposed on CKD: Plan The patient is a 84-year-old male with a past medical history including catheter associated UTI, sepsis due to UTI, STEVE on CKD, C. difficile diarrhea, hypertension, hyperlipidemia, cervical cord myelomalacia, cognitive decline, and quadriparesis. Called to come in due to positive wound cultures with resistance. 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 coli and Pseudomonas aeruginosa - admission from 02/15-03/02/2024 treated with meropenem 500 mg IV every 8 hours for 10 days - Recently seen by urology on 07/07 in the ED with urine cultures positive for Pseudomonas sent home on cephalexin for 7 days. - [facility] interventional radiology note dated 07/09/2024. Patient had nephrostomy tube exchange performed to bilateral neph tubes. - Facility received given a call on 07/10 saying patient had positive wound cultures and should be admitted for IV antibiotics. - Urine cultures on 07/06 grew Pseudomonas with sensitivities to levofloxacin and amikacin, intermediate resistance to ciprofloxacin and aztreonam - Wound cultures grew Pseudomonas with resistant to ciprofloxacin and levofloxacin. - CBC without leukocytosis, lactate negative, CMP with a creatinine of 1.7, Pro- Niko negative. - UA grossly positive for infection. - Started on cefepime in the ED. Will continue at this time. - Urine and blood cultures collected and pending. No signs of sepsis at this time. - Consult urology and infectious disease. Appreciate recommendations. -will remain in hospital for complete cours eof IV anrtibiotics as unable to set up outpatient. WIll require 7 days of treatment. disciussed with ID and case management . appreciate input from ID. #Acute kidney injury superimposed on CKD- - Creatinine remains at 1.7, with base 1.28 - recheck laboratories in the a.m. #Cervical cord myelomalacia/quadriparesis- - Usual supportive medications Nutrition: Renal Code status: DNR/DNI DVT ppx: Lovenox Consults: Urology and infectious disease Dispo: med/surg, For eventual return to [facility] Admission and Anticipated Discharge Date Admission Date: July 10, 2024 Subjective Patient reports no new symptoms. Physical Exam Physical Exam: Constitutional: well-appearing, no acute distress, hard of hearing CV: regular rhythm, no murmur appreciated, extremities well-perfused, no LE edema Resp: CTABL, no wheezes/rales/rhonchi appreciated, no increased work of breathing GI: soft, nondistended, nontender, BS normoactive Skin: warm, dry, no rash appreciated. Bilateral nephrostomy tubes in place without surrounding erythema or warmth, draining yellow urine Results & Data Results & Data Vital Signs (Past 12 Hours) Vital Signs Temp Pulse Resp BP Pulse Ox O2 Del Method 07/13/24 19:43 36.7 C 75 16 117/70 98 Room Air 07/13/24 16:09 37.0 C 75 18 122/70 98 Room Air PG Care Time/CCT Total # of Minutes Spent Total Time Spent with Patient: Total time spent is greater than 50% in coordination of care (as documented) at patient's floor/unit and/or counseling patient: Coding Level of Care Code 68911 SUB INP/OBS CARE 3/50MIN Diagnoses Pseudomonas infection A49.8 History of insertion of nephrostomy tube Z98.890 Catheter-associated urinary tract infection T83.511A; N39.0 Cervical cord myelomalacia G95.89 Acute kidney injury superimposed on CKD N17.9; N18.9
[2024-07-13 23:00] LABS: BUN Creatinine Ratio 12.5 (10-20); C Reactive Protein 1.14 mg/dl (0-0.5); Calcium 8.5 mg/dl (8.6-10.3); Potassium 3.8 mmol/L (3.5-5.1)
[2024-07-14] MEDS: ONDANSETRON INJ 2 MG/ML 2 ML VIAL IV PRN (06:29)
--- NOTE | 2024-07-14 22:49 | Hospitalist Progress Note ---
Date of Service July 14, 2024 Assessment & Plan (1) Pseudomonas infection: (2) History of insertion of nephrostomy tube: (3) Catheter-associated urinary tract infection: (4) Cervical cord myelomalacia: (5) Acute kidney injury superimposed on CKD: Plan The patient is a 84-year-old male with a past medical history including catheter associated UTI, sepsis due to UTI, STEVE on CKD, C. difficile diarrhea, hypertension, hyperlipidemia, cervical cord myelomalacia, cognitive decline, and quadriparesis. Called to come in due to positive wound cultures with resistance. 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 coli and Pseudomonas aeruginosa - admission from 02/15-03/02/2024 treated with meropenem 500 mg IV every 8 hours for 10 days - Recently seen by urology on 07/07 in the ED with urine cultures positive for Pseudomonas sent home on cephalexin for 7 days. - [facility]24. Patient had nephrostomy tube exchange performed to bilateral neph tubes. - Facility received given a call on 07/10 saying patient had positive wound cultures and should be admitted for IV antibiotics. - Urine cultures on 07/06 grew Pseudomonas with sensitivities to levofloxacin and amikacin, intermediate resistance to ciprofloxacin and aztreonam - Wound cultures grew Pseudomonas with resistant to ciprofloxacin and levofloxacin. - CBC without leukocytosis, lactate negative, CMP with a creatinine of 1.7, Pro- Niko negative. - UA grossly positive for infection. - Started on cefepime in the ED. Will continue at this time. - Urine and blood cultures collected and pending. No signs of sepsis at this time. - Consult urology and infectious disease. Appreciate recommendations. -will remain in hospital for complete course of IV anrtibiotics as unable to set up outpatient. WIll require 7 days of treatment. disciussed with ID and case management . appreciate input from ID. -vitals remain stable, WBC stable #Acute kidney injury superimposed on CKD- - Creatinine improved to baseine, with base 1.28 - recheck laboratories in the a.m. #Cervical cord myelomalacia/quadriparesis- - Usual supportive medications Nutrition: Renal Code status: DNR/DNI DVT ppx: Lovenox Consults: Urology and infectious disease Dispo: med/surg, [facility] Admission and Anticipated Discharge Date Admission Date: July 10, 2024 Subjective Patient resting comfortably. No new symptoms. Physical Exam Physical Exam: Constitutional: well-appearing, no acute distress, hard of hearing CV: regular rhythm, no murmur appreciated, extremities well-perfused, no LE edema Resp: CTABL, no wheezes/rales/rhonchi appreciated, no increased work of breathing GI: soft, nondistended, nontender, BS normoactive Skin: warm, dry, no rash appreciated. Bilateral nephrostomy tubes in place without surrounding erythema or warmth, draining yellow urine Results & Data Results & Data Vital Signs (Past 12 Hours) Vital Signs Temp Pulse Resp BP BP Pulse Ox O2 Del Method 07/14/24 20:16 36.7 C 74 16 128/80 95 Room Air 07/14/24 15:43 36.3 C L 70 16 116/61 98 Room Air 07/14/24 13:05 36.5 C 69 16 101/67 98 Room Air PG Care Time/CCT Total # of Minutes Spent Total Time Spent with Patient: Total time spent is greater than 50% in coordination of care (as documented) at patient's floor/unit and/or counseling patient: Coding Level of Care Code 12165 SUB INP/OBS CARE 2/35MIN Diagnoses Pseudomonas infection A49.8 History of insertion of nephrostomy tube Z98.890 Catheter-associated urinary tract infection T83.511A; N39.0 Cervical cord myelomalacia G95.89 Acute kidney injury superimposed on CKD N17.9; N18.9
--- NOTE | 2024-07-15 12:45 | Hospitalist Progress Note ---
Date of Service July 15, 2024 Assessment & Plan (1) Infection associated with nephrostomy catheter: (2) Catheter-associated urinary tract infection: (3) Pseudomonas infection: (4) History of insertion of nephrostomy tube: (5) Cervical cord myelomalacia: (6) Acute kidney injury superimposed on CKD: Plan The patient is a 84-year-old male with a past medical history including catheter associated UTI, sepsis due to UTI, STEVE on CKD, C. difficile diarrhea, hypertension, hyperlipidemia, cervical cord myelomalacia, cognitive decline, and quadriparesis. Called to come in due to positive wound cultures with resistance. #Nephrostomy tube site infection - History of E. coli and Pseudomonas aeruginosa infections. No history of ESBL per review of urine cultures here, as cefepime has been sensitive - Recently seen in the ED on 07/06, 07/07 for concern of nephrostomy tube infection. UA and urine culture results were discussed with ID at that time and felt to be colonization instead of infection. He was sent home on cephalexin for 7 days for nephrostomy tube infection - Recently had bilateral nephrostomy tube exchange with [facility] IR on 07/09. On 07/10, he received a call that his tissue culture was positive and he needed IV antibiotics. Tissue culture grew Pseudomonas with resistant to ciprofloxacin and levofloxacin - Blood cultures negative. R PCN culture with Pseudomonas and E faecium - Infectious disease consulted for right PCN site infection -continue cefepime 2 g IV Q12H, linezolid 600 mg p.o. BID through 07/17 #Acute kidney injury superimposed on CKD - Baseline Cr 1.28, STEVE now resolved #Cervical cord myelomalacia/quadriparesis - Usual supportive medications Code status: DNR/DNI DVT ppx: Lovenox Dispo: Antibiotics will finish on 07/17, then hopefully he can return to [facility] Reviewed outpatient records, reports, cultures Admission and Anticipated Discharge Date Admission Date: July 10, 2024 Subjective Patient seen and evaluated at bedside. He reports "I'm doing pretty well today actually. My spirits are high." He states that last night was the first time this hospital stay that he slept through the whole night. He reports his appetite is strong. He denies any acute complaints or concerns at this time. [facility]. Physical Exam Physical Exam: General: No acute distress, nondiaphoretic, well-developed, well-nourished. Very hard of hearing. Skin: Bilateral nephrostomy tubes in place without surrounding erythema or warmth, draining yellow urine. Cardiac: Regular rate and rhythm without murmurs gallops or rubs. Pulm: Clear to auscultation bilaterally without wheezes, rales or rhonchi. Normal respiratory effort. 97% on room air. Abdominal: Soft, nontender, nondistended. Bowel sounds present. Neuro: A&O x3. No focal neurological deficits. Results & Data Results & Data Vital Signs (Past 12 Hours) Vital Signs Temp Pulse Resp BP Pulse Ox O2 Del Method 07/15/24 11:13 Room Air 07/15/24 08:13 97.7 F 65 18 113/66 95 Room Air 07/15/24 08:03 97.7 F 82 18 PG Care Time/CCT Total # of Minutes Spent Total Time Spent with Patient: Total time spent is greater than 50% in coordination of care (as documented) at patient's floor/unit and/or counseling patient: Coding Level of Care Code 46256 SUB INP/OBS CARE 2/35MIN Diagnoses Infection associated with nephrostomy catheter T83.512A Catheter-associated urinary tract infection T83.511A; N39.0 Pseudomonas infection A49.8 History of insertion of nephrostomy tube Z98.890 Cervical cord myelomalacia G95.89 Acute kidney injury superimposed on CKD N17.9; N18.9
--- NOTE | 2024-07-16 08:12 | Hospitalist Progress Note ---
Date of Service July 16, 2024 Assessment & Plan (1) Infection associated with nephrostomy catheter: (2) Catheter-associated urinary tract infection: (3) Pseudomonas infection: (4) History of insertion of nephrostomy tube: (5) Cervical cord myelomalacia: (6) Acute kidney injury superimposed on CKD: Plan The patient is a 84-year-old male with a past medical history including catheter associated UTI, sepsis due to UTI, STEVE on CKD, C. difficile diarrhea, hypertension, hyperlipidemia, cervical cord myelomalacia, cognitive decline, and quadriparesis. Called to come in due to positive wound cultures with resistance. #Nephrostomy tube site infection - History of E. coli and Pseudomonas aeruginosa infections. No history of ESBL per review of urine cultures here, as cefepime has been sensitive - Recently seen in the ED on 07/06, 07/07 for concern of nephrostomy tube infection. UA and urine culture results were discussed with ID at that time and felt to be colonization instead of infection. He was sent home on cephalexin for 7 days for nephrostomy tube infection - Recently had bilateral nephrostomy tube exchange with [facility] IR on 07/09. On 07/10, he received a call that his tissue culture was positive and he needed IV antibiotics. Tissue culture grew Pseudomonas with resistant to ciprofloxacin and levofloxacin - Blood cultures negative. R PCN culture with Pseudomonas and E faecium - Infectious disease consulted for right PCN site infection -continue cefepime 2 g IV Q12H, linezolid 600 mg p.o. BID through 07/17 #Acute kidney injury superimposed on CKD - Baseline Cr 1.28, STEVE now resolved #Cervical cord myelomalacia/quadriparesis - Usual supportive medications Code status: DNR/DNI DVT ppx: Lovenox Dispo: Antibiotics will finish on 07/17, then will return [facility] Discussed discharge planning with case management Admission and Anticipated Discharge Date Admission Date: July 10, 2024 Subjective Patient seen and evaluated at bedside. He reports feeling well overall. He reports he had another good night of sleep and his appetite remains strong, noting he ate most of his breakfast and all of his lunch. We discussed the plan of hopeful return to [facility] tomorrow after completion of his antibiotics. He denies any complaints, concerns, or needs at this time. Physical Exam Physical Exam: General: No acute distress, nondiaphoretic, well-developed, well-nourished. Very hard of hearing. Skin: Bilateral nephrostomy tubes in place without surrounding erythema or warmth, draining yellow urine. Cardiac: Regular rate and rhythm without murmurs gallops or rubs. Pulm: Clear to auscultation bilaterally without wheezes, rales or rhonchi. Normal respiratory effort. 97% on room air. Abdominal: Soft, nontender, nondistended. Bowel sounds present. Neuro: A&O x3. No focal neurological deficits. Results & Data Results & Data Vital Signs (Past 12 Hours) Vital Signs Temp Pulse Resp BP Pulse Ox O2 Del Method 07/16/24 07:48 97.7 F 69 16 133/67 99 Room Air 07/15/24 21:30 Room Air PG Care Time/CCT Total # of Minutes Spent Total Time Spent with Patient: Total time spent is greater than 50% in coordination of care (as documented) at patient's floor/unit and/or counseling patient: Coding Level of Care Code 99259 SUB INP/OBS CARE 2/35MIN Diagnoses Infection associated with nephrostomy catheter T83.512A Catheter-associated urinary tract infection T83.511A; N39.0 Pseudomonas infection A49.8 History of insertion of nephrostomy tube Z98.890 Cervical cord myelomalacia G95.89 Acute kidney injury superimposed on CKD N17.9; N18.9
[2024-07-16 13:36] VITALS: O2SAT 97
[2024-07-17 08:01] VITALS: RESP 18; TEMP 97.9
--- NOTE | 2024-07-17 10:39 | Discharge Summary ---
Discharge Summary Date of Service July 17, 2024 Principal Dx & Hospital Course #1 = Principal Diagnosis (1) Infection associated with nephrostomy catheter: (2) Catheter-associated urinary tract infection: (3) Pseudomonas infection: (4) History of insertion of nephrostomy tube: (5) Cervical cord myelomalacia: (6) Acute kidney injury superimposed on CKD: Plan The patient is a 84-year-old male with a past medical history including catheter associated UTI, sepsis due to UTI, STEVE on CKD, C. difficile diarrhea, hypertension, hyperlipidemia, cervical cord myelomalacia, cognitive decline, and quadriparesis. Called to come in due to positive wound cultures with resistance. #Nephrostomy tube site infection - History of E. coli and Pseudomonas aeruginosa infections. No history of ESBL per review of urine cultures here, as cefepime has been sensitive - Recently seen in the ED on 07/06, 07/07 for concern of nephrostomy tube infection. UA and urine culture results were discussed with ID at that time and felt to be colonization instead of infection. He was sent home on cephalexin for 7 days for nephrostomy tube infection - Recently had bilateral nephrostomy tube exchange with [facility] IR on 07/09. On 07/10, he received a call that his tissue culture was positive and he needed IV antibiotics. Tissue culture grew Pseudomonas with resistant to ciprofloxacin and levofloxacin - Blood cultures negative. R PCN culture with Pseudomonas and E faecium - Infectious disease consulted for right PCN site infection - completed course of cefepime 2 g IV Q12H, linezolid 600 mg p.o. BID on 07/17. No further antibiotics needed at this time. Please note PCNs will be colonized and UA/urine cultures should not be tested unless patient has symptoms c/f UTI (flank pain, fevers, etc). Would also avoid prophylaxis regimens as this can precipitate further resistance/complications and is generally not recommended in in patients with catheters #Acute kidney injury superimposed on CKD - Baseline Cr 1.28, STEVE now resolved #Cervical cord myelomalacia/quadriparesis - Usual supportive medications Code status: DNR/DNI DVT ppx: Lovenox Dispo: Returned to [place] 07/17 Admission HPI Per Admitting Provider The patient is a 84-year-old male with a past medical history including catheter associated UTI, sepsis due to UTI, STEVE on CKD, C. difficile diarrhea, hypertension, hyperlipidemia, cervical cord myelomalacia, cognitive decline, and quadriparesis. He was recently seen at [facility] ED on 07/07 by ED and neurology. It was decided that nephrostomy tubes were in place and draining well and started on Keflex. He was then set up with IR in [place] and had repositioning of nephrostomy tubes on 07/09. He then returned home to [facility]. Facility received a call today that he should return to the ED and be admitted to the hospital due to positive wound cultures. Patient denies any complaints at this time. He denies any fevers or chills. Denies any abdominal pain. Denies any irritation around nephrostomy tubes. Denies any headache, shortness of breath, or chest pain. Discharge Exam General: No acute distress, nondiaphoretic, well-developed, well-nourished. Very hard of hearing. Skin: Bilateral nephrostomy tubes in place without surrounding erythema or warmth, draining yellow urine. Cardiac: Regular rate and rhythm without murmurs gallops or rubs. Pulm: Clear to auscultation bilaterally without wheezes, rales or rhonchi. Normal respiratory effort. 97% on room air. Abdominal: Soft, nontender, nondistended. Bowel sounds present. Neuro: A&O x3. No focal neurological deficits. Discharge Plan Discharge Items Patient Disposition: Personal Shelter Reason For Visit: STEVE; ABNORMAL CULTURES Discharge Diagnosis: Nephrostomy tube site infection Activity: Resume your previous activity Non-emergency contact: Primary Care Provider Call non-emergency contact if: you have any medication questions and your symptoms worsen Follow-up/Referrals: Jimbo Morgan MD [Primary Care Provider] - (Follow-up in 1-2 weeks) Diet: Regular Addtl Attending Provider Instructions: Mr. Thornton, You were admitted to the hospital due to a percutaneous nephrostomy site infection. You were treated with IV antibiotics while hospitalized and completed this course, so no further antibiotics are needed on discharge. Your blood cultures were negative for a bloodstream infection. There been no changes to your home medications. You can follow-up with your PCP in 1-2 weeks. Continue therapy as scheduled at [facility]. It was a pleasure taking care of you while you were in the hospital! Addtl Palliative Medicine Physician Provider Instructions: From Infectious Disease: Please note percutaneous nephrostomy tubes will be colonized and UA/urine cultures should not be tested unless patient has symptoms c/f UTI (flank pain, fevers, etc). Would also avoid prophylaxis regimens as this can precipitate further resistance/complications and is generally not recommended in in patients with catheters. Pending Studies at Discharge: No Stand-Alone Forms: My [employer], Smoking Cessation Skilled Items Patient informed of condition?: Yes DNR: Yes Discharge Level of Care: Other Communicable Disease: No Discharge Prognosis: Stable Lines: None Urinary Catheter: No Medications and DC Order Prescriptions: Continued psyllium husk [Metamucil] 0.4 gram capsule 0.4 g PO DAILY Qty: 180 3RF acetaminophen 325 mg tablet 325 mg PO Q4H MDD 3 GRAMS APAP/24 HOURS PRN (Reason: PAIN/FEVER) mupirocin 2 % ointment 1 applic topical TID Qty: 22 0RF Rx Instructions: Apply to cellulitis of right nephrostomy tube site. docusate sodium 100 mg Capsule 100 mg PO DAILY PRN (Reason: Constipation) cholestyramine (with sugar) 4 gram Powder In Packet 4 g PO BID Rx Instructions: administer w/meal; avoid other meds within 1hr before or 4-6hr after dose Lactobacillus acidoph-L.bulgar [Floranex] 1 million cell Tablet 1 tab PO TID ascorbic acid (vitamin C) [Vitamin C] 1,000 mg Tablet 1,000 mg PO DAILY methenamine hippurate 1 gram Tablet 1 g PO DAILY menthol-zinc oxide [Calmoseptine] 0.44-20.6 % Ointment 1 applic TOPICAL QID PRN (Reason: Skin Irritation) Florajen Acidophilus 20 billion cell Capsule 20,000 mmu cells PO BID ferrous sulfate 325 mg (65 mg iron) tablet 325 mg PO 3XWK Rx Instructions: Mon/Wed/Fri polyethylene glycol 3350 [Miralax] 17 gram/dose Powder 17 g PO DAILY PRN (Reason: Constipation) nitrofurantoin macrocrystal [Macrodantin] 100 mg Capsule 100 mg PO HS Rx Instructions: must administer with a meal/food ergocalciferol (vitamin D2) [Vitamin D2] 1,250 mcg (50,000 unit) Capsule 1,250 mcg PO WK Discontinued cephalexin 500 mg capsule 500 mg PO Q6H 7 Days Qty: 28 0RF Rx Instructions: Start Date 07/08/24 - End Date 07/16/24 vancomycin 125 mg capsule 125 mg PO QAM Discharge Orders: Discharge Order (Routine); Ordered 07/17/24 Ordered By: Nichol Morin Admission Data Admit Date/Time: 07/10/24 15:02 Attending Provider: Wil Miller Admit Provider: Matthew Durán Primary Care Provider: Jimbo Morgan Other Providers: Luis Hernandez Hospital Stay Data Consultations 07/10/24 13:48 ED Decision to Admit Stat 07/10/24 17:51 Consult Infectious Diseases Routine Consult Urology Routine Pending Results Patient Have Any Pending Studies at Discharge: No Discharge Instructions Given to Patient (Per Discharging Provider) Jeremias Salmon were admitted to the hospital due to a percutaneous nephrostomy site infection. You were treated with IV antibiotics while hospitalized and completed this course, so no further antibiotics are needed on discharge. Your blood cultures were negative for a bloodstream infection. There been no changes to your home medications. You can follow-up with your PCP in 1-2 weeks. Continue therapy as scheduled at [facility]. It was a pleasure taking care of you while you were in the hospital! Total Time Total Time Spent Total Time Spent (In Minutes): Greater than 30 minutes spent completing this discharge process including direct patient care, medication reconciliation, documentation, review of labs and images, and coordination of care. Coding Level of Care Code 72354 INP/OBS DISCH >30 MIN Diagnoses Infection associated with nephrostomy catheter T83.512A Catheter-associated urinary tract infection T83.511A; N39.0 Pseudomonas infection A49.8 History of insertion of nephrostomy tube Z98.890 Cervical cord myelomalacia G95.89 Acute kidney injury superimposed on CKD N17.9; N18.9
[2024-07-17 12:43] VITALS: BP 115/68; PULSE 66
== END 2024-07-17 14:00 | disposition home or self-care (01) | DRG 698 ==
LOC: ED 11:41 → 3E 15:02 → SUATTDRO 15:02 → 3E 16:53
DX: N13.30 Unspecified hydronephrosis; N18.9 Chronic kidney disease, unspecified; I12.9 Hypertensive chronic kidney disease with stage 1 through stage 4 chronic kidney disease, or unspecified chronic kidney disease; G31.9 Degenerative disease of nervous system, unspecified; Z66 Do not resuscitate; Y74.2 Prosthetic and other implants, materials and accessory general hospital and personal-use devices associated with adverse incidents; N32.0 Bladder-neck obstruction; Z88.8 Allergy status to other drugs, medicaments and biological substances; E46 Unspecified protein-calorie malnutrition; Z93.6 Other artificial openings of urinary tract status; T83.512A Infection and inflammatory reaction due to nephrostomy catheter, initial encounter; T83.022A Displacement of nephrostomy catheter, initial encounter; L08.9 Local infection of the skin and subcutaneous tissue, unspecified; N17.9 Acute kidney failure, unspecified; Z22.39 Carrier of other specified bacterial diseases; Z91.048 Other nonmedicinal substance allergy status; T83.128A Displacement of other urinary devices and implants, initial encounter; G82.50 Quadriplegia, unspecified; Y92.89 Other specified places as the place of occurrence of the external cause; Z79.2 Long term (current) use of antibiotics; G95.89 Other specified diseases of spinal cord; B96.5 Pseudomonas (aeruginosa) (mallei) (pseudomallei) as the cause of diseases classified elsewhere